=== PATIENT | female | born 1945 | race Caucasian/White ===

== ENCOUNTER → 2018-06-15 15:09 | Outpatient (CLI) | payer OTHER, SELFPAY ==
--- NOTE | 2018-06-15 15:15 | XR_ITS ---
XR foot RT min 3V HISTORY: Pain and swelling laterally following injury ITS.REASON: RT FOOT PAIN ORDERING PHYSICIAN: Annalee Garcia MD PATIENT AGE: 73 years COMPARISON: None FINDINGS: No acute fracture or dislocation. There is a mildly prominent bone spur of the calcaneus at 8 mm. Osteoarthritic changes are present at the first metatarsal tarsal joint. There is metatarsus varus with osteoarthritic changes of the second third and fourth metatarsal tarsal joints. IMPRESSION: 1. No acute fracture. 2. Osteoarthritic change with metatarsus varus
== END ==
PROVIDERS: PCP Family Medicine; Visit Provider Family Medicine
DX: M79.671 Pain in right foot (principal)
CPT/HCPCS: 73630

== ENCOUNTER → 2021-02-15 09:53 | Outpatient (CLI) | payer MEDICARE, SELFPAY ==
--- NOTE | 2021-02-15 09:59 | MM_ITS ---
PROCEDURE INFORMATION: Exam: MG Bilateral Screening 3D Mammography Exam date and time: 02/15/2021 9:59 AM Age: 75 years old Clinical indication: Screening mammogram TECHNIQUE: Imaging protocol: Bilateral screening tomosynthesis and 2D mammography including computer-aided detection (CAD) when performed. COMPARISON: No relevant prior studies available. FINDINGS: MAMMOGRAPHY: Breast composition: There are scattered areas of fibroglandular density. Mass: None. Architectural distortion: No new or suspicious architectural distortion. Calcifications: Stable benign-appearing calcifications are present. No new or suspicious cluster of microcalcifications have developed. Asymmetric density: No new or suspicious asymmetric density is present Skin thickening: None. Axillary adenopathy: None. IMPRESSION: No mammographic evidence of malignancy. Recommend annual screening mammography unless otherwise clinically indicated. ASSESSMENT: BI-RADS category 2: Benign
== END ==
PROVIDERS: PCP Family Medicine; Visit Provider Family Medicine
DX: Z12.31 Encounter for screening mammogram for malignant neoplasm of breast (principal)
CPT/HCPCS: 77063; 77067

== ENCOUNTER 2023-10-09 11:52 | Observation (INO) | payer MEDICARE, SELFPAY ==
[2023-10-09] VITALS (13 sets, daily range): BP systolic 125–166; BP diastolic 54–77; PULSE 73–101; RESP 13–20; TEMP 36.6–36.9; O2SAT 96–99; BMI 32.0; BMI 31.6
--- NOTE | 2023-10-09 11:59 | PC.NURSE ---
Calling TEREZA Garcia's office to obtain recent labs as pt states they were told to report to the ER d/t high potassium. Their office is faxing these results, states potassium is 6.2
--- NOTE | 2023-10-09 12:09 | ECG_ITS ---
APPROVED REPORT Exam: Resting ECG HR:77 bpm ECG Measurements Heart Rate 77 AXES FL 160 P 32 QRSd 82 QRS -23 QT 351 T 71 QTc 382 Conclusion SINUS RHYTHM WITH SINUS ARRHYTHMIA LOW QRS VOLTAGE [QRS DEFLECTION < 0.5/1.0 mV IN LIMB/CHEST LEADS] ANTEROSEPTAL MYOCARDIAL INFARCTION , OF INDETERMINATE AGE [40+ ms Q WAVE IN V1-V4] ABNORMAL ECG UNCONFIRMED REPORT Electronically signed by : NOEL IBANEZ, 10/09/2023 16:27:58
[2023-10-09 12:32] LABS: Alanine Aminotransferase 24 U/L (12-78); Albumin Level 4.6 g/dl (3.5-5.0); Albumin/Globulin Ratio 1.5 (1.1-1.8); Alkaline Phosphatase 63 U/L (38-126); Anion Gap 14.7 mEq/L (5-15); Aspartate Amino Transferase 29 U/L (14-36); Bilirubin,Total 0.5 mg/dl (0.2-1.3); Blood Urea Nitrogen 38 mg/dl (7-17); Calcium 9.4 mg/dl (8.4-10.2); Carbon Dioxide 19 mmol/L (22.0-30.0); Chloride 109 mmol/L (98-107); Creatinine Clearance Estimated 34 mL/min (50-200); Estimated Glomerular Filt Rate 29 ml/min (>60); GFR (African American) 35 ML/MIN (>60); Globulin 3.1 g/dL (1.3-3.2); Glucose 155 mg/dl (74-100); Potassium 5.7 mmoL/L (3.5-5.1); Sodium 137 mmol/L (136-145); Total Protein,Serum 7.7 g/dl (6.3-8.2)
[2023-10-09 12:34] LABS: Basophils # 0.1 K/mm3 (0-0.2); Basophils % 0.8 % (0.1-2.0); Eosinophils # 0.1 K/mm3 (0.0-0.4); Eosinophils % 1.3 % (0.1-12.0); Hematocrit 38.4 % (37.0-47.0); Hemoglobin 12.8 g/dL (12.2-16.2); Lymphocytes # 1.9 K/mm3 (0.7-4.5); Mean Corpuscular HGB Conc 33.3 g/dL (31.8-35.4); Mean Corpuscular Hemoglobin 32.1 pg (27.0-31.2); Mean Corpuscular Volume 96.3 fl (81-99); Mean Platelet Volume 8.3 fl (7.4-10.4); Monocytes # 0.3 K/mm3 (0.1-1.0); Monocytes % 4.6 % (1.7-9.3); Neutrophils % 63.3 % (37.0-80.0); Platelet Count 257 K/mm3 (142-424); Red Blood Count 3.99 M/mm3 (4.20-5.40); Red Cell Distribution Width 14.2 % (11.5-17.5); White Blood Count 6.3 K/mm3 (4.8-10.8)
[2023-10-09] MEDS: CALCIUM GLUC IN NACL, ISO-OSM 1 GM/50 ML BAG IV (13:09)
--- NOTE | 2023-10-09 13:21 | ED_ITS ---
Discharge Plan Disposition Patient Disposition: Admitted Condition: Fair Referrals Follow up/Referrals: Annalee Garcia MD [Primary Care Provider] - See instructions Clinical Impressions Clinical Impression: ISAÍAS (acute kidney injury), Hyperkalemia Discharge ED Provider: Anjum Giraldo General Adult HPI General Chief complaint: Recheck/Abnormal Lab/Rx Stated complaint: high potassium Time Seen by Provider: 10/09/23 12:22 Mode of Arrival: Wheelchair Source of Information: Patient Limitations: Physical Limitations Description of Symptoms (Recalled from ER Triage Doc. by RN): Dr. Simms office told her to have potassium checked History of Present Illness HPI narrative: 78-year-old female with past medical history significant for DM2, CVA, HTN, HLD, presents today for evaluation concerning hyperkalemia. Patient states that she had a blood drawn at her primary care physician's office and was called and told that her potassium was 6.2. Was told to present to the ED. She denies any nausea, vomiting, fevers, chills, chest pain, shortness of breath, diarrhea or any other associated symptoms at this time. Related Data Allergies Allergy/AdvReac Type Severity Reaction Status Date / Time No Known Allergies Allergy Verified 10/09/23 12:06 [facility] Disclaimer: The information contained in this section may have been updated after the patient was seen, as this information can be updated by other users. Social History (Updated 10/09/23 @ 16:08 by Luis Angel Yuen DO) Smoking Status: Never smoker alcohol intake: never current occupational status: retired Travel in the last 8 weeks: None ROS Obtained: Yes All systems reviewed & no additional complaints except as documented Physical Exam General General appearance: alert and in no apparent distress Head Head exam: atraumatic and normocephalic Eye Eye exam: Present normal appearance, PERRL and EOMI ENT ENT exam: Present normal oropharynx and mucous membranes moist Neck Neck exam: Present full ROM; Absent meningismus Respiratory Respiratory exam: Absent respiratory distress, wheezes, stridor or accessory muscle use Cardiovascular Cardiovascular exam: Present normal rhythm Abdominal Exam Abdominal exam: Present soft; Absent distention, tenderness, guarding, rebound or rigidity Neurological Exam Neurological exam: Present alert, oriented X3 and CN II-XII intact; Absent motor sensory deficit Psychiatric Psychiatric exam: Present normal affect and normal mood Skin Skin exam: Present warm and dry Medical Decision Making Medical Records Medical records reviewed: Yes I reviewed the patient's medical records. Nicola Inquiry Pt receiving controlled substance: No Nicola was queried for this patient: No Vital Signs: 10/09/23 11:54 10/09/23 13:00 10/09/23 13:30 Temperature 98.4 F Temperature Source Oral Pulse Rate 78 Pulse Rate [Right] 84 Respiratory Rate 18 20 Blood Pressure 131/64 149/64 H Blood Pressure [Right Arm] 164/77 H Blood Pressure Mean 86 Blood Pressure Mean [Right Arm] 106 02 Sat by Pulse Oximetry 96 99 Oxygen Delivery Method Room Air 10/09/23 14:00 10/09/23 14:30 10/09/23 15:00 Temperature Temperature Source Pulse Rate 75 76 73 Pulse Rate [Right] Respiratory Rate 15 14 17 Blood Pressure 156/64 H 156/70 H 142/60 H Blood Pressure [Right Arm] Blood Pressure Mean 94 98 96 Blood Pressure Mean [Right Arm] 02 Sat by Pulse Oximetry 97 99 97 Oxygen Delivery Method Lab Data Lab Results 10/09/23 12:04: WBC 6.3, RBC 3.99 L, Hgb 12.8, Hct 38.4, MCV 96.3, MCH 32.1 H, MCHC 33.3, RDW 14.2, Plt Count 257, MPV 8.3, Neut % (Auto) 63.3, Lymph % (Auto) 30.0, [place] % (Auto) 4.6, Eos % (Auto) 1.3, Baso % (Auto) 0.8, Neut # (Auto) 4.0, Lymph # (Auto) 1.9, [place] # (Auto) 0.3, Eos # (Auto) 0.1, Baso # (Auto) 0.1, Sodium 137, Potassium 5.7 H, Chloride 109 H, Carbon Dioxide 19 L, Anion Gap 14.7, BUN 38 H, Creatinine 1.70 H, Estimated Creat Clear 34, Estimated GFR 29 L, Est GFR ( Amer) 35 L, Glucose 155 H, Calcium 9.4, Total Bilirubin 0.5, AST 29, ALT 24, Alkaline Phosphatase 63, Total Protein 7.7, Albumin 4.6, Globulin 3.1, Albumin/Globulin Ratio 1.5 10/09/23 15:11: Potassium 6.6 H* 10/09/23 15:55: Sodium 138, Potassium 6.2 H*, Chloride 113 H, Carbon Dioxide 20 L, Anion Gap 11.2, BUN 37 H, Creatinine 1.70 H, Estimated Creat Clear 34, E stimated GFR 29 L, Est GFR ( Amer) 35 L, Glucose 86 D, Calcium 9.7 10/09/23 12:04 10/09/23 15:55 Orders (Tests/Meds): ED MEDICATIONS Generic Name Dose Route Start Last Admin Trade Name Freq PRN Reason Stop Dose Admin Lactated Ringer's 1,000 mls @ 999 mls/hr 10/09/23 15:44 Lactated Ringer's 1000 Ml Bag IV 10/09/23 16:44 .Q1H1M ONE Sodium Chloride 10 ml 10/09/23 12:06 Sodium Chloride 0.9% 10ml Flush Syringe IV 11/08/23 12:05 NEEDED PRN Maintain IV Site Discontinued Medications Generic Name Dose Route Start Last Admin Trade Name Freq PRN Reason Stop Dose Admin Dextrose 50 ml 10/09/23 15:44 Dextrose 50% 50ml Syringe (Crash Cart) IVP 10/09/23 15:45 ONCE ONE Calcium Gluconate/Sodium Chloride 1 gm in 50 mls @ 50 mls/hr 10/09/23 13:03 10/09/23 13:09 Calcium Gluconate 1,000mg/50ml Nacl Premix IV 10/09/23 14:02 50 mls/hr ONCE ONE Administration Insulin Human Regular 8 unit 10/09/23 15:44 Insulin Human Regular 100 Units/Ml 10ml Vial 0.1 unit/kg (8 unit) 10/09/23 15:45 IV ONCE ONE Sodium Zirconium Cyclosilicate 10 gm 10/09/23 16:15 10/09/23 16:03 Lokelma 5gm Packet PO 10/09/23 16:16 10 gm ONCE ONE Administration ORDERS Category Date Time Status BMP [Basic Metabolic Panel] Stat Lab 10/09/23 15:55 Completed Complete Blood Count Auto Diff Stat Lab 10/09/23 12:04 Completed Comprehensive Metabolic Panel Stat Lab 10/09/23 12:04 Completed Potassium Stat Lab 10/09/23 15:11 Completed Medical Decision Narrative: 78-year-old female with past medical history significant for DM2, CVA, HTN, HLD, presents today for evaluation concerning hyperkalemia. Patient states that she had a blood drawn at her primary care physician's office and was called and told that her potassium was 6.2. Was told to present to the ED. On assessment she was hemodynamically stable and in no acute distress. Afebrile. Chest clear to station bilaterally. Abdomen soft nondistended and nontender to palpation. Other physical exam findings unremarkable. Differential diagnoses include but limited to hyperkalemia, other electrolyte disturbance, among others. EKG was ordered and personally interpreted by me and was remarkable for sinus rhythm with sinus arrhythmia with a rate of 77 bpm. No ischemic changes or peaked T waves noted. Patient's labs today were remarkable for an initial potassium of 5.7. Creatinine was elevated at 1.7. Glucose 155. I did give patient 1 g of calcium gluconate. Repeat potassium was noted to be 6.6. I did order a repeat EKG at this time and it was with sinus rhythm with sinus arrhythmia with a rate of 71 bpm. No ischemic changes or peaked T waves. At this time I did order for a repeat BMP to assess the validity of patient's potassium. Also ordered for Lokelma and 1 L of LR. I discussed ED workup and results as well as current plan to admit for ISAÍAS and hyperkalemia with patient/. They were agreeable. I did consult with hospital medicine and discussed management and admission was accepted pending repeat BMP with potassium level. Repeat BMP has resulted and creatinine remains 1.7. Her potassium is 6.2. I have ordered for insulin and dextrose to assist with bringing her potassium levels down. Hospital medicine was updated in regards to patient's repeat BMP with potassium level. Admission to septic Critical Care Critical Care Time Critical Care Time: No
--- NOTE | 2023-10-09 15:12 | PC.NURSE ---
Potassium recheck sent to lab.
[2023-10-09 15:35] LABS: Potassium 6.6 mmoL/L (3.5-5.1)
--- NOTE | 2023-10-09 15:39 | ECG_ITS ---
APPROVED REPORT Exam: Resting ECG HR:71 bpm ECG Measurements Heart Rate 71 AXES [place] 163 P 42 QRSd 78 QRS -24 QT 352 T 64 QTc 375 Conclusion SINUS RHYTHM WITH SINUS ARRHYTHMIA Old anteroseptal PR with Q waves Electronically signed by : TRE PAN, 10/09/2023 22:18:15
--- NOTE | 2023-10-09 15:40 | PC.NURSE ---
K+ 6.[address] Yuen.
[2023-10-09] MEDS: LOKELMA 5GM PACKET 10 GM PO (16:03)
[2023-10-09 16:11] LABS: Chloride 113 mmol/L (98-107); Sodium 138 mmol/L (136-145)
[2023-10-09 16:14] LABS: Anion Gap 11.2 mEq/L (5-15); Blood Urea Nitrogen 37 mg/dl (7-17); Calcium 9.7 mg/dl (8.4-10.2); Carbon Dioxide 20 mmol/L (22.0-30.0); Creatinine Clearance Estimated 34 mL/min (50-200); Estimated Glomerular Filt Rate 29 ml/min (>60); GFR (African American) 35 ML/MIN (>60); Glucose 86 mg/dl (74-100)
[2023-10-09 16:18] LABS: Potassium 6.2 mmoL/L (3.5-5.1)
[2023-10-09] MEDS: INSULIN HUMAN REGULAR 100 UNITS/ML 10ML VIAL 8 UNIT IV (16:34)
[2023-10-09] MEDS: DEXTROSE 50% 50ML SYRINGE (CRASH CART) 50 ML IVP (16:34)
[2023-10-09] MEDS: LACTATED RINGERS 1000ML 1,000 ML 999 ML IV (16:34)
--- NOTE | 2023-10-09 16:44 | PC.NURSE ---
Called for bed assignment and called for a tray for the patient.
--- NOTE | 2023-10-09 16:54 | PC.NURSE ---
Report called to PASCALE Wills on Med Surg.
--- NOTE | 2023-10-09 17:04 | PC.NURSE ---
arrived by w/c from ED
--- NOTE | 2023-10-09 17:33 | EXP.HP ---
History of Present Illness *Reason for visit:: Elevated potassium level at PCP appointment *History of present illness: Patient with past medical history of diabetes, hypertension presents from PCP appointment with elevated potassium level. Patient's potassium level above 6 at PCP appointment so patient sent to the hospital. Patient totally asymptomatic denying chest pain, shortness of breath, coughing, abdominal pain, diarrhea, constipation, melena, hematochezia, hematemesis, coffee-ground emesis, fevers, chills, known sick contacts, recent travel, dysuria. Patient does states she suffers from renal issues, managed by her primary care physician. 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 Denies ever needing dialysis. States she suffered from diarrhea Thursday and Thursday which self resolved. Patient's present with patient and collaborates the story. [facility] Disclaimer: The information contained in this section may have been updated after the patient was seen, as this information can be updated by other users. Medical History (Updated 10/09/23 @ 17:27 by Yolie Pavon RN) CVA (cerebral vascular accident) Diabetes mellitus, type 2 HTN (hypertension) HLD (hyperlipidemia) Surgical History (Updated 10/09/23 @ 17:28 by Yolie Pavon RN) H/O tubal ligation Family History (Updated 10/09/23 @ 17:27 by Yolie Pavon RN) Other No significant family history Social History (Updated 10/09/23 @ 17:29 by Yolie Pavon RN) Smoking Status: Never smoker alcohol intake: never current occupational status: retired Travel in the last 8 weeks: None Review of Systems Review of Systems Review of systems:: pertinent systems reviewed and negative unless documented below Meds Home Medications and Allergies Home Medications Medication Instructions Recorded Confirmed Type amlodipine 10 mg tablet 10 mg PO DAILY 10/09/23 10/09/23 History aspirin 81 mg tablet 81 mg PO DAILY 10/09/23 10/09/23 History glipizide 2.5 mg tablet 2.5 mg PO DAILY 10/09/23 10/09/23 History hydrochlorothiazide 12.5 mg tablet 12.5 mg PO BID 10/09/23 10/09/23 History metformin 500 mg tablet 500 mg PO BID 10/09/23 10/09/23 History ramipril 5 mg tablet 5 mg PO DAILY 10/09/23 10/09/23 History New Prescriptions to Start Prescriptions: Allergies Allergy/AdvReac Type Severity Reaction Status Date / Time No Known Allergies Allergy Verified 10/09/23 12:06 Exam Data for Last 24 hours Vital signs and Labs for Last 24 Hours: Temp Pulse Resp BP Pulse Ox O2 Del Method 98.0 F 79 18 166/57 H 99 Room Air 10/09/23 17:06 10/09/23 17:06 10/09/23 17:06 10/09/23 17:06 10/09/23 16:30 10/09/23 17:06 Laboratory Results - last 24 hr 10/09/23 12:04: WBC 6.3, RBC 3.99 L, Hgb 12.8, Hct 38.4, MCV 96.3, MCH 32.1 H, MCHC 33.3, RDW 14.2, Plt Count 257, MPV 8.3, Neut % (Auto) 63.3, Lymph % (Auto) 30.0, [place] % (Auto) 4.6, Eos % (Auto) 1.3, Baso % (Auto) 0.8, Neut # (Auto) 4.0, Lymph # (Auto) 1.9, [place] # (Auto) 0.3, Eos # (Auto) 0.1, Baso # (Auto) 0.1, Sodium 137, Potassium 5.7 H, Chloride 109 H, Carbon Dioxide 19 L, Anion Gap 14.7, BUN 38 H, Creatinine 1.70 H, Estimated Creat Clear 34, Estimated GFR 29 L, Est GFR ( Amer) 35 L, Glucose 155 H, Calcium 9.4, Total Bilirubin 0.5, AST 29, ALT 24, Alkaline Phosphatase 63, Total Protein 7.7, Albumin 4.6, Globulin 3.1, Albumin/Globulin Ratio 1.5 10/09/23 15:11: Potassium 6.6 H* 10/09/23 15:55: Sodium 138, Potassium 6.2 H*, Chloride 113 H, Carbon Dioxide 20 L, Anion Gap 11.2, BUN 37 H, Creatinine 1.70 H, Estimated Creat Clear 34, Estimated GFR 29 L, Est GFR ( Amer) 35 L, Glucose 86 D, Calcium 9.7 I & O for Last 24 hours: Intake & Output 10/06/23 10/07/23 10/08/23 10/09/23 23:59 23:59 23:59 23:59 Weight 79.379 kg *Routine HEENT Exam Head: Present normocephalic Eye: Present EOMI and normal accommodation ENT: Present mucous membranes moist *Routine Neck Exam Neck: Present supple and full ROM *Routine Respiratory Exam Respiratory: Present CTA bilaterally *Routine Cardiovascular Exam Cardiovascular: Present RRR, Normal S1 and Normal S2 *Routine Abdominal Exam Abdominal: Present soft and normoactive bowel sounds *Routine Rectal Exam Rectal:: deferred *Routine Genitalia Exam Genitalia:: deferred *Routine Extremities Exam Extremities: Present full ROM and normal capillary refill *Routine Skin Exam Skin: Present intact and warm *Routine Neurological Exam Neurological: Present alert and normal reflexes Assessment and Plan *Assessment and plan (1) Hyperkalemia: Status: Acute Category: Medical Code(s): E87.5 - Hyperkalemia (2) ISAÍAS (acute kidney injury): Status: Acute Category: Medical Code(s): N17.9 - Acute kidney failure, unspecified Plan Hyperkalemia possibly due to ISAÍAS: ? Gentle hydration during hospitalization. Ordered labs to analyze fractional excretion of sodium(FENa). Renal ultrasound looking for postrenal ISAÍAS. No nephrology currently available at this institution. Patient given calcium gluconate, IV insulin, glucose in emergency room. Will recheck potassium overnight. Will write for additional Lokelma in a.m. Wrote for 50 mill equivalents of sodium bicarb x 1. Monitor patient on telemetry. ISAÍAS: Gentle hydration during hospitalization Diabetes: Sign scale insulin, ACH S Accu-Cheks Hypertension continue home medications plus as needed IV hydralazine if needed PPx: Heparin subcutaneous CODE STATUS full FEN: Renal
[2023-10-09] MEDS: 0.9 % SODIUM CHLORIDE 1000ML 1,000 ML 120 ML IV (17:56)
[2023-10-09] MEDS: SODIUM BICARB 8.4% 50ML SYRINGE (CRASH CART) 50 MEQ IV (17:56)
[2023-10-09] MEDS: HEPARIN SODIUM 5,000 UNIT/ML VIAL 5000 UNIT SQ (17:57)
[2023-10-09 18:26] LABS: POC Glucose,Bedside 206 (70-110)
[2023-10-09] MEDS: ISOSORBIDE MONO 60MG TAB.ER.24H 60 MG PO (18:30)
[2023-10-09] MEDS: humaLOG 100 UNITS/ML 10ML VIAL (SSI) SQ (20:13)
[2023-10-09 22:07] LABS: POC Glucose,Bedside 204 (70-110)
[2023-10-10] VITALS: BP 107/46; PULSE 82; PULSE 90; RESP 18; TEMP 37.1; O2SAT 95
[2023-10-10] MEDS: 0.9 % SODIUM CHLORIDE 1000ML 1,000 ML 120 ML IV (01:49)
[2023-10-10] MEDS: HEPARIN SODIUM 5,000 UNIT/ML VIAL 5000 UNIT SQ ×2 (01:49→09:05)
[2023-10-10 04:00] VITALS: BP 111/51; PULSE 80; PULSE 88; RESP 18; TEMP 36.8; O2SAT 95; BMI 32.8
--- NOTE | 2023-10-10 04:58 | PC.NURSE ---
Patient has had a good night tonight. Has not slept a ton. she states it is because it is not her own bed. She has had no complaints of pain. She has been up to the bathroom multiple times with x1 assist with the walker. No new changes
[2023-10-10 05:45] LABS: POC Glucose,Bedside 95 (70-110)
[2023-10-10 08:00] VITALS: BP 125/57; PULSE 89; PULSE 90; RESP 18; TEMP 36.7; O2SAT 96
[2023-10-10 08:00] LABS: Eosinophils # 0.1 K/mm3 (0.0-0.4); Lymphocytes # 1.5 K/mm3 (0.7-4.5); Mean Corpuscular Hemoglobin 32.3 pg (27.0-31.2); Mean Corpuscular Volume 96.7 fl (81-99); Neutrophils # 2.9 K/mm3 (1.8-7.8); Red Cell Distribution Width 14.2 % (11.5-17.5)
[2023-10-10 08:08] LABS: Basophils % 0.6 % (0.1-2.0); Eosinophils % 1.4 % (0.1-12.0); Hematocrit 31.3 % (37.0-47.0); Hemoglobin 10.4 g/dL (12.2-16.2); Lymphocytes % 31.7 % (10-50); Mean Corpuscular HGB Conc 33.3 g/dL (31.8-35.4); Monocytes # 0.3 K/mm3 (0.1-1.0); Monocytes % 6.1 % (1.7-9.3); Neutrophils % 60.2 % (37.0-80.0); Platelet Count 181 K/mm3 (142-424); Red Blood Count 3.23 M/mm3 (4.20-5.40); White Blood Count 4.8 K/mm3 (4.8-10.8)
--- NOTE | 2023-10-10 08:42 | HMH.PHAINT1 ---
Pharmacy Intervention Comments: MEDICATION RECONCILIATION COMPLETE USING RX BOTTLES AND EXTERNAL PHARMACY FILL HISTORY.
[2023-10-10 08:59] LABS: Anion Gap 9.1 mEq/L (5-15); Blood Urea Nitrogen 30 mg/dl (7-17); Calcium 8.6 mg/dl (8.4-10.2); Carbon Dioxide 21 mmol/L (22.0-30.0); Chloride 114 mmol/L (98-107); Creatinine Clearance Estimated 42 mL/min (50-200); Estimated Glomerular Filt Rate 36 ml/min (>60); GFR (African American) 44 ML/MIN (>60); Glucose 90 mg/dl (74-100); Magnesium 1.3 mg/dl (1.6-2.3); Potassium 5.1 mmoL/L (3.5-5.1); Sodium 139 mmol/L (136-145)
[2023-10-10] MEDS: ISOSORBIDE MONO 60MG TAB.ER.24H 60 MG PO (09:04)
[2023-10-10] MEDS: DOCUSATE SODIUM 100 MG CAPSULE PO (09:04)
[2023-10-10] MEDS: PT OWN MED *AMLODIPINE 5 MG TAB 1 EACH PO (09:05)
[2023-10-10] MEDS: ASPIRIN 1 EACH PO (09:05)
--- NOTE | 2023-10-10 10:27 | EXP.DC.SUM ---
General Admission date:: 10/09/23 Discharge date: 10/10/23 HPI HPI HPI: Patient with past medical history of diabetes, hypertension presents from PCP appointment with elevated potassium level. Patient's potassium level above 6 at PCP appointment so patient sent to the hospital. Patient totally asymptomatic denying chest pain, shortness of breath, coughing, abdominal pain, diarrhea, constipation, melena, hematochezia, hematemesis, coffee-ground emesis, fevers, chills, known sick contacts, recent travel, dysuria. Patient does states she suffers from renal issues, managed by her primary care physician. Denies ever seeing a fiber picker. Denies ever needing dialysis. States she suffered from diarrhea Thursday and Thursday which self resolved. Patient's present with patient and collaborates the story. Hospital Course Hospital Course Hospital Course: The patient was admitted to the telemetry unit and her home thiazide diuretic, DESTINY inhibitor and aldosterone antagonist therapy were held. She underwent routine blood pressure monitoring with an increased dose of her home dihydropyridine calcium channel reggie therapy and added long-acting nitrate. Her blood pressures remained stable. Laboratory studies were assessed and trended identifying a resolved hyperkalemia and improved creatinine. Her was present on day of discharge and I was accompanied by her nurse Johann. We discussed her home antihypertensives and we recommended to hold her hydrochlorothiazide, ramipril and spironolactone until follow-up with her PCP in 1 week. She will continue an increased dose of her amlodipine with added Imdur. She understands the importance of daily blood pressure monitoring and recording for PCP follow-up. I spent 35 minutes in [id number] time with the patient, at bedside and nursing staff (Johann) concerning the discharge process. We discussed the admitting diagnoses and hospital course. We discussed identified improvement and the patient's desire to be discharged. We reviewed inpatient studies and improvement noted. The patient voiced understanding on the importance of follow-up with her primary care provider in 1 week. The patient plans to be compliant with the medication regimen prescribed and follow-up appointments. She understands that she can return to the emergency department with any sudden changes or concerns. Exam Data for Last 24 hours Vital signs and Labs for Last 24 Hours: Temp Pulse Resp BP Pulse Ox O2 Del Method 98.0 F 89 18 125/57 L 96 Room Air 10/10/23 08:00 10/10/23 08:00 10/10/23 08:00 10/10/23 08:00 10/10/23 08:00 10/10/23 08:00 Laboratory Results - last 24 hr 10/09/23 12:04: WBC 6.3, RBC 3.99 L, Hgb 12.8, Hct 38.4, MCV 96.3, MCH 32.1 H, MCHC 33.3, RDW 14.2, Plt Count 257, MPV 8.3, Neut % (Auto) 63.3, Lymph % (Auto) 30.0, [place] % (Auto) 4.6, Eos % (Auto) 1.3, Baso % (Auto) 0.8, Neut # (Auto) 4.0, Lymph # (Auto) 1.9, [place] # (Auto) 0.3, Eos # (Auto) 0.1, Baso # (Auto) 0.1, Sodium 137, Potassium 5.7 H, Chloride 109 H, Carbon Dioxide 19 L, Anion Gap 14.7, BUN 38 H, Creatinine 1.70 H, Estimated Creat Clear 34, Estimated GFR 29 L, Est GFR ( Amer) 35 L, Glucose 155 H, Calcium 9.4, Total Bilirubin 0.5, AST 29, ALT 24, Alkaline Phosphatase 63, Total Protein 7.7, Albumin 4.6, Globulin 3.1, Albumin/Globulin Ratio 1.5 10/09/23 15:11: Potassium 6.6 H* 10/09/23 15:55: Sodium 138, Potassium 6.2 H*, Chloride 113 H, Carbon Dioxide 20 L, Anion Gap 11.2, BUN 37 H, Creatinine 1.70 H, Estimated Creat Clear 34, Estimated GFR 29 L, Est GFR ( Amer) 35 L, Glucose 86 D, Calcium 9.7 10/09/23 18:16: POC Glucose 206 H 10/09/23 20:09: POC Glucose 204 H 10/10/23 05:28: POC Glucose 95 10/10/23 06:37: WBC 4.8, RBC 3.23 L, Hgb 10.4 L D, Hct 31.3 L, MCV 96.7, MCH 32.3 H, MCHC 33.3, RDW 14.2, Plt Count 181 D, MPV 8.0, Neut % (Auto) 60.2, Lymph % (Auto) 31.7, [place] % (Auto) 6.1, Eos % (Auto) 1.4, Baso % (Auto) 0.6, Neut # (Auto) 2.9, Lymph # (Auto) 1.5, [place] # (Auto) 0.3, Eos # (Auto) 0.1, Baso # (Auto) 0.0, Sodium 139, Potassium 5.1, Chloride 114 H, Carbon Dioxide 21 L, Anion Gap 9.1, BUN 30 H, Creatinine 1.40 H, Estimated Creat Clear 42, Estimated GFR 36 L, Est GFR ( Amer) 44 L D, Glucose 90, Calcium 8.6, Magnesium 1.3 L I & O for Last 24 hours: Intake & Output 10/07/23 10/08/23 10/09/23 10/10/23 23:59 23:59 23:59 23:59 Intake Total 240 / 340 340 / 340 Output Total 0 / 0 0 / 0 Balance 240 / 340 340 / 340 Weight 78.154 kg 80.921 kg Constitutional Constitutional: no acute distress and cooperative *Routine HEENT Exam Head: Present normocephalic *Routine Neck Exam Neck: Absent lymphadenopathy *Routine Respiratory Exam Respiratory: Present CTA bilaterally, normal respiratory effort and symmetric chest movement *Routine Cardiovascular Exam Cardiovascular: Present RRR *Routine Abdominal Exam Abdominal: Absent tenderness *Routine Extremities Exam Extremities: Absent edema *Routine Skin Exam Skin: Absent rash *Routine Neurological Exam Neurological: Present alert, oriented X3, moving all extremities, vision grossly intact, hearing grossly intact and normal speech Routine Psychiatric Exam Psychiatric: Present normal affect, normal thought process, cooperative, good insight and good judgment Results Data Completed and Pending Labs on day of discharge: Labs from last 24 hours 10/10/23 10/10/23 10/09/23 06:37 05:28 20:09 WBC 4.8 RBC 3.23 L Hgb 10.4 L D Hct 31.3 L MCV 96.7 MCH 32.3 H MCHC 33.3 RDW 14.2 Plt Count 181 D MPV 8.0 Neut % (Auto) 60.2 Lymph % (Auto) 31.7 [place] % (Auto) 6.1 Eos % (Auto) 1.4 Baso % (Auto) 0.6 Neut # (Auto) 2.9 Lymph # (Auto) 1.5 [place] # (Auto) 0.3 Eos # (Auto) 0.1 Baso # (Auto) 0.0 Sodium 139 Potassium 5.1 Chloride 114 H Carbon Dioxide 21 L Anion Gap 9.1 BUN 30 H Creatinine 1.40 H Estimated Creat Clear 42 Estimated GFR 36 L Est GFR ( Amer) 44 L D Glucose 90 POC Glucose 95 204 H Calcium 8.6 Magnesium 1.3 L Total Bilirubin AST ALT Alkaline Phosphatase Total Protein Albumin Globulin Albumin/Globulin Ratio 10/09/23 10/09/23 10/09/23 18:16 15:55 15:11 WBC RBC Hgb Hct MCV MCH MCHC RDW Plt Count MPV Neut % (Auto) Lymph % (Auto) [place] % (Auto) Eos % (Auto) Baso % (Auto) Neut # (Auto) Lymph # (Auto) [place] # (Auto) Eos # (Auto) Baso # (Auto) Sodium 138 Potassium 6.2 H* 6.6 H* Chloride 113 H Carbon Dioxide 20 L Anion Gap 11.2 BUN 37 H Creatinine 1.70 H Estimated Creat Clear 34 Estimated GFR 29 L Est GFR ( Amer) 35 L Glucose 86 D POC Glucose 206 H Calcium 9.7 Magnesium Total Bilirubin AST ALT Alkaline Phosphatase Total Protein Albumin Globulin Albumin/Globulin Ratio 10/09/23 12:04 WBC 6.3 RBC 3.99 L Hgb 12.8 Hct 38.4 MCV 96.3 MCH 32.1 H MCHC 33.3 RDW 14.2 Plt Count 257 MPV 8.3 Neut % (Auto) 63.3 Lymph % (Auto) 30.0 [place] % (Auto) 4.6 Eos % (Auto) 1.3 Baso % (Auto) 0.8 Neut # (Auto) 4.0 Lymph # (Auto) 1.9 [place] # (Auto) 0.3 Eos # (Auto) 0.1 Baso # (Auto) 0.1 Sodium 137 Potassium 5.7 H Chloride 109 H Carbon Dioxide 19 L Anion Gap 14.7 BUN 38 H Creatinine 1.70 H Estimated Creat Clear 34 Estimated GFR 29 L Est GFR ( Amer) 35 L Glucose 155 H POC Glucose Calcium 9.4 Magnesium Total Bilirubin 0.5 AST 29 ALT 24 Alkaline Phosphatase 63 Total Protein 7.7 Albumin 4.6 Globulin 3.1 Albumin/Globulin Ratio 1.5 DS: Diagnosis Discharge Diagnosis (1) Hyperkalemia: Status: Acute Code(s): E87.5 - Hyperkalemia (2) ISAÍAS (acute kidney injury): Status: Acute Code(s): N17.9 - Acute kidney failure, unspecified Meds Home Medications and Allergies Home Medications Medication Instructions Recorded Confirmed Type aspirin 81 mg tablet 81 mg PO DAILY 10/09/23 10/09/23 History amlodipine 10 mg tablet 10 mg PO DAILY #30 tabs 10/10/23 Rx glipizide 5 mg tablet 5 mg PO BIDWMEAL 10/10/23 10/10/23 History isosorbide mononitrate 60 mg 60 mg PO DAILY #30 tabs 10/10/23 Rx tablet,extended release 24 hr loratadine 10 mg tablet 10 mg PO DAILY 10/10/23 10/10/23 History simvastatin 40 mg tablet 40 mg PO HS 10/10/23 10/10/23 History New Prescriptions to Start Prescriptions: amlodipine Emeric,Nomi isosorbide mononitrate Emeric,Nomi Allergies Allergy/AdvReac Type Severity Reaction Status Date / Time No Known Allergies Allergy Verified 10/09/23 12:06 Discharge Plan Disposition Patient Disposition: Home, Self-Care Condition: Fair Follow up Plan Follow up with: Annalee Garcia MD [Primary Care Provider] - 1 week (Please call to make a follow up appt. ) Prescriptions/Medication Reconciliation: New isosorbide mononitrate 60 mg Tablet Extended Release 24 Hr 60 mg PO DAILY Qty: 30 0RF amlodipine 10 mg Tablet 10 mg PO DAILY Qty: 30 0RF Continued aspirin 81 mg Tablet 81 mg PO DAILY simvastatin 40 mg tablet 40 mg PO HS loratadine 10 mg Tablet 10 mg PO DAILY glipizide 5 mg tablet 5 mg PO BIDWMEAL Discontinued ramipril 5 mg Tablet 5 mg PO DAILY amlodipine 5 mg tablet 5 mg PO DAILY Patient Comments: TAKE 1 TABLET BY MOUTH EVERY DAY hydrochlorothiazide 25 mg tablet 50 mg PO DAILY spironolactone 50 mg tablet 50 mg PO DAILY Problem Reconciliation Problems Reviewed?: Yes Patient Discharge Instructions ACTIVITY: Continue current activity DIET: cardiac Patient Instructions: Acute Kidney Injury, Hyperkalemia Providers Primary Care Provider: Annalee Garcia Admit Provider: Chace Gray Attending Provider: Chace Gray
--- NOTE | 2023-10-12 13:53 | CARE MANAGER ---
Contacted patient related to hospital discharge. She states she is doing well. She is aware of new medicine and medication changes, but we reviewed them. She also has an appointment with Dr. Garcia tomorrow. Denies questions or concerns at this time. PASCALE Boswell
== END 2023-10-10 11:19 | disposition home or self-care (01) ==
LOC: ER 16:08 → 2ND 17:08
PROVIDERS: Emergency Medicine; Admitting Provider Internal Medicine; Emergency Provider Emergency Medicine; PCP Family Medicine; Visit Provider Internal Medicine
DX: E87.5 Hyperkalemia (principal); N17.9 Acute kidney failure, unspecified; Z79.899 Other long term (current) drug therapy; I10 Essential (primary) hypertension; E11.9 Type 2 diabetes mellitus without complications; E78.5 Hyperlipidemia, unspecified
CPT/HCPCS: 36415; 80048; 80053; 82962; 83735; 84132; 85025; 93005; 99285; G0378; J1644; J7120

== ENCOUNTER 2023-10-30 10:02 | Inpatient (IN) | payer MEDICARE, SELFPAY ==
[2023-10-30] VITALS (20 sets, daily range): BP systolic 140–179; BP diastolic 65–79; PULSE 97–120; RESP 16–20; TEMP 36.3–37; O2SAT 79–96; BMI 34.4; BMI 33.3; BMI 34.5
--- NOTE | 2023-10-30 10:09 | ECG_ITS ---
APPROVED REPORT Exam: Resting ECG HR:116 bpm ECG Measurements Heart Rate 116 AXES ND 156 P 69 QRSd 78 QRS 2 QT 302 T 77 QTc 371 Conclusion Sinus tachycardia Low voltage QRS Electronically signed by : TRE PAN, 10/30/2023 13:24:19
--- NOTE | 2023-10-30 10:13 | XR_ITS ---
FINAL REPORT CLINICAL HISTORY: SOA,cough FINDINGS: TWO-VIEW CHEST There is mild cardiomegaly. The mediastinum is normal. There is patchy airspace opacity in the lung bases, right greater than left. Small effusions are identified. There is no pneumothorax. IMPRESSION: Airspace opacities and small effusions, may represent pneumonia versus edema. Reviewed, Interpreted and Dictated by Lloyd Sanchez MD Transcribed by Carleen Adamson Authenticated and [facility]
--- NOTE | 2023-10-30 10:17 | PC.NURSE ---
Radiology taking pt for chest xray
[2023-10-30 10:27] LABS: Basophils % 0.4 % (0.1-2.0); Eosinophils # 0.1 K/mm3 (0.0-0.4); Eosinophils % 0.8 % (0.1-12.0); Hematocrit 34.1 % (37.0-47.0); Lymphocytes # 0.9 K/mm3 (0.7-4.5); Lymphocytes % 8.5 % (10-50); Mean Corpuscular HGB Conc 32.4 g/dL (31.8-35.4); Mean Corpuscular Hemoglobin 31.4 pg (27.0-31.2); Mean Corpuscular Volume 97.1 fl (81-99); Mean Platelet Volume 8.2 fl (7.4-10.4); Monocytes # 0.5 K/mm3 (0.1-1.0); Monocytes % 4.6 % (1.7-9.3); Neutrophils # 9.3 K/mm3 (1.8-7.8); Neutrophils % 85.7 % (37.0-80.0); Platelet Count 349 K/mm3 (142-424); Red Blood Count 3.51 M/mm3 (4.20-5.40); White Blood Count 10.9 K/mm3 (4.8-10.8)
[2023-10-30 10:39] LABS: Alanine Aminotransferase 31 U/L (12-78); Albumin Level 3.9 g/dl (3.5-5.0); Albumin/Globulin Ratio 1.3 (1.1-1.8); Alkaline Phosphatase 66 U/L (38-126); Anion Gap 15.9 mEq/L (5-15); Aspartate Amino Transferase 25 U/L (14-36); Bilirubin,Total 0.6 mg/dl (0.2-1.3); Blood Urea Nitrogen 31 mg/dl (7-17); Calcium 9.1 mg/dl (8.4-10.2); Carbon Dioxide 20 mmol/L (22.0-30.0); Chloride 106 mmol/L (98-107); Creatinine Clearance Estimated 40 mL/min (50-200); Estimated Glomerular Filt Rate 33 ml/min (>60); GFR (African American) 41 ML/MIN (>60); Globulin 3.1 g/dL (1.3-3.2); Glucose 362 mg/dl (74-100); Potassium 3.9 mmoL/L (3.5-5.1); Sodium 138 mmol/L (136-145)
--- NOTE | 2023-10-30 10:41 | HMH.EDCP ---
Discharge Plan Disposition Patient Disposition: Admitted Clinical Impressions Clinical Impression: CHF exacerbation, Acute hypoxemic respiratory failure Discharge ED Provider: Anjum Giraldo General Chief Complaint: Shortness of Breath/Dyspnea Stated Complaint: SOA Time Seen by Provider: 10/30/23 10:17 Mode of Arrival: Wheelchair Source of Information: Patient and Significant Other Limitations: No Limitations Description of Symptoms (Recalled from ER Triage Doc. by RN): pt c/o SOA ongoing since yesterday. However, pt was seen by her PCP Thursday for a wet cough and diarrhea. pt was sent an albuteral inhaler, augmentin, and steroids. pt reports low oxygen saturation at home. pt presents with BLE: R2+ and L3+ pt reports she was admitted 3wks ago for hyperkalemia. Pt was taken off her two diurectic medications at this time. Her reports in a 3wk period she has a 10L weight gain. pts RA saturation was 79% when placed on 4LNC and came up to 93% History of Present Illness HPI narrative: Please note that above description of symptoms, in this electronic medical record under categorization of recalled from ER triage doctor by RN are reflective of an initial nursing assessment, however, is not reflective of my full history and physical exam that was personally taken and clarified. Consequentially, this preceding description of symptoms, which may include the patient's categorized chief complaint in the EMR, do not reflect my personal clinical impression, and the ultimate description of history of present illness and patient stated complaints should be deferred to this section of the note. Unless stated otherwise or congruent with this section of the note, additional signs, symptoms, or incongruence should be interpreted as inaccurate with my clinical impression. Related Data Home Medications ?Medication ?Instructions ?Recorded ?Confirmed aspirin 81 mg tablet 81 mg PO DAILY 10/09/23 10/09/23 glipizide 5 mg tablet 5 mg PO BIDWMEAL 10/10/23 10/10/23 loratadine 10 mg tablet 10 mg PO DAILY 10/10/23 10/10/23 simvastatin 40 mg tablet 40 mg PO HS 10/10/23 10/10/23 Previous Rx's ?Medication ?Instructions ?Recorded amlodipine 10 mg tablet 10 mg PO DAILY #30 tabs 10/10/23 isosorbide mononitrate 60 mg 60 mg PO DAILY #30 tabs 10/10/23 tablet,extended release 24 hr Allergies Allergy/AdvReac Type Severity Reaction Status Date / Time No Known Allergies Allergy Verified 10/30/23 10:33 [facility] Disclaimer: The information contained in this section may have been updated after the patient was seen, as this information can be updated by other users. Medical History (Updated 10/30/23 @ 11:49 by Anjum Giraldo MD) CVA (cerebral vascular accident) Diabetes mellitus, type 2 HTN (hypertension) HLD (hyperlipidemia) Surgical History (Updated 10/09/23 @ 17:28 by Yolie Pavon, RN) H/O tubal ligation Family History (Updated 10/09/23 @ 17:27 by Yolie Pavon, RN) Other No significant family history Social History (Updated 10/09/23 @ 17:29 by Yolie Pavon, RN) Smoking Status: Former smoker alcohol intake: never current occupational status: retired Travel in the last 8 weeks: None ROS Obtained: Yes All systems reviewed & no additional complaints except as documented Physical Exam General General appearance: alert and anxious ENT ENT exam: Present other (Nasal cannula placed 4 L) Neck Neck exam: Present trachea midline Chest Chest inspection: Present normal inspection and symmetric chest wall rise Respiratory Respiratory exam: Present wheezes (Inspiratory bilaterally) and other (Decreased breath sounds inferiorly); Absent respiratory distress, stridor, accessory muscle use or prolonged expiratory phase Cardiovascular Cardiovascular exam: Present normal rhythm, tachycardia and other (Pulses equal and symmetric in upper and lower extremities) Abdominal Exam Abdominal exam: Present so
[2023-10-30 10:44] LABS: MANUAL DIFFERENTIAL MANUAL DIFFERENTIAL (MANUAL DIFF)
[2023-10-30 10:51] LABS: Troponin I 0.03 ng/ml (0.00-0.034)
--- NOTE | 2023-10-30 10:52 | PC.NURSE ---
Purewick placed on pt
[2023-10-30 11:14] LABS: NT Pro Brain Natriuretic Pep. 3040 pg/mL (0-450)
--- NOTE | 2023-10-30 11:18 | PC.NURSE ---
I notified respiratory that I sent up a VBG to the lab.
--- NOTE | 2023-10-30 11:23 | PC.NURSE ---
Dr. Giraldo at [facility] for a POCUS
[2023-10-30 11:25] LABS: VBG Base Excess -5.3 mmol/L (-2.4-2.3); VBG HCO3 19.9 mmol/L (23-30); VBG PH 7.37 mmol/L (7.31-7.41); VBG PO2 137.2 mmol/L (28-40)
[2023-10-30 11:25] LABS: Lymphocytes % 13 % (10-50); Monocytes % 3 % (2-9); Neutrophils % 84 % (42-76); Platelet Estimate Normal; RBC Morphology Normal; Total Cells Counted 100
[2023-10-30 11:27] LABS: Lactate Venous 3.3 mmol/L (0.4-2.0)
--- NOTE | 2023-10-30 11:40 | CA_ITS ---
APPROVED REPORT EXAM: Comprehensive 2D, Doppler, and color-flow Echocardiogram Vice President Sales And Marketing: Stephanie Purvis RVT Ht: 5 ft 2 in Wt: 182lbs BSA: 1.84 BP: 172/72 mmHg Indications: CHF,SOA,DM,HTN,HLD,EDEMA,EX SMOKER,HX CVA VERY TDS-LIMITED WINDOWS PT BODY HABITUS 2D Dimensions LA Volume 62.30 mL LA Volume Index 33.86 mL/m2 (M/F) 16-34 M-Mode Dimensions RVDd 3.13 cm (0.9-2.6) LA Diam 4.38 cm (1.9-4.0) LVDd 4.21 cm (3.5-5.7) LVDs 3.09 cm (3.5-5.7) IVSd 1.45 cm (0.6-1.1) PWd 0.64 cm (0.6-1.1) EF (Teich) 52.40% FS 26.60% EDV (Teich) 79.00 mL ESV (Teich) 37.60 mL LV Diastology E Decel Time 227 (160-240 msec) E/A Ratio 0.8 Aortic Valve FARHEEN Index 1.13 cm2/m2 AoV Peak Ata. 166.0 (50-130 cm/s) AO Peak GR. 11.10 mmHg AO Mean GR. 6.10 (<5 mmHg) AO VTI 37.4 (18-25 cm) FARHEEN (VTI) 2.12 (2.5-4.5 cm2) Mitral Valve MV E Max Ata. 137.0 (40-130 cm/s) MV A Velocity 171.0 (40-130 cm/s) E/A Ratio 0.80 MV Mean Gr. 6.60 (<2mmHg) MV PHT 66.0 ms Pulmonary Valve PV Peak Velocity 76.0 (50-150 cm/s) Tricuspid Valve TR P. Velocity 325.00 cm/s RAP Estimate 10.00 mmHg RVSP 52.30 mmHg Left Ventricle The left ventricle is normal size. The left ventricular systolic function is normal. The left ventricular ejection fraction is within the normal range. There is increased LV wall thickness. The septum is asynchronous. No regional wall motion abnormalities are noted. Grade 2 diastolic dysfunction is present. LVEF is 65%. Right Ventricle The right ventricle is normal size. The right ventricular systolic function is normal. Atria Left atrium is mildly dilated. Right atrium is mildly dilated. There is no Doppler evidence of interatrial shunt. Aortic Valve The aortic valve is mildly thickened. Mild aortic regurgitation. There is no aortic valvular stenosis. Mitral Valve Moderate mitral annular calcification. The mitral valve leaflets are mildly thickened. Mild mitral stenosis. Mean MV gradient is 7 mmHg at HR 100 bpm. MVA by PHT is 2.1 cm???. Mild mitral regurgitation. Tricuspid Valve The tricuspid valve leaflets are thin and pliable. Mild tricuspid regurgitation. RVSP is 40-45 mmHg. Pulmonic Valve The pulmonary valve is normal in structure. Mild pulmonic regurgitation. Great Vessels The aortic root is normal in size. The ascending aorta is not well-visualized. IVC is normal in size and collapses >50% with inspiration. Pericardium Small, anterior pericardial effusion is present. The largest pocket measures 0.7 cm in diastole. No evidence of chamber collapse. No echo indications of tamponade. Other Information Study Quality: Technically Difficult Conclusion Technically difficult study due to poor acoustic windows. Normal biventricular systolic function. Asynchronous septum. Biatrial dilation. Mild AI, mild MR, mild TR, mild PI. Mild MS (mean MV gradient 7 mmHg at HR 100 bpm). Small, anterior pericardial effusion is present. The largest pocket measures 0.7 cm in diastole. No evidence of chamber collapse. No echo indications of tamponade. Further evaluation with serial limited TTE is suggested to evaluate for progression vs. resolution of pericardial effusion. Electronically signed by : Nay Hall MD 10/30/2023 12:42:03
--- NOTE | 2023-10-30 11:41 | PC.NURSE ---
I notified the proced tech that an echo order has been placed.
--- NOTE | 2023-10-30 11:41 | PC.NURSE ---
Cardiology notified of consult
--- NOTE | 2023-10-30 11:43 | PC.NURSE ---
Attempted to notify cardiology of consult. unable to reach at this time.
--- NOTE | 2023-10-30 12:05 | EXP.CARD.CON ---
History of Present Illness History of Present Illness Consult date: 10/30/23 Requesting physician: Tony Cespedes Consult reason: shortness of breath Chief complaint: soa History of present illness: This is a 78-year-old white female with past medical history of hypertension, hyperlipidemia, CVA, diabetes, previous smoking history without emphysema or COPD who presented to emergency department with complaints of shortness of breath. Patient was in the hospital a couple weeks ago and diagnosed with an ISAÍAS and hyperkalemia. Diuretics were discontinued at that time. Patient reports since discharge home she has had weight gain and worsening shortness of breath. Of note patient was also in an RV for 6 hours [address] after discharge. Patient denies chest pain, fever or chills. SOA is associated with cough. Patient went to her PCP and was treated with prednisone and Augmentin as well as an inhaler without relief. Upon presentation to emergency department patient's oxygen saturation on room air was 80%. 1+ pitting edema is present to lower extremities. EKG shows sinus tachycardia at a rate of 116 without acute ischemic changes noted. Labs as follow: WBC 10.9, hemoglobin 11, sodium 138, potassium 3.9, BUN 31, creatinine 1.5, initial troponin negative and a proBNP of 3000. Chest x-ray shows airspace opacities and a small effusion may represent pneumonia versus edema. Patient was given IV Lasix 40 mg x 1 for symptom management in ER. Echocardiogram is pending. [facility] Disclaimer: The information contained in this section may have been updated after the patient was seen, as this information can be updated by other users. Medical History (Updated 10/30/23 @ 11:49 by Anjum Giraldo MD) CVA (cerebral vascular accident) Diabetes mellitus, type 2 HTN (hypertension) HLD (hyperlipidemia) Surgical History (Updated 10/09/23 @ 17:28 by Yolie Pavon RN) H/O tubal ligation Family History (Updated 10/09/23 @ 17:27 by Yolie Pavon RN) Other No significant family history Social History (Updated 10/09/23 @ 17:29 by Yolie Pavon, PASCALE) Smoking Status: Former smoker alcohol intake: never current occupational status: retired Travel in the last 8 weeks: None Review of Systems Review of Systems Review of systems:: pertinent systems reviewed and negative unless documented below *Cardiovascular Cardiovascular: Reports dyspnea *Respiratory Respiratory: Reports dyspnea Exam Data for Last 24 hours Vital signs and Labs for Last 24 Hours: Temp Pulse Resp BP Pulse Ox O2 Del Method O2 Flow Rate 98 F 103 H 18 161/72 H 94 L Nasal Cannula 4 10/30/23 10:16 10/30/23 12:00 10/30/23 10:30 10/30/23 12:00 10/30/23 12:00 10/30/23 12:00 10/30/23 12:00 Laboratory Results - last 24 hr 10/30/23 10:16: WBC 10.9 H, RBC 3.51 L, Hgb 11.0 L, Hct 34.1 L, MCV 97.1, MCH 31.4 H, MCHC 32.4, RDW 14.0, Plt Count 349, MPV 8.2, Neut % (Auto) 85.7 H, Lymph % (Auto) 8.5 L, [place] % (Auto) 4.6, Eos % (Auto) 0.8, Baso % (Auto) 0.4, Neut # (Auto) 9.3 H, Lymph # (Auto) 0.9, [place] # (Auto) 0.5, Eos # (Auto) 0.1, Baso # (Auto) 0.0, Total Counted 100, Neutrophils % (Manual) 84 H, Lymphocytes % (Manual) 13, Monocytes % (Manual) 3, Platelet Estimate Normal, RBC Morphology Normal, Sodium 138, Potassium 3.9, Chloride 106, Carbon Dioxide 20 L, Anion Gap 15.9 H, BUN 31 H, Creatinine 1.50 H, Estimated Creat Clear 40, Estimated GFR 33 L, Est GFR ( Amer) 41 L, Glucose 362 H, Calcium 9.1, Total Bilirubin 0.6, AST 25, ALT 31, Alkaline Phosphatase 66, Troponin I 0.03, NT-Pro-B Natriuret Pep 3040 H, Total Protein 7.0, Albumin 3.9, Globulin 3.1, Albumin/Globulin Ratio 1.3 10/30/23 11:22: VBG pH 7.37, VBG pCO2 35.0, VBG pO2 137.2 H, VBG HCO3 19.9 L, VBG Total CO2 21.0 L, VBG O2 Saturation 99.0 H, VBG Base Excess -5.3 L, VBG Lactic Acid 3.3 H I & O for Last 24 hours: Intake & Output 10/27/23 10/28/23 10/29/23 10/30/23 23:59 23:59 23:59 23:59 Weight
--- NOTE | 2023-10-30 13:01 | PC.NURSE ---
Rounded on pt. No needs voiced at this time. Call light remains within reach.
--- NOTE | 2023-10-30 13:13 | PC.NURSE ---
bladder scan 447ml
[2023-10-30 13:27] LABS: Microscopic, Urine URINE MICROSCOPIC (MICROSCOPIC)
[2023-10-30 13:41] LABS: Appearance,Urine CLEAR (Clear); Bilirubin,Urine Negative (Negative); Blood, Urine Negative (Negative); Color,Urine YELLOW (Yellow); Glucose,Urine (UA) Negative (Negative); Ketones,Urine Negative (Negative); Leukocyte Esterase,Urine Negative (Negative); Nitrate,Urine Negative (Negative); PH,Urine 5.5 (5.0-8.5); Protein,Urine Negative (Negative); Specific Gravity, Urine 1.015 (1.005-1.030); Urobilinogen,Urine 0.2 EU/dl (0.2)
--- NOTE | 2023-10-30 14:00 | PC.NURSE ---
pt was able to transfer to [facility] with minimal assistance, pt out was 200ml. kelsey inserted, urine output 300 ml
--- NOTE | 2023-10-30 14:04 | EXP.HP ---
History of Present Illness *Admission Date: 10/30/23 *Reason for visit:: Dyspnea, orthopnea *History of present illness: Ms. Matos is a 78-year-old female with history of hypertension, hyperlipidemia, diabetes, previous smoker, history of stroke with residual left-sided deficits. She presented to the ER due to worsening shortness of breath and cough over the past several days. Things worsened yesterday to the point that she had a hard time last night and came in today for evaluation. States she was recently admitted to the hospital for potassium abnormalities and ISAÍAS. Medications were adjusted at that time and her HCTZ was held. Since then, she has been doing well at home until the past few days. Noted to have dyspnea with exertion. After walking to the bathroom felt extremely short of breath. Denies syncope, chest pain, nausea or vomiting. Saw her PCP this week who started her on Augmentin and an inhaler due to cough and shortness of breath. This did not make much difference for her. Last night she had a hard time lying flat and has had more shortness of breath with laying supine necessitating her to sleep in a chair. Has had some increased lower extremity swelling. Noted to have desats with exertion in the ER necessitating oxygen. O2 sats in the low 80s. Placed on on 4 L nasal cannula to maintain sats above 90. Workup found lower extremity edema, chest imaging with pulmonary edema and effusions. BNP elevated. Medicine consulted for admission for CHF exacerbation. On arrival to the floor, patient has catheter in place. Has had at least 1 L of urine output. States she is feeling a little bit better but still short of breath. BUN 31, creatinine 1.5. Potassium normal at 3.9. BNP elevated at 3000. Bedside, help supplement history. [facility] Disclaimer: The information contained in this section may have been updated after the patient was seen, as this information can be updated by other users. Medical History (Updated 10/30/23 @ 17:34 by Tony Cespedes MD) CVA (cerebral vascular accident) Diabetes mellitus, type 2 HTN (hypertension) HLD (hyperlipidemia) Surgical History H/O tubal ligation Family History Father Family history of cancer Family history of myocardial infarction Mother Family history of myocardial infarction Sister Family history of myocardial infarction Son Family history of myocardial infarction Social History Smoking Status: Former smoker alcohol intake: never current occupational status: retired Travel in the last 8 weeks: None Review of Systems Review of Systems Review of systems (narrative): 14 point review of systems performed, pertinent positives and negatives as per HPI Meds Home Medications and Allergies Home Medications ?Medication ?Instructions ?Recorded ?Confirmed ?Type aspirin 81 mg tablet 81 mg PO DAILY 10/09/23 10/30/23 History amlodipine 10 mg tablet 10 mg PO DAILY #30 tabs 10/10/23 10/30/23 Rx glipizide 5 mg tablet 5 mg PO BIDWMEAL 10/10/23 10/30/23 History isosorbide mononitrate 60 mg 60 mg PO DAILY #30 tabs 10/10/23 10/30/23 Rx tablet,extended release 24 hr loratadine 10 mg tablet 10 mg PO DAILY 10/10/23 10/30/23 History simvastatin 40 mg tablet 40 mg PO HS 10/10/23 10/30/23 History metformin 500 mg tablet 500 mg PO BID 10/30/23 10/30/23 History New Prescriptions to Start Prescriptions: Allergies Allergy/AdvReac Type Severity Reaction Status Date / Time No Known Allergies Allergy Verified 10/30/23 16:07 Exam Data for Last 24 hours Vital signs and Labs for Last 24 Hours: Temp Pulse Resp BP Pulse Ox O2 Del Method O2 Flow Rate 98 F 108 H 18 168/79 H 92 L Nasal Cannula 4 10/30/23 10:16 10/30/23 13:30 10/30/23 10:30 10/30/23 13:30 10/30/23 13:30 10/30/23 13:30 10/30/23 13:30 L
[2023-10-30 14:17] LABS: Bacteria,Urine Trace /lpf; Hyaline Casts,Urine OCC #/lpf (0)
--- NOTE | 2023-10-30 14:21 | PC.NURSE ---
house contacted about admission
[2023-10-30 14:26] LABS: Troponin I 0.03 ng/ml (0.00-0.034)
--- NOTE | 2023-10-30 14:42 | PC.NURSE ---
report called [facility]. Room for pt on second floor needs to be cleaned before transport
--- NOTE | 2023-10-30 14:43 | PC.NURSE ---
called ED at this time to inform them room still needed to be cleaned and someone would come get patient as soon as room was ready
[2023-10-30 15:27] LABS: Reflex Lactic Add Lactic Reflex
[2023-10-30 15:48] LABS: Lactic Acid Follow Up (RFLX 1) 1.3 mmol/L (0.7-2.1)
--- NOTE | 2023-10-30 15:57 | PC.NURSE ---
arrived by stretcher from ED
[2023-10-30 17:07] LABS: POC Glucose,Bedside 327 (70-110)
[2023-10-30 17:13] LABS: Troponin I 0.03 ng/ml (0.00-0.034)
[2023-10-30 18:30] LABS: Hemoglobin A1C 7.1 % (4.0-6.0)
[2023-10-30 20:59] LABS: POC Glucose,Bedside 467 (70-110)
[2023-10-30 23:22] LABS: POC Glucose,Bedside 312 (70-110)
[2023-10-31] VITALS (16 sets, daily range): BP systolic 137–164; BP diastolic 64–73; PULSE 80–118; RESP 14–22; TEMP 36.6–37.2; O2SAT 88–95; BMI 34.5
[2023-10-31 07:32] LABS: Basophils % 0.3 % (0.1-2.0); Eosinophils # 0.1 K/mm3 (0.0-0.4); Hematocrit 31.3 % (37.0-47.0); Hemoglobin 10.3 g/dL (12.2-16.2); Lymphocytes # 1.2 K/mm3 (0.7-4.5); Mean Corpuscular HGB Conc 33.1 g/dL (31.8-35.4); Mean Corpuscular Hemoglobin 31.6 pg (27.0-31.2); Mean Corpuscular Volume 95.4 fl (81-99); Mean Platelet Volume 8.3 fl (7.4-10.4); Monocytes # 0.3 K/mm3 (0.1-1.0); Monocytes % 5.5 % (1.7-9.3); Neutrophils # 4.5 K/mm3 (1.8-7.8); Neutrophils % 72.2 % (37.0-80.0); Platelet Count 278 K/mm3 (142-424); Red Blood Count 3.28 M/mm3 (4.20-5.40); White Blood Count 6.2 K/mm3 (4.8-10.8)
[2023-10-31 07:37] LABS: Albumin Level 3.6 g/dl (3.5-5.0); Chloride 108 mmol/L (98-107)
[2023-10-31 07:38] LABS: Potassium 3.5 mmoL/L (3.5-5.1); Sodium 138 mmol/L (136-145)
[2023-10-31 07:40] LABS: Alanine Aminotransferase 18 U/L (12-78); Albumin/Globulin Ratio 1.3 (1.1-1.8); Anion Gap 9.5 mEq/L (5-15); Aspartate Amino Transferase 20 U/L (14-36); Blood Urea Nitrogen 26 mg/dl (7-17); Carbon Dioxide 24 mmol/L (22.0-30.0); Creatinine Clearance Estimated 40 mL/min (50-200); Estimated Glomerular Filt Rate 33 ml/min (>60); GFR (African American) 41 ML/MIN (>60); Globulin 2.8 g/dL (1.3-3.2); Total Protein,Serum 6.4 g/dl (6.3-8.2)
[2023-10-31 07:41] LABS: Alkaline Phosphatase 57 U/L (38-126); Bilirubin,Total 0.5 mg/dl (0.2-1.3); Calcium 8.3 mg/dl (8.4-10.2); Cholesterol 108 mg/dl (140-200); Glucose 150 mg/dl (74-100); HDL Cholesterol 36 mg/dl (40-60); Magnesium 1.4 mg/dl (1.6-2.3); Triglycerides 104 mg/dl (30-150); VLDL Cholesterol 21 mg/dL (0-40)
[2023-10-31 07:52] LABS: Direct LDL Cholesterol 39.77 mg/dL (100-129)
[2023-10-31 07:57] LABS: POC Glucose,Bedside 171 (70-110)
--- NOTE | 2023-10-31 10:01 | PC.NURSE ---
i turned pt down to 3lnc. saturation currently 94%
--- NOTE | 2023-10-31 10:46 | EXP.ACUTE.PN ---
Subjective *Date: 10/31/23 *Time: 17:05 Interval history: Patient feeling better today. Still on oxygen. Requiring 3 L. Has had good output. -1 L in the past 24 hours. Denies any nausea or vomiting. Glucose remains elevated after steroids prior to coming in. Denies chest pain. States she is feeling better. Medical Exam Vital signs and Labs for Last 24 Hours: Vital Signs Temp Pulse Pulse Resp BP BP Pulse Ox 10/31/23 09:00 10/31/23 08:00 100 H 10/31/23 07:45 98.4 F 115 H 21 164/67 H 92 L 10/31/23 06:35 10/31/23 06:29 103 H 10/31/23 06:29 98 H 10/31/23 06:29 92 L 10/31/23 05:00 10/31/23 04:00 98.5 F 104 H 18 159/67 H 92 L 10/31/23 04:00 90 10/31/23 03:00 10/31/23 01:00 10/31/23 00:00 110 H 10/31/23 00:00 97.9 F 112 H 14 137/65 93 L 10/30/23 23:10 111 H 10/30/23 23:10 113 H 10/30/23 23:00 10/30/23 21:00 10/30/23 20:00 10/30/23 20:00 120 H 10/30/23 20:00 98.6 F 110 H 16 140/72 95 10/30/23 19:15 110 H 10/30/23 19:15 110 H 10/30/23 19:15 94 L 10/30/23 16:31 10/30/23 16:30 10/30/23 16:24 98 F 101 H 18 158/76 H 10/30/23 16:11 110 H 10/30/23 16:00 97.4 F L 100 H 19 158/76 H 94 L 10/30/23 15:45 103 H 18 158/76 H 94 L 10/30/23 15:30 102 H 169/78 H 94 L 10/30/23 15:00 97 H 164/76 H 95 10/30/23 14:30 100 H 167/71 H 94 L 10/30/23 14:00 107 H 163/65 H 93 L 10/30/23 13:30 108 H 168/79 H 92 L 10/30/23 13:00 107 H 165/72 H 95 10/30/23 12:30 102 H 147/70 H 95 10/30/23 12:00 103 H 161/72 H 94 L 10/30/23 11:30 105 H 168/76 H 93 L 10/30/23 11:00 106 H 158/71 H 96 O2 Del Method O2 Flow Rate 10/31/23 09:00 Room Air 3 10/31/23 08:00 Nasal Cannula 3 10/31/23 07:45 Nasal Cannula 4 10/31/23 06:35 Nasal Cannula 4 10/31/23 06:29 10/31/23 06:29 10/31/23 06:29 Nasal Cannula 4 10/31/23 05:00 Nasal Cannula 4 10/31/23 04:00 Nasal Cannula 4 10/31/23 04:00 10/31/23 03:00 Nasal Cannula 4 10/31/23 01:00 Nasal Cannula 4 10/31/23 00:00 10/31/23 00:00 Nasal Cannula 4 10/30/23 23:10 10/30/23 23:10 10/30/23 23:00 Nasal Cannula 4 10/30/23 21:00 Nasal Cannula 4 10/30/23 20:00 Nasal Cannula 4 10/30/23 20:00 10/30/23 20:00 Nasal Cannula 4 10/30/23 19:15 10/30/23 19:15 10/30/23 19:15 Nasal Cannula 4 10/30/23 16:31 Nasal Cannula 4 10/30/23 16:30 Nasal Cannula 4 10/30/23 16:24 Room Air 10/30/23 16:11 10/30/23 16:00 Nasal Cannula 4 10/30/23 15:45 Nasal Cannula 10/30/23 15:30 Nasal Cannula 4 10/30/23 15:00 Nasal Cannula 4 10/30/23 14:30 Nasal Cannula 4 10/30/23 14:00 Nasal Cannula 4 10/30/23 13:30 Nasal Cannula 4 10/30/23 13:00 Nasal Cannula 4 10/30/23 12:30 Nasal Cannula 10/30/23 12:00 Nasal Cannula 4 10/30/23 11:30 Nasal Cannula 4 10/30/23 11:00 Nasal Cannula 4 Intake and Output 10/30/23 10/31/23 10/31/23 23:59 07:59 15:59 Intake Total 270 / 510 780 / 780 Output Total 1400 / 1900 750 / 950 200 / 950 Balance -1130 / -1390 30 / -170 -200 / -170 Intake: Intake, Oral Amount 270 / 510 780 / 780 Output: Output, Urine Amount 1400 / 1900 750 / 950 200 / 950 Other: Number of Voids 0 Number of Unmeasured Voids 0 0 0 Weight 83.007 kg 83.007 kg Patient Weight 10/31/23 23:59 Weight 83.007 kg Laboratory Results - last 24 hr 10/30/23 10:16: Total Counted 100, Neutrophils % (Manual) 84 H, Lymphocytes % (Manual) 13, Monocytes % (Manual) 3, Platelet Estimate Normal, RBC Morphology Normal, Troponin I 0.03, NT-Pro-B Natriuret Pep 3040 H 10/30/23 10:21: Hemoglobin A1c 7.1 H 10/30/23 11:22: VBG pH 7.37, VBG pCO2 35.0, VBG pO2 137.2 H, VBG HCO3 19.9 L, VBG Total CO2 21.0 L, VBG O2 Saturation 99.0 H, VBG Base Excess -5.3 L, VB
[2023-10-31 11:19] LABS: POC Glucose,Bedside 510 (70-110)
[2023-10-31 11:43] LABS: Glucose,Random 451 mg/dL (74-100)
--- NOTE | 2023-10-31 11:55 | PC.NURSE ---
pk in lab called critical glucose of 451. notified and 20u insulin given
[2023-10-31 16:16] LABS: POC Glucose,Bedside 466 (70-110)
--- NOTE | 2023-10-31 16:35 | PC.NURSE ---
spoke to MD regarding pt glucose of 466. MD advised to administer 30u now.
--- NOTE | 2023-10-31 18:19 | PC.NURSE ---
pt is resting in the chair with daughter at bedside. pt was on 4L NC this am and has since been weaned to 2L NC and is tolerating well with sats in the mid to upper 90s. pt has had elevated glucose levels throughout the shift. fsbs at 1100 was 510- lab drawn and was 452
--- NOTE | 2023-10-31 18:27 | PC.NURSE ---
pt is resting in the chair with daughter at bedside. pt was on 4L NC this am, but has since been weaned to 2L NC tolerating well with sats in the mid to upper 90s. pt has had elevated glucose levels throughout the shift. fsbs at 1100 was 510- lab draw was 461. MD notified and 20u of insulin administered. fsbs at 1600 was 466. MD notified and 30u of insulin ordered. fsbs was rechecked at 1820 with a result of 300. pt and family are apprehensive about pt diet (amount of sugar) and the underlying cause of the elevated levels. VSS. pt has no current complaints
[2023-10-31 18:29] LABS: Anion Gap 14.3 mEq/L (5-15); Blood Urea Nitrogen 28 mg/dl (7-17); Calcium 8.8 mg/dl (8.4-10.2); Carbon Dioxide 24 mmol/L (22.0-30.0); Chloride 99 mmol/L (98-107); Creatinine Clearance Estimated 37 mL/min (50-200); Estimated Glomerular Filt Rate 31 ml/min (>60); GFR (African American) 38 ML/MIN (>60); Glucose 300 mg/dl (74-100); Magnesium 2.9 mg/dl (1.6-2.3); Potassium 3.3 mmoL/L (3.5-5.1); Sodium 134 mmol/L (136-145)
[2023-10-31 18:31] LABS: POC Glucose,Bedside 300 (70-110)
[2023-10-31 21:01] LABS: POC Glucose,Bedside 204 (70-110)
--- NOTE | 2023-10-31 23:59 | PC.NURSE ---
This RN took over care of patient at this time.
[2023-11-01] VITALS (12 sets, daily range): BP systolic 116–155; BP diastolic 45–76; PULSE 92–121; RESP 17–26; TEMP 36.5–37; O2SAT 89–95; BMI 34.4
[2023-11-01 05:10] LABS: POC Glucose,Bedside 206 (70-110)
--- NOTE | 2023-11-01 05:47 | PC.NURSE ---
Alert and oriented. Pt began to desat down into the high 80s on 2L NC, changed probe, sat patient up more in bed, no change. Pt is now on 5L NC, O2 sat is 92%. Pt has had no complaints since taking over care. at bedside. Jordan in place and draining clear yellow urine. ACHS FS. Call light in reach.
[2023-11-01 09:05] LABS: Basophils % 0.3 % (0.1-2.0); Eosinophils # 0.1 K/mm3 (0.0-0.4); Eosinophils % 2.2 % (0.1-12.0); Hematocrit 33.5 % (37.0-47.0); Hemoglobin 10.6 g/dL (12.2-16.2); Lymphocytes # 0.9 K/mm3 (0.7-4.5); Lymphocytes % 14.4 % (10-50); Mean Corpuscular HGB Conc 31.6 g/dL (31.8-35.4); Mean Corpuscular Hemoglobin 30.8 pg (27.0-31.2); Mean Corpuscular Volume 97.6 fl (81-99); Mean Platelet Volume 7.9 fl (7.4-10.4); Monocytes # 0.4 K/mm3 (0.1-1.0); Monocytes % 5.6 % (1.7-9.3); Neutrophils # 5.1 K/mm3 (1.8-7.8); Neutrophils % 77.5 % (37.0-80.0); Platelet Count 312 K/mm3 (142-424); Red Blood Count 3.44 M/mm3 (4.20-5.40); White Blood Count 6.5 K/mm3 (4.8-10.8)
[2023-11-01 09:16] LABS: Albumin Level 3.6 g/dl (3.5-5.0); Chloride 102 mmol/L (98-107); Potassium 3.9 mmoL/L (3.5-5.1); Sodium 136 mmol/L (136-145)
[2023-11-01 09:19] LABS: Alanine Aminotransferase 22 U/L (12-78); Albumin/Globulin Ratio 1.3 (1.1-1.8); Alkaline Phosphatase 56 U/L (38-126); Anion Gap 12.9 mEq/L (5-15); Aspartate Amino Transferase 24 U/L (14-36); Bilirubin,Total 0.4 mg/dl (0.2-1.3); Blood Urea Nitrogen 28 mg/dl (7-17); Calcium 8.5 mg/dl (8.4-10.2); Carbon Dioxide 25 mmol/L (22.0-30.0); Creatinine Clearance Estimated 37 mL/min (50-200); Estimated Glomerular Filt Rate 31 ml/min (>60); GFR (African American) 38 ML/MIN (>60); Globulin 2.8 g/dL (1.3-3.2); Glucose 278 mg/dl (74-100); Magnesium 1.9 mg/dl (1.6-2.3); Total Protein,Serum 6.4 g/dl (6.3-8.2)
[2023-11-01 11:12] LABS: POC Glucose,Bedside 332 (70-110)
--- NOTE | 2023-11-01 11:42 | PC.NURSE ---
Jordan cath discontinued per MD order @ 0390.
--- NOTE | 2023-11-01 11:47 | XR_ITS ---
PROCEDURE INFORMATION: Exam: XR Chest Exam date and time: 11/01/2023 12:05 PM Age: 78 years old Clinical indication: Cough and dyspnea; Additional info: Cough, dyspnea TECHNIQUE: Imaging protocol: Radiologic exam of the chest. Views: 1 view. COMPARISON: CR XR CHEST 2V 10/30/2023 10:12 AM FINDINGS: Lungs: Opacities in both bases may represent atelectasis or pneumonia.. Pleural spaces: Moderate bilateral pleural effusions.. Heart/Mediastinum: Cardiomegaly Bones/joints: Unremarkable. IMPRESSION: 1. Opacities in both bases may represent atelectasis or pneumonia.. 2. Moderate bilateral pleural effusions..
--- NOTE | 2023-11-01 12:29 | EXP.ACUTE.PN ---
Subjective *Date: 11/01/23 *Time: 12:29 Interval history: Is requiring higher oxygen at night. Desats when she is sleeping. Suspect she has a nocturnal hypoxia component at baseline. Continuing supplemental oxygen. 3 L on morning rounds. Denies chest pain or shortness of breath. Does complain of a cough. No nausea or vomiting. Tolerating p.o. intake. Diuresing well. -4 L since admission. Medical Exam Vital signs and Labs for Last 24 Hours: Vital Signs Temp Pulse Pulse Resp BP Pulse Ox O2 Del Method 11/01/23 12:00 97.7 F 116 H 21 150/69 H 95 Nasal Cannula 11/01/23 11:24 102 H 11/01/23 11:24 100 H 11/01/23 11:24 92 L Nasal Cannula 11/01/23 11:00 Nasal Cannula 11/01/23 08:40 Nasal Cannula 11/01/23 08:00 105 H 11/01/23 08:00 90 L Nasal Cannula 11/01/23 08:00 97.9 F 105 H 21 116/45 L 91 L Nasal Cannula 11/01/23 07:00 Nasal Cannula 11/01/23 05:30 105 H 11/01/23 05:30 102 H 11/01/23 05:30 89 L Nasal Cannula 11/01/23 05:00 Nasal Cannula 11/01/23 04:00 98.0 F 109 H 17 138/60 91 L Nasal Cannula 11/01/23 04:00 111 H 11/01/23 03:00 Nasal Cannula 11/01/23 01:00 Nasal Cannula 11/01/23 00:00 111 H 11/01/23 00:00 98.2 F 112 H 17 135/60 90 L Nasal Cannula 10/31/23 23:46 93 H 10/31/23 23:45 97 H 10/31/23 23:00 Nasal Cannula 10/31/23 21:00 Nasal Cannula 10/31/23 20:00 118 H 10/31/23 20:00 110 H 18 91 L Nasal Cannula 10/31/23 20:00 99.0 F 110 H 18 154/64 H 91 L Nasal Cannula 10/31/23 18:54 100 H 10/31/23 18:53 101 H 10/31/23 18:53 Nasal Cannula 10/31/23 18:45 Nasal Cannula 10/31/23 18:05 88 L Room Air 10/31/23 17:00 Nasal Cannula 10/31/23 16:00 105 H 10/31/23 15:48 108 H 22 149/66 H 93 L Nasal Cannula 10/31/23 15:00 Nasal Cannula 10/31/23 12:59 Nasal Cannula 10/31/23 12:50 110 H 18 140/73 95 Nasal Cannula O2 Flow Rate FiO2 11/01/23 12:00 3 11/01/23 11:24 11/01/23 11:24 11/01/23 11:24 3 11/01/23 11:00 3 11/01/23 08:40 4 11/01/23 08:00 11/01/23 08:00 4 11/01/23 08:00 5 11/01/23 07:00 5 11/01/23 05:30 11/01/23 05:30 11/01/23 05:30 4 11/01/23 05:00 4 11/01/23 04:00 11/01/23 04:00 11/01/23 03:00 3 11/01/23 01:00 3 11/01/23 00:00 11/01/23 00:00 10/31/23 23:46 10/31/23 23:45 10/31/23 23:00 2 10/31/23 21:00 2 10/31/23 20:00 10/31/23 20:00 2 10/31/23 20:00 10/31/23 18:54 10/31/23 18:53 10/31/23 18:53 3 32 10/31/23 18:45 2 10/31/23 18:05 10/31/23 17:00 3 10/31/23 16:00 10/31/23 15:48 2 10/31/23 15:00 3 10/31/23 12:59 3 10/31/23 12:50 3 Intake and Output 10/31/23 11/01/23 11/01/23 23:59 07:59 15:59 Intake Total 420 / 1860 300 / 1140 840 / 1140 Output Total 800 / 4150 1000 / 1000 0 / 1000 Balance -380 / -2290 -700 / 140 840 / 140 Intake: Intake, Oral Amount 420 / 1860 300 / 1140 840 / 1140 Output: Output, Urine Amount 800 / 4150 1000 / 1000 0 / 1000 Other: Number of Voids 0 Number of Unmeasured Voids 0 0 Number of Bowel Movements 1 Weight 82.826 kg Patient Weight 11/01/23 23:59 Weight 82.826 kg Laboratory Results - last 24 hr 10/31/23 16:06: POC Glucose 466 H* 10/31/23 17:50: Sodium 134 L, Potassium 3.3 L, Chloride 99, Carbon Dioxide 24, Anion Gap 14.3, BUN 28 H, Creatinine 1.60 H, Estimated Creat Clear 37, Estimated GFR 31 L, Est GFR ( Amer) 38 L, Glucose 300 H D, Calcium 8.8, Magnesium 2.9 H D 10/31/23 18:23: POC Glucose 300 H 10/31/23 20:26: POC Glucose 204 H 11/01/23 05:02: POC Glucose 206 H 11/01/23 08:06: WBC 6.5, RBC 3.44 L, Hgb 10.6 L, Hct 33.5 L, MCV 97.6, MCH 30.8, MCHC 31.6 L, RDW 14.0, Plt Count 312, MPV 7.9, Neut % (Auto) 77.5, Lymph % (Auto) 14.4, Spencer % (Auto) 5.6, Eos % (
[2023-11-01 15:50] LABS: POC Glucose,Bedside 354 (70-110)
--- NOTE | 2023-11-01 17:13 | PC.NURSE ---
Addendum entered by Isabel Herrera RN 11/01/23 18:40: Pt has been tachy most of shift with HR from 105-120's. Original Note: A&Ox4. Crackles noted upon lung auscultation. Jordan cath discontinued today and pt has been voiding per bedside commode with assistance x1. Pt was weaned from 5L to 3L NC today and has been tolerating it well just drops to around 88-89% when transferring. Pt has been using incentive spirometer this shift. Pt FSBS has been in the mid 300's both checks this shift and has received coverage each time, pt switched from cardiac diet to diabetic diet. Pt is resting comfortably in bedside chair where she has been most of shift. Family at bedside.
[2023-11-01 22:07] LABS: POC Glucose,Bedside 243 (70-110)
[2023-11-02] VITALS (10 sets, daily range): BP systolic 130–144; BP diastolic 54–65; PULSE 60–120; RESP 16–18; TEMP 36.6–36.8; O2SAT 86–94; BMI 34.7
[2023-11-02 01:47] LABS: POC Glucose,Bedside 195 (70-110)
--- NOTE | 2023-11-02 01:55 | PC.NURSE ---
Patient's oxygen sats started dropping to mid 80s on 3 L nasal cannula. Oxygen flow was increased to 4 L at this time.
[2023-11-02 05:44] LABS: POC Glucose,Bedside 224 (70-110)
--- NOTE | 2023-11-02 05:52 | PC.NURSE ---
Patient is alert and oriented x4. Patient has rested well throughout the shift with her at bedside. Patient has been on 3 L oxygen at the beginning of the shift, and was increased to 5 L nasal cannula due to oxygen sats dropping into the mid 80s. Diminished lung sounds and expiratory wheezing was heard during auscultation of the lungs this shift. Patient had been consistently running tachycardic on telemetry. Patient was given a walker this shift and ambulated to the bathroom once; patient did not tolerate ambulation to the bathroom very well. Patient's heart rate increased to 130 and her oxygen saturation started dropping significantly due to overexertion. Patient was eased back into bed afterwards and suggested to use the bedside commode next time to avoid further overexertion. Patient however has been using the incentive spirometer while awake effectively. Patient's FSBS at 21:00 this shift was 243 and at 05:30, it was 224. Patient was given Lispro insulin per MAR, as well as her scheduled medications. At around 01:30, patient started complaining of feeling shaky and hot; patient's FSBS was checked at this time and it resulted in 195. At this time, the patient does not have any further complaints. She is resting in bed at this time. Call light within reach.
[2023-11-02 06:48] LABS: Basophils % 0.4 % (0.1-2.0); Eosinophils # 0.2 K/mm3 (0.0-0.4); Eosinophils % 3.4 % (0.1-12.0); Hematocrit 31.5 % (37.0-47.0); Hemoglobin 10.1 g/dL (12.2-16.2); Lymphocytes # 1.1 K/mm3 (0.7-4.5); Lymphocytes % 15.4 % (10-50); Mean Corpuscular HGB Conc 31.9 g/dL (31.8-35.4); Mean Platelet Volume 8.4 fl (7.4-10.4); Monocytes # 0.4 K/mm3 (0.1-1.0); Monocytes % 5.7 % (1.7-9.3); Neutrophils # 5.1 K/mm3 (1.8-7.8); Platelet Count 302 K/mm3 (142-424); Red Blood Count 3.25 M/mm3 (4.20-5.40); Red Cell Distribution Width 14.2 % (11.5-17.5); White Blood Count 6.8 K/mm3 (4.8-10.8)
[2023-11-02 06:53] LABS: Albumin Level 3.5 g/dl (3.5-5.0); Chloride 104 mmol/L (98-107); Sodium 136 mmol/L (136-145)
[2023-11-02 06:54] LABS: Potassium 4.3 mmoL/L (3.5-5.1)
[2023-11-02 06:56] LABS: Alanine Aminotransferase 19 U/L (12-78); Albumin/Globulin Ratio 1.3 (1.1-1.8); Alkaline Phosphatase 58 U/L (38-126); Anion Gap 11.3 mEq/L (5-15); Aspartate Amino Transferase 20 U/L (14-36); Bilirubin,Total 0.5 mg/dl (0.2-1.3); Blood Urea Nitrogen 33 mg/dl (7-17); Carbon Dioxide 25 mmol/L (22.0-30.0); Creatinine Clearance Estimated 40 mL/min (50-200); Estimated Glomerular Filt Rate 33 ml/min (>60); GFR (African American) 41 ML/MIN (>60); Globulin 2.7 g/dL (1.3-3.2); Total Protein,Serum 6.2 g/dl (6.3-8.2)
[2023-11-02 06:57] LABS: Calcium 8.5 mg/dl (8.4-10.2); Glucose 215 mg/dl (74-100)
[2023-11-02 07:00] LABS: Magnesium 1.4 mg/dl (1.6-2.3)
--- NOTE | 2023-11-02 10:01 | HMH.OTEV ---
OT Inpatient Evaluation Rehab OT IP Evaluation Start: 11/02/23 08:58 Freq: ONCE Status: Active Protocol: Document 11/02/23 09:55 NALINI (Rec: 11/02/23 10:01 NALINI [id number]) Rehab OT IP Assessment Subjective History Ms. Matos is a 78-year-old female with history of hypertension, hyperlipidemia, diabetes, previous smoker, history of stroke with residual left-sided deficits. She presented to the ER due to worsening shortness of breath and cough over the past several days. Things worsened yesterday to the point that she had a hard time last night and came in today for evaluation. States she was recently admitted to the hospital for potassium abnormalities and ISAÍAS. Medications were adjusted at that time and her HCTZ was held. Since then, she has been doing well at home until the past few days. Noted to have dyspnea with exertion. After walking to the bathroom felt extremely short of breath . Denies syncope, chest pain, nausea or vomiting. Saw her PCP this week who started her on Augmentin and an inhaler due to cough and shortness of breath. This did not make much difference for her. Last night she had a hard time lying flat and has had more shortness of breath with laying supine necessitating her to sleep in a chair. Has had some increased lower extremity swelling. Noted to have desats with exertion in the ER necessitating oxygen. O2 sats in the low 80s. Placed on on 4 L nasal cannula to maintain sats above 90. Workup found lower extremity edema, chest imaging with
--- NOTE | 2023-11-02 10:13 | HMH.PTEV ---
Physical Therapy Evaluation Rehab PT IP Evaluation Start: 11/02/23 08:57 Freq: ONCE Status: Active Protocol: Document 11/02/23 10:01 ANATOLY (Rec: 11/02/23 10:13 ANATOLY [id number]) Subjective/History History History Per H&P: Ms. Matos is a 78-year- old female with history of hypertension, hyperlipidemia, diabetes, previous smoker, history of stroke with residual left-sided deficits. She presented to the ER due to worsening shortness of breath and cough over the past several days. Things worsened yesterday to the point that she had a hard time last night and came in today for evaluation. States she was recently admitted to the hospital for potassium abnormalities and ISAÍAS. Medications were adjusted at that time and her HCTZ was held. Since then, she has been doing well at home until the past few days. Noted to have dyspnea with exertion. After walking to the bathroom felt extremely short of breath . Denies syncope, chest pain, nausea or vomiting. Saw her PCP this week who started her on Augmentin and an inhaler due to cough and shortness of breath. This did not make much difference for her. Last night she had a hard time lying flat and has had more shortness of breath with laying supine necessitating her to sleep in a chair. Has had some increased lower extremity swelling. Noted to have desats with exertion in the ER necessitating oxygen. O2 sats in the low 80s. Placed on on 4 L nasal cannula to maintain sats above 90. Workup found lower extremity edema, chest imaging with
[2023-11-02 11:13] LABS: POC Glucose,Bedside 416 (70-110)
--- NOTE | 2023-11-02 11:37 | CT_ITS ---
FINAL REPORT TECHNIQUE: Then section axial CT images of the chest were obtained with contrast. Three-D reformatted images were also obtained.This study was performed with techniques to keep radiation doses as low as reasonably achievable (ALARA). Individualized dose reduction techniques using automated exposure control or adjustment of mA and/or kV according to the patient's size were employed. CLINICAL HISTORY: acute hypoxia COMPARISON: None FINDINGS: There is no evidence of pulmonary embolism. There is no evidence of thoracic aortic aneurysm or dissection. A small pericardial effusion is present. There are also small to moderate bilateral pleural effusions. There is no evidence of mediastinal or hilar mass or adenopathy. There is no evidence of pulmonary mass or suspicious nodule. There is bilateral bibasilar atelectasis present. There are also patchy ground glass appearing infiltrates, more prominent in the left lung than the right, worrisome for superimposed pneumonia. Limited images of the upper abdomen are remarkable for left renal cortical thinning. IMPRESSION: No evidence of pulmonary embolism. Small to moderate bilateral pleural effusions are present. Bilateral bibasilar atelectasis is present, and there are superimposed patchy left greater than right ground glass infiltrates as well worrisome for pneumonia. Reviewed, Interpreted and Dictated by Sanya Hancock III, MD Transcribed by Lucy Seo Authenticated and [facility]
--- NOTE | 2023-11-02 13:02 | SW/DCPLANNER ---
Addendum entered by Seema Sanders 11/03/23 15:19: [facility] stated that services will begin this week. Addendum entered by Seema Sanders 11/03/23 14:32: [facility] is unable to accept patient to staffing. Patient information/order has been faxed to Stephanie shen/ [facility]. Original Note: I spoke w/ this patient regarding plans once medically stable for discharge. PT/OT evaluated patient and recommended home health services. Patient is agreeable to home health services and does not have a preference. I will set up home health once patient is medically stable for discharge. Per MD patient may discharge home later today. I will continue to follow up.
--- NOTE | 2023-11-02 15:03 | CA_ITS ---
APPROVED REPORT EXAM: Limited 2D Echocardiogram Custodial Supervisor: RT Torri(R) Ht: 5 ft 1 in Wt: 183lbs BSA: 1.82 BP: 154/83 mmHg Indications: limited echo to check pericardial effusion, edema, ex smoker, HTN, DM, hyperlipidemia, CHF, SOB, hx CVA Conclusion This is a limited TTE to evaluate for pericardial effusion. Limited windows were obtained. Technically difficult study. There is a small sized, anterior pericardial effusion present. The largest pocket measures 0.7 cm in diastole. No evidence of chamber collapse. The IVC is not well-visualized. Overall, no echo indications of tamponade. Compared to prior recent study from 10/30/2023, there are overall no significant changes to the size or location of the pericardial effusion. Electronically signed by : Nay Hall MD 11/02/2023 23:44:46
--- NOTE | 2023-11-02 15:03 | EXP.CARD.PN ---
Subjective Subjective Date: 11/02/23 Time: 10:00 Interval history: Patient diuresed approximately 4 L over the weekend but remains hypoxic requiring 3 L/min nasal cannula and O2 still at 90% Exam Data for Last 24 hours Vital signs and Labs for Last 24 Hours: Temp Pulse Resp BP Pulse Ox O2 Del Method O2 Flow Rate 98 F 60 16 130/60 94 L Nasal Cannula 5 11/02/23 12:00 11/02/23 12:00 11/02/23 12:00 11/02/23 12:00 11/02/23 12:00 11/02/23 13:00 11/02/23 06:45 FiO2 32 11/01/23 19:11 Laboratory Results - last 24 hr 11/01/23 15:41: POC Glucose 354 H* 11/01/23 20:46: POC Glucose 243 H 11/02/23 01:36: POC Glucose 195 H 11/02/23 05:37: POC Glucose 224 H 11/02/23 06:29: WBC 6.8, RBC 3.25 L, Hgb 10.1 L, Hct 31.5 L, MCV 97.0, MCH 31.0, MCHC 31.9, RDW 14.2, Plt Count 302, MPV 8.4, Neut % (Auto) 75.0, Lymph % (Auto) 15.4, [place] % (Auto) 5.7, Eos % (Auto) 3.4, Baso % (Auto) 0.4, Neut # (Auto) 5.1, Lymph # (Auto) 1.1, [place] # (Auto) 0.4, Eos # (Auto) 0.2, Baso # (Auto) 0.0, Sodium 136, Potassium 4.3, Chloride 104, Carbon Dioxide 25, Anion Gap 11.3, BUN 33 H, Creatinine 1.50 H, Estimated Creat Clear 40, Estimated GFR 33 L, Est GFR ( Amer) 41 L, Glucose 215 H D, Calcium 8.5, Magnesium 1.4 L D, Total Bilirubin 0.5, AST 20, ALT 19, Alkaline Phosphatase 58, Total Protein 6.2 L, Albumin 3.5, Globulin 2.7, Albumin/Globulin Ratio 1.3 11/02/23 10:54: POC Glucose 416 H* I & O for Last 24 hours: Intake & Output 0810/31/23 11/01/23 11/02/23 23:59 23:59 23:59 23:59 Intake Total 270 / 510 1560 / 1860 1500 / 1600 460 / 460 Output Total 1400 / 1900 4150 / 4150 1250 / 1250 100 / 100 Balance -1130 / -1390 -2590 / -2290 250 / 350 360 / 360 Weight 183 lb 182 lb 15.986 oz 182 lb 9.6 oz 183 lb 13.848 oz Microbiology Reports for the Last 24 Hours: Microbiology 10/30/23 10:31 Blood Blood Culture - Preliminary NO GROWTH AFTER 48 HOURS 10/30/23 10:16 Blood Blood Culture - Preliminary NO GROWTH AFTER 48 HOURS Constitutional Constitutional: no acute distress, obese and cooperative *Routine HEENT Exam Eye: Present PERRL *Routine Respiratory Exam Respiratory: Present CTA bilaterally; Absent accessory muscle use, wheezes or crackles Comments: Reduced breath sounds *Routine Cardiovascular Exam Cardiovascular: Present RRR, Normal S1 and Normal S2; Absent murmur, gallop or rubs *Routine Abdominal Exam Abdominal: Present soft; Absent tenderness *Routine Extremities Exam Extremities: Present pulses intact; Absent cyanosis or edema *Routine Skin Exam Skin: Present intact; Absent erythema or wounds *Routine Neurological Exam Neurological: Present alert and oriented X3 Routine Psychiatric Exam Psychiatric: Present cooperative Progress Note: A&P Assessment and plan (1) Acute hypoxemic respiratory failure: Status: Acute (2) Acute on chronic heart failure with preserved ejection fraction (HFpEF): Status: Acute (3) CKD stage 3 due to type 2 diabetes mellitus: Status: Acute (4) HLD (hyperlipidemia): Status: Acute (5) HTN (hypertension): Status: Acute (6) Diabetes mellitus, type 2: Status: Acute (7) Obesity (BMI 30.0-34.9): Status: Chronic Assessment and Plan Assessment and Plan for All Diagnoses:: Acute hypoxic respiratory failure - new dx this admission and possibly multifactorial - she has acute on chronic HFpEF, untreated sleep apnea, but remains acutely hypoxic out of worsening to these findings - Her shortness of breath was acute in onset and had recent hospitalization and prolonged travel and immobility on top of her baseline immobility of left lower extremity due to prior CVA - Check CTA PE Acute on chronic chronic HFpEF - new dx this admission with elevated proBNP, weight gain plus increase shortness of breath since diuretics were discontinued - Chest x-ray shows patchy airspace opacity in the
--- NOTE | 2023-11-02 15:13 | EXP.ACUTE.PN ---
Subjective *Date: 11/02/23 *Time: 15:13 Interval history: Continues to require oxygen. Up to 5 L overnight, 3 L to day to maintain sats of 90. Denies chest pain. States she is feeling better. Glucose remains elevated. 215 on morning labs. No nausea or vomiting. Having bowel movements. Medical Exam Vital signs and Labs for Last 24 Hours: Vital Signs Temp Pulse Pulse Pulse Resp BP Pulse Ox 11/02/23 13:00 11/02/23 12:00 98 F 60 16 130/60 94 L 11/02/23 11:53 82 11/02/23 11:53 78 11/02/23 11:00 11/02/23 09:00 11/02/23 08:00 115 H 86 L 11/02/23 08:00 120 H 11/02/23 08:00 98.2 F 115 H 17 131/54 L 86 L 11/02/23 06:45 11/02/23 06:35 102 H 11/02/23 06:35 106 H 11/02/23 06:35 90 L 11/02/23 05:00 11/02/23 04:00 109 H 11/02/23 04:00 98.2 F 110 H 16 144/65 H 92 L 11/02/23 03:00 11/02/23 01:00 11/02/23 00:00 111 H 11/01/23 23:58 98.4 F 111 H 18 142/60 H 90 L 11/01/23 23:57 93 H 11/01/23 23:57 92 H 11/01/23 23:00 11/01/23 21:00 11/01/23 20:00 116 H 11/01/23 20:00 121 H 93 L 11/01/23 20:00 98.6 F 121 H 18 148/64 H 93 L 11/01/23 19:12 89 L 11/01/23 19:11 11/01/23 19:10 98 H 11/01/23 19:10 98 H 11/01/23 18:32 11/01/23 17:00 11/01/23 16:00 98.1 F 111 H 26 H 155/76 H 92 L 11/01/23 16:00 95 H O2 Del Method O2 Flow Rate FiO2 11/02/23 13:00 Nasal Cannula 11/02/23 12:00 11/02/23 11:53 11/02/23 11:53 11/02/23 11:00 Nasal Cannula 11/02/23 09:00 Nasal Cannula 11/02/23 08:00 Room Air 11/02/23 08:00 11/02/23 08:00 Room Air 11/02/23 06:45 Nasal Cannula 5 11/02/23 06:35 11/02/23 06:35 11/02/23 06:35 Nasal Cannula 4 11/02/23 05:00 Nasal Cannula 5 11/02/23 04:00 11/02/23 04:00 Nasal Cannula 4.5 11/02/23 03:00 Nasal Cannula 4 11/02/23 01:00 Nasal Cannula 3 11/02/23 00:00 11/01/23 23:58 Nasal Cannula 3.5 11/01/23 23:57 11/01/23 23:57 11/01/23 23:00 Nasal Cannula 3 11/01/23 21:00 Nasal Cannula 3 11/01/23 20:00 11/01/23 20:00 Nasal Cannula 3 11/01/23 20:00 Nasal Cannula 1 11/01/23 19:12 Room Air 11/01/23 19:11 Nasal Cannula 3 32 11/01/23 19:10 11/01/23 19:10 11/01/23 18:32 Nasal Cannula 3 11/01/23 17:00 Nasal Cannula 3 11/01/23 16:00 Room Air 1 11/01/23 16:00 Intake and Output 11/01/23 11/02/23 11/02/23 23:59 07:59 15:59 Intake Total 360 / 1600 100 / 460 360 / 460 Output Total 150 / 1250 0 / 100 100 / 100 Balance 210 / 350 100 / 360 260 / 360 Intake: Intake, Oral Amount 360 / 1600 100 / 460 360 / 460 Output: Output, Urine Amount 150 / 1250 0 / 100 100 / 100 Other: Number of Voids 1 Number of Unmeasured Voids 1 1 Number of Bowel Movements 1 Weight 83.4 kg Patient Weight 11/02/23 23:59 Weight 83.4 kg Laboratory Results - last 24 hr 11/01/23 15:41: POC Glucose 354 H* 11/01/23 20:46: POC Glucose 243 H 11/02/23 01:36: POC Glucose 195 H 11/02/23 05:37: POC Glucose 224 H 11/02/23 06:29: WBC 6.8, RBC 3.25 L, Hgb 10.1 L, Hct 31.5 L, MCV 97.0, MCH 31.0, MCHC 31.9, RDW 14.2, Plt Count 302, MPV 8.4, Neut % (Auto) 75.0, Lymph % (Auto) 15.4, [place] % (Auto) 5.7, Eos % (Auto) 3.4, Baso % (Auto) 0.4, Neut # (Auto) 5.1, Lymph # (Auto) 1.1, [place] # (Auto) 0.4, Eos # (Auto) 0.2, Baso # (Auto) 0.0, Sodium 136, Potassium 4.3, Chloride 104, Carbon Dioxide 25, Anion Gap 11.3, BUN 33 H, Creatinine 1.50 H, Estimated Creat Clear 40, Estimated GFR 33 L, Est GFR ( Amer) 41 L, Glucose 215 H D, Calcium 8.5, Magnesium 1.4 L D, Total Bilirubin 0.5, AST 20, ALT 19, Alkaline Phosphatase 58, Total Protein 6.2 L, Albumin 3.5, Globulin 2.7, Albumin/Globulin Ratio 1.3 11/02/23 10:54: POC Glucose 416 H* I & O for Labs for Last 2
--- NOTE | 2023-11-02 15:33 | PC.NURSE ---
Pt off floor to CT.
[2023-11-02 17:36] LABS: POC Glucose,Bedside 173 (70-110)
--- NOTE | 2023-11-02 17:54 | PC.NURSE ---
pt is currently sitting up in the chair eating dinner. she has used the bedside commode x1 assist, gait is unsteady and pt gets SOB when standing up. blood glucose levels have been elevated and treated per sliding scale, notified. she is currently on 3 LNC and is tolerating well. she complained of a headache and was treated per MAY. no further requests at this time, call light within reach.
[2023-11-02 21:49] LABS: POC Glucose,Bedside 214 (70-110)
[2023-11-03] VITALS: BP 136/58; PULSE 100; PULSE 107; RESP 18; TEMP 36.8; O2SAT 93
[2023-11-03 04:00] VITALS: BP 143/74; PULSE 109; PULSE 110; RESP 18; TEMP 36.6; O2SAT 91; BMI 33.8
[2023-11-03 05:38] LABS: POC Glucose,Bedside 167 (70-110)
--- NOTE | 2023-11-03 06:20 | PC.NURSE ---
Pt is alert and oriented x4, Pt is now tolerating 4L NC well. overnight RA did apply a mask at 9L for pt comfort while sleeping pt tolerated well. Pt denies other needs and pain and has had no other acute changes this shift
[2023-11-03 06:21] VITALS: PULSE 104; PULSE 105; O2SAT 90
[2023-11-03 06:54] LABS: Albumin Level 3.6 g/dl (3.5-5.0); Basophils % 0.3 % (0.1-2.0); Chloride 102 mmol/L (98-107); Eosinophils # 0.2 K/mm3 (0.0-0.4); Eosinophils % 2.9 % (0.1-12.0); Hematocrit 31.4 % (37.0-47.0); Hemoglobin 10.1 g/dL (12.2-16.2); Lymphocytes # 1.1 K/mm3 (0.7-4.5); Lymphocytes % 13.9 % (10-50); Mean Corpuscular HGB Conc 32.3 g/dL (31.8-35.4); Mean Corpuscular Hemoglobin 30.5 pg (27.0-31.2); Mean Corpuscular Volume 94.3 fl (81-99); Mean Platelet Volume 7.8 fl (7.4-10.4); Monocytes # 0.4 K/mm3 (0.1-1.0); Monocytes % 5.3 % (1.7-9.3); Neutrophils # 6.1 K/mm3 (1.8-7.8); Neutrophils % 77.5 % (37.0-80.0); Platelet Count 357 K/mm3 (142-424); Potassium 3.7 mmoL/L (3.5-5.1); Red Blood Count 3.33 M/mm3 (4.20-5.40); Red Cell Distribution Width 14.1 % (11.5-17.5); Sodium 135 mmol/L (136-145); White Blood Count 7.8 K/mm3 (4.8-10.8)
[2023-11-03 06:57] LABS: Alanine Aminotransferase 19 U/L (12-78); Albumin/Globulin Ratio 1.2 (1.1-1.8); Alkaline Phosphatase 63 U/L (38-126); Anion Gap 13.7 mEq/L (5-15); Aspartate Amino Transferase 25 U/L (14-36); Bilirubin,Total 0.5 mg/dl (0.2-1.3); Blood Urea Nitrogen 34 mg/dl (7-17); Calcium 8.5 mg/dl (8.4-10.2); Carbon Dioxide 23 mmol/L (22.0-30.0); Creatinine Clearance Estimated 39 mL/min (50-200); Estimated Glomerular Filt Rate 33 ml/min (>60); GFR (African American) 41 ML/MIN (>60); Globulin 2.9 g/dL (1.3-3.2); Glucose 152 mg/dl (74-100); Total Protein,Serum 6.5 g/dl (6.3-8.2)
--- NOTE | 2023-11-03 07:26 | EXP.DC.SUM ---
General Admission date:: 10/30/23 Discharge date: 11/03/23 HPI HPI HPI: Ms. Matos is a 78-year-old female with history of hypertension, hyperlipidemia, diabetes, previous smoker, history of stroke with residual left-sided deficits. She presented to the ER due to worsening shortness of breath and cough over the past several days. Things worsened yesterday to the point that she had a hard time last night and came in today for evaluation. States she was recently admitted to the hospital for potassium abnormalities and ISAÍAS. Medications were adjusted at that time and her HCTZ was held. Since then, she has been doing well at home until the past few days. Noted to have dyspnea with exertion. After walking to the bathroom felt extremely short of breath. Denies syncope, chest pain, nausea or vomiting. Saw her PCP this week who started her on Augmentin and an inhaler due to cough and shortness of breath. This did not make much difference for her. Last night she had a hard time lying flat and has had more shortness of breath with laying supine necessitating her to sleep in a chair. Has had some increased lower extremity swelling. Noted to have desats with exertion in the ER necessitating oxygen. O2 sats in the low 80s. Placed on on 4 L nasal cannula to maintain sats above 90. Workup found lower extremity edema, chest imaging with pulmonary edema and effusions. BNP elevated. Medicine consulted for admission for CHF exacerbation. On arrival to the floor, patient has catheter in place. Has had at least 1 L of urine output. States she is feeling a little bit better but still short of breath. BUN 31, creatinine 1.5. Potassium normal at 3.9. BNP elevated at 3000. Bedside, help supplement history. Hospital Course Hospital Course Hospital Course: 78-year-old female with history of stroke with residual deficits, hypertension, diastolic heart failure, who presents with new oxygen requirement and acute exacerbation of CHF. Discussed case with ER physician, request admission for diuresis and further management. I agreed to admit. Concern for component of pneumonia and heart failure, new diagnosis. Aggressively diuresed during admission. Treated with antibiotics. Showing improvement. Cardiology assisted with care. Stable to discharge home for continued outpatient management. Problems addressed as follows: Acute hypoxemic respiratory failure secondary to acute on chronic diastolic heart failure Pneumonia -On initial admission, patient noted to be volume overloaded. Imaging concerning for CHF exacerbation, effusions, pulmonary edema. Started on aggressive diuresis and supplemental oxygen. She had good response with diuresis, negative over 4 L since admission. Cardiology was consulted to assist with care. Echo obtained showing preserved ejection fraction with grade 2 diastolic dysfunction. Small pericardial effusion also noted. Repeat imaging prior to discharge showed stability of that effusion. Tolerating Bumex well. Initiated on goal-directed medications. Continues to necessitate oxygen. Room air saturation at rest of 86%, necessitating continued oxygen at discharge home. -On repeat imaging during admission, noted to have consolidation and airspace disease concerning for superimposed pneumonia. Was initiated on antibiotics. Showing some improvement. Stable white count during admission. Will complete empiric course of antibiotics for her pneumonia with Augmentin. -Continue simvastatin 40 mg nightly, isosorbide mononitrate 60 mg daily, amlodipine 10 mg daily, and aspirin 81 mg daily for CAD and hypertension; Continue Bumex 1 mg po once daily, farxiga, irbesartan, Aldactone. Needs repeat labs at follow-up with cardiology -Incentive spirometry and flutter valve provided during admission, continue at discharge -Recommend pulmonary follow-up as an outpatient for her respiratory failure and pneumonia Nocturnal hypoxia: Had increased oxygen requirement
[2023-11-03 08:00] VITALS: BP 140/68; PULSE 102; RESP 17; TEMP 36.6; O2SAT 97
--- NOTE | 2023-11-03 10:30 | EXP.CARD.PN ---
Subjective Subjective Date: 11/03/23 Time: 10:30 Interval history: No events overnight. She remains hypoxic requiring 4 L O2 at rest. CTA was negative for PE but suggestive of possible bilateral pneumonia. Her family is here with her today and she feels ready for discharge home with their watch care. Exam Data for Last 24 hours Vital signs and Labs for Last 24 Hours: Temp Pulse Resp BP Pulse Ox O2 Del Method O2 Flow Rate 97.9 F 102 H 17 140/68 97 Nasal Cannula 4 11/03/23 08:00 11/03/23 08:00 11/03/23 08:00 11/03/23 08:00 11/03/23 08:00 11/03/23 09:00 11/03/23 09:00 FiO2 35 11/03/23 00:00 Laboratory Results - last 24 hr 11/02/23 10:54: POC Glucose 416 H* 11/02/23 16:30: POC Glucose 173 H 11/02/23 20:28: POC Glucose 214 H 11/03/23 05:21: POC Glucose 167 H 11/03/23 05:53: WBC 7.8, RBC 3.33 L, Hgb 10.1 L, Hct 31.4 L, MCV 94.3, MCH 30.5, MCHC 32.3, RDW 14.1, Plt Count 357, MPV 7.8, Neut % (Auto) 77.5, Lymph % (Auto) 13.9, [place] % (Auto) 5.3, Eos % (Auto) 2.9, Baso % (Auto) 0.3, Neut # (Auto) 6.1, Lymph # (Auto) 1.1, [place] # (Auto) 0.4, Eos # (Auto) 0.2, Baso # (Auto) 0.0, Sodium 135 L, Potassium 3.7, Chloride 102, Carbon Dioxide 23, Anion Gap 13.7, BUN 34 H, Creatinine 1.50 H, Estimated Creat Clear 39, Estimated GFR 33 L, Est GFR ( Amer) 41 L, Glucose 152 H D, Calcium 8.5, Magnesium 2.0 D, Total Bilirubin 0.5, AST 25, ALT 19, Alkaline Phosphatase 63, Total Protein 6.5, Albumin 3.6, Globulin 2.9, Albumin/Globulin Ratio 1.2 I & O for Last 24 hours: Intake & Output 10/31/23 11/01/23 11/02/23 11/03/23 23:59 23:59 23:59 23:59 Intake Total 1560 / 1860 1500 / 1600 1580 / 1820 240 / 240 Output Total 4150 / 4150 1250 / 1250 850 / 1050 200 / 200 Balance -2590 / -2290 250 / 350 730 / 770 40 / 40 Weight 182 lb 15.986 oz 182 lb 9.6 oz 183 lb 13.848 oz 179 lb 2 oz Constitutional Constitutional: no acute distress, obese and cooperative *Routine HEENT Exam Eye: Present PERRL *Routine Respiratory Exam Respiratory: Present CTA bilaterally; Absent accessory muscle use, wheezes or crackles *Routine Cardiovascular Exam Cardiovascular: Present RRR, Normal S1 and Normal S2; Absent murmur, gallop or rubs *Routine Abdominal Exam Abdominal: Present soft; Absent tenderness *Routine Extremities Exam Extremities: Present pulses intact; Absent cyanosis or edema *Routine Skin Exam Skin: Present intact; Absent erythema or wounds *Routine Neurological Exam Neurological: Present alert and oriented X3 Routine Psychiatric Exam Psychiatric: Present cooperative Progress Note: A&P Assessment and plan (1) Acute on chronic heart failure with preserved ejection fraction (HFpEF): Status: Acute (2) Acute hypoxemic respiratory failure: Status: Acute (3) HTN (hypertension): Status: Acute (4) Diabetes mellitus, type 2: Status: Acute (5) Obesity (BMI 30.0-34.9): Status: Chronic (6) CKD stage 3 due to type 2 diabetes mellitus: Status: Acute Assessment and Plan Assessment and Plan for All Diagnoses:: Acute hypoxic respiratory failure - new dx this admission and possibly multifactorial - she has acute on chronic HFpEF, untreated sleep apnea, and CT chest suggestive of bilateral pneumonia but negative for PE -She has diuresed approximately 4 L -DC home with O2 nasal cannula, specific orders per hospitalist, recommend outpatient pulmonology evaluation Acute on chronic chronic HFpEF - new dx this admission with elevated proBNP, weight gain plus increase shortness of breath since diuretics were discontinued - Chest x-ray shows patchy airspace opacity in the lung bases right greater than left with small effusions - Echocardiogram shows normal biventricular systolic function, asynchronous septum, biatrial dilation, mild AI/MR/TR/PI/MS, small anterior pericardial effusion with the largest pocket measuring 0.7 cm in diastole, no evidence of chamber collapse or indication of tamponade. - Diuresed 4L
[2023-11-03 11:16] VITALS: PULSE 78; PULSE 80
--- NOTE | 2023-11-03 12:57 | CARE MANAGER ---
Patient information faxed to [facility], portable O2 will be delivered to room prior to discharge and home concentrator will be delivered to home @ a later time.
[2023-11-03 16:45] LABS: POC Glucose,Bedside 301 (70-110)
--- NOTE | 2023-11-04 13:05 | SW/DCPLANNER ---
Follow up phone call: patient stated that she is doing well at home. Patient was able to fruit or nut picker all medications and is aware of follow up appointments. Patient did not have any further needs at this time.
== END 2023-11-03 15:10 | disposition home health service (06) | DRG 291 ==
LOC: ER 11:49 → 2ND 14:33
PROVIDERS: Admitting Provider Internal Medicine Adolescent Medicine; Emergency Provider Emergency Medicine; PCP Family Medicine; Visit Provider Internal Medicine Adolescent Medicine
DX: I11.0 Hypertensive heart disease with heart failure (principal); I50.33 Acute on chronic diastolic (congestive) heart failure; J96.01 Acute respiratory failure with hypoxia; N17.9 Acute kidney failure, unspecified; I31.39 Other pericardial effusion (noninflammatory); E78.5 Hyperlipidemia, unspecified; I69.30 Unspecified sequelae of cerebral infarction; Z68.33 Body mass index [BMI] 33.0-33.9, adult; Z79.84 Long term (current) use of oral hypoglycemic drugs; E11.22 Type 2 diabetes mellitus with diabetic chronic kidney disease; N18.2 Chronic kidney disease, stage 2 (mild); E66.01 Morbid (severe) obesity due to excess calories
CPT/HCPCS: 36415; 51702; 71045; 71046; 71275; 80048; 80053; 80061; 81001; 82803; 82947; 82962; 83036; 83605; 83735; 83880; 84484; 85007; 85025; 85027; 87040; 93005; 93306; 93308; 94640; 94667; 94668; 94761; 97162; 97165; 97530; 97535; 99285; J0696; J1650; J1940; J3475; J7620; Q9967

== ENCOUNTER 2023-11-10 10:15 | Outpatient (CLI) | payer MEDICARE, SELFPAY ==
--- NOTE | 2023-11-10 10:20 | XR_ITS ---
FINAL REPORT CLINICAL HISTORY: PNEUMONIA COMPARISON: 11/01/2023 FINDINGS: TWO-VIEW CHEST The heart size is normal. The mediastinum is normal. There are persistent but improved bibasilar pulmonary opacities consistent with improved pneumonia or atelectasis. There are partially improved small pleural effusions. There is no pneumothorax. IMPRESSION: Persistent but improved pneumonia or atelectasis. Reviewed, Interpreted and Dictated by Sanya Hancock III, MD Transcribed by Carleen Adamson Authenticated and . [facility]
== END 2023-11-10 23:59 | disposition home or self-care (01) ==
LOC: RAD 10:16
PROVIDERS: PCP Family Medicine; Visit Provider Family Medicine
DX: J18.9 Pneumonia, unspecified organism (principal)
CPT/HCPCS: 71046

== ENCOUNTER 2023-12-10 14:45 | Outpatient (CLI) | payer MEDICARE, SELFPAY ==
--- NOTE | 2023-12-10 14:50 | CA_ITS ---
APPROVED REPORT EXAM: Limited 2D Echocardiogram Water Truck Driver: Alessia Woodall RDCS Ht: 5 ft 2 in Wt: 160lbs BSA: 1.74 BP: 113/41 mmHg Indications: PERICARDIAL EFFUSION FOLLOW UP,H/O CVA, DM,HTN,HLP M-Mode Dimensions RVDd 2.05 cm (0.9-2.6) LA Diam 4.00 cm (1.9-4.0) LVDd 4.54 cm (3.5-5.7) LVDs 3.17 cm (3.5-5.7) IVSd 0.88 cm (0.6-1.1) PWd 0.80 cm (0.6-1.1) EF (Teich) 57.60% FS 30.20% EDV (Teich) 94.40 mL TAPSE 1.74 (<1.7) ESV (Teich) 40.00 mL Other Information Study Quality: Fair Conclusion This is a limited TTE to evaluate for pericardial effusion. Limited windows were obtained. There is a small-sized pericardial effusion noted anteriorly. The largest pocket measures approximately 0.5 cm in diastole. There is no evidence of chamber collapse. No echo indications of tamponade. Compared to prior study from 11/02/2023, the effusion location is unchanged. The size is overall similar or slightly improved. Electronically signed by : Nay Hall MD 12/13/2023 12:02:49
== END 2023-12-10 23:59 | disposition home or self-care (01) ==
LOC: RT 14:48
PROVIDERS: PCP Family Medicine; Visit Provider Physician Assistant
DX: I31.39 Other pericardial effusion (noninflammatory) (principal); R94.31 Abnormal electrocardiogram [ECG] [EKG]; I11.0 Hypertensive heart disease with heart failure; I50.33 Acute on chronic diastolic (congestive) heart failure
CPT/HCPCS: 93308

== ENCOUNTER 2024-10-21 12:34 | Inpatient (IN) | payer MEDICARE, SELFPAY ==
[2024-10-21] VITALS (9 sets, daily range): BP systolic 127–168; BP diastolic 67–86; PULSE 84–120; RESP 18–24; TEMP 36.6–37.1; O2SAT 88–100; BMI 32.1; BMI 33.0
--- NOTE | 2024-10-21 12:34 | ED_ITS ---
<Statement entered by Jacek Cespedes MD - 10/21/24 16:38> I was consulted by the EMMA, and we discussed the complexity of problems being addressed. I approved the treatment and management plan for this patient's care in the emergency department, thus performing a substantial portion of the medical decision making. Jacek Cespedes MD Discharge Plan Disposition Patient Disposition: Home, Self-Care Condition: Fair Prescriptions Prescriptions: No Action amlodipine 5 mg tablet 10 mg PO DAILY Patient Comments: TAKE 1 TABLET BY MOUTH EVERY DAY simvastatin 40 mg tablet 40 mg PO HS aspirin 81 mg Tablet,Delayed Release (Dr/Ec) 81 mg PO DAILY (DME) pen needle, diabetic 31 gauge x 1/4 needle See Rx Instructions .ROUTE .MEDSUPPLY Qty: 100 0RF Rx Instructions: As directed bumetanide 1 mg tablet 1 mg PO DAILY insulin glargine [Lantus Solostar U-100 Insulin] 100 unit/mL (3 mL) insulin pen 30 unit SQ DAILY Referrals Follow up/Referrals: Provider,Referral, [Referring, Medical] - See instructions Clinical Impressions Clinical Impression: Acute exacerbation of CHF (congestive heart failure), Acute on chronic respiratory failure with hypoxemia, Chronic kidney disease (CKD), stage 3, Bilateral pleural effusion Print Language Print Language: Kinyarwanda Discharge ED Provider: Jacek Cespedes HPI General Chief Complaint: Shortness of Breath/Dyspnea Stated Complaint: SOA Time Seen by Provider: 10/21/24 12:35 History of Present Illness HPI narrative: Patient presents for evaluation of dyspnea. Patient has a past medical history of end-stage renal disease not on hemodialysis, insulin-dependent type 2 diabetes mellitus, preserved ejection fraction heart failure, hyperlipidemia hypertension. Patient follows with nephrology and recently was taken off spironolactone and Farxiga but remains on Bumex. Patient states that since then she has gained 10 pounds in 10 days. She has taken 2 extra doses of Bumex and has had good urinary output however her dyspnea has progressed. Patient is supposed to wear oxygen only at night while sleeping however she has began being significantly dyspneic for the last 2 to 3 days. She denies any fever chills hemoptysis hematochezia melena nausea vomiting diarrhea. Related Data Home Medications ?Medication ?Instructions ?Recorded ?Confirmed simvastatin 40 mg tablet 40 mg PO HS 10/10/23 5 aspirin 81 mg tablet,delayed 81 mg PO DAILY 10/31/23 0 10/21/24 release amlodipine 5 mg tablet 10 mg PO DAILY 01/12/2409/28 bumetanide 1 mg tablet 1 mg PO DAILY Fluid 10/21/24 10/21/24 insulin glargine 100 unit/mL (3 30 unit SQ DAILY 10/2110/21/24 mL) subcutaneous pen (Lantus Solostar U-100 Insulin) Previous Rx's ?Medication ?Instructions ?Recorded pen needle, diabetic 31 gauge x #100 ea 11/03/2304/02 Allergies Allergy/AdvReac Type Severity Reaction Status Date / Time No Known Allergies Allergy Verified 01/12/24 10:09 [facility] Disclaimer: The information contained in this section may have been updated after the patient was seen, as this information can be updated by other users. Medical History CVA (cerebral vascular accident) Diabetes mellitus, type 2 HTN (hypertension) HLD (hyperlipidemia) Surgical History H/O tubal ligation Family History Father Family history of cancer Family history of myocardial infarction Mother Family history of myocardial infarction Sister Family history of myocardial infarction Son Family history of myocardial infarction Social History Smoking Status: Former smoker alcohol intake: never current occupational status: retired Travel in the last 8 weeks?: None Have you lived/traveled outside [place] in past 30 days?: No Contact w/someone who lives/traveled outside [place] past 30 days?: No Exposure to someone with infectious disease in past 14 days?: No Do you have a fever (greater than 100.4 F or 38 C)?: No Have you tested positive for COVID-19?: No Exposed to someone with COVID-19 in past 14 days?: No Do you have a sore throat?: No Do you have a cough?: No Do you have any weakness?: No Do you have any diarrhea?: No Are you experiencing any unusual bleeding?: No Do you have any muscle aches/pain?: No Do you have any abdominal pain?: No Are you experiencing loss of taste or smell?: No Other Medical History Have you received the Flu Vaccine for this season: No Have you received the Pneumonia Vaccine: No ROS Obtained: Yes Systems reviewed as appropriate & no additional complaints except as documented Physical Exam General General appearance: alert and in no apparent distress Respiratory Respiratory exam: Present normal lung sounds bilaterally Cardiovascular Cardiovascular exam: Present bradycardia Neurological Exam Neurological exam: Present alert and oriented X3 HEART Score HEART Score HEART Score assessment performed?: Yes History (anamnesis): Slightly suspicious ECG: Non-specific disturbance Age: >65 years Risk factors: Atherosclerosis history Troponin: </= normal limit HEART Score: 5 Critical Care Critical Care Time Critical Care Time: Yes Attestation: On 10/21/24, the high probability of a clinically significant, sudden or life threatening deterioration of the following system(s) required my full and direct attention, intervention and personal management. The time I documented below is in addition to time spent performing reported procedures but includes the following listed in this critical care notation. Total Time Total Critical Care Time: 30 Medical Decision Making Medical Records Medical records reviewed: Yes I reviewed the patient's medical records. Nicola Inquiry Pt receiving controlled substance: No Vital Signs Vital Signs: 10/21/24 12:34 10/21/24 13:01 Temperature 97.8 F Temperature Source Oral Pulse Rate 99 H Pulse Rate [Apical] 107 H Respiratory Rate 18 23 Blood Pressure 160/67 H Blood Pressure [Right Arm] 127/74 Blood Pressure Mean [Right Arm] 91 Blood Pressure Source [Right Arm] Automatic Cuff Blood Pressure Position [Right Arm] Sitting 02 Sat by Pulse Oximetry 88 L 95 Oxygen Delivery Method Room Air Lab Data Lab results reviewed: Yes I reviewed the patient's lab results. Labs: Lab Results 10/21/24 12:41: VBG pH 7.44 H, VBG pCO2 39.0, VBG pO2 44.2 H, VBG HCO3 26.0, VBG Total CO2 27.2 H, VBG O2 Saturation 76.4 H, VBG Base Excess 1.9, VBG Lactic Acid 1.0 10/21/24 13:00: WBC 7.7, RBC 4.12 L, Hgb 11.6 L, Hct 35.9 L, MCV 87.1, MCH 28.2, MCHC 32.3, RDW 13.3, Plt Count 218, MPV 9.9, Neut % (Auto) 79.8, Lymph % (Auto) 13.0, Taney % (Auto) 5.6, Eos % (Auto) 1.0, Baso % (Auto) 0.5, Neut # (Auto) 6.2, Lymph # (Auto) 1.0, Taney # (Auto) 0.4, Eos # (Auto) 0.1, Baso # (Auto) 0.0, PT 11.0, INR 0.99, Sodium 136, Potassium 3.6, Chloride 96 L, Carbon Dioxide 30, Anion Gap 13.6, BUN 54 H, Creatinine 2.20 H, Estimated Creat Clear 23, Estimated GFR 21 L, Est GFR ( Amer) 26 L, Glucose 154 H, Calcium 9.6, Magnesium 2.1, Total Bilirubin 0.7, AST 30, ALT 27, Alkaline Phosphatase 87, Troponin I 0.03, NT-Pro-B Natriuret Pep 2560 H, Total Protein 8.3 H D, Albumin 3.9, G lobulin 4.4 H, Albumin/Globulin Ratio 0.9 L, Procalcitonin 0.374 10/21/24 13:00 10/21/24 13:00 Response Orders (Tests/Meds): ED MEDICATIONS Generic Name Dose Route Start Last Admin Trade Name Freq PRN Reason Stop Dose Admin Furosemide 40 mg 10/21/24 13:49 Furosemide 40mg/4ml Vial IV 10/21/24 13:50 ONCE ONE ORDERS Category Date Time Status XR chest portable Stat Exams 10/21/24 13:19 Completed BNP [NT Pro Brain Natriuretic Pep.] Stat Lab 10/21/24 13:00 Completed CBC w/Auto Diff [Complete Blood Count Auto Diff] Stat Lab 10/21/24 13:00 Completed CMP [Comprehensive Metabolic Panel] Stat Lab 10/21/24 13:00 Completed HIV Combo Stat Lab 10/21/24 13:00 Received Hepatitis C Ab Qual. W/ RFX Stat Lab 10/21/24 13:00 Received INR [Prothrombin Time INR] Stat Lab 10/21/24 13:00 Completed Magnesium Stat Lab 10/21/24 13:00 Completed Procalcitonin Stat Lab 10/21/24 13:00 Completed Trop I [Troponin I] Stat Lab 10/21/24 13:00 Completed Troponin I Q3H Lab 10/21/24 15:45 Ordered Troponin I Q3H Lab 10/21/24 18:45 Ordered VBG [Venous Blood Gas] Stat RT 10/21/24 12:41 Completed MDM Narrative Medical Decision Narrative: In summary patient is a 79-year-old female who presents to the emergency department for evaluation of dyspnea. Patient is initially normotensive with a blood pressure 127/74 tachycardic at 107 sinus tachycardia the bedside monitor breathing 18 times a minute satting at 88% on room air upon arrival, afebrile at 97.8. Physical exam is remarkable for clear breath sounds with no increased work of breathing or accessory muscle use or adventitious sounds, cardiovascular is S1-S2 rapid but regular rate and rhythm without murmurs gallops rubs or thrills. There is dependent nonpitting edema of the bilateral lower extremities. Abdomen soft nontender no rebound no guarding no rigidity. Bowel sounds normal active.. Differential diagnosis includes acute on chronic renal failure versus acute on chronic CHF versus PE versus ACS etc. Initial workup will be conducted with hematologic labs twelve-lead EKG VBG CT PE protocol. Initial interventions include supplemental O2 and continuous pulse oximetry along with continuous cardiac monitoring for now. Initial workup reviewed by me and her hematologic labs are significant for normal white count H&H 11.6 and 35.9 respectively with no neutrophilic shift, INR 0.99 VBG shows a pH of 7.44 VBG pCO2 is 39 lactic is 1.0 chlorides 96 BUN is 54 creatinine is 2.2 GFR is 21 initial troponin is 0.03 NT proBNP is 2560 and procalcitonin 0.374, my informal interpretation of her plain film x-ray shows pulmonary edema and bilateral pleural effusions.. Upon repeat evaluation patient is still requiring 2 L to maintain a sat above 90%. Given her chronic kidney disease I have given a modest dose of Lasix to start diuresis of 40 mg IV push. Given this I had interactive discussion with hospital medicine regarding patient presentation SARKAR and management and she will admitted for further evaluation and care.
--- NOTE | 2024-10-21 12:37 | ECG_ITS ---
APPROVED REPORT Exam: Resting ECG HR:104 bpm ECG Measurements Heart Rate 104 AXES SD 171 P 42 QRSd 81 QRS -30 QT 338 T 93 QTc 399 Conclusion SINUS TACHYCARDIA LOW QRS VOLTAGE IN PRECORDIAL LEADS [QRS DEFLECTION < 1.0 mV IN CHEST LEADS] ANTEROSEPTAL MYOCARDIAL INFARCTION , OF INDETERMINATE AGE [40+ ms Q WAVE IN V1-V4] ABNORMAL ECG UNCONFIRMED REPORT Electronically signed by : Jacek Cespedes, 10/21/2024 16:45:45
--- OUTSIDE RECORDS SUMMARY | 2024-10-21 12:53 | XMS_ITS ---
Author Organization Unknown Medications Date Medication Dosage DosageUnit StartDate StopDate StopReason Active DoseQuantity DoseUnit Dispense DispenseUnit Refills NdcCode DrugCode PharmacyId IsPrescription MappedMedication Srcstatus Custom 09/28 00:00 :00 Acetaminoph en-Codeine #3 300-30 MG Tablet 0 [id number] 001 Not Taking 08/31 00:00 :00 Acetaminoph en-Codeine #3 300-30 MG Tablet 0 [id number] 001 Not Taking 08/02 00:00 :00 Acetaminoph en-Codeine #3 300-30 MG Tablet 0 [id number] 001 Not Taking 06/29 00:00 :00 Acetaminoph en-Codeine #3 300-30 MG Tablet 0 [id number] 001 Not Taking 05/31 00:00 :00 Acetaminoph en-Codeine #3 300-30 MG Tablet 0 [id number] 001 Not Taking 05/03 00:00 :00 Acetaminoph en-Codeine #3 300-30 MG Tablet 0 [id number] 001 Not Taking 04/12 00:00 :00 Acetaminoph en-Codeine #3 300-30 MG Tablet 0 [id number] 001 Not Taking 03/29 00:00 :00 Acetaminoph en-Codeine #3 300-30 MG Tablet 0 [id number] 001 Not Taking 03/09 00:00 :00 Acetaminoph en-Codeine #3 300-30 MG Tablet 0 [id number] 001 Not Taking 03/01 00:00 :00 Acetaminoph en-Codeine #3 300-30 MG Tablet 0 [id number] 001 Not Taking 02/23 00:00 :00 Acetaminoph en-Codeine #3 300-30 MG Tablet 0 [id number] 001 Not Taking 02/22 00:00 :00 Acetaminoph en-Codeine #3 300-30 MG Tablet 0 [id number] 001 Not Taking 02/09 00:00 :00 Acetaminoph en-Codeine #3 300-30 MG Tablet 0 [id number] 001 Not Taking 01/25 00:00 :00 Acetaminoph en-Codeine #3 300-30 MG Tablet 0 [id number] 001 Not Taking 01/11 00:00 :00 Acetaminoph en-Codeine #3 300-30 MG Tablet 0 [id number] 001 Not Taking 12/14 00:00 :00 Acetaminoph en-Codeine #3 300-30 MG Tablet 0 [id number] 001 Not Taking 11/30 00:00 :00 Acetaminoph en-Codeine #3 300-30 MG Tablet 0 [id number] 001 Not Taking 11/16 00:00 :00 Acetaminoph en-Codeine #3 300-30 MG Tablet 0 [id number] 001 Not Taking 11/09 00:00 :00 Acetaminoph en-Codeine #3 300-30 MG Tablet 0 [id number] 001 Not Taking 10/27 00:00 :00 Acetaminoph en-Codeine #3 300-30 MG Tablet 0 [id number] 001 Not Taking 10/12 00:00 :00 Acetaminoph en-Codeine #3 300-30 MG Tablet 0 [id number] 001 Not Taking 09/28 00:00 :00 amLODIPine Besylate 5 MG Tablet 1 90 Tablet 0 [id number] 710 Taking 08/31 00:00 :00 amLODIPine Besylate 5 MG Tablet 1 90 Tablet 0 [id number] 710 Taking 08/02 00:00 :00 amLODIPine Besylate 5 MG Tablet 1 90 Tablet 0 [id number] 710 Taking 06/29 00:00 :00 amLODIPine Besylate 5 MG Tablet 1 90 Tablet 0 [id number] 710 Taking 05/31 00:00 :00 amLODIPine Besylate 5 MG Tablet 1 90 Tablet 0 [id number] 710 Taking 05/03 00:00 :00 amLODIPine Besylate 5 MG Tablet 1 90 Tablet 0 94803522 710 Taking 04/12 00:00 :00 amLODIPine Besylate 5 MG Tablet 1 90 Tablet 0 20208110 710 Taking 03/29 00:00 :00 amLODIPine Besylate 5 MG Tablet 1 90 Tablet 0 [id number] 710 Taking 03/09 00:00 :00 amLODIPine Besylate 5 MG Tablet 1 90 Tablet 0 [id number] 710 Taking 03/01 00:00 :00 amLODIPine Besylate 5 MG Tablet 1 90 Tablet 0 [id number] 710 Taking 03/01 00:00 :00 amLODIPine Besylate 5 MG Tablet 1 90 Tablet 0 12260158 710 Start 03/01 00:00 :00 amLODIPine Besylate 5 MG Tablet 0 90 0 0048 0716 710 Stop 02/28 00:00 :00 amLODIPine Besylate 5 MG Tablet 1 90 0 0048 0716 710 P Refill 02/23 00:00 :00 amLODIPine Besylate 5 MG Tablet 1 90 0 0048 0716 710 Taking 02/22 00:00 :00 amLODIPine Besylate 5 MG Tablet 1 90 0 0048 0716 710 Taking 02/09 00:00 :00 amLODIPine Besylate 5 MG Tablet 1 90 0 0048 0716 710 Taking 01/25 00:00 :00 amLODIPine Besylate 5 MG Tablet 1 90 0 0048 0716 710 Taking 01/11 00:00 :00 amLODIPine Besylate 10 MG Tablet 1 90 0 0048 0716 810 Taking 12/14 00:00 :00 amLODIPine Besylate 10 MG Tablet 1 90 0 0048 0716 810 Taking 11/30 00:00 :00 amLODIPine Besylate 10 MG Tablet 1 90 0 0048 0716 810 Taking 11/16 00:00 :00 amLODIPine Besylate 10 MG Tablet 1 90 0 0048 0716 810 Taking 11/11 00:00 :00 amLODIPine Besylate 10 MG Tablet 1 90 0 0048 0716 810 Start 11/11 00:00 :00 amLODIPine Besylate 10 MG Tablet 0 90 0 0048 0716 810 Stop 11/11 00:00 :00 amLODIPine Besylate 10 MG Tablet 1 90 0 0048 0716 810 P Refill 11/09 00:00 :00 amLODIPine Besylate 10 MG Tablet 1 90 Tablet 0 27697135 810 P Taking 10/27 00:00 :00 amLODIPine Besylate 10 MG Tablet 1 90 Tablet 0 27066310 810 P Taking 10/12 00:00 :00 amLODIPine Besylate 10 MG Tablet 1 90 Tablet 0 87489790 810 P Taking 09/28 00:00 :00 Amoxicillin -Pot Clavulanate 875-125 MG Tablet 10/28/2023 00:00:00 0 14 Tablet 0 37725 227 534 P Not Taking 08/31 00:00 :00 Amoxicillin -Pot Clavulanate 875-125 MG Tablet 10/28/2023 00:00:00 0 14 Tablet 0 80783 227 534 P Not Taking 08/02 00:00 :00 Amoxicillin -Pot Clavulanate 875-125 MG Tablet 10/28/2023 00:00:00 0 14 Tablet 0 85825 227 534 P Not Taking 06/29 00:00 :00 Amoxicillin -Pot Clavulanate 875-125 MG Tablet 10/28/2023 00:00:00 0 14 Tablet 0 80853 227 534 P Not Taking 05/31 00:00 :00 Amoxicillin -Pot Clavulanate 875-125 MG Tablet 10/28/2023 00:00:00 0 14 Tablet 0 59751 227 534 P Not Taking 05/03 00:00 :00 Amoxicillin -Pot Clavulanate 875-125 MG Tablet 10/28/2023 00:00:00 0 14 Tablet 0 69277 227 534 P Not Taking 04/12 00:00 :00 Amoxicillin -Pot Clavulanate 875-125 MG Tablet 10/28/2023 00:00:00 0 14 Tablet 0 64125 227 534 P Not Taking 03/29 00:00 :00 Amoxicillin -Pot Clavulanate 875-125 MG Tablet 10/28/2023 00:00:00 0 14 Tablet 0 82248 227 534 P Not Taking 03/09 00:00 :00 Amoxicillin -Pot Clavulanate 875-125 MG Tablet 10/28/2023 00:00:00 0 14 Tablet 0 54512 227 534 P Not Taking 03/01 00:00 :00 Amoxicillin -Pot Clavulanate 875-125 MG Tablet 10/28/2023 00:00:00 1 14 Tablet 0 76267 227 534 P Refill 03/01 00:00 :00 Amoxicillin -Pot Clavulanate 875-125 MG Tablet 10/28/2023 00:00:00 0 14 Tablet 0 19293 227 534 P Not Taking 02/23 00:00 :00 Amoxicillin -Pot Clavulanate 875-125 MG Tablet 10/28/2023 00:00:00 0 14 Tablet 0 38746 227 534 P Not Taking 02/22 00:00 :00 Amoxicillin -Pot Clavulanate 875-125 MG Tablet 10/28/2023 00:00:00 0 14 Tablet 0 08755 227 534 P Not Taking 02/09 00:00 :00 Amoxicillin -Pot Clavulanate 875-125 MG Tablet 10/28/2023 00:00:00 0 14 Tablet 0 43295 227 534 P Not Taking 01/25 00:00 :00 Amoxicillin -Pot Clavulanate 875-125 MG Tablet 10/28/2023 00:00:00 0 14 Tablet 0 88080 227 534 P Not Taking 01/11 00:00 :00 Amoxicillin -Pot Clavulanate 875-125 MG Tablet 10/28/2023 00:00:00 0 14 Tablet 0 09821 227 534 P Not Taking 12/14 00:00 :00 Amoxicillin -Pot Clavulanate 875-125 MG Tablet 10/28/2023 00:00:00 0 14 Tablet 0 37150 227 534 P Not Taking 11/30 00:00 :00 Amoxicillin -Pot Clavulanate 875-125 MG Tablet 10/28/2023 00:00:00 0 14 Tablet 0 31607 227 534 P Not Taking 11/16 00:00 :00 Amoxicillin -Pot Clavulanate 875-125 MG Tablet 10/28/2023 00:00:00 1 14 Tablet 0 10104 227 534 P Taking 11/09 00:00 :00 Amoxicillin -Pot Clavulanate 875-125 MG Tablet 10/28/2023 00:00:00 1 14 Tablet 0 45175 227 534 P Refill 11/09 00:00 :00 Amoxicillin -Pot Clavulanate 875-125 MG Tablet 10/28/2023 00:00:00 1 14 Tablet 0 89451 227 534 P Taking 10/27 00:00 :00 Amoxicillin -Pot Clavulanate 875-125 MG Tablet 10/28/2023 00:00:00 1 14 Tablet 0 90995 227 534 P Start 09/28 00:00 :00 Bumetanide 1 MG Tablet 1 90 0 3659932 4 111 P Taking 08/31 00:00 :00 Bumetanide 1 MG Tablet 1 90 0 0867742 4 111 P Taking 08/02 00:00 :00 Bumetanide 1 MG Tablet 1 90 0 2231993 4 111 P Taking 06/29 00:00 :00 Bumetanide 1 MG Tablet 1 90 0 2728575 4 111 P Taking 05/31 00:00 :00 Bumetanide 1 MG Tablet 1 90 0 9249923 4 111 P Taking 05/03 00:00 :00 Bumetanide 1 MG Tablet 1 90 0 2407767 4 111 P Taking 04/12 00:00 :00 Bumetanide 1 MG Tablet 1 90 0 2024726 4 111 P Taking 03/29 00:00 :00 Bumetanide 1 MG Tablet 1 90 0 0707822 4 111 P Taking 03/25 00:00 :00 Bumetanide 1 MG Tablet 1 90 0 8235242 4 111 P Refill 03/09 00:00 :00 Bumetanide 1 MG Tablet 1 30 Tablet 1 83190801 111 Taking 03/01 00:00 :00 Bumetanide 1 MG Tablet 1 30 Tablet 1 83190801 111 Taking 03/01 00:00 :00 Bumetanide 1 MG Tablet 1 30 Tablet 1 83190801 111 Start 03/01 00:00 :00 Bumetanide 1 MG Tablet 0 30 Tablet 1 83190801 111 Stop 03/01 00:00 :00 Bumetanide 1 MG Tablet 1 30 Tablet 1 83190801 111 Start 03/01 00:00 :00 Bumetanide 1 MG Tablet 1 30 Tablet 1 83190801 111 Start 03/01 00:00 :00 Bumetanide 1 MG Tablet 0 30 Tablet 1 83190801 111 Stop 03/01 00:00 :00 Bumetanide 1 MG Tablet 0 30 Tablet 1 [id number] 111 Stop 03/01 00:00 :00 Bumetanide 1 MG Tablet 1 30 Tablet 1 83190801 111 Start 03/01 00:00 :00 Bumetanide 1 MG Tablet 0 30 Tablet 1 83190801 111 Stop 03/01 00:00 :00 Bumetanide 1 MG Tablet 1 30 Tablet 1 83190801 111 Start 03/01 00:00 :00 Bumetanide 1 MG Tablet 0 30 Tablet 1 [id number] 111 Stop 02/28 00:00 :00 Bumetanide 1 MG Tablet 1 30 Tablet 1 83190801 111 Start 02/28 00:00 :00 Bumetanide 1 MG Tablet 0 30 Tablet 1 83190801 111 Stop 02/28 00:00 :00 Bumetanide 1 MG Tablet 1 30 Tablet 1 83190801 111 Start 02/28 00:00 :00 Bumetanide 1 MG Tablet 0 30 Tablet 1 [id number] 111 Stop 02/28 00:00 :00 Bumetanide 1 MG Tablet 1 30 Tablet 1 83190801 111 P Refill 02/23 00:00 :00 Bumetanide 1 MG Tablet 1 30 Tablet 1 83190801 111 Taking 02/22 00:00 :00 Bumetanide 1 MG Tablet 1 30 Tablet 1 83190801 111 Taking 02/09 00:00 :00 Bumetanide 1 MG Tablet 1 30 Tablet 1 [id number] 111 Taking 01/25 00:00 :00 Bumetanide 1 MG Tablet 1 30 Tablet 1 83190801 111 Taking 01/11 00:00 :00 Bumetanide 1 MG Tablet 1 30 Tablet 1 091791 111 Taking 12/14 00:00 :00 Bumetanide 1 MG Tablet 1 30 Tablet 1 83190801 111 Taking 12/01 00:00 :00 Bumetanide 1 MG Tablet 1 30 Tablet 1 00 996604 111 Start 12/01 00:00 :00 Bumetanide 1 0 30 Tablet 0 0083 4 111 Stop 12/01 00:00 :00 Bumetanide 1 MG Tablet 1 30 3 7628385 2 901 P Refill 11/30 00:00 :00 Bumetanide 1 MG Tablet 1 9659472 2 901 Taking 11/16 00:00 :00 Bumetanide 1 MG Tablet 1 5693805 2 901 Taking 11/09 00:00 :00 Bumetanide 1 MG Tablet 1 7498316 2 901 Taking 09/28 00:00 :00 Dapaglifloz in Propanediol 10 MG Tablet 0 30 Tablet 0 82338841 730 Not Taking 08/31 00:00 :00 Dapaglifloz in Propanediol 10 MG Tablet 0 30 Tablet 0 12469893 730 Not Taking 08/02 00:00 :00 Dapaglifloz in Propanediol 10 MG Tablet 0 30 Tablet 0 60356584 730 Not Taking 06/29 00:00 :00 Dapaglifloz in Propanediol 10 MG Tablet 0 30 Tablet 0 17653027 730 Not Taking 05/31 00:00 :00 Dapaglifloz in Propanediol 10 MG Tablet 0 30 Tablet 0 41469573 730 Not Taking 05/03 00:00 :00 Dapaglifloz in Propanediol 10 MG Tablet 0 30 Tablet 0 29772140 730 Not Taking 04/12 00:00 :00 Dapaglifloz in Propanediol 10 MG Tablet 0 30 Tablet 0 11590356 730 Not Taking 03/29 00:00 :00 Dapaglifloz in Propanediol 10 MG Tablet 0 30 Tablet 0 09255293 730 Not Taking 03/09 00:00 :00 Dapaglifloz in Propanediol 10 MG Tablet 0 30 Tablet 0 20662457 730 Not Taking 03/01 00:00 :00 Dapaglifloz in Propanediol 10 MG Tablet 0 30 Tablet 0 17132279 730 Not Taking 02/23 00:00 :00 Dapaglifloz in Propanediol 10 MG Tablet 0 30 Tablet 0 25870569 730 Not Taking 02/22 00:00 :00 Dapaglifloz in Propanediol 10 MG Tablet 0 30 Tablet 0 88694000 730 Not Taking 02/09 00:00 :00 Dapaglifloz in Propanediol 10 MG Tablet 0 30 Tablet 0 97073772 730 Not Taking 01/25 00:00 :00 Dapaglifloz in Propanediol 10 MG Tablet 0 30 Tablet 0 03083158 730 Not Taking 01/11 00:00 :00 Dapaglifloz in Propanediol 10 MG Tablet 1 30 Tablet 0 83396122 730 Taking 12/14 00:00 :00 Dapaglifloz in Propanediol 10 MG Tablet 1 30 Tablet 0 89308104 730 Taking 12/01 00:00 :00 Dapaglifloz in Propanediol 10 MG Tablet 1 30 Tablet 0 12552031 730 Start 12/01 00:00 :00 Dapaglifloz in Propanediol 10 0 30 Tablet 0 91085535 730 Stop 09/28 00:00 :00 Diclofenac Sodium 75 MG Tablet Delayed Release 12/28/2013 00:00:00 0 28 Tablet 1 29216 255 106 P Not Taking 08/31 00:00 :00 Diclofenac Sodium 75 MG Tablet Delayed Release 12/28/2013 00:00:00 0 28 Tablet 1 50866 255 106 P Not Taking 08/02 00:00 :00 Diclofenac Sodium 75 MG Tablet Delayed Release 12/28/2013 00:00:00 0 28 Tablet 1 60781 255 106 P Not Taking 06/29 00:00 :00 Diclofenac Sodium 75 MG Tablet Delayed Release 12/28/2013 00:00:00 0 28 Tablet 1 14534 255 106 P Not Taking 05/31 00:00 :00 Diclofenac Sodium 75 MG Tablet Delayed Release 12/28/2013 00:00:00 0 28 Tablet 1 64532 255 106 P Not Taking 05/03 00:00 :00 Diclofenac Sodium 75 MG Tablet Delayed Release 12/28/2013 00:00:00 0 28 Tablet 1 33616 255 106 P Not Taking 04/12 00:00 :00 Diclofenac Sodium 75 MG Tablet Delayed Release 12/28/2013 00:00:00 0 28 Tablet 1 04170 255 106 P Not Taking 03/29 00:00 :00 Diclofenac Sodium 75 MG Tablet Delayed Release 12/28/2013 00:00:00 0 28 Tablet 1 90818 255 106 P Not Taking 03/09 00:00 :00 Diclofenac Sodium 75 MG Tablet Delayed Release 12/28/2013 00:00:00 0 28 Tablet 1 39761 255 106 P Not Taking 03/01 00:00 :00 Diclofenac Sodium 75 MG Tablet Delayed Release 12/28/2013 00:00:00 0 28 Tablet 1 41937 255 106 P Not Taking 02/23 00:00 :00 Diclofenac Sodium 75 MG Tablet Delayed Release 12/28/2013 00:00:00 0 28 Tablet 1 49579 255 106 P Not Taking 02/22 00:00 :00 Diclofenac Sodium 75 MG Tablet Delayed Release 12/28/2013 00:00:00 0 28 Tablet 1 06884 255 106 P Not Taking 02/09 00:00 :00 Diclofenac Sodium 75 MG Tablet Delayed Release 12/28/2013 00:00:00 0 28 Tablet 1 08590 255 106 P Not Taking 01/25 00:00 :00 Diclofenac Sodium 75 MG Tablet Delayed Release 12/28/2013 00:00:00 0 28 Tablet 1 21308 255 106 P Not Taking 01/11 00:00 :00 Diclofenac Sodium 75 MG Tablet Delayed Release 12/28/2013 00:00:00 0 28 Tablet 1 78736 255 106 P Not Taking 12/14 00:00 :00 Diclofenac Sodium 75 MG Tablet Delayed Release 12/28/2013 00:00:00 0 28 Tablet 1 91336 255 106 P Not Taking 11/30 00:00 :00 Diclofenac Sodium 75 MG Tablet Delayed Release 12/28/2013 00:00:00 0 28 Tablet 1 28368 255 106 P Not Taking 11/16 00:00 :00 Diclofenac Sodium 75 MG Tablet Delayed Release 12/28/2013 00:00:00 0 28 Tablet 1 72650 255 106 P Not Taking 11/09 00:00 :00 Diclofenac Sodium 75 MG Tablet Delayed Release 12/28/2013 00:00:00 0 28 Tablet 1 30283 255 106 P Not Taking 10/27 00:00 :00 Diclofenac Sodium 75 MG Tablet Delayed Release 12/28/2013 00:00:00 0 28 Tablet 1 31241 255 106 P Not Taking 10/12 00:00 :00 Diclofenac Sodium 75 MG Tablet Delayed Release 12/28/2013 00:00:00 0 28 Tablet 1 61949 255 106 P Not Taking 09/28 00:00 :00 Doxycycline Hyclate 100 MG Tablet 07/29/2024 00:00:00 1 20 Tablet 0 21474 211 205 P Taking 08/31 00:00 :00 Doxycycline Hyclate 100 MG Tablet 07/29/2024 00:00:00 1 20 Tablet 0 10368 211 205 P Taking 08/02 00:00 :00 Doxycycline Hyclate 100 MG Tablet 07/29/2024 00:00:00 1 20 Tablet 0 62628 211 205 P Taking 07/29 00:00 :00 Doxycycline Hyclate 100 MG Tablet 07/29/2024 00:00:00 1 20 Tablet 0 94192 211 205 P Start 09/28 00:00 :00 Farxiga 10 MG Tablet 1 30 Tablet 2 0031 0621 030 Taking 08/31 00:00 :00 Farxiga 10 MG Tablet 1 30 Tablet 2 0031 0621 030 Taking 08/17 00:00 :00 Farxiga 10 MG Tablet 1 30 Tablet 2 0031 0621 030 Start 08/17 00:00 :00 Farxiga 10 MG Tablet 0 30 Tablet 2 0031 0621 030 Stop 08/02 00:00 :00 Farxiga 10 MG Tablet 1 30 Tablet 2 0031 0621 030 Taking 06/29 00:00 :00 Farxiga 10 MG Tablet 1 30 Tablet 2 0031 0621 030 Taking 05/31 00:00 :00 Farxiga 10 MG Tablet 1 30 Tablet 2 0031 0621 030 Taking 05/03 00:00 :00 Farxiga 10 MG Tablet 1 30 Tablet 2 0031 0621 030 Taking 04/12 00:00 :00 Farxiga 10 MG Tablet 1 30 Tablet 2 0031 0621 030 Taking 03/29 00:00 :00 Farxiga 10 MG Tablet 1 30 Tablet 2 0031 0621 030 Taking 03/09 00:00 :00 Farxiga 10 MG Tablet 1 30 Tablet 2 30 0621 030 Taking 03/01 00:00 :00 Farxiga 10 MG Tablet 1 30 Tablet 2 30 0621 030 Taking 02/23 00:00 :00 Farxiga 10 MG Tablet 1 30 Tablet 2 30 0621 030 Taking 02/22 00:00 :00 Farxiga 10 MG Tablet 1 30 Tablet 2 30 0621 030 Taking 02/09 00:00 :00 Farxiga 10 MG Tablet 1 30 Tablet 2 1 0621 030 Taking 01/25 00:00 :00 Farxiga 10 MG Tablet 1 30 Tablet 2 30 0621 030 Taking 01/24 00:00 :00 Farxiga 10 MG Tablet 1 30 Tablet 2 1 0621 030 Start 01/24 00:00 :00 Farxiga 10 MG Tablet 0 30 0 97458171 030 Stop 01/11 00:00 :00 Farxiga 10 MG Tablet 1 30 0 81504836 030 P Taking 12/27 00:00 :00 Farxiga 10 MG Tablet 1 30 0 61352805 030 P Refill 12/14 00:00 :00 Farxiga 10 MG Tablet 1 30 3 06606815 030 P Taking 12/01 00:00 :00 Farxiga 10 MG Tablet 1 30 3 67983355 030 P Refill 11/30 00:00 :00 Farxiga 10 MG Tablet 1 81193458 030 Taking 11/16 00:00 :00 Farxiga 10 MG Tablet 1 51520907 030 Taking 11/09 00:00 :00 Farxiga 10 MG Tablet 1 57808763 030 Taking 09/28 00:00 :00 glipiZIDE 5 MG Tablet 0 180 3 32227709 102 P Not Taking 08/31 00:00 :00 glipiZIDE 5 MG Tablet 0 180 3 24542966 102 P Not Taking 08/02 00:00 :00 glipiZIDE 5 MG Tablet 0 180 3 97887518 102 P Not Taking 06/29 00:00 :00 glipiZIDE 5 MG Tablet 0 180 3 70257756 102 P Not Taking 05/31 00:00 :00 glipiZIDE 5 MG Tablet 0 180 3 21931677 102 P Not Taking 05/03 00:00 :00 glipiZIDE 5 MG Tablet 0 180 3 61608423 102 P Not Taking 04/12 00:00 :00 glipiZIDE 5 MG Tablet 0 180 3 25653448 102 P Not Taking 03/29 00:00 :00 glipiZIDE 5 MG Tablet 0 180 3 37022654 102 P Not Taking 03/09 00:00 :00 glipiZIDE 5 MG Tablet 0 180 3 42960170 102 P Not Taking 03/01 00:00 :00 glipiZIDE 5 MG Tablet 0 180 3 01646325 102 P Not Taking 02/23 00:00 :00 glipiZIDE 5 MG Tablet 0 180 3 24386463 102 P Not Taking 02/22 00:00 :00 glipiZIDE 5 MG Tablet 0 180 3 48655194 102 P Not Taking 02/09 00:00 :00 glipiZIDE 5 MG Tablet 0 180 3 53085259 102 P Not Taking 01/25 00:00 :00 glipiZIDE 5 MG Tablet 0 180 3 05721677 102 P Not Taking 01/11 00:00 :00 glipiZIDE 5 MG Tablet 0 180 3 29483048 102 P Not Taking 12/14 00:00 :00 glipiZIDE 5 MG Tablet 0 180 3 98204383 102 P Not Taking 11/30 00:00 :00 glipiZIDE 5 MG Tablet 0 180 3 65425160 102 P Not Taking 11/16 00:00 :00 glipiZIDE 5 MG Tablet 0 180 3 95896963 102 P Not Taking 11/09 00:00 :00 glipiZIDE 5 MG Tablet 0 180 3 79803348 102 P Not Taking 10/27 00:00 :00 glipiZIDE 5 MG Tablet 1 180 3 49724510 102 P Taking 10/12 00:00 :00 glipiZIDE 5 MG Tablet 1 180 3 97150851 102 P Taking 10/12 00:00 :00 hydroCHLORO thiazide 25 MG Tablet 0 180 Tablet 4 87253353 380 Discontinu ed 09/28 00:00 :00 Irbesartan 75 MG Tablet 0 90 Tablet 3 4 8426965 409 P Not Taking 08/31 00:00 :00 Irbesartan 75 MG Tablet 0 90 Tablet 3 4 4470716 409 P Not Taking 08/02 00:00 :00 Irbesartan 75 MG Tablet 0 90 Tablet 3 4 5531687 409 P Not Taking 06/29 00:00 :00 Irbesartan 75 MG Tablet 0 90 Tablet 3 4 0972621 409 P Not Taking 05/31 00:00 :00 Irbesartan 75 MG Tablet 0 90 Tablet 3 4 4127142 409 P Not Taking 05/03 00:00 :00 Irbesartan 75 MG Tablet 0 90 Tablet 3 4 9423611 409 P Not Taking 04/12 00:00 :00 Irbesartan 75 MG Tablet 0 90 Tablet 3 4 8170561 409 P Not Taking 03/29 00:00 :00 Irbesartan 75 MG Tablet 0 90 Tablet 3 4 7682549 409 P Not Taking 03/09 00:00 :00 Irbesartan 75 MG Tablet 0 90 Tablet 3 4 6783344 409 P Not Taking 03/01 00:00 :00 Irbesartan 75 MG Tablet 0 90 Tablet 3 4 3570808 409 P Not Taking 02/23 00:00 :00 Irbesartan 75 MG Tablet 0 90 Tablet 3 4 9449579 409 P Not Taking 02/22 00:00 :00 Irbesartan 75 MG Tablet 0 90 Tablet 3 4 7936654 409 P Not Taking 02/09 00:00 :00 Irbesartan 75 MG Tablet 0 90 Tablet 3 4 8569733 409 P Not Taking 01/25 00:00 :00 Irbesartan 75 MG Tablet 0 90 Tablet 3 4 2577349 409 P Not Taking 01/11 00:00 :00 Irbesartan 75 MG Tablet 1 90 Tablet 3 4 9095955 409 P Taking 12/14 00:00 :00 Irbesartan 75 MG Tablet 1 90 Tablet 3 4 4620804 409 P Taking 12/06 00:00 :00 Irbesartan 75 MG Tablet 1 90 Tablet 3 4 8615197 409 P Refill 12/02 00:00 :00 Irbesartan 75 MG Tablet 1 90 Tablet 3 4 8756808 409 Start 12/02 00:00 :00 Irbesartan 75 0 90 Tablet 0 4354 7037 409 Stop 12/01 00:00 :00 Irbesartan 75 MG Tablet 1 30 Tablet 1 4 9818078 409 Start 12/01 00:00 :00 Irbesartan 75 MG Tablet 0 30 Tablet 1 4 3215917 409 Stop 12/01 00:00 :00 Irbesartan 75 MG Tablet 1 30 Tablet 1 4 3857600 409 Start 12/01 00:00 :00 Irbesartan 75 0 30 Tablet 0 4354 7037 409 Stop 12/01 00:00 :00 Irbesartan 75 MG Tablet 1 60 3 273152 21 213 P Refill 11/30 00:00 :00 Irbesartan 75 MG Tablet 1 277783 21 213 Taking 11/16 00:00 :00 Irbesartan 75 MG Tablet 1 881870 21 213 Taking 11/09 00:00 :00 Irbesartan 75 MG Tablet 1 542309 21 213 Taking 10/12 00:00 :00 Isosorbide Mononitrate 60 MG Tablet Extended Release 24 Hour 1 Taking 09/28 00:00 :00 Isosorbide Mononitrate ER 60 MG Tablet Extended Release 24 Hour 1 90 Tablet 0 3219793 4 001 Taking 08/31 00:00 :00 Isosorbide Mononitrate ER 60 MG Tablet Extended Release 24 Hour 1 90 Tablet 0 5921473 4 001 Taking 08/02 00:00 :00 Isosorbide Mononitrate ER 60 MG Tablet Extended Release 24 Hour 1 90 Tablet 0 0768208 4 001 Taking 07/19 00:00 :00 Isosorbide Mononitrate ER 60 MG Tablet Extended Release 24 Hour 1 90 Tablet 0 7232674 4 001 Start 07/19 00:00 :00 Isosorbide Mononitrate ER 60 MG Tablet Extended Release 24 Hour 0 90 Tablet 1 4368300 4 001 Stop 06/29 00:00 :00 Isosorbide Mononitrate ER 60 MG Tablet Extended Release 24 Hour 0 90 Tablet 1 9899218 4 001 Not Taking 05/31 00:00 :00 Isosorbide Mononitrate ER 60 MG Tablet Extended Release 24 Hour 0 90 Tablet 1 6675276 4 001 Not Taking 05/03 00:00 :00 Isosorbide Mononitrate ER 60 MG Tablet Extended Release 24 Hour 0 90 Tablet 1 7413768 4 001 Not Taking 04/12 00:00 :00 Isosorbide Mononitrate ER 60 MG Tablet Extended Release 24 Hour 0 90 Tablet 1 7085801 4 001 Not Taking 03/29 00:00 :00 Isosorbide Mononitrate ER 60 MG Tablet Extended Release 24 Hour 0 90 Tablet 1 0926577 4 001 Not Taking 03/09 00:00 :00 Isosorbide Mononitrate ER 60 MG Tablet Extended Release 24 Hour 0 90 Tablet 1 3564584 4 001 Not Taking 03/01 00:00 :00 Isosorbide Mononitrate ER 60 MG Tablet Extended Release 24 Hour 0 90 Tablet 1 9557111 4 001 Not Taking 02/23 00:00 :00 Isosorbide Mononitrate ER 60 MG Tablet Extended Release 24 Hour 0 90 Tablet 1 7207397 4 001 Not Taking 02/22 00:00 :00 Isosorbide Mononitrate ER 60 MG Tablet Extended Release 24 Hour 0 90 Tablet 1 [id number] 4 001 Not Taking 02/09 00:00 :00 Isosorbide Mononitrate ER 60 MG Tablet Extended Release 24 Hour 0 90 Tablet 1 3336533 4 001 Not Taking 01/25 00:00 :00 Isosorbide Mononitrate ER 60 MG Tablet Extended Release 24 Hour 0 90 Tablet 1 1421219 4 001 Not Taking 01/11 00:00 :00 Isosorbide Mononitrate ER 60 MG Tablet Extended Release 24 Hour 0 90 Tablet 1 4442863 4 001 Not Taking 12/14 00:00 :00 Isosorbide Mononitrate ER 60 MG Tablet Extended Release 24 Hour 0 90 Tablet 1 [id number] 4 001 Not Taking 11/30 00:00 :00 Isosorbide Mononitrate ER 60 MG Tablet Extended Release 24 Hour 0 90 Tablet 1 [id number] 4 001 Not Taking 11/16 00:00 :00 Isosorbide Mononitrate ER 60 MG Tablet Extended Release 24 Hour 1 90 Tablet 1 [id number] 4 001 Taking 11/11 00:00 :00 Isosorbide Mononitrate ER 60 MG Tablet Extended Release 24 Hour 1 90 Tablet 1 [id number] 001 Start 11/11 00:00 :00 Isosorbide Mononitrate ER 60 0 90 Tablet 0 [id number] 1054 001 Stop 11/11 00:00 :00 Isosorbide Mononitrate ER 60 MG Tablet Extended Release 24 Hour 1 90 0 [id number] 061 P Refill 11/09 00:00 :00 Isosorbide Mononitrate ER 60 MG Tablet Extended Release 24 Hour 1 0 [id number] 061 P Taking 10/27 00:00 :00 Isosorbide Mononitrate ER 60 MG Tablet Extended Release 24 Hour 1 30 Each 0 [id number] 001 P Taking 09/28 00:00 :00 Lancets Fine 28G 1 30 11 Taking 08/31 00:00 :00 Lancets Fine 28G 1 30 11 Taking 08/02 00:00 :00 Lancets Fine 28G 1 30 11 Taking 06/29 00:00 :00 Lancets Fine 28G 1 30 11 Taking 05/31 00:00 :00 Lancets Fine 28G 1 30 11 Taking 05/03 00:00 :00 Lancets Fine 28G 1 30 11 Taking 04/12 00:00 :00 Lancets Fine 28G 1 30 11 Taking 03/29 00:00 :00 Lancets Fine 28G 1 30 11 Taking 03/09 00:00 :00 Lancets Fine 28G 1 30 11 Taking 03/01 00:00 :00 Lancets Fine 28G 1 30 11 Taking 02/23 00:00 :00 Lancets Fine 28G 1 30 11 Taking 02/22 00:00 :00 Lancets Fine 28G 1 30 11 Taking 02/16 00:00 :00 Lancets Fine 28G 1 30 11 Start 02/16 00:00 :00 Lancets Fine 28G 0 30 11 Stop 02/10 00:00 :00 Lancets Fine 28G 01/26/2024 00:00:00 1 30 11 P Refill 02/09 00:00 :00 Lancets Fine 28G 01/26/2024 00:00:00 1 30 11 P Taking 02/08 00:00 :00 Lancets Fine 28G 01/26/2024 00:00:00 1 30 11 P Refill 01/25 00:00 :00 Lancets Fine 28G 01/26/2024 00:00:00 1 30 11 P Start 10/06 00:00 :00 Lantus SoloStar 100 UNIT/ML Solution Pen-injecto r 1 9 Millilite r 3 [id number] Start 10/06 00:00 :00 Lantus SoloStar 100 UNIT/ML Solution Pen-injecto r 0 3 3 [id number] 900 Stop 09/28 00:00 :00 Lantus SoloStar 100 UNIT/ML Solution Pen-injecto r 1 3 3 [id number] 900 P Taking 08/31 00:00 :00 Lantus SoloStar 100 UNIT/ML Solution Pen-injecto r 1 3 3 [id number] 900 P Taking 08/02 00:00 :00 Lantus SoloStar 100 UNIT/ML Solution Pen-injecto r 1 3 3 [id number] 900 P Taking 06/29 00:00 :00 Lantus SoloStar 100 UNIT/ML Solution Pen-injecto r 1 3 3 [id number] 900 P Taking 05/31 00:00 :00 Lantus SoloStar 100 UNIT/ML Solution Pen-injecto r 1 3 3 66943470 900 P Taking 05/03 00:00 :00 Lantus SoloStar 100 UNIT/ML Solution Pen-injecto r 1 3 3 24707115 900 P Taking 04/12 00:00 :00 Lantus SoloStar 100 UNIT/ML Solution Pen-injecto r 1 3 3 94357313 900 P Taking 03/29 00:00 :00 Lantus SoloStar 100 UNIT/ML Solution Pen-injecto r 1 3 3 69308006 900 P Taking 03/09 00:00 :00 Lantus SoloStar 100 UNIT/ML Solution Pen-injecto r 1 3 3 58360745 900 P Taking 03/01 00:00 :00 Lantus SoloStar 100 UNIT/ML Solution Pen-injecto r 1 3 3 55257210 900 P Taking 02/23 00:00 :00 Lantus SoloStar 100 UNIT/ML Solution Pen-injecto r 1 3 3 43642894 900 P Taking 02/22 00:00 :00 Lantus SoloStar 100 UNIT/ML Solution Pen-injecto r 1 3 3 02043268 900 P Taking 02/09 00:00 :00 Lantus SoloStar 100 UNIT/ML Solution Pen-injecto r 1 3 3 [id number] 900 P Taking 02/08 00:00 :00 Lantus SoloStar 100 UNIT/ML Solution Pen-injecto r 1 3 3 85640514 900 P Refill 01/25 00:00 :00 Lantus SoloStar 100 UNIT/ML Solution Pen-injecto r 1 4 3 08983188 900 P Refill 01/25 00:00 :00 Lantus SoloStar 100 UNIT/ML Solution Pen-injecto r 1 3 97627945 900 P Taking 01/11 00:00 :00 Lantus SoloStar 100 UNIT/ML Solution Pen-injecto r 1 7.8 Millilite r 3 86453400 900 P Taking 12/27 00:00 :00 Lantus SoloStar 100 UNIT/ML Solution Pen-injecto r 1 7.8 Millilite r 3 13711735 900 P Refill 12/14 00:00 :00 Lantus SoloStar 100 UNIT/ML Solution Pen-injecto r 1 1 3 38844886 900 P Refill 12/14 00:00 :00 Lantus SoloStar 100 UNIT/ML Solution Pen-injecto r 1 82030132 900 Taking 11/30 00:00 :00 Lantus SoloStar 100 UNIT/ML Solution Pen-injecto r 1 67353336 900 Taking 11/16 00:00 :00 Lantus SoloStar 100 UNIT/ML Solution Pen-injecto r 1 00781350 900 Taking 11/09 00:00 :00 Lantus SoloStar 100 UNIT/ML Solution Pen-injecto r 1 47661143 900 Taking 09/28 00:00 :00 metFORMIN HCl 1000 MG Tablet 0 3 25397 718 705 Not Taking 08/31 00:00 :00 metFORMIN HCl 1000 MG Tablet 0 3 68205 718 705 Not Taking 08/02 00:00 :00 metFORMIN HCl 1000 MG Tablet 0 3 55180 718 705 Not Taking 06/29 00:00 :00 metFORMIN HCl 1000 MG Tablet 0 3 33086 718 705 Not Taking 05/31 00:00 :00 metFORMIN HCl 1000 MG Tablet 0 3 70114 718 705 Not Taking 05/03 00:00 :00 metFORMIN HCl 1000 MG Tablet 0 3 54264 718 705 Not Taking 04/12 00:00 :00 metFORMIN HCl 1000 MG Tablet 0 3 89459 718 705 Not Taking 03/29 00:00 :00 metFORMIN HCl 1000 MG Tablet 0 3 53514 718 705 Not Taking 03/09 00:00 :00 metFORMIN HCl 1000 MG Tablet 0 3 41131 718 705 Not Taking 03/01 00:00 :00 metFORMIN HCl 1000 MG Tablet 0 3 39950 718 705 Not Taking 02/23 00:00 :00 metFORMIN HCl 1000 MG Tablet 0 3 29283 718 705 Not Taking 02/22 00:00 :00 metFORMIN HCl 1000 MG Tablet 0 3 69173 718 705 Not Taking 02/09 00:00 :00 metFORMIN HCl 1000 MG Tablet 0 3 08422 718 705 Not Taking 01/25 00:00 :00 metFORMIN HCl 1000 MG Tablet 0 3 90747 718 705 Not Taking 01/11 00:00 :00 metFORMIN HCl 1000 MG Tablet 1 3 83861 718 705 Taking 12/14 00:00 :00 metFORMIN HCl 1000 MG Tablet 1 3 65555 718 705 Taking 11/30 00:00 :00 metFORMIN HCl 1000 MG Tablet 1 3 20581 718 705 Taking 11/16 00:00 :00 metFORMIN HCl 1000 MG Tablet 1 3 14137 718 705 Taking 11/09 00:00 :00 metFORMIN HCl 1000 MG Tablet 1 3 11800 718 705 Taking 10/27 00:00 :00 metFORMIN HCl 500 MG Tablet 1 180 Tablet 3 55677067 105 Taking 10/12 00:00 :00 metFORMIN HCl 500 MG Tablet 1 180 Tablet 3 47922110 105 Taking 09/28 00:00 :00 Nitrofurant oin Macrocrysta l 100 MG Capsule 07/25/2024 00:00:00 1 10 0 5362625 4 501 P Taking 08/31 00:00 :00 Nitrofurant oin Macrocrysta l 100 MG Capsule 07/25/2024 00:00:00 1 10 0 7180158 4 501 P Taking 08/09 00:00 :00 Nitrofurant oin Macrocrysta l 100 MG Capsule 07/25/2024 00:00:00 1 10 0 3869271 4 501 P Refill 08/02 00:00 :00 Nitrofurant oin Macrocrysta l 100 MG Capsule 07/25/2024 00:00:00 1 10 0 2382632 4 501 P Taking 07/25 00:00 :00 Nitrofurant oin Macrocrysta l 100 MG Capsule 07/25/2024 00:00:00 1 10 0 2429567 4 501 P Start 09/28 00:00 :00 OneTouch Ultra Test Strip 1 100 Unspecifi ed 0 79940219 510 P Taking 08/31 00:00 :00 OneTouch Ultra Test Strip 1 100 Unspecifi ed 0 50354883 510 P Taking 08/02 00:00 :00 OneTouch Ultra Test Strip 1 100 Unspecifi ed 0 57008611 510 P Taking 06/29 00:00 :00 OneTouch Ultra Test Strip 1 100 Unspecifi ed 0 37205878 510 P Taking 05/31 00:00 :00 OneTouch Ultra Test Strip 1 100 Unspecifi ed 0 21650696 510 P Taking 05/03 00:00 :00 OneTouch Ultra Test Strip 1 100 Unspecifi ed 0 77305203 510 P Taking 04/12 00:00 :00 OneTouch Ultra Test Strip 1 100 Unspecifi ed 0 53293032 510 P Taking 03/29 00:00 :00 OneTouch Ultra Test Strip 1 100 Unspecifi ed 0 92818351 510 P Taking 03/09 00:00 :00 OneTouch Ultra Test Strip 1 100 Unspecifi ed 0 04065972 510 P Taking 03/01 00:00 :00 OneTouch Ultra Test Strip 1 100 Unspecifi ed 0 76322420 510 P Taking 02/23 00:00 :00 OneTouch Ultra Test Strip 1 100 Unspecifi ed 0 94722537 510 P Taking 02/22 00:00 :00 OneTouch Ultra Test Strip 1 100 Unspecifi ed 0 06282364 510 P Taking 02/09 00:00 :00 OneTouch Ultra Test Strip 1 100 Unspecifi ed 0 73510452 510 P Taking 01/25 00:00 :00 OneTouch Ultra Test Strip 1 100 Unspecifi ed 0 30327129 510 P Taking 01/11 00:00 :00 OneTouch Ultra Test Strip 1 100 Unspecifi ed 0 56311039 510 P Taking 12/14 00:00 :00 OneTouch Ultra Test Strip 1 100 Unspecifi ed 0 12894926 510 P Taking 11/30 00:00 :00 OneTouch Ultra Test Strip 1 100 Unspecifi ed 0 76006624 510 P Taking 11/16 00:00 :00 OneTouch Ultra Test Strip 1 100 Unspecifi ed 0 36898220 510 P Taking 11/09 00:00 :00 OneTouch Ultra Test Strip 1 100 Unspecifi ed 0 83787237 510 P Taking 10/27 00:00 :00 OneTouch Ultra Test Strip 1 100 Unspecifi ed 0 94976727 510 P Taking 10/12 00:00 :00 OneTouch Ultra Test Strip 1 100 Unspecifi ed 0 03377635 510 P Taking 06/27 00:00 :00 Potassium 99 MG Tablet 0 30 0 8131834 0 405 Stop 06/21 00:00 :00 Potassium 99 MG Tablet 1 30 0 3433052 0 405 Start 06/21 00:00 :00 Potassium 99 MG Tablet 0 30 0 6110481 0 405 Stop 05/31 00:00 :00 Potassium 99 MG Tablet 1 30 0 6839856 0 405 Taking 05/24 00:00 :00 Potassium 99 MG Tablet 1 30 0 0089235 0 405 Start 05/24 00:00 :00 Potassium 99 MG Tablet 0 30 0 2475216 0 405 Stop 05/03 00:00 :00 Potassium 99 MG Tablet 1 30 0 4177397 0 405 Taking 04/26 00:00 :00 Potassium 99 MG Tablet 1 30 0 0580151 0 405 Start 04/26 00:00 :00 Potassium 99 MG Tablet 0 30 5801100 0 405 Stop 04/12 00:00 :00 Potassium 99 MG Tablet 03/01/2024 00:00:00 1 30 4868832 0 405 P Taking 03/29 00:00 :00 Potassium 99 MG Tablet 03/01/2024 00:00:00 1 30 4823622 0 405 P Refill 03/29 00:00 :00 Potassium 99 MG Tablet 03/01/2024 00:00:00 1 30 1362025 0 405 P Taking 03/09 00:00 :00 Potassium 99 MG Tablet 03/01/2024 00:00:00 1 30 6106157 0 405 P Taking 03/01 00:00 :00 Potassium 99 MG Tablet 03/01/2024 00:00:00 1 30 [id number] 0 405 P Taking 02/28 00:00 :00 Potassium 99 MG Tablet 03/01/2024 00:00:00 1 30 6220360 0 405 P Start 10/06 00:00 :00 Potassium Gluconate 595 (99 K) MG Tablet 1 30 Tablet 0 21656974 422 Start 10/06 00:00 :00 Potassium Gluconate 595 0 30 Tablet 0 80383393 422 Stop 10/05 00:00 :00 Potassium Gluconate 595 (99 K) MG Tablet 1 30 Tablet 0 78916546 387 Start 10/05 00:00 :00 Potassium Gluconate 595 (99 K) MG Tablet 0 30 5 44625251 387 Stop 10/04 00:00 :00 Potassium Gluconate 595 (99 K) MG Tablet 1 30 5 71146743 387 P Refill 09/28 00:00 :00 Potassium Gluconate 595 (99 K) MG Tablet 1 30 5 11368754 387 P Refill 09/28 00:00 :00 Potassium Gluconate 595 (99 K) MG Tablet 1 30 Tablet 0 81859705 387 P Refill 09/28 00:00 :00 Potassium Gluconate 595 (99 K) MG Tablet 1 30 Tablet 0 46307703 387 Taking 08/31 00:00 :00 Potassium Gluconate 595 (99 K) MG Tablet 1 30 Tablet 0 95106073 387 Taking 08/17 00:00 :00 Potassium Gluconate 595 (99 K) MG Tablet 1 30 Tablet 0 74253568 387 Start 08/17 00:00 :00 Potassium Gluconate 595 (99 K) MG Tablet 0 30 Tablet 0 14916565 387 Stop 08/02 00:00 :00 Potassium Gluconate 595 (99 K) MG Tablet 1 30 Tablet 0 37496067 387 Taking 06/29 00:00 :00 Potassium Gluconate 595 (99 K) MG Tablet 1 30 Tablet 0 93994940 387 Taking 06/27 00:00 :00 Potassium Gluconate 595 (99 K) MG Tablet 1 30 Tablet 0 15633150 387 Start 09/28 00:00 :00 predniSONE 20 MG Tablet 10/28/2023 00:00:00 0 5 Tablet 0 761939 01 820 P Not Taking 08/31 00:00 :00 predniSONE 20 MG Tablet 10/28/2023 00:00:00 0 5 Tablet 0 532346 01 820 P Not Taking 08/02 00:00 :00 predniSONE 20 MG Tablet 10/28/2023 00:00:00 0 5 Tablet 0 196506 01 820 P Not Taking 06/29 00:00 :00 predniSONE 20 MG Tablet 10/28/2023 00:00:00 0 5 Tablet 0 534339 01 820 P Not Taking 05/31 00:00 :00 predniSONE 20 MG Tablet 10/28/2023 00:00:00 0 5 Tablet 0 131849 01 820 P Not Taking 05/03 00:00 :00 predniSONE 20 MG Tablet 10/28/2023 00:00:00 0 5 Tablet 0 552568 01 820 P Not Taking 04/12 00:00 :00 predniSONE 20 MG Tablet 10/28/2023 00:00:00 0 5 Tablet 0 475530 01 820 P Not Taking 03/29 00:00 :00 predniSONE 20 MG Tablet 10/28/2023 00:00:00 0 5 Tablet 0 697493 01 820 P Not Taking 03/09 00:00 :00 predniSONE 20 MG Tablet 10/28/2023 00:00:00 0 5 Tablet 0 453872 01 820 P Not Taking 03/01 00:00 :00 predniSONE 20 MG Tablet 10/28/2023 00:00:00 0 5 Tablet 0 401170 01 820 P Not Taking 02/23 00:00 :00 predniSONE 20 MG Tablet 10/28/2023 00:00:00 0 5 Tablet 0 964595 01 820 P Not Taking 02/22 00:00 :00 predniSONE 20 MG Tablet 10/28/2023 00:00:00 0 5 Tablet 0 227645 01 820 P Not Taking 02/09 00:00 :00 predniSONE 20 MG Tablet 10/28/2023 00:00:00 0 5 Tablet 0 445547 01 820 P Not Taking 01/25 00:00 :00 predniSONE 20 MG Tablet 10/28/2023 00:00:00 0 5 Tablet 0 478166 01 820 P Not Taking 01/11 00:00 :00 predniSONE 20 MG Tablet 10/28/2023 00:00:00 0 5 Tablet 0 660642 01 820 P Not Taking 12/14 00:00 :00 predniSONE 20 MG Tablet 10/28/2023 00:00:00 0 5 Tablet 0 808767 01 820 P Not Taking 11/30 00:00 :00 predniSONE 20 MG Tablet 10/28/2023 00:00:00 0 5 Tablet 0 716438 01 820 P Not Taking 11/16 00:00 :00 predniSONE 20 MG Tablet 10/28/2023 00:00:00 0 5 Tablet 0 677084 01 820 P Not Taking 11/09 00:00 :00 predniSONE 20 MG Tablet 10/28/2023 00:00:00 0 5 Tablet 0 072120 01 820 P Not Taking 10/27 00:00 :00 predniSONE 20 MG Tablet 10/28/2023 00:00:00 1 5 Tablet 0 104920 820 P Start 09/28 00:00 :00 Ramipril 5 MG Capsule 0 90 Capsule 19082514 605 Not Taking 08/31 00:00 :00 Ramipril 5 MG Capsule 0 90 Capsule 12832275 605 Not Taking 08/02 00:00 :00 Ramipril 5 MG Capsule 0 90 Capsule 03419231 605 Not Taking 06/29 00:00 :00 Ramipril 5 MG Capsule 0 90 Capsule 86897924 605 Not Taking 05/31 00:00 :00 Ramipril 5 MG Capsule 0 90 Capsule 58045184 605 Not Taking 05/03 00:00 :00 Ramipril 5 MG Capsule 0 90 Capsule 22304039 605 Not Taking 04/12 00:00 :00 Ramipril 5 MG Capsule 0 90 Capsule 41967258 605 Not Taking 03/29 00:00 :00 Ramipril 5 MG Capsule 0 90 Capsule 01677083 605 Not Taking 03/09 00:00 :00 Ramipril 5 MG Capsule 0 90 Capsule 45823772 605 Not Taking 03/01 00:00 :00 Ramipril 5 MG Capsule 0 90 Capsule 84294415 605 Not Taking 02/23 00:00 :00 Ramipril 5 MG Capsule 0 90 Capsule 63737617 605 Not Taking 02/22 00:00 :00 Ramipril 5 MG Capsule 0 90 Capsule 36372395 605 Not Taking 02/09 00:00 :00 Ramipril 5 MG Capsule 0 90 Capsule 04725091 605 Not Taking 01/25 00:00 :00 Ramipril 5 MG Capsule 0 90 Capsule 19268454 605 Not Taking 01/11 00:00 :00 Ramipril 5 MG Capsule 0 90 Capsule 41987442 605 Not Taking 12/14 00:00 :00 Ramipril 5 MG Capsule 0 90 Capsule 45874878 605 Not Taking 11/30 00:00 :00 Ramipril 5 MG Capsule 0 90 Capsule 25429051 605 Not Taking 11/16 00:00 :00 Ramipril 5 MG Capsule 0 90 Capsule 02709440 605 Not Taking 11/09 00:00 :00 Ramipril 5 MG Capsule 0 90 Capsule 13730447 605 Not Taking 10/27 00:00 :00 Ramipril 5 MG Capsule 0 90 Capsule 52981243 605 Not Taking 10/12 00:00 :00 Ramipril 5 MG Capsule 0 90 3 52647407 605 P Discontinu ed 09/28 00:00 :00 Simvastatin 40 MG Tablet 1 90 Tablet 0 66569972 403 Taking 08/31 00:00 :00 Simvastatin 40 MG Tablet 1 90 Tablet 0 11149044 403 Taking 08/02 00:00 :00 Simvastatin 40 MG Tablet 1 90 Tablet 0 76625965 403 Taking 07/23 00:00 :00 Simvastatin 40 MG Tablet 1 90 Tablet 0 73713320 403 Start 07/23 00:00 :00 Simvastatin 40 MG Tablet 0 90 Tablet 0 75667897 403 Stop 06/29 00:00 :00 Simvastatin 40 MG Tablet 1 90 Tablet 0 66270983 403 Taking 05/31 00:00 :00 Simvastatin 40 MG Tablet 1 90 Tablet 0 72320308 403 Taking 05/03 00:00 :00 Simvastatin 40 MG Tablet 1 90 Tablet 0 65426259 403 Taking 04/12 00:00 :00 Simvastatin 40 MG Tablet 1 90 Tablet 0 48837805 403 Taking 03/29 00:00 :00 Simvastatin 40 MG Tablet 1 90 Tablet 0 34783295 403 Taking 03/09 00:00 :00 Simvastatin 40 MG Tablet 1 90 Tablet 0 06510076 403 Taking 03/01 00:00 :00 Simvastatin 40 MG Tablet 1 90 Tablet 0 16579012 403 Taking 02/23 00:00 :00 Simvastatin 40 MG Tablet 1 90 Tablet 0 85752020 403 Taking 02/22 00:00 :00 Simvastatin 40 MG Tablet 1 90 Tablet 0 06201441 403 Taking 02/09 00:00 :00 Simvastatin 40 MG Tablet 1 90 Tablet 0 74318261 403 Taking 01/25 00:00 :00 Simvastatin 40 MG Tablet 1 90 Tablet 0 70120833 403 Taking 01/24 00:00 :00 Simvastatin 40 MG Tablet 1 90 Tablet 0 67029143 403 Start 01/24 00:00 :00 Simvastatin 40 MG Tablet 0 90 Tablet 0 90040493 403 Stop 01/11 00:00 :00 Simvastatin 40 MG Tablet 1 90 Tablet 0 90980349 403 Taking 12/27 00:00 :00 Simvastatin 40 MG Tablet 1 90 Tablet 0 11309520 403 Start 12/27 00:00 :00 Simvastatin 40 MG Tablet 0 90 Tablet 0 66757238 403 Stop 12/14 00:00 :00 Simvastatin 40 MG Tablet 1 90 Tablet 0 50067667 403 P Taking 11/30 00:00 :00 Simvastatin 40 MG Tablet 1 90 Tablet 0 13413103 403 P Taking 11/16 00:00 :00 Simvastatin 40 MG Tablet 1 90 Tablet 0 97274223 403 P Taking 11/09 00:00 :00 Simvastatin 40 MG Tablet 1 90 Tablet 0 02266886 403 P Taking 10/27 00:00 :00 Simvastatin 40 MG Tablet 1 90 Tablet 0 02538207 403 P Taking 10/12 00:00 :00 Simvastatin 40 MG Tablet 1 90 Tablet 0 85752481 403 P Taking 09/28 00:00 :00 Spironolact one 25 MG Tablet 1 30 Tablet 1 596 03623 699 Taking 08/31 00:00 :00 Spironolact one 25 MG Tablet 1 30 Tablet 1 596 25494 699 Taking 08/02 00:00 :00 Spironolact one 25 MG Tablet 1 30 Tablet 1 596 49472 699 Taking 06/29 00:00 :00 Spironolact one 25 MG Tablet 1 30 Tablet 1 596 12405 699 Taking 05/31 00:00 :00 Spironolact one 25 MG Tablet 1 30 Tablet 1 596 57874 699 Taking 05/03 00:00 :00 Spironolact one 25 MG Tablet 1 30 Tablet 1 596 36505 699 Taking 04/12 00:00 :00 Spironolact one 25 MG Tablet 1 30 Tablet 1 596 42524 699 Taking 03/29 00:00 :00 Spironolact one 25 MG Tablet 1 30 Tablet 1 596 23459 699 Taking 03/09 00:00 :00 Spironolact one 25 MG Tablet 1 30 Tablet 1 596 70830 699 Taking 03/01 00:00 :00 Spironolact one 25 MG Tablet 1 30 Tablet 1 596 23650 699 Taking 02/23 00:00 :00 Spironolact one 25 MG Tablet 1 30 Tablet 1 596 73976 699 Taking 02/22 00:00 :00 Spironolact one 25 MG Tablet 1 30 Tablet 1 596 32977 699 Taking 02/09 00:00 :00 Spironolact one 25 MG Tablet 1 30 Tablet 1 596 68183 699 Taking 01/25 00:00 :00 Spironolact one 25 MG Tablet 1 30 Tablet 1 596 83974 699 Taking 01/11 00:00 :00 Spironolact one 25 MG Tablet 1 30 Tablet 1 596 36313 699 Taking 12/14 00:00 :00 Spironolact one 25 MG Tablet 1 30 Tablet 1 596 10249 699 Taking 12/01 00:00 :00 Spironolact one 25 MG Tablet 1 30 Tablet 1 596 73405 699 Start 12/01 00:00 :00 Spironolact one 25 0 30 Tablet 0 5965 1042 699 Stop 12/01 00:00 :00 Spironolact one 25 MG Tablet 1 90 Tablet 3 003 63932 601 P Refill 11/30 00:00 :00 Spironolact one 25 MG Tablet 1 90 Tablet 3 003 96858 601 P Taking 11/16 00:00 :00 Spironolact one 25 MG Tablet 1 90 Tablet 3 003 77883 601 P Taking 11/09 00:00 :00 Spironolact one 25 MG Tablet 1 90 Tablet 3 003 26727 601 P Taking 10/27 00:00 :00 Spironolact one 50 MG Tablet 1 90 Tablet 3 537 67800 401 P Taking 10/12 00:00 :00 Spironolact one 50 MG Tablet 1 90 Tablet 3 537 60363 401 P Taking 09/28 00:00 :00 True Metrix Blood Glucose Test - Strip 1 100 Strip 3 5615 1146 004 P Taking 08/31 00:00 :00 True Metrix Blood Glucose Test - Strip 1 100 Strip 3 5615 1146 004 P Taking 08/02 00:00 :00 True Metrix Blood Glucose Test - Strip 1 100 Strip 3 5615 1146 004 P Taking 06/29 00:00 :00 True Metrix Blood Glucose Test - Strip 1 100 Strip 3 5615 1146 004 P Taking 05/31 00:00 :00 True Metrix Blood Glucose Test - Strip 1 100 Strip 3 5615 1146 004 P Taking 05/03 00:00 :00 True Metrix Blood Glucose Test - Strip 1 100 Strip 3 5615 1146 004 P Taking 04/12 00:00 :00 True Metrix Blood Glucose Test - Strip 1 100 Strip 3 5615 1146 004 P Taking 03/29 00:00 :00 True Metrix Blood Glucose Test - Strip 1 100 Strip 3 5615 1146 004 P Taking 03/09 00:00 :00 True Metrix Blood Glucose Test - Strip 1 100 Strip 3 5615 1146 004 P Taking 03/01 00:00 :00 True Metrix Blood Glucose Test - Strip 1 100 Strip 3 5615 1146 004 P Taking 02/23 00:00 :00 True Metrix Blood Glucose Test - Strip 1 100 Strip 3 5615 1146 004 P Taking 02/22 00:00 :00 True Metrix Blood Glucose Test - Strip 1 100 Strip 3 5615 1146 004 P Taking 02/09 00:00 :00 True Metrix Blood Glucose Test - Strip 1 100 Strip 3 5615 1146 004 P Taking 01/25 00:00 :00 True Metrix Blood Glucose Test - Strip 1 100 Strip 3 5615 1146 004 P Taking 01/11 00:00 :00 True Metrix Blood Glucose Test - Strip 1 100 Strip 3 5615 1146 004 P Taking 12/14 00:00 :00 True Metrix Blood Glucose Test - Strip 1 100 Strip 3 5615 1146 004 P Taking 11/30 00:00 :00 True Metrix Blood Glucose Test - Strip 1 100 Strip 3 5615 1146 004 P Taking 11/16 00:00 :00 True Metrix Blood Glucose Test - Strip 1 100 Strip 3 5615 1146 004 P Taking 11/09 00:00 :00 True Metrix Blood Glucose Test - Strip 1 100 Strip 3 5615 1146 004 P Taking 10/27 00:00 :00 True Metrix Blood Glucose Test - Strip 1 100 Strip 3 5615 1146 004 P Taking 10/12 00:00 :00 True Metrix Blood Glucose Test - Strip 1 100 Strip 3 5615 1146 004 P Taking 09/28 00:00 :00 Zithromax Z-Javier 250 MG Tablet 03/09/2024 00:00:00 0 1 0 8561008 6 075 P Not Taking 08/31 00:00 :00 Zithromax Z-Javier 250 MG Tablet 03/09/2024 00:00:00 0 1 0 1301670 6 075 P Not Taking 08/02 00:00 :00 Zithromax Z-Javier 250 MG Tablet 03/09/2024 00:00:00 0 1 0 7463420 6 075 P Not Taking 06/29 00:00 :00 Zithromax Z-Javier 250 MG Tablet 03/09/2024 00:00:00 0 1 0 [id number] 6 075 P Not Taking 05/31 00:00 :00 Zithromax Z-Javier 250 MG Tablet 03/09/2024 00:00:00 0 1 0 6757566 6 075 P Not Taking 05/03 00:00 :00 Zithromax Z-Javier 250 MG Tablet 03/09/2024 00:00:00 0 1 0 7230903 6 075 P Not Taking 04/12 00:00 :00 Zithromax Z-Javier 250 MG Tablet 03/09/2024 00:00:00 0 1 0 4100000 6 075 P Not Taking 03/29 00:00 :00 Zithromax Z-Javier 250 MG Tablet 03/09/2024 00:00:00 0 1 0 [id number] 6 075 P Not Taking 03/09 00:00 :00 Zithromax Z-Javier 250 MG Tablet 03/09/2024 00:00:00 1 1 0 8825515 6 075 P Start
[2024-10-21 13:11] LABS: Hematocrit 35.9 % (37.0-47.0); Hemoglobin 11.6 g/dL (12.2-16.2); Immature Granulocytes % 0.1 %; Mean Corpuscular HGB Conc 32.3 g/dL (31.8-35.4); Mean Corpuscular Hemoglobin 28.2 pg (27.0-31.2); Mean Corpuscular Volume 87.1 fl (81-99); Nucleated Red Blood Cells % 0 %; Platelet Count 218 K/mm3 (142-424); Red Blood Count 4.12 M/mm3 (4.20-5.40); Red Cell Distribution Width-SD 42.7 fL; White Blood Count 7.7 K/mm3 (4.8-10.8)
[2024-10-21 13:11] LABS: VBG HCO3 26.0 mmol/L (23-30); VBG PCO2 39.0 mmol/L (35-51); VBG PH 7.44 mmol/L (7.31-7.41); VBG PO2 44.2 mmol/L (28-40)
[2024-10-21 13:12] LABS: Lactate Venous 1.0 mmol/L (0.4-2.0)
[2024-10-21 13:13] LABS: Albumin Level 3.9 g/dl (3.5-5.0); Sodium 136 mmol/L (136-145)
[2024-10-21 13:14] LABS: Potassium 3.6 mmoL/L (3.5-5.1)
[2024-10-21 13:16] LABS: Alanine Aminotransferase 27 U/L (12-78); Albumin/Globulin Ratio 0.9 (1.1-1.8); Alkaline Phosphatase 87 U/L (38-126); Aspartate Amino Transferase 30 U/L (14-36); Bilirubin,Total 0.7 mg/dl (0.2-1.3); Blood Urea Nitrogen 54 mg/dl (7-17); Carbon Dioxide 30 mmol/L (22.0-30.0); Creatinine Clearance Estimated 23 mL/min (50-200); Creatinine,Serum 2.20 mg/dl (0.52-1.04); Estimated Glomerular Filt Rate 21 ml/min (>60); GFR (African American) 26 ML/MIN (>60); Globulin 4.4 g/dL (1.3-3.2); Total Protein,Serum 8.3 g/dl (6.3-8.2)
[2024-10-21 13:17] LABS: Calcium 9.6 mg/dl (8.4-10.2); Glucose 154 mg/dl (74-100); Magnesium 2.1 mg/dl (1.6-2.3)
[2024-10-21 13:18] LABS: INR 0.99 (0.9-1.1); Prothrombin Time 11.0 seconds (10.1-12.5)
--- NOTE | 2024-10-21 13:19 | XR_ITS ---
FINAL REPORT CLINICAL HISTORY: Shortness of breath and hypoxia COMPARISON: 11/10/2023 FINDINGS: CHEST 1 VIEW There are bibasilar airspace opacities, likely mild edema. There are small bilateral pleural effusions. Mild cardiomegaly is noted. There is no pneumothorax. The mediastinum is unremarkable. IMPRESSION: Findings suggestive of mild CHF. Continue follow-up recommended. Reviewed, Interpreted and Dictated by Arturo Del Toro MD Transcribed by Kenzie Dykes Authenticated and [facility]
[2024-10-21 13:26] LABS: NT Pro Brain Natriuretic Pep. 2560 pg/mL (0-450)
[2024-10-21 13:28] LABS: Troponin I 0.03 ng/ml (0.00-0.034)
[2024-10-21 13:35] LABS: Anion Gap 13.6 mEq/L (5-15); Chloride 96 mmol/L (98-107)
[2024-10-21 13:51] LABS: Procalcitonin 0.374 ng/mL (0.0-2.0)
[2024-10-21] MEDS: FUROSEMIDE 40MG/4ML VIAL 40 MG IV (14:39)
[2024-10-21 14:58] LABS: Hepatitis C Ab Qual. W/ RFX NEGATIVE (Negative)
--- NOTE | 2024-10-21 15:10 | EXP.HP ---
History of Present Illness *Admission Date: 10/21/24 *Reason for visit:: SOB *History of present illness: Patient is a 79-year-old female with past medical history of heart failure with preserved ejection fraction, CKD stage III/IV who presents to the hospital due to complaint of shortness of breath. According to the patient she has gained around 10 pounds in. Of days and has been feeling short of breath, she had recent changes in her heart failure medications and since then she has been gaining weight and becoming short of breath with exertion. [facility] Disclaimer: The information contained in this section may have been updated after the patient was seen, as this information can be updated by other users. Medical History CVA (cerebral vascular accident) Diabetes mellitus, type 2 HTN (hypertension) HLD (hyperlipidemia) Surgical History H/O tubal ligation Family History Father Family history of cancer Family history of myocardial infarction Mother Family history of myocardial infarction Sister Family history of myocardial infarction Son Family history of myocardial infarction Social History Smoking Status: Former smoker alcohol intake: never current occupational status: retired Travel in the last 8 weeks?: None Have you lived/traveled outside [place] in past 30 days?: No Contact w/someone who lives/traveled outside US past 30 days?: No Exposure to someone with infectious disease in past 14 days?: No Do you have a fever (greater than 100.4 F or 38 C)?: No Have you tested positive for COVID-19?: No Exposed to someone with COVID-19 in past 14 days?: No Do you have a sore throat?: No Do you have a cough?: No Do you have any weakness?: No Do you have any diarrhea?: No Are you experiencing any unusual bleeding?: No Do you have any muscle aches/pain?: No Do you have any abdominal pain?: No Are you experiencing loss of taste or smell?: No Other Medical History Have you received the Flu Vaccine for this season: No Have you received the Pneumonia Vaccine: No Review of Systems Review of Systems Review of systems:: pertinent systems reviewed and negative unless documented below Meds Home Medications and Allergies Home Medications ?Medication ?Instructions ?Recorded ?Confirmed ?Type simvastatin 40 mg tablet 40 mg PO HS 10/10/23 10/21/24 History aspirin 81 mg tablet,delayed 81 mg PO DAILY 10/31/23 10/21/24 History release pen needle, diabetic 31 gauge x #100 ea 11/03/23 10/21/24 Rx 1/4 insulin glargine 100 unit/mL (3 30 unit SQ DAILY 10/21/24 10/21/24 History mL) subcutaneous pen (Lantus Solostar U-100 Insulin) loratadine 10 mg capsule 10 mg PO DAILY 10/21/24 10/22/24 History potassium gluconate 595 mg (99 mg) 595 mg PO DAILY 10/21/24 10/22/24 History tablet amlodipine 10 mg tablet 10 mg PO DAILY 10/22/24 10/22/24 History bumetanide 1 mg tablet 1 mg PO DAILY 10/22/24 10/22/24 History New Prescriptions to Start Prescriptions: Allergies Allergy/AdvReac Type Severity Reaction Status Date / Time No Known Allergies Allergy Verified 01/12/24 10:09 Exam Data for Last 24 hours Vital signs and Labs for Last 24 Hours: Temp Pulse Resp BP Pulse Ox O2 Del Method 97.8 F 101 H 21 166/69 H 94 L Room Air 10/21/24 12:34 10/21/24 14:30 10/21/24 14:30 10/21/24 14:30 10/21/24 14:30 10/21/24 12:34 Laboratory Results - last 24 hr 10/21/24 12:41: VBG pH 7.44 H, VBG pCO2 39.0, VBG pO2 44.2 H, VBG HCO3 26.0, VBG Total CO2 27.2 H, VBG O2 Saturation 76.4 H, VBG Base Excess 1.9, VBG Lactic Acid 1.0 10/21/24 13:00: WBC 7.7, RBC 4.12 L, Hgb 11.6 L, Hct 35.9 L, MCV 87.1, MCH 28.2, MCHC 32.3, RDW 13.3, Plt Count 218, MPV 9.9, Neut % (Auto) 79.8, Lymph % (Auto) 13.0, [place] % (Auto) 5.6, Eos % (Auto) 1.0, Baso % (Auto) 0.5, Neut # (Auto) 6.2, Lymph # (Auto) 1.0, [place] # (Auto) 0.4, Eos # (Auto) 0.1, Baso # (Auto) 0.0, PT 11.0, INR 0.99, Sodium 136, Potassium 3.6, Chloride 96 L, Carbon Dioxide 30, Anion Gap 13.6, BUN 54 H, Creatinine 2.20 H, Estimated Creat Clear 23, Estimated GFR 21 L, Est GFR ( Amer) 26 L, Glucose 154 H, Calcium 9.6, Magnesium 2.1, Total Bilirubin 0.7, AST 30, ALT 27, Alkaline Phosphatase 87, Troponin I 0.03, NT-Pro-B Natriuret Pep 2560 H, Total Protein 8.3 H D, Albumin 3.9, Globulin 4.4 H, Albumin/Globulin Ratio 0.9 L, Procalcitonin 0.374, HCV Ab HERIBE w/Rflx PCR Qn Negative, HIV Ag/Ab Combo Qual Negative I & O for Last 24 hours: Intake & Output 10/18/24 10/19/24 10/20/24 10/21/24 23:59 23:59 23:59 23:59 Weight 72.121 kg Constitutional Constitutional: no acute distress *Routine HEENT Exam Head: Present normocephalic Eye: Present EOMI and PERRL ENT: Present mucous membranes moist *Routine Neck Exam Neck: Present supple; Absent lymphadenopathy *Routine Respiratory Exam Respiratory: Present CTA bilaterally *Routine Cardiovascular Exam Cardiovascular: Present RRR *Routine Abdominal Exam Abdominal: Present soft and normoactive bowel sounds; Absent tenderness *Routine Rectal Exam Rectal:: deferred *Routine Genitalia Exam Genitalia:: deferred *Routine Extremities Exam Extremities: Present edema; Absent cyanosis or clubbing *Routine Skin Exam Skin: Present warm; Absent rash *Routine Neurological Exam Neurological: Present alert and oriented X3 Assessment and Plan *Assessment and plan (1) Bilateral pleural effusion: Status: Acute Category: Medical Code(s): J90 - Pleural effusion, not elsewhere classified (2) Chronic kidney disease (CKD), stage 3: Status: Acute Category: Medical Code(s): N18.30 - Chronic kidney disease, stage 3 unspecified (3) Acute on chronic respiratory failure with hypoxemia: Status: Acute Category: Medical Code(s): J96.21 - Acute and chronic respiratory failure with hypoxia (4) Acute exacerbation of CHF (congestive heart failure): Status: Acute Category: Medical Code(s): I50.9 - Heart failure, unspecified Plan Patient is a 79-year-old female with past medical history of heart failure with preserved ejection fraction, CKD stage III/IV who presents to the hospital due to complaint of shortness of breath. According to the patient she has gained around 10 pounds in. Of days and has been feeling short of breath, she had recent changes in her heart failure medications and since then she has been gaining weight and becoming short of breath with exertion. Assessment and plan Acute on chronic heart failure with preserved ejection fraction Acute hypoxic respiratory failure likely secondary to CHF exacerbation Start IV Lasix 40 twice daily Monitor strict I's and O's Monitor creatinine Chronic kidney disease Creatinine on admission 2.1 Monitor creatinine Avoid nephrotoxic medications Chronic medical conditions Diabetes mellitus Ordered insulin sliding scale DVT prophylaxis-subcutaneous heparin
--- NOTE | 2024-10-21 15:29 | PC.NURSE ---
Patient handoff report called to PASCALE Maloney.
--- NOTE | 2024-10-21 15:39 | PC.NURSE ---
arrived by stretcher from ED
[2024-10-21 16:48] LABS: Troponin I 0.03 ng/ml (0.00-0.034)
--- NOTE | 2024-10-21 18:06 | PC.WOUNDNOTE ---
Brusing, redness and old wound. open area to left buttock.
[2024-10-21 19:51] LABS: Troponin I 0.03 ng/ml (0.00-0.034)
[2024-10-21] MEDS: HEPARIN SODIUM 5,000 UNIT/ML VIAL 5000 UNIT SUBCUT (20:41)
[2024-10-21] MEDS: PRAVASTATIN 40MG TAB 80 MG PO (21:45)
[2024-10-21 22:03] LABS: POC Glucose,Bedside 260 (70-110)
[2024-10-22] VITALS (8 sets, daily range): BP systolic 133–152; BP diastolic 56–75; PULSE 80–98; RESP 16–22; TEMP 36.7–37.3; O2SAT 94–95; BMI 32.5
[2024-10-22 07:27] LABS: Hematocrit 33.5 % (37.0-47.0); Hemoglobin 10.6 g/dL (12.2-16.2); Immature Granulocytes % 0.2 %; Mean Corpuscular HGB Conc 31.6 g/dL (31.8-35.4); Mean Corpuscular Hemoglobin 27.6 pg (27.0-31.2); Mean Corpuscular Volume 87.2 fl (81-99); Nucleated Red Blood Cells % 0 %; Platelet Count 235 K/mm3 (142-424); Red Blood Count 3.84 M/mm3 (4.20-5.40); Red Cell Distribution Width-SD 42.9 fL; White Blood Count 5.6 K/mm3 (4.8-10.8)
[2024-10-22 07:49] LABS: Anion Gap 11.2 mEq/L (5-15); Blood Urea Nitrogen 50 mg/dl (7-17); Calcium 9.5 mg/dl (8.4-10.2); Carbon Dioxide 31 mmol/L (22.0-30.0); Chloride 100 mmol/L (98-107); Creatinine Clearance Estimated 21 mL/min (50-200); Creatinine,Serum 2.50 mg/dl (0.52-1.04); Estimated Glomerular Filt Rate 19 ml/min (>60); GFR (African American) 22 ML/MIN (>60); Glucose 70 mg/dl (74-100); Potassium 3.2 mmoL/L (3.5-5.1); Sodium 139 mmol/L (136-145)
[2024-10-22] MEDS: HEPARIN SODIUM 5,000 UNIT/ML VIAL 5000 UNIT SUBCUT ×3 (09:17→20:07)
[2024-10-22] MEDS: ASPIRIN EC 81MG TABLET 81 MG PO (09:18)
[2024-10-22] MEDS: INSULIN GLARGINE 100 UNITS/ML 3ML FLEXPEN 20 UNIT SUBCUT (09:18)
[2024-10-22] MEDS: AMLODIPINE 10MG TABLET 10 MG PO (09:18)
[2024-10-22 09:56] LABS: POC Glucose,Bedside 220 (70-110)
--- NOTE | 2024-10-22 10:29 | HMH.PHAINT1 ---
Pharmacy Intervention Comments: MEDICATION RECONCILIATION COMPLETED ON PATIENT USING EXTERNAL FILL HISTORY FROM PHARMACY. -BONNIE NAVARRETE, ANNIAD
[2024-10-22] MEDS: humaLOG 100 UNITS/ML 10ML VIAL (SSI) SUBCUT ×3 (11:08→20:18)
[2024-10-22 11:31] LABS: POC Glucose,Bedside 188 (70-110)
[2024-10-22 12:04] LABS: POC Glucose,Bedside 77 (70-110)
[2024-10-22] MEDS: FUROSEMIDE 20 MG/2 ML VIAL IV (14:54)
--- NOTE | 2024-10-22 16:25 | PC.NURSE ---
notified MD about patients potassium level, new orders to add electrolyte replacement ordered.
[2024-10-22 16:45] LABS: POC Glucose,Bedside 240 (70-110)
[2024-10-22] MEDS: POTASSIUM CHLORIDE 20MEQ TAB 40 MEQ PO ×2 (17:19→20:07)
--- NOTE | 2024-10-22 17:59 | PC.NURSE ---
pt is A&Ox4. pt has been wearing 1L NC most of the day. pt has kelsey catheter. she is being diuresed and is having good amount of output. pt has no other complaints. call light within reach.
--- NOTE | 2024-10-22 18:29 | P.PN_ITS ---
Subjective *Date: 10/22/24 *Time: 18:29 Interval history: seen at bedside, no fevers overnight, denied CP, SOB, no complains today, says her SOB is better but she is not feeling herself at normal levels Exam Data for Last 24 hours Vital signs and Labs for Last 24 Hours: Temp Pulse Resp BP Pulse Ox O2 Del Method O2 Flow Rate 98.6 F 89 16 150/70 H 95 Nasal Cannula 1 10/22/24 16:00 10/22/24 16:26 10/22/24 16:00 10/22/24 16:00 10/22/24 16:00 10/22/24 17:12 10/22/24 17:12 Laboratory Results - last 24 hr 10/21/24 19:13: Troponin I 0.03 10/21/24 21:48: POC Glucose 260 H 10/22/24 05:47: POC Glucose 77 10/22/24 06:33: WBC 5.6 D, RBC 3.84 L, Hgb 10.6 L, Hct 33.5 L, MCV 87.2, MCH 27.6, MCHC 31.6 L, RDW 13.4, Plt Count 235, MPV 10.0, Neut % (Auto) 62.1, Lymph % (Auto) 26.1, [place] % (Auto) 8.0, Eos % (Auto) 2.9, Baso % (Auto) 0.7, Neut # (Auto) 3.5, Lymph # (Auto) 1.5, [place] # (Auto) 0.5, Eos # (Auto) 0.2, Baso # (Auto) 0.0, Sodium 139, Potassium 3.2 L, Chloride 100, Carbon Dioxide 31 H, Anion Gap 11.2, BUN 50 H, Creatinine 2.50 H, Estimated Creat Clear 21, Estimated GFR 19 L*, Est GFR ( Amer) 22 L, Glucose 70 L D, Calcium 9.5 10/22/24 09:16: POC Glucose 220 H 10/22/24 11:03: POC Glucose 188 H 10/22/24 16:31: POC Glucose 240 H I & O for Last 24 hours: Intake & Output 10/19/24 10/20/24 10/21/24 10/22/24 23:59 23:59 23:59 23:59 Intake Total 120 / 620 980 / 980 Output Total 1700 / 1700 1800 / 1800 Balance -1580 / -1080 -820 / -820 Weight 74.191 kg 73.301 kg Constitutional Constitutional: no acute distress *Routine HEENT Exam Head: Present normocephalic Eye: Present EOMI and PERRL ENT: Present mucous membranes moist *Routine Neck Exam Neck: Present supple; Absent lymphadenopathy *Routine Respiratory Exam Comments: rhonchi b/l *Routine Cardiovascular Exam Cardiovascular: Present RRR *Routine Abdominal Exam Abdominal: Present soft and normoactive bowel sounds; Absent tenderness *Routine Extremities Exam Extremities: Absent cyanosis, clubbing or edema *Routine Skin Exam Skin: Present warm; Absent rash *Routine Neurological Exam Neurological: Present alert and oriented X3 Assessment and Plan *Assessment and plan (1) Bilateral pleural effusion: Status: Acute Category: Medical Code(s): J90 - Pleural effusion, not elsewhere classified (2) Chronic kidney disease (CKD), stage 3: Status: Acute Category: Medical Code(s): N18.30 - Chronic kidney disease, stage 3 unspecified (3) Acute on chronic respiratory failure with hypoxemia: Status: Acute Category: Medical Code(s): J96.21 - Acute and chronic respiratory failure with hypoxia (4) Acute exacerbation of CHF (congestive heart failure): Status: Acute Category: Medical Code(s): I50.9 - Heart failure, unspecified Plan Patient is a 79-year-old female with past medical history of heart failure with preserved ejection fraction, CKD stage III/IV who presents to the hospital due to complaint of shortness of breath. According to the patient she has gained around 10 pounds in. Of days and has been feeling short of breath, she had recent changes in her heart failure medications and since then she has been gaining weight and becoming short of breath with exertion. Assessment and plan Acute on chronic heart failure with preserved ejection fraction Acute hypoxic respiratory failure likely secondary to CHF exacerbation hold IV Lasix 40 twice daily - given ISAÍAS Monitor strict I's and O's Monitor creatinine Chronic kidney disease Creatinine on admission 2.1 Cr 2.5 today, worsening, closely monitor baseline around 2.0 Avoid nephrotoxic medications Chronic medical conditions Diabetes mellitus Ordered insulin sliding scale DVT prophylaxis-subcutaneous heparin likely dc tomorrow if Cr is better and SOB improved
[2024-10-22] MEDS: PRAVASTATIN 40MG TAB 80 MG PO (20:07)
[2024-10-22 20:23] LABS: POC Glucose,Bedside 171 (70-110)
[2024-10-23] VITALS (8 sets, daily range): BP systolic 142–171; BP diastolic 61–72; PULSE 80–104; RESP 17–22; TEMP 36.8–37; O2SAT 92–98; BMI 31.8
--- NOTE | 2024-10-23 04:00 | PC.NURSE ---
Patient is alert and oriented x4. She was observed to be resting in bed with eyes closed, respirations even and unlabored, and no apparent distress throughout the majority of the night. Jordan catheter remains in place to observe urine output accurately; urine output measured and documented accordingly. Bedside commode available for defecation needs. Patient gets up with assistance. Diminished lung sounds, normal sinus rhythm on telemetry (80s to 90s bpm). Mild swelling (+1 edema) noted to bilateral lower extremities. Skin issues documented accordingly in this shift's biophysical. Patient has not had any complaints of shortness of breath while at rest. Daily weights. She has remained on 1 L of oxygen via nasal cannula this shift, oxygen saturations > 90%. Scheduled medications were administered per MAY. ACHS glucose checks performed. Electrolyte replacement protocol. At this time, the patient is resting in bed without any further complaints. No new needs thus far. Call light within reach.
[2024-10-23 06:38] LABS: Hematocrit 30.9 % (37.0-47.0); Hemoglobin 10.3 g/dL (12.2-16.2); Immature Granulocytes % 0.2 %; Mean Corpuscular HGB Conc 33.3 g/dL (31.8-35.4); Mean Corpuscular Hemoglobin 29.0 pg (27.0-31.2); Mean Corpuscular Volume 87.0 fl (81-99); Nucleated Red Blood Cells % 0 %; Platelet Count 225 K/mm3 (142-424); Red Blood Count 3.55 M/mm3 (4.20-5.40); Red Cell Distribution Width-SD 42.2 fL; White Blood Count 6.0 K/mm3 (4.8-10.8)
[2024-10-23 06:56] LABS: Anion Gap 11.4 mEq/L (5-15); Blood Urea Nitrogen 52 mg/dl (7-17); Calcium 9.2 mg/dl (8.4-10.2); Carbon Dioxide 27 mmol/L (22.0-30.0); Chloride 101 mmol/L (98-107); Creatinine Clearance Estimated 21 mL/min (50-200); Creatinine,Serum 2.40 mg/dl (0.52-1.04); Estimated Glomerular Filt Rate 19 ml/min (>60); GFR (African American) 24 ML/MIN (>60); Glucose 99 mg/dl (74-100); Potassium 4.4 mmoL/L (3.5-5.1); Sodium 135 mmol/L (136-145)
[2024-10-23] MEDS: ASPIRIN EC 81MG TABLET 81 MG PO (09:05)
[2024-10-23] MEDS: HEPARIN SODIUM 5,000 UNIT/ML VIAL 5000 UNIT SUBCUT ×3 (09:05→21:08)
[2024-10-23] MEDS: AMLODIPINE 10MG TABLET 10 MG PO (09:05)
[2024-10-23] MEDS: INSULIN GLARGINE 100 UNITS/ML 3ML FLEXPEN 20 UNIT SUBCUT (09:06)
--- NOTE | 2024-10-23 09:20 | P.PN_ITS ---
Subjective *Date: 10/23/24 *Time: 22:43 Interval history: Denies significant chest pain or shortness of breath. On 1 L oxygen today. Diuresing well. Having improvement in swelling. Kidney function remains elevated today. Tolerating p.o. intake. Afebrile Medical Exam Vital signs and Labs for Last 24 Hours: Vital Signs Temp Pulse Pulse Pulse Resp BP Pulse Ox 10/23/24 08:00 98.3 F 87 18 146/61 H 96 10/23/24 06:40 10/23/24 05:00 10/23/24 04:00 90 10/23/24 04:00 98.5 F 94 H 22 142/64 H 94 L 10/23/24 03:00 10/23/24 01:00 10/23/24 00:00 88 10/22/24 23:59 99.1 F 92 H 20 143/75 H 95 10/22/24 23:00 10/22/24 21:00 10/22/24 20:00 92 H 10/22/24 20:00 10/22/24 20:00 98.3 F 93 H 22 151/74 H 94 L 10/22/24 18:46 10/22/24 17:12 10/22/24 16:26 89 10/22/24 16:00 98.6 F 88 16 150/70 H 95 10/22/24 15:00 10/22/24 13:00 10/22/24 12:00 87 10/22/24 11:10 O2 Del Method O2 Flow Rate 10/23/24 08:00 Nasal Cannula 1 10/23/24 06:40 Nasal Cannula 1 10/23/24 05:00 Nasal Cannula 1 10/23/24 04:00 10/23/24 04:00 Nasal Cannula 1 10/23/24 03:00 Nasal Cannula 1 10/23/24 01:00 Nasal Cannula 1 10/23/24 00:00 10/22/24 23:59 Nasal Cannula 1 10/22/24 23:00 Nasal Cannula 1 10/22/24 21:00 Nasal Cannula 1 10/22/24 20:00 10/22/24 20:00 Nasal Cannula 1 10/22/24 20:00 Room Air 10/22/24 18:46 Nasal Cannula 1 10/22/24 17:12 Nasal Cannula 1 10/22/24 16:26 10/22/24 16:00 Nasal Cannula 1 10/22/24 15:00 Room Air 10/22/24 13:00 Nasal Cannula 1 10/22/24 12:00 10/22/24 11:10 Nasal Cannula 1 Intake and Output 10/22/24 10/23/24 10/23/24 23:59 07:59 15:59 Intake Total 360 / 1690 350 / 730 380 / 730 Output Total 1350 / 2450 550 / 550 Balance -990 / -760 -200 / 180 380 / 180 Intake: Intake, Oral Amount 360 / 1690 350 / 730 380 / 730 Output: Output, Urine Amount 1350 / 2450 450 / 450 Output, Urine Amount (Catheter) 100 / 100 Jordan 100 / 100 Other: Number of Unmeasured Voids 0 0 Number of Bowel Movements 1 Weight 71.713 kg Patient Weight 10/23/24 23:59 Weight 71.713 kg Laboratory Results - last 24 hr 10/22/24 05:47: POC Glucose 77 10/22/24 09:16: POC Glucose 220 H 10/22/24 11:03: POC Glucose 188 H 10/22/24 16:31: POC Glucose 240 H 10/22/24 20:14: POC Glucose 171 H 10/23/24 06:00: WBC 6.0, RBC 3.55 L, Hgb 10.3 L, Hct 30.9 L, MCV 87.0, MCH 29.0, MCHC 33.3, RDW 13.2, Plt Count 225, MPV 9.8, Neut % (Auto) 62.4, Lymph % (Auto) 25.0, [place] % (Auto) 9.5 H, Eos % (Auto) 2.2, Baso % (Auto) 0.7, Neut # (Auto) 3.8, Lymph # (Auto) 1.5, [place] # (Auto) 0.6, Eos # (Auto) 0.1, Baso # (Auto) 0.0, Sodium 135 L, Potassium 4.4 D, Chloride 101, Carbon Dioxide 27, Anion Gap 11.4, BUN 52 H, Creatinine 2.40 H, Estimated Creat Clear 21, Estimated GFR 19 L*, Est GFR ( Amer) 24 L, Glucose 99 D, Calcium 9.2 I & O for Labs for Last 24 Hours: Intake & Output 10/20/24 10/21/24 10/22/24 10/23/24 23:59 23:59 23:59 23:59 Intake Total 120 / 620 1340 / 1690 730 / 730 Output Total 1700 / 1700 2450 / 2450 550 / 550 Balance -1580 / -1080 -1110 / -760 180 / 180 Weight 74.191 kg 73.301 kg 71.713 kg Constitutional: Present no acute distress, obese, chronically ill appearing and cooperative Head: Present atraumatic and normocephalic ENT: Present normal exam Neck: Present normal inspection Respiratory: Present crackles and normal respiratory effort; Absent rhonchi or wheezes Cardiac: Present Reg Rate and Rhythm GI: Present soft and normal bowel sounds; Absent distention or tenderness Extremities: Present normal inspection, full ROM and edema (1+ to knees) Skin: Present intact; Absent erythema Neuro: Present Grossly Intact, alert, awake, oriented x 3 and moves all extremities (With residual left-sided deficits) Assessment and Plan *Assessment and plan (1) Acute hypoxemic respiratory failure: Status: Acute Category: Medical Code(s): J96.01 - Acute respiratory failure with hypoxia (2) CHF exacerbation: Problem Comment: Acute on chronic Status: Acute Qualifiers: Heart failure type: diastolic Qualified Code(s): I50.33 - Acute on manager marketing elijah diastolic (congestive) heart failure Category: Medical Code(s): I50.9 - Heart failure, unspecified (3) ISAÍAS (acute kidney injury): Status: Resolved Category: Medical Code(s): N17.9 - Acute kidney failure, unspecified (4) HLD (hyperlipidemia): Status: Acute Qualifiers: Hyperlipidemia type: other hyperlipidemia Qualified Code(s): E78.49 - Other hyperlipidemia Category: Medical Code(s): E78.5 - Hyperlipidemia, unspecified (5) HTN (hypertension): Status: Acute Qualifiers: Hypertension type: primary hypertension Qualified Code(s): I10 - Essential (primary) hypertension Category: Medical Code(s): I10 - Essential (primary) hypertension (6) Diabetes mellitus, type 2: Status: Acute Qualifiers: Diabetes mellitus complication status: with other specified complication Diabetes mellitus intermediate manager insulin use: without intermediate manager use Qualified Code(s): E11.69 - Type 2 diabetes mellitus with other specified complication Category: Medical Code(s): E11.9 - Type 2 diabetes mellitus without complications (7) Obesity (BMI 30.0-34.9): Status: Chronic Category: Medical Code(s): E66.811 - Obesity, class 1 Plan Patient is a 79-year-old female with past medical history of heart failure with preserved ejection fraction, CKD stage III/IV who presents to the hospital due to complaint of shortness of breath. According to the patient she has gained around 10 pounds in a matter of days and has been feeling short of breath, she had recent changes in her heart failure medications and since then she has been gaining weight and becoming short of breath with exertion. Responding to diuresis. -3 L since admission. Weaning oxygen as tolerated. He is to require patient management. Problems addressed as follows: Acute hypoxemic respiratory failure secondary to acute on chronic diastolic heart failure CKD -Echo obtained 10/2023: EF preserved at 60%, grade 2 diastolic dysfunction. Small pericardial effusion. repeat ordered for the morning -Continuing Bumex 1mg IV bid - Repeat CBC, CMP, magnesium ordered for the morning - Cardiology consulted to evaluate in the morning -Creatinine 2.4 today, BUN 52, sodium 135 with potassium 4.4 - DuoNebs every 6 hours as needed. -Continue simvastatin 40 mg nightly, isosorbide mononitrate 60 mg daily, amlodipine 10 mg daily, and aspirin 81 mg daily for CAD and hypertension -Incentive spirometry Type 2 diabetes: - SSI with FSGS achs - A1C 7.1 - resume glargine 20u daily, morning glucose 99 Obesity and history of stroke complicate aspects of her care. Full code Herparin 5000u TID cardiac diet
[2024-10-23 09:55] LABS: Hemoglobin A1C 7.1 % (4.0-6.0)
[2024-10-23] MEDS: BUMETANIDE 1MG/4ML VIAL 1 MG IV (10:23)
[2024-10-23] MEDS: humaLOG 100 UNITS/ML 10ML VIAL (SSI) SUBCUT ×2 (10:49→21:19)
[2024-10-23 11:20] LABS: POC Glucose,Bedside 208 (70-110)
[2024-10-23 16:37] LABS: POC Glucose,Bedside 145 (70-110)
--- NOTE | 2024-10-23 17:36 | PC.NURSE ---
pt is A&Ox4. pt has been diuresed today with bumex, still has 1+ non-pitting edema to left leg. she will have cardiology consult and an echo done tomorrow morning. pt has no other needs at this time. call light within reach. safety measures in place.
[2024-10-23] MEDS: PRAVASTATIN 40MG TAB 80 MG PO (21:08)
[2024-10-23 21:18] LABS: POC Glucose,Bedside 213 (70-110)
[2024-10-24] VITALS: PULSE 80
[2024-10-24 04:00] VITALS: BP 149/67; PULSE 80; PULSE 93; RESP 17; TEMP 36.7; O2SAT 95; BMI 31.8
[2024-10-24 05:42] LABS: POC Glucose,Bedside 130 (70-110)
--- NOTE | 2024-10-24 06:00 | CA_ITS ---
APPROVED REPORT EXAM: Comprehensive 2D, Doppler, and color-flow Echocardiogram Vendor Manager: Alessia Woodall RDCS Ht: 4 ft 11 in Wt: 158lbs BSA: 1.67 BP: 166/69 mmHg Indications: CHF M-Mode Dimensions RVDd 0.75 cm (0.9-2.6) LA Diam 3.73 cm (1.9-4.0) LVDd 5.67 cm (3.5-5.7) LVDs 4.23 cm (3.5-5.7) IVSd 1.65 cm (0.6-1.1) PWd 0.93 cm (0.6-1.1) EF (Teich) 49.50% FS 25.40% EDV (Teich) 158.10 mL ESV (Teich) 79.90 mL LV Diastology E Decel Time 270 (160-240 msec) E/A Ratio 0.8 Mitral Valve MV E Max Ata. 104.0 (40-130 cm/s) MV A Velocity 129.0 (40-130 cm/s) E/A Ratio 0.81 MV PHT 79.0 ms Left Ventricle The left ventricle is normal size. The left ventricular systolic function is normal. The left ventricular ejection fraction is within the normal range. There is increased LV wall thickness. The septum is asynchronous. Diastolic function is indeterminate. LVEF is 50-55%. Right Ventricle The right ventricle is normal size. The right ventricular systolic function is normal. Atria Left atrium is moderately dilated. Right atrium is mildly dilated. There is no Doppler evidence of interatrial shunt. Aortic Valve The aortic valve is mildly thickened. There is no aortic valvular stenosis. Mild aortic regurgitation. Mitral Valve The mitral valve is normal in structure. No evidence of mitral valve stenosis. Mild mitral regurgitation. Tricuspid Valve Tricuspid valve is grossly normal in structure and function. Trace tricuspid regurgitation. There is insufficient TR jet to estimate RVSP. Pulmonic Valve The pulmonary valve is normal in structure. Trace pulmonic regurgitation. Great Vessels The aortic root is normal in size. IVC is normal in size and collapses >50% with inspiration. Pericardium There is a small-sized, circumferential pericardial effusion. The largest pocket is noted anteriorly and measures approximately 0.8 cm in diastole. The effusion is at least partially loculated. There is slight invagination of the RV during diastole, but no clear indications of tamponade. Other Information Study Quality: Technically Difficult Conclusion Technically difficult study. Normal biventricular systolic function. Biatrial dilation. Mild AI, mild MR. Small-sized, circumferential pericardial effusion. The largest pocket is noted anteriorly and measures approximately 0.8 cm in diastole. The effusion is at least partially loculated. There is slight invagination of the RV during diastole, but no clear indications of tamponade. In the setting of pericardial effusion, serial limited TTEs are suggested to evaluate for resolution vs. progression. Clinical correlation is recommended. Electronically signed by : Nay Hall MD 10/24/2024 13:17:01
--- NOTE | 2024-10-24 06:08 | PC.NURSE ---
Pt. is alert and orientated x 4. Pt. is on oxygen 1 liter per N/C. Pt. has been diuressing well. Pt. has no c/o chest pain, or Shortness of breath. Pt. has non pitting edema to left lower leg. Pt. has a purewick in place. ACHs blood sugars done. Pt. slept well this shift. Personal items and call dominguez in reach. Bed in low and locked position. Safety measures in place.
[2024-10-24 07:03] LABS: Anion Gap 12.1 mEq/L (5-15); Blood Urea Nitrogen 49 mg/dl (7-17); Calcium 9.3 mg/dl (8.4-10.2); Carbon Dioxide 27 mmol/L (22.0-30.0); Chloride 100 mmol/L (98-107); Creatinine Clearance Estimated 20 mL/min (50-200); Creatinine,Serum 2.50 mg/dl (0.52-1.04); Estimated Glomerular Filt Rate 19 ml/min (>60); GFR (African American) 22 ML/MIN (>60); Glucose 121 mg/dl (74-100); Potassium 4.1 mmoL/L (3.5-5.1); Sodium 135 mmol/L (136-145)
[2024-10-24 07:07] LABS: Hematocrit 34.8 % (37.0-47.0); Hemoglobin 11.3 g/dL (12.2-16.2); Immature Granulocytes % 0.4 %; Mean Corpuscular HGB Conc 32.5 g/dL (31.8-35.4); Mean Corpuscular Hemoglobin 28.4 pg (27.0-31.2); Mean Corpuscular Volume 87.4 fl (81-99); Nucleated Red Blood Cells % 0 %; Platelet Count 239 K/mm3 (142-424); Red Blood Count 3.98 M/mm3 (4.20-5.40); Red Cell Distribution Width-SD 41.8 fL; White Blood Count 7.2 K/mm3 (4.8-10.8)
[2024-10-24 07:35] LABS: Magnesium 2.0 mg/dl (1.6-2.3)
[2024-10-24 08:00] VITALS: BP 139/63; PULSE 90; PULSE 94; RESP 18; TEMP 36.9; O2SAT 96
[2024-10-24] MEDS: AMLODIPINE 10MG TABLET 10 MG PO (09:10)
[2024-10-24] MEDS: HEPARIN SODIUM 5,000 UNIT/ML VIAL 5000 UNIT SUBCUT ×2 (09:10→12:00)
[2024-10-24] MEDS: ASPIRIN EC 81MG TABLET 81 MG PO (09:10)
[2024-10-24] MEDS: BUMETANIDE 1MG/4ML VIAL 1 MG IV (09:10)
[2024-10-24] MEDS: INSULIN GLARGINE 100 UNITS/ML 3ML FLEXPEN 20 UNIT SUBCUT (09:24)
[2024-10-24 09:43] LABS: POC Glucose,Bedside 283 (70-110)
[2024-10-24 10:19] LABS: POC Glucose,Bedside 108 (70-110)
--- NOTE | 2024-10-24 11:45 | EXP.DC.SUM ---
General Admission date:: 10/21/24 Discharge date: 10/24/24 HPI HPI HPI: Patient is a 79-year-old female with past medical history of heart failure with preserved ejection fraction, CKD stage III/IV who presents to the hospital due to complaint of shortness of breath. According to the patient she has gained around 10 pounds in. Of days and has been feeling short of breath, she had recent changes in her heart failure medications and since then she has been gaining weight and becoming short of breath with exertion. Hospital Course Hospital Course Hospital Course: Patient is a 79-year-old female with past medical history of heart failure with preserved ejection fraction, CKD stage III/IV who presents to the hospital due to complaint of shortness of breath. According to the patient she has gained around 10 pounds in a matter of days and has been feeling short of breath, she had recent changes in her heart failure medications and since then she has been gaining weight and becoming short of breath with exertion. Responding to diuresis. - has had a negative fluid balance of over 3 L since admission. Weaned to room air during the day. Wears oxygen intermittently at night at home. On her baseline oxygen requirements. Stable to discharge home with further management as an outpatient. Cardiology evaluated prior to discharge. Problems addressed as follows: Acute hypoxemic respiratory failure secondary to acute on chronic diastolic heart failure CKD 3 -Echo obtained 10/2023: EF preserved at 60%, grade 2 diastolic dysfunction. Small pericardial effusion. repeat ordered for the morning, Formal read still pending at discharge but has preliminary EF of 50%. Continued on Bumex during admission with good response to diuresis. Monitor kidney function and electrolytes. Potassium normal at 4.1. BUN 49 and creatinine 2.5. Within what appears to be her new baseline range. Stable during admission. Cardiology evaluated. No change to regimen at this time. Continue home regimen including the following: Continue simvastatin 40 mg nightly, amlodipine 10 mg daily, and aspirin 81 mg daily for CAD and hypertension. Continue Bumex 1 mg p.o. daily. Wears 2 L oxygen at night and on room air during the day at home. Back to her baseline requirements. CKD stable. Follow-up with health specialist as an outpatient. Type 2 diabetes: - SSI with FSGS achs during admission. A1c obtained at 7.1. Continue her home regimen with insulin glargine 30 units daily. Appears to be controlling her glucose well. Obesity and history of stroke complicate aspects of her care. Total time spent on discharge 32 minutes in counseling, documentation, chart review, and direct care with patient. Exam Data for Last 24 hours Vital signs and Labs for Last 24 Hours: Temp Pulse Resp BP Pulse Ox O2 Del Method O2 Flow Rate 98.4 F 94 H 18 139/63 96 Nasal Cannula 1 10/24/24 08:00 10/24/24 08:00 10/24/24 08:00 10/24/24 08:00 10/24/24 08:00 10/24/24 11:00 10/24/24 11:00 Laboratory Results - last 24 hr 10/23/24 05:49: POC Glucose 108 10/23/24 16:17: POC Glucose 145 H 10/23/24 21:07: POC Glucose 213 H 10/24/24 05:21: POC Glucose 130 H 10/24/24 05:22: WBC 7.2, RBC 3.98 L, Hgb 11.3 L, Hct 34.8 L, MCV 87.4, MCH 28.4, MCHC 32.5, RDW 13.2, Plt Count 239, MPV 10.1, Neut % (Auto) 71.0, Lymph % (Auto) 18.5, [place] % (Auto) 7.6, Eos % (Auto) 1.8, Baso % (Auto) 0.7, Neut # (Auto) 5.1, Lymph # (Auto) 1.3, [place] # (Auto) 0.6, Eos # (Auto) 0.1, Baso # (Auto) 0.1, Sodium 135 L, Potassium 4.1, Chloride 100, Carbon Dioxide 27, Anion Gap 12.1, BUN 49 H, Creatinine 2.50 H, Estimated Creat Clear 20, Estimated GFR 19 L*, Est GFR ( Amer) 22 L, Glucose 121 H D, Calcium 9.3, Magnesium 2.0 10/24/24 09:23: POC Glucose 283 H I & O for Last 24 hours: Intake & Output 10/21/24 10/22/24 10/23/24 10/24/24 23:59 23:59 23:59 23:59 Intake Total 120 / 620 1340 / 1690 1530 / 1530 360 / 360 Output Total 1700 / 1700 2450 / 2450 1750 / 1750 1250 / 1250 Balance -1580 / -1080 -1110 / -760 -220 / -220 -890 / -890 Weight 74.191 kg 73.301 kg 71.713 kg 71.532 kg Constitutional Constitutional: no acute distress, obese, chronically ill appearing and cooperative *Routine HEENT Exam Head: Present normocephalic Eye: Present EOMI and PERRL ENT: Present mucous membranes moist *Routine Neck Exam Neck: Present supple; Absent lymphadenopathy *Routine Respiratory Exam Respiratory: Present prolonged expiratory phase and crackles (faint Bibasilar crackles); Absent rhonchi or wheezes *Routine Cardiovascular Exam Cardiovascular: Present RRR *Routine Abdominal Exam Abdominal: Present soft and normoactive bowel sounds; Absent tenderness *Routine Rectal Exam Patient deferred: visual exam *Routine Exam Patient deferred: external exam *Routine Extremities Exam Extremities: Absent cyanosis, clubbing or edema *Routine Skin Exam Skin: Present warm; Absent rash *Routine Neurological Exam Neurological: Present alert, oriented X3 and moving all extremities; Absent altered mental status Results Data Completed and Pending Labs on day of discharge: Labs from last 24 hours 10/24/24 10/24/24 10/24/24 09:23 05:22 05:21 WBC 7.2 RBC 3.98 L Hgb 11.3 L Hct 34.8 L MCV 87.4 MCH 28.4 MCHC 32.5 RDW 13.2 Plt Count 239 MPV 10.1 Neut % (Auto) 71.0 Lymph % (Auto) 18.5 [place] % (Auto) 7.6 Eos % (Auto) 1.8 Baso % (Auto) 0.7 Neut # (Auto) 5.1 Lymph # (Auto) 1.3 [place] # (Auto) 0.6 Eos # (Auto) 0.1 Baso # (Auto) 0.1 Sodium 135 L Potassium 4.1 Chloride 100 Carbon Dioxide 27 Anion Gap 12.1 BUN 49 H Creatinine 2.50 H Estimated Creat Clear 20 Estimated GFR 19 L* Est GFR ( Amer) 22 L Glucose 121 H D POC Glucose 283 H 130 H Calcium 9.3 Magnesium 2.0 10/23/24 10/23/24 10/23/24 21:07 16:17 05:49 WBC RBC Hgb Hct MCV MCH MCHC RDW Plt Count MPV Neut % (Auto) Lymph % (Auto) [place] % (Auto) Eos % (Auto) Baso % (Auto) Neut # (Auto) Lymph # (Auto) [place] # (Auto) Eos # (Auto) Baso # (Auto) Sodium Potassium Chloride Carbon Dioxide Anion Gap BUN Creatinine Estimated Creat Clear Estimated GFR Est GFR ( Amer) Glucose POC Glucose 213 H 145 H 108 Calcium Magnesium DS: Diagnosis Discharge Diagnosis (1) Acute hypoxemic respiratory failure: Status: Acute Code(s): J96.01 - Acute respiratory failure with hypoxia (2) CHF exacerbation: Status: Acute Code(s): I50.9 - Heart failure, unspecified Qualifiers: Heart failure type: diastolic Qualified Code(s): I50.33 - Acute on chronic diastolic (congestive) heart failure Problem details: Acute on chronic (3) ISAÍAS (acute kidney injury): Status: Resolved Code(s): N17.9 - Acute kidney failure, unspecified (4) HLD (hyperlipidemia): Status: Acute Code(s): E78.5 - Hyperlipidemia, unspecified Qualifiers: Hyperlipidemia type: other hyperlipidemia Qualified Code(s): E78.49 - Other hyperlipidemia (5) HTN (hypertension): Status: Acute Code(s): I10 - Essential (primary) hypertension Qualifiers: Hypertension type: primary hypertension Qualified Code(s): I10 - Essential (primary) hypertension (6) Diabetes mellitus, type 2: Status: Acute Code(s): E11.9 - Type 2 diabetes mellitus without complications Qualifiers: Diabetes mellitus manager intermediate insulin use: without care home use Diabetes mellitus complication status: with other specified complication Qualified Code(s): E11.69 - Type 2 diabetes mellitus with other specified complication (7) Obesity (BMI 30.0-34.9): Status: Chronic Code(s): E66.811 - Obesity, class 1 Meds Home Medications and Allergies Home Medications ?Medication ?Instructions ?Recorded ?Confirmed ?Type simvastatin 40 mg tablet 40 mg PO HS 10/10/23 10/21/24 History aspirin 81 mg tablet,delayed 81 mg PO DAILY 10/31/23 10/21/24 History release pen needle, diabetic 31 gauge x #100 ea 11/03/23 10/21/24 Rx 1/ insulin glargine 100 unit/mL (3 30 unit SQ DAILY 10/21/24 10/21/24 History mL) subcutaneous pen (Lantus Solostar U-100 Insulin) loratadine 10 mg capsule 10 mg PO DAILY 10/21/24 10/22/24 History potassium gluconate 595 mg (99 mg) 595 mg PO DAILY 10/21/24 10/22/24 History tablet amlodipine 10 mg tablet 10 mg PO DAILY 10/22/24 10/22/24 History bumetanide 1 mg tablet 1 mg PO DAILY 10/22/24 10/22/24 History New Prescriptions to Start Prescriptions: Allergies Allergy/AdvReac Type Severity Reaction Status Date / Time No Known Allergies Allergy Verified 01/12/24 10:09 Discharge Plan Disposition Patient Disposition: Home, Self-Care Condition: Fair Discharge Order Discharge Orders: Discharge Order (Routine); Ordered 10/24/24 Ordered By: Tony Cespedes Follow up Plan Follow up with: Robyn Velarde APRN [Nurse Practitioner, Cardiology] - Enter time for follow up Annalee Garcia MD [Primary Care Provider, Medical] - Enter time for follow up Prescriptions/Medication Reconciliation: Continued simvastatin 40 mg tablet 40 mg PO HS aspirin 81 mg Tablet,Delayed Release (Dr/Ec) 81 mg PO DAILY (DME) pen needle, diabetic 31 gauge x 1/4 needle See Rx Instructions .ROUTE .MEDSUPPLY Qty: 100 0RF Rx Instructions: As directed insulin glargine [Lantus Solostar U-100 Insulin] 100 unit/mL (3 mL) insulin pen 30 unit SQ DAILY potassium gluconate 595 mg (99 mg) tablet 595 mg PO DAILY Patient Comments: TAKE 1 TABLET BY MOUTH EVERY DAY loratadine 10 mg Capsule 10 mg PO DAILY amlodipine 10 mg tablet 10 mg PO DAILY Patient Comments: TAKE 1 TABLET BY MOUTH DAILY bumetanide 1 mg tablet 1 mg PO DAILY Patient Comments: TAKE 1 TABLET BY MOUTH DAILY Problem Reconciliation Problems Reviewed?: Yes Patient Discharge Instructions ACTIVITY: Continue current activity DIET: continue same diet Patient Instructions: Heart-Healthy Diet, DI for Shortness of Breath, How to Manage Shortness of Breath, Catheter-Associated Urinary Tract Infection, Stop Light Heart Failure Print Language: Peruvian Providers Primary Care Provider: Annalee Garcia Admit Provider: Emily Samayoa Attending Provider: Emily Samayoa
[2024-10-24] MEDS: humaLOG 100 UNITS/ML 10ML VIAL (SSI) SUBCUT (11:59)
[2024-10-24 12:00] VITALS: PULSE 90
[2024-10-24 12:24] LABS: POC Glucose,Bedside 190 (70-110)
--- NOTE | 2024-10-24 13:13 | EXP.CARD.CON ---
History of Present Illness History of Present Illness Consult date: 10/24/24 Requesting physician: Tony Cespedes Consult reason: shortness of breath Chief complaint: soa History of present illness: Hospitalist note: Patient is a 79-year-old female with past medical history of heart failure with preserved ejection fraction, CKD stage IIIwho presents to the hospital due to complaint of shortness of breath. According to the patient she has gained around 10 pounds in. Of days and has been feeling short of breath, she had recent changes in her heart failure medications and since then she has been gaining weight and becoming short of breath with exertion. Cardiology note: This is an 79-year-old white female with past medical history of chronic kidney disease stage III, acute on chronic hypoxic respiratory failure, hypertension, hyperlipidemia, diabetes mellitus and small pericardial effusion who presented to emergency department with complaints of worsening shortness of breath and 10 pound weight gain over the course of 2 weeks after nephrology stopped some of her diuretics due to worsening renal function. Chest x-ray on admission showed findings suggestive of mild CHF. She was started back on diuretics over the weekend and reports improvement in symptoms. This morning she denies chest pain and reports soa seems to be back to baseline. Echo is pending. [facility] Disclaimer: The information contained in this section may have been updated after the patient was seen, as this information can be updated by other users. Medical History CVA (cerebral vascular accident) Diabetes mellitus, type 2 HTN (hypertension) HLD (hyperlipidemia) Surgical History H/O tubal ligation Family History Father Family history of cancer Family history of myocardial infarction Mother Family history of myocardial infarction Sister Family history of myocardial infarction Son Family history of myocardial infarction Social History Smoking Status: Former smoker alcohol intake: never current occupational status: retired Travel in the last 8 weeks?: None Review of Systems Review of Systems Review of systems:: pertinent systems reviewed and negative unless documented below *Cardiovascular Cardiovascular: Reports dyspnea Comments: LE edema *Respiratory Respiratory: Reports dyspnea Exam Data for Last 24 hours Vital signs and Labs for Last 24 Hours: Temp Pulse Resp BP Pulse Ox O2 Del Method O2 Flow Rate 98.4 F 94 H 18 139/63 96 Nasal Cannula 1 10/24/24 08:00 10/24/24 08:00 10/24/24 08:00 10/24/24 08:00 10/24/24 08:00 10/24/24 11:00 10/24/24 11:00 Laboratory Results - last 24 hr 10/23/24 05:49: POC Glucose 108 10/23/24 16:17: POC Glucose 145 H 10/23/24 21:07: POC Glucose 213 H 10/24/24 05:21: POC Glucose 130 H 10/24/24 05:22: WBC 7.2, RBC 3.98 L, Hgb 11.3 L, Hct 34.8 L, MCV 87.4, MCH 28.4, MCHC 32.5, RDW 13.2, Plt Count 239, MPV 10.1, Neut % (Auto) 71.0, Lymph % (Auto) 18.5, [place] % (Auto) 7.6, Eos % (Auto) 1.8, Baso % (Auto) 0.7, Neut # (Auto) 5.1, Lymph # (Auto) 1.3, [place] # (Auto) 0.6, Eos # (Auto) 0.1, Baso # (Auto) 0.1, Sodium 135 L, Potassium 4.1, Chloride 100, Carbon Dioxide 27, Anion Gap 12.1, BUN 49 H, Creatinine 2.50 H, Estimated Creat Clear 20, Estimated GFR 19 L*, Est GFR ( Amer) 22 L, Glucose 121 H D, Calcium 9.3, Magnesium 2.0 10/24/24 09:23: POC Glucose 283 H 10/24/24 11:55: POC Glucose 190 H I & O for Last 24 hours: Intake & Output 10/21/24 10/22/24 10/23/24 10/24/24 23:59 23:59 23:59 23:59 Intake Total 120 / 620 1340 / 1690 1530 / 1530 600 / 600 Output Total 1700 / 1700 2450 / 2450 1750 / 1750 1250 / 1250 Balance -1580 / -1080 -1110 / -760 -220 / -220 -650 / -650 Weight 163 lb 9 oz 161 lb 9.6 oz 158 lb 1.6 oz 157 lb 11.2 oz Constitutional Constitutional: no acute distress *Routine Respiratory Exam Respiratory: Present CTA bilaterally and symmetric chest movement *Routine Cardiovascular Exam Cardiovascular: Present RRR, Normal S1 and Normal S2 *Routine Abdominal Exam Abdominal: Present soft and normoactive bowel sounds; Absent tenderness *Routine Extremities Exam Extremities: Present full ROM and normal capillary refill; Absent edema *Routine Skin Exam Skin: Present intact, dry and warm Detailed Neck Exam: Thyroids Thyroid: Absent bruit Meds Home Medications and Allergies Home Medications ?Medication ?Instructions ?Recorded ?Confirmed ?Type simvastatin 40 mg tablet 40 mg PO HS 10/10/23 10/21/24 History aspirin 81 mg tablet,delayed 81 mg PO DAILY 10/31/23 10/21/24 History release pen needle, diabetic 31 gauge x #100 ea 11/03/23 10/21/24 Rx 1/4 insulin glargine 100 unit/mL (3 30 unit SQ DAILY 10/21/24 10/21/24 History mL) subcutaneous pen (Lantus Solostar U-100 Insulin) loratadine 10 mg capsule 10 mg PO DAILY 10/21/24 10/22/24 History potassium gluconate 595 mg (99 mg) 595 mg PO DAILY 10/21/24 10/22/24 History tablet amlodipine 10 mg tablet 10 mg PO DAILY 10/22/24 10/22/24 History bumetanide 1 mg tablet 1 mg PO DAILY 10/22/24 10/22/24 History New Prescriptions to Start Prescriptions: Allergies Allergy/AdvReac Type Severity Reaction Status Date / Time No Known Allergies Allergy Verified 01/12/24 10:09 Assessment and Plan *Assessment and plan (1) Chronic kidney disease (CKD), stage 3: Status: Acute Category: Medical Code(s): N18.30 - Chronic kidney disease, stage 3 unspecified (2) Pericardial effusion: Status: Acute Category: Medical Code(s): I31.39 - Other pericardial effusion (noninflammatory) (3) Acute on chronic heart failure with preserved ejection fraction (HFpEF): Status: Acute Category: Medical Code(s): I50.33 - Acute on chronic diastolic (congestive) heart failure Plan Acute on Chronic HFpEF Hx of pericaridal effusion BNP on admission was 2560 Chest x-ray was concerning for mild CHF Has diuresed over 3 L Is maintaining oxygen saturation greater than 95% on 1 liter oxygen via nasal cannula Echo: Normal EF, biatrial dilation, mild AI and MR, small size circumferential pericardial effusion no clear indication of tamponade Continue Bumex 1 mg p.o. daily CV summary 10/24/2024: Patient is CV stable for discharge home. Please have patient continue Bumex 1 mg p.o. daily and follow-up in cardiology clinic in 1 week for reevaluation. Will need repeat BMP at follow-up to check renal function. Consider adding back Jardiance/Farxiga and aldactone at office follow-up.
--- NOTE | 2024-10-25 10:18 | SW/DCPLANNER ---
Spoke with patient on the phone. Patient stated that she is doing very well. Patient stated that she is aware of her upcoming appointments. Patient stated that she was not prescribed any new medicine. Patient stated that she has no concerns or questions at this time. Enrique Robertson
== END 2024-10-24 14:50 | disposition home or self-care (01) | DRG 291 ==
LOC: ER 13:59 → 2ND 15:24
PROVIDERS: Internal Medicine Adolescent Medicine; Physician Assistant; Admitting Provider Internal Medicine; Emergency Provider Emergency Medicine; PCP Family Medicine; Visit Provider Internal Medicine
DX: I11.0 Hypertensive heart disease with heart failure (principal); I50.33 Acute on chronic diastolic (congestive) heart failure; J96.21 Acute and chronic respiratory failure with hypoxia; N18.4 Chronic kidney disease, stage 4 (severe); N17.9 Acute kidney failure, unspecified; I31.39 Other pericardial effusion (noninflammatory); I25.10 Atherosclerotic heart disease of native coronary artery without angina pectoris; E11.22 Type 2 diabetes mellitus with diabetic chronic kidney disease; E78.5 Hyperlipidemia, unspecified; E66.811 Obesity, class 1; Z68.31 Body mass index [BMI] 31.0-31.9, adult; Z86.73 Personal history of transient ischemic attack (TIA), and cerebral infarction without residual deficits; Z87.891 Personal history of nicotine dependence; Z79.899 Other long term (current) drug therapy; Z79.82 Long term (current) use of aspirin; Z79.4 Long term (current) use of insulin
CPT/HCPCS: 36415; 51702; 71045; 80048; 80053; 82803; 82962; 83036; 83735; 83880; 84145; 84484; 85025; 85610; 86803; 87389; 93005; 93306; J1644; J1938; J1939

== ENCOUNTER 2024-11-10 09:57 | Outpatient (CLI) | payer MEDICARE, SELFPAY ==
[2024-11-10 11:02] LABS: Hematocrit 34.1 % (37.0-47.0); Hemoglobin 11.1 g/dL (12.2-16.2); Immature Granulocytes % 0.2 %; Mean Corpuscular HGB Conc 32.6 g/dL (31.8-35.4); Mean Corpuscular Hemoglobin 28.3 pg (27.0-31.2); Mean Corpuscular Volume 87.0 fl (81-99); Nucleated Red Blood Cells % 0 %; Platelet Count 305 K/mm3 (142-424); Red Blood Count 3.92 M/mm3 (4.20-5.40); Red Cell Distribution Width-SD 43.2 fL; White Blood Count 8.2 K/mm3 (4.8-10.8)
[2024-11-10 11:25] LABS: Alanine Aminotransferase 17 U/L (12-78); Albumin Level 4.3 g/dl (3.5-5.0); Alkaline Phosphatase 87 U/L (38-126); Anion Gap 11.3 mEq/L (5-15); Aspartate Amino Transferase 27 U/L (14-36); Bilirubin,Direct 0.1 mg/dl (0.0-0.4); Bilirubin,Indirect 0.5 mg/dL (0.0-0.9); Bilirubin,Total 0.6 mg/dl (0.2-1.3); Bilirubin,Unconjugated 0.4 mg/dL (0.0-1.1); Blood Urea Nitrogen 44 mg/dl (7-17); Calcium 9.4 mg/dl (8.4-10.2); Carbon Dioxide 35 mmol/L (22.0-30.0); Chloride 95 mmol/L (98-107); Cholesterol 145 mg/dl (140-200); Creatinine,Serum 2.10 mg/dl (0.52-1.04); Estimated Glomerular Filt Rate 23 ml/min (>60); GFR (African American) 27 ML/MIN (>60); Glucose 96 mg/dl (74-100); HDL Cholesterol 56 mg/dl (40-60); Magnesium 2.4 mg/dl (1.6-2.3); Potassium 3.3 mmoL/L (3.5-5.1); Sodium 138 mmol/L (136-145); Total Protein,Serum 7.2 g/dl (6.3-8.2); Triglycerides 117 mg/dl (30-150)
[2024-11-10 11:41] LABS: Free T4 (Free Thyroxine) 1.06 ng/dl (0.78-2.19)
[2024-11-10 11:55] LABS: Thyroid Stimulating Hormone 6.71 uIU/mL (0.465-4.68)
== END 2024-11-10 23:59 | disposition home or self-care (01) ==
LOC: LAB 09:58
PROVIDERS: PCP Family Medicine; Visit Provider Nurse Practitioner
DX: I31.39 Other pericardial effusion (noninflammatory) (principal); I10 Essential (primary) hypertension; E78.49 Other hyperlipidemia; E11.69 Type 2 diabetes mellitus with other specified complication
CPT/HCPCS: 36415; 80048; 80061; 80076; 83735; 84439; 84443; 85025

== ENCOUNTER 2024-11-16 12:08 | Outpatient (CLI) | payer MEDICARE, SELFPAY ==
[2024-11-16 13:31] LABS: Chloride 95 mmol/L (98-107); Potassium 3.7 mmoL/L (3.5-5.1); Sodium 136 mmol/L (136-145)
[2024-11-16 13:34] LABS: Anion Gap 16.7 mEq/L (5-15); Blood Urea Nitrogen 64 mg/dl (7-17); Calcium 9.4 mg/dl (8.4-10.2); Carbon Dioxide 28 mmol/L (22.0-30.0); Creatinine,Serum 2.50 mg/dl (0.52-1.04); Estimated Glomerular Filt Rate 19 ml/min (>60); GFR (African American) 22 ML/MIN (>60); Glucose 124 mg/dl (74-100)
== END 2024-11-16 23:59 | disposition home or self-care (01) ==
PROVIDERS: PCP Family Medicine; Visit Provider Nurse Practitioner
DX: I10 Essential (primary) hypertension (principal)
CPT/HCPCS: 36415; 80048

== ENCOUNTER 2024-11-29 08:31 | Outpatient (CLI) | payer MEDICARE, SELFPAY ==
[2024-11-29 09:43] LABS: Anion Gap 14.2 mEq/L (5-15); Blood Urea Nitrogen 46 mg/dl (7-17); Calcium 9.2 mg/dl (8.4-10.2); Carbon Dioxide 35 mmol/L (22.0-30.0); Chloride 93 mmol/L (98-107); Creatinine,Serum 2.50 mg/dl (0.52-1.04); Estimated Glomerular Filt Rate 19 ml/min (>60); GFR (African American) 22 ML/MIN (>60); Glucose 101 mg/dl (74-100); Potassium 3.2 mmoL/L (3.5-5.1); Sodium 139 mmol/L (136-145)
== END 2024-11-29 23:59 | disposition home or self-care (01) ==
LOC: LAB 08:32
PROVIDERS: PCP Family Medicine; Visit Provider Nurse Practitioner
DX: J96.21 Acute and chronic respiratory failure with hypoxia (principal); R94.31 Abnormal electrocardiogram [ECG] [EKG]; J90 Pleural effusion, not elsewhere classified; E11.22 Type 2 diabetes mellitus with diabetic chronic kidney disease; I12.9 Hypertensive chronic kidney disease with stage 1 through stage 4 chronic kidney disease, or unspecified chronic kidney disease; N18.30 Chronic kidney disease, stage 3 unspecified; E78.5 Hyperlipidemia, unspecified
CPT/HCPCS: 36415; 80048

== ENCOUNTER 2025-02-18 23:45 | Observation (INO) | payer MEDICARE, SELFPAY ==
--- NOTE | 2025-02-18 23:55 | ECG_ITS ---
APPROVED REPORT Exam: Resting ECG HR:117 bpm ECG Measurements Heart Rate 117 AXES WV 178 P 54 QRSd 76 QRS 13 QT 318 T 105 QTc 388 Conclusion SINUS TACHYCARDIA WITH FREQUENT VENTRICULAR PREMATURE COMPLEXES ANTEROSEPTAL MYOCARDIAL INFARCTION , PROBABLY OLD [40+ ms Q WAVE IN V1-V4] ABNORMAL ECG Electronically signed by : ARABELLA KNAPP, 02/28/2025 17:13:01
--- NOTE | 2025-02-18 23:56 | XR_ITS ---
PROCEDURE INFORMATION: Exam: XR Chest Exam date and time: 02/19/2025 12:09 AM Age: 79 years old Clinical indication: Shortness of breath and other: Low oxygen levels; Additional info: SOA TECHNIQUE: Imaging protocol: Radiologic exam of the chest. Views: 1 view. COMPARISON: CR XR CHEST PORTABLE 10/21/2024 1:22 PM FINDINGS: Lungs: Bibasilar opacities related to atelectasis and/or infiltrate which obscure the left hemidiaphragm. There is pulmonary vascular congestion and central interstitial prominence suggestive of edema. Stable calcified granuloma in the right mid lung. Pleural spaces: Small bilateral pleural effusions. Heart/Mediastinum: Cardiomegaly. Bones/joints: No acute findings. IMPRESSION: 1. Findings suggestive of CHF. 2. Bibasilar atelectasis and/or pneumonitis. 3. Bilateral pleural effusions.
[2025-02-18 23:58] VITALS: BP 183/73; PULSE 118; RESP 22; TEMP 37; O2SAT 94; BMI 30.8
[2025-02-19] VITALS (16 sets, daily range): BP systolic 152–178; BP diastolic 62–82; PULSE 70–111; RESP 13–24; TEMP 36.6–36.9; O2SAT 91–98; BMI 31.3
[2025-02-19] MEDS: ASPIRIN 81MG CHEWABLE TABLET 324 MG PO
[2025-02-19] MEDS: NITROGLYCERIN 0.4MG SL TABLET 0.4 MG SL
[2025-02-19 00:04] LABS: Lactate Venous 1.7 mmol/L (0.4-2.0); VBG HCO3 30.6 mmol/L (23-30); VBG PCO2 47.0 mmol/L (35-51); VBG PH 7.43 mmol/L (7.31-7.41); VBG PO2 44.4 mmol/L (28-40)
[2025-02-19 00:08] LABS: Hematocrit 30.6 % (37.0-47.0); Hemoglobin 10.3 g/dL (12.2-16.2); Immature Granulocytes % 0.5 %; Mean Corpuscular HGB Conc 33.7 g/dL (31.8-35.4); Mean Corpuscular Hemoglobin 28.9 pg (27.0-31.2); Mean Corpuscular Volume 86.0 fl (81-99); Nucleated Red Blood Cells % 0 %; Platelet Count 272 K/mm3 (142-424); Red Blood Count 3.56 M/mm3 (4.20-5.40); Red Cell Distribution Width-SD 44.4 fL; White Blood Count 9.6 K/mm3 (4.8-10.8)
--- NOTE | 2025-02-19 00:11 | PC.NURSE ---
Yellow Risk bracelet applied
[2025-02-19 00:15] LABS: INR 0.96 (0.9-1.1); Prothrombin Time 10.7 seconds (10.1-12.5)
--- NOTE | 2025-02-19 00:17 | [facility].EDCP ---
Discharge Plan Disposition Patient Disposition: Admitted Condition: Fair Prescriptions Prescriptions: No Action bumetanide 1 mg tablet 1 mg PO BID Qty: 60 5RF (DME) True Metrix Glucose Test Strip Strip See Rx Instructions .ROUTE .MEDSUPPLY Qty: 10 Patient Comments: USE DIRECTED TO TEST DAILY Rx Instructions: As directed (DME) pen needle, diabetic 31 gauge x 3/16 needle See Rx Instructions .ROUTE .MEDSUPPLY Qty: 1200 Patient Comments: DIRECTED ONCE EVERY DAY Rx Instructions: As directed levothyroxine 50 mcg tablet 50 mcg PO Patient Comments: TAKE 1 TABLET BY MOUTH DAILY IN THE MORNING ON AN EMPTY STOMACH simvastatin 40 mg tablet 40 mg PO HS aspirin 81 mg Tablet,Delayed Release (Dr/Ec) 81 mg PO DAILY (DME) pen needle, diabetic 31 gauge x 1/4 needle See Rx Instructions .ROUTE .MEDSUPPLY Qty: 100 0RF Rx Instructions: As directed insulin glargine [Lantus Solostar U-100 Insulin] 100 unit/mL (3 mL) insulin pen 30 unit SQ DAILY potassium gluconate 595 mg (99 mg) tablet 595 mg PO DAILY Patient Comments: TAKE 1 TABLET BY MOUTH EVERY DAY loratadine 10 mg Capsule 10 mg PO DAILY amlodipine 10 mg tablet 10 mg PO DAILY Patient Comments: TAKE 1 TABLET BY MOUTH DAILY Clinical Impressions Clinical Impression: CHF exacerbation, Pulmonary edema, CKD (chronic kidney disease), Acute hypoxic respiratory failure, Non-ST elevation ME (NSTEMI) Print Language Print Language: Moldovan Discharge ED Provider: Gil Allred General Chief Complaint: Shortness of Breath/Dyspnea Stated Complaint: Oxygen level drops; Heart Rate High Time Seen by Provider: 02/18/25 23:50 Mode of Arrival: Wheelchair Source of Information: Patient and Spouse Description of Symptoms (Recalled from ER Triage Doc. by RN): PT brought to the ED for evaluation of low O2 levels. PT has a hx of fluid on heart and lungs. PT is currently on daily lasix, two weeks ago she had a 5 lb weight increase and was advised to increase her lasix to two a day. PT had had a 3 lb weight loss since. History of Present Illness HPI narrative: 79-year-old female presents to the ER with family concern for low oxygen levels. Patient has a history of fluid on the heart and lungs . She takes Lasix but also has CKD. This problem has been gradually progressive over the last few weeks. She had a 5 pound weight increase and was advised by cardiology to increase her Lasix to 2/day instead of 1 for a few days. She took this for approximately 4 to 5 days but for the last 3 days has been back to only taking 1/day. She has only lost 3 of the 5 pounds that she originally gained. Family bedside reports they went to PCP who did not have much insight about her problem on Thursday. In the last 24 hours patient has gotten acutely worse. Reportedly patient typically would be on room air during the day and 2 L at night, the last 2 weeks she has gradually progressed to needing oxygen during the day and night. She presented on 3 L nasal cannula only saturating in the low 80s. She reports she is still making urine. Denies chest pain, states she has been having mild cough and nasal congestion the last few days. No headache or dizziness, no numbness, tingling, or weakness, no fevers or chills, denies abdominal pain, nausea, vomiting, or diarrhea. Denies dysuria or hematuria. Related Data Home Medications ?Medication ?Instructions ?Recorded ?Confirmed simvastatin 40 mg tablet 40 mg PO HS 10/10/23 02/01/25 aspirin 81 mg tablet,delayed 81 mg PO DAILY 10/31/23 02/01/25 release insulin glargine 100 unit/mL (3 30 unit SQ DAILY 10/21/24 02/01/25 mL) subcutaneous pen (Lantus Solostar U-100 Insulin) loratadine 10 mg capsule 10 mg PO DAILY 10/21/24 02/01/25 potassium gluconate 595 mg (99 mg) 595 mg PO DAILY 10/21/24 02/01/25 tablet amlodipine 10 mg tablet 10 mg PO DAILY 10/22/24 02/01/25 blood sugar diagnostic (True #10 ea 11/16/24 02/01/25 Metrix Glucose Test Strip) pen needle, diabetic 31 gauge x #1,200 ea 11/16/24 02/01/2506/12 levothyroxine 50 mcg tablet 50 mcg PO 02/01/25 02/01/25 Previous Rx's ?Medication ?Instructions ?Recorded pen needle, diabetic 31 gauge x #100 ea 11/03/2304/02 bumetanide 1 mg tablet 1 mg PO BID #60 tabs 11/10/24 Allergies Allergy/AdvReac Type Severity Reaction Status Date / Time No Known Allergies Allergy Verified 02/01/25 10:53 [facility] Disclaimer: The information contained in this section may have been updated after the patient was seen, as this information can be updated by other users. Medical History Weight gain SOB (shortness of breath) CVA (cerebral vascular accident) Diabetes mellitus, type 2 HTN (hypertension) HLD (hyperlipidemia) Surgical History H/O tubal ligation Family History Father Family history of cancer Family history of myocardial infarction Mother Family history of myocardial infarction Sister Family history of myocardial infarction Son Family history of myocardial infarction Social History Smoking Status: Never smoker alcohol intake: never current occupational status: retired Travel in the last 8 weeks?: None Have you lived/traveled outside [place] in past 30 days?: No Contact w/someone who lives/traveled outside [place] past 30 days?: No Exposure to someone with infectious disease in past 14 days?: No Do you have a fever (greater than 100.4 F or 38 C)?: No Have you tested positive for COVID-19?: No Exposed to someone with COVID-19 in past 14 days?: No Do you have a sore throat?: No Do you have a cough?: No Do you have any weakness?: No Do you have any diarrhea?: No Are you experiencing any unusual bleeding?: No Do you have any muscle aches/pain?: No Do you have any abdominal pain?: No Are you experiencing loss of taste or smell?: No Other Medical History Have you received the Flu Vaccine for this season: No Have you received the Pneumonia Vaccine: No ROS Obtained: Yes Systems reviewed as appropriate & no additional complaints except as documented Per HPI Physical Exam General General appearance: alert Comment: Nontoxic but increased work of breathing Head Head exam: atraumatic and normocephalic Eye Eye exam: Present PERRL and EOMI ENT ENT exam: Present mucous membranes moist Neck Neck exam: Present normal inspection and full ROM Chest Chest inspection: Present symmetric chest wall rise Respiratory Respiratory exam: Present respiratory distress (Tachypnea and accessory muscle use but no prolonged expiratory phase, no wheezing, patient has rales bilaterally); Absent wheezes or stridor Cardiovascular Cardiovascular exam: Present normal rhythm and tachycardia Abdominal Exam Abdominal exam: Present soft; Absent distention or tenderness Extremities Exam Extremities exam: Present full ROM, normal capillary refill and edema (+1 pitting edema bilateral lower extremities); Absent joint swelling or calf tenderness Neurological Exam Neurological exam: Present alert and oriented X3; Absent motor sensory deficit Psychiatric Psychiatric exam: Present normal affect and normal mood Skin Skin exam: Present warm and dry HEART Score HEART Score HEART Score assessment performed?: Yes History (anamnesis): Slightly suspicious ECG: Non-specific disturbance Age: >65 years Risk factors: 3 or more risk factors Troponin: 1-3x normal limit HEART Score: 6 Procedures Miscellaneous Procedure Procedure Performed: Limited Cardiac Ultrasound Performed by: Gil Allred MD Indication: Shortness of breath Identified cardiac views: [-Cardiac parasternal long axis] [-Cardiac parasternal short axis] [-Cardiac subxiphoid] Findings: Cardiac activity present with no gross wall motion abnormality, small pericardial effusion present but no tamponade, no right heart strain Impression: Cardiac activity present with no gross wall motion abnormality, small pericardial effusion present but no tamponade, no right heart strain Images were saved to permanent archive The study was technically adequate CPT: 33287 This study was performed by dc, and I personally interpreted all images/videos. Based on my clinical judgement, these images were adequate and did not necessitate further imaging. Limited lung ultrasound Performed by: Gil Allred MD A focused ultrasound exam of the pleural spaces was performed to evaluate for pneumothorax, pulmonary edema, pleural effusion and/or consolidation. The ultrasound was performed with the following indications, as noted in the H&P: Shortness of breath, hypoxia Identified structures: Bilateral thoracic cavities were examined. Findings: Lung sliding: - Bilaterally present B-lines: Present in both lung bradford bilaterally Pleural effusion: - Small left Consolidation: Absent Impression: - Pneumothorax absent - Pleural effusion small left - B-lines diffuse bilateral - Consolidation absent Images were saved to permanent archive The study was technically adequate CPT 07631-54 This study was performed by dc, and I personally interpreted all images/videos. Based on my clinical judgement, these images were adequate and did not necessitate further imaging. Critical Care Critical Care Time Critical Care Time: Yes Attestation: On 02/18/25, the high probability of a clinically significant, sudden or life threatening deterioration of the following system(s) required my full and direct attention, intervention and personal management. The time I documented below is in addition to time spent performing reported procedures but includes the following listed in this critical care notation. Total Time Total Critical Care Time: 55 Medical Decision Making Medical Records Medical records reviewed: Yes I reviewed the patient's medical records. Nicola Inquiry Pt receiving controlled substance: No Vital Signs Vital Signs: 02/18/25 23:58 02/19/25 00:06 02/19/25 01:32 Temperature 98.6 F 97.8 F Temperature Source Oral Oral Pulse Rate 111 H 102 H Pulse Rate [Right] 118 H Respiratory Rate 22 18 18 Blood Pressure 152/78 H 176/78 H Blood Pressure [Right Arm] 183/73 H Blood Pressure Mean [Right Arm] 109 02 Sat by Pulse Oximetry 94 L 94 L 97 Oxygen Delivery Method Nasal Cannula Room Air BiPAP Oxygen Flow Rate (LPM) 4 Lab Data Labs: Lab Results 02/18/25 23:35: TSH 3.21, Free T4 1.22 02/18/25 23:55: WBC 9.6, RBC 3.56 L, Hgb 10.3 L, Hct 30.6 L, MCV 86.0, MCH 28.9, MCHC 33.7, RDW 14.1, Plt Count 272, MPV 9.5, Neut % (Auto) 73.3, Lymph % (Auto) 17.6, Anderson % (Auto) 6.3, Eos % (Auto) 1.6, Baso % (Auto) 0.7, Neut # (Auto) 7.0, Lymph # (Auto) 1.7, Anderson # (Auto) 0.6, Eos # (Auto) 0.2, Baso # (Auto) 0.1, PT 10.7, INR 0.96, D-Dimer 1.25 H, VBG pH 7.43 H, VBG pCO2 47.0, VBG pO2 44.4 H, VBG HCO3 30.6 H, VBG Total CO2 32.1 H, VBG O2 Saturation 78.9 H, VBG Base Excess 6.4 H, VBG Lactic Acid 1.7, Sodium 132 L, Potassium 3.5, Chloride 91 L, Carbon Dioxide 31 H, Anion Gap 13.5, BUN 49 H, Creatinine 2.40 H, Estimated Creat Clear 20, Estimated GFR 19 L*, Est GFR ( Amer) 24 L, Glucose 180 H, Calcium 9.1, Total Bilirubin 0.7, AST 36, ALT 28, Alkaline Phosphatase 100, Troponin I 0.04 H, Total Protein 7.9, Albumin 4.5, Globulin 3.4 H, Albumin/Globulin Ratio 1.3 02/18/25 23:55 02/18/25 23:55 Response Orders (Tests/Meds): ED MEDICATIONS Generic Name Dose Route Start Last Admin Trade Name Freq PRN Reason Stop Dose Admin Enoxaparin Sodium 70 mg 02/19/25 02:15 Enoxaparin 80mg/0.8ml Syringe SUBCUT 02/19/25 02:16 ONCE ONE Nitroglycerin 0.4 mg 02/18/25 23:55 02/19/25 00:00 Nitroglycerin 0.4mg Sl Tablet SL 02/19/25 23:56 0.4 mg Q5MINP PRN Administration Chest Pain Discontinued Medications Generic Name Dose Route Start Last Admin Trade Name Freq PRN Reason Stop Dose Admin Aspirin 324 mg 02/18/25 23:55 02/19/25 00:00 Aspirin 81mg Chewable Tablet PO 02/18/25 23:56 324 mg ONCE ONE Administration Bumetanide 2 mg 02/19/25 00:35 02/19/25 00:51 Bumetanide 1mg/4ml Vial IV 02/19/25 00:36 2 mg ONCE ONE Administration ORDERS Category Date Time Status POCUS Point of Care (ER Only) Stat Exams 02/18/25 23:55 Ordered XR chest portable Stat Exams 02/18/25 23:56 Completed Complete Blood Count Auto Diff Stat Lab 02/18/25 23:55 Completed Comprehensive Metabolic Panel Stat Lab 02/18/25 23:55 Completed D-Dimer Stat Lab 02/18/25 23:55 Completed Free T4 (Free Thyroxine) Stat Lab 02/19/25 00:34 Completed Full Resp Panel w/COVID ([facility]) Routine Lab 02/19/25 00:22 Received HIV Combo Stat Lab 02/19/25 00:06 Received Hepatitis C Ab Qual. W/ RFX Stat Lab 02/19/25 00:06 Received NT Pro Brain Natriuretic Pep. Stat Lab 02/18/25 23:55 Received Prothrombin Time INR Stat Lab 02/18/25 23:55 Completed TSH [Thyroid Stimulating Hormone] Stat Lab 02/19/25 00:34 Completed Troponin I Q3H Lab 02/19/25 03:00 Ordered Troponin I Q3H Lab 02/19/25 06:00 Ordered Troponin I Stat Lab 02/18/25 23:55 Completed Venous Blood Gas Stat RT 02/18/25 23:55 Completed MDM Narrative Medical Decision Narrative: In summary, this 79-year-old female with comorbidities described in the HPI presents to the emergency department today with shortness of breath. On initial evaluation patient is tachycardic but otherwise hemodynamically stable, afebrile, she is in mild respiratory distress with tachypnea and accessory muscle use but no prolonged expiratory phase, Rales bilaterally, pitting edema present. Differential diagnosis includes but is not limited to CHF exacerbation, ACS, PE, pulmonary edema, pneumonia, pneumothorax, electrolyte abnormality, kidney dysfunction, dehydration. Based on these concerns, I ordered hematologic and serum labs, cardiac workup, [id number] ultrasound, D-dimer, chest x-ray. ECG personally interpreted demonstrates sinus tachycardia with PVC, rate 117, normal axis, normal VA and QTc, no STEMI evident though there is some artifact. See repeat ECG for further details.. I performed [id number] ultrasound at bedside and personally interpreted it demonstrating B-lines, small pleural effusion, small pericardial effusion, on my gross examination I believe there is mild to moderate depression of ejection fraction. See procedure note for details Patient received IV Bumex for treatment. Patient was also placed on BiPAP for work of breathing. Labs personally reviewed demonstrate VBG with pH 7.43, no hypercarbia, VBG lactic 1.7, CBC nonactionable, mild anemia is nonactionable at this time, normal platelets, PT/INR unremarkable, CMP was delayed due to analyzer malfunctions but eventually resulted with stable kidney dysfunction, no hyperkalemia, no transaminitis. D-dimer resulted at 1.25 and I initially was going to have CTA PE completed to exclude PE, however patient has significant kidney dysfunction and I do not want to worsen her function with contrast-induced nephropathy. Her troponin resulted at 0.04 which is slightly elevated above her baseline of 0.03, with this and the elevated D-dimer, we will treat with therapeutic Lovenox which will cover for both NSTEMI if there is any blockage (though I suspect it is type II NSTEMI) as well as treat PE if present though I have low suspicion for this. I believe patient's symptoms are from volume overload. XR personally interpreted demonstrates pulmonary edema, small pleural effusions, see radiology read for final interpretation. There is no large lobar infiltrate and without leukocytosis, fever, or chest pain, I do not believe she has any pneumonia. Repeat ECG demonstrate sinus tachycardia, rate 100, normal axis, normal VA and QTc, no STEMI. Because I want to administer Lovenox but patient has depressed kidney function, we reach out to the on-call pharmacist who recommended 1 mg/kg of Lovenox every 24 hours. Patient's work of breathing is significantly improved. She is oxygenating well, adventitious sounds are improving. I believe she is appropriate for admission at this time and patient and at bedside are comfortable with this plan. I discussed this case at length with the hospitalist, Lisa, including her baseline kidney dysfunction, use of home diuretics, and the administration of IV diuretics here in the ER, pharmacy Lovenox recommendations, and results of workup. Patient was graciously accepted for admission.
[2025-02-19 00:30] LABS: Adenovirus,PCR Not Detected (NotDetected); Chlamydophila Pneumoniae, PCR Not Detected (NotDetected); Coronavirus 19, PCR Not Detected (NotDetected); Coronovirus HKU1,PCR Not Detected (NotDetected); Influenza A, PCR Not Detected (NotDetected); Influenza AH1, 2009 Not Detected (NotDetected); Influenza AH1, PCR Not Detected (NotDetected); Influenza AH3,PCR Not Detected (NotDetected); Influenza B, PCR Not Detected (NotDetected); Mycoplasma Pneumoniae, PCR Not Detected (NotDetected); Parainfluenza 1, PCR Not Detected (NotDetected); Parainfluenza 2, PCR Not Detected (NotDetected); Parainfluenza 3, PCR Not Detected (NotDetected); Parainfluenza 4, PCR Not Detected (NotDetected)
[2025-02-19] MEDS: BUMETANIDE 1MG/4ML VIAL 2 MG IV ×3 (00:51→16:10)
[2025-02-19 01:02] LABS: Free T4 (Free Thyroxine) 1.22 ng/dl (0.78-2.19)
[2025-02-19 01:16] LABS: Thyroid Stimulating Hormone 3.21 uIU/mL (0.465-4.68)
[2025-02-19 01:37] LABS: Alanine Aminotransferase 28 U/L (12-78); Albumin Level 4.5 g/dl (3.5-5.0); Albumin/Globulin Ratio 1.3 (1.1-1.8); Alkaline Phosphatase 100 U/L (38-126); Anion Gap 13.5 mEq/L (5-15); Aspartate Amino Transferase 36 U/L (14-36); Bilirubin,Total 0.7 mg/dl (0.2-1.3); Blood Urea Nitrogen 49 mg/dl (7-17); Calcium 9.1 mg/dl (8.4-10.2); Carbon Dioxide 31 mmol/L (22.0-30.0); Chloride 91 mmol/L (98-107); Creatinine Clearance Estimated 20 mL/min (50-200); Creatinine,Serum 2.40 mg/dl (0.52-1.04); Estimated Glomerular Filt Rate 19 ml/min (>60); GFR (African American) 24 ML/MIN (>60); Globulin 3.4 g/dL (1.3-3.2); Glucose 180 mg/dl (74-100); Potassium 3.5 mmoL/L (3.5-5.1); Sodium 132 mmol/L (136-145); Total Protein,Serum 7.9 g/dl (6.3-8.2)
[2025-02-19 01:42] LABS: D-Dimer 1.25 ug/mL (0.0-0.5)
[2025-02-19 01:50] LABS: Troponin I 0.04 ng/ml (0.00-0.034)
--- NOTE | 2025-02-19 02:04 | ECG_ITS ---
APPROVED REPORT Exam: Resting ECG HR:100 bpm ECG Measurements Heart Rate 100 AXES IA 166 P 35 QRSd 94 QRS 2 QT 370 T 92 QTc 427 Conclusion SINUS TACHYCARDIA LOW QRS VOLTAGE IN PRECORDIAL LEADS QRS DEFLECTION < 1.0 mV IN CHEST LEADS ANTERIOR MYOCARDIAL INFARCTION , OF INDETERMINATE AGE 40+ ms Q WAVE AND/OR ST/T ABNORMALITY IN V3/V4 No STEMI Electronically signed by : OMEGA DANG, 02/19/2025 06:29:11
[2025-02-19 02:12] LABS: NT Pro Brain Natriuretic Pep. 3170 pg/mL (0-450)
--- NOTE | 2025-02-19 02:17 | PC.NURSE ---
Report called to PASCALE Gunderson on ICU
--- NOTE | 2025-02-19 02:35 | PC.NURSE ---
Patient arrived to ICU by stretcher from ED at 0225.
--- NOTE | 2025-02-19 03:36 | P.HP_ITS ---
<Statement entered by Johann Mattson MD - 02/20/25 11:05> Agree with plan of care as outlined by the [facility]. History of Present Illness *Admission Date: 02/19/25 *Reason for visit:: SOB *History of present illness: Patient is an 79-year-old female with past medical history significant for stroke, hypertension, diastolic heart failure, supplemental oxygen nightly (2 L nasal cannula), type II diabetic, hypothyroidism, hyperlipidemia, CKD stage III. Patient presents to [facility] level due to significant worsening shortness of breath with low oxygen levels. at bedside providing history states symptoms began a couple weeks ago with very mild symptoms of shortness of breath and a 5 pound weight increase. Patient was advised per cardiology to increase her diuretic to 2 times a day for the next few days. Patient reportedly took her diuretic twice a day for 4 days but for the past 3 days she has been back on her typical diuretic regime due to returning back to baseline weight. Patient reported breathing improved, but not back to baseline. States her shortness of breath significantly exacerbated over the next day. Patient typically only requires nocturnal oxygen at 2 L but has been requiring supplemental oxygen at 4 L with any activity. Reported becoming very winded with just a few steps. States yesterday oxygen dropped to the 80s with minimal activity in bed. Due to worsening respiratory status she was brought to the emergency department for further evaluation per . Patient reports an increased cough with congestion today but denies fever, chills, chest pain, abdominal pain, diarrhea, contact with ill individuals, nausea or vomiting. ED workup included laboratory studies and imaging. RBC 3.56, hemoglobin 10.3, hematocrit 30.6, D-dimer 1.25, venous blood gas pH 7.43, venous blood gas pO2 44.4, VBG HCO3 30.6, sodium 132, BUN 49, creatinine 2.40, GFR 19, glucose 180, troponin 0.04, troponin 3170. Imaging study obtained chest x-ray, I personally reviewed, findings suggestive of CHF, bibasilar atelectasis and/or pneumonitis, bilateral pleural effusions. Received Bumex 2 mg, placed on BiPAP due to respiratory failure with hypoxia. Patient assessed at bedside ICU, mild acute distress, currently on 4 L nasal cannula continues to be tachypneic, oxygen saturation 90%, mildly hypertensive systolic blood pressure 160/170 range. PFSCOX BRANSON Disclaimer: The information contained in this section may have been updated after the patient was seen, as this information can be updated by other users. Medical History Weight gain SOB (shortness of breath) CVA (cerebral vascular accident) Diabetes mellitus, type 2 HTN (hypertension) HLD (hyperlipidemia) Surgical History H/O tubal ligation Family History Father Family history of cancer Family history of myocardial infarction Mother Family history of myocardial infarction Sister Family history of myocardial infarction Son Family history of myocardial infarction Social History Smoking Status: Never smoker alcohol intake: never current occupational status: retired Travel in the last 8 weeks?: None Have you lived/traveled outside [place] in past 30 days?: No Contact w/someone who lives/traveled outside US past 30 days?: No Exposure to someone with infectious disease in past 14 days?: No Do you have a fever (greater than 100.4 F or 38 C)?: No Have you tested positive for COVID-19?: No Exposed to someone with COVID-19 in past 14 days?: No Do you have a sore throat?: No Do you have a cough?: No Do you have any weakness?: No Do you have any diarrhea?: No Are you experiencing any unusual bleeding?: No Do you have any muscle aches/pain?: No Do you have any abdominal pain?: No Are you experiencing loss of taste or smell?: No Other Medical History Have you received the Flu Vaccine for this season: No Have you received the Pneumonia Vaccine: No Review of Systems Review of Systems Review of systems:: pertinent systems reviewed and negative unless documented below Constitutional Constitutional: Reports as per HPI Eyes Eyes: Reports as per HPI ENT Ears, Nose, Mouth, and Throat: Reports as per HPI and Reports nasal congestion *Cardiovascular Cardiovascular: Reports as per HPI, Reports dyspnea and Reports dyspnea on exertion *Respiratory Respiratory: Reports dyspnea and Reports dyspnea on exertion *Gastrointestinal Gastrointestinal: Reports as per HPI *Genitourinary Genitourinary: Reports as per HPI *Musculoskeletal Musculoskeletal: Reports as per HPI Integumentary/Breasts Skin/Breast: Reports as per HPI *Neurologic Neurologic: Reports as per HPI Psychiatric Psychiatric: Reports as per HPI Endocrine Endocrine: Reports as per HPI Hematologic/Lymphatic Hematologic/Lymphatic: Reports as per HPI Allergic/Immunologic Allergic/Immunologic: Reports as per HPI Meds Home Medications and Allergies Home Medications ?Medication ?Instructions ?Recorded ?Confirmed ?Type simvastatin 40 mg tablet 40 mg PO HS 10/10/23 5 History aspirin 81 mg tablet,delayed 81 mg PO DAILY 10/31/23 1 04/03/24 History release pen needle, diabetic 31 gauge x #100 ea 11/03/2302/01 Rx 1/4 insulin glargine 100 unit/mL (3 30 unit SQ DAILY 10/2102/01/25 History mL) subcutaneous pen (Lantus Solostar U-100 Insulin) loratadine 10 mg capsule 10 mg PO DAILY 10/21/2408/21 History potassium gluconate 595 mg (99 mg) 595 mg PO DAILY 02/01/25 History tablet amlodipine 10 mg tablet 10 mg PO DAILY 10/22/2408/21 History bumetanide 1 mg tablet 1 mg PO BID #60 tabs 5 02/01/25 Rx blood sugar diagnostic (True #10 ea 11/16/24 02/01/25 History Metrix Glucose Test Strip) pen needle, diabetic 31 gauge x #1,200 ea 11/16/2408/21 History 3/16 levothyroxine 50 mcg tablet 50 mcg PO 02/01/25 5 History New Prescriptions to Start Prescriptions: Allergies Allergy/AdvReac Type Severity Reaction Status Date / Time No Known Allergies Allergy Verified 02/01/25 10:53 Exam Data for Last 24 hours Vital signs and Labs for Last 24 Hours: Temp Pulse Resp BP Pulse Ox O2 Del Method O2 Flow Rate 98.5 F 108 H 22 178/78 H 97 BiPAP 4 02/19/25 02:16 02/19/25 02:30 02/19/25 02:16 02/19/25 02:16 02/19/25 01:32 02/19/25 02:16 02/18/25 23:58 FiO2 40 02/19/25 02:24 Laboratory Results - last 24 hr 02/18/25 23:35: TSH 3.21, Free T4 1.22 02/18/25 23:55: WBC 9.6, RBC 3.56 L, Hgb 10.3 L, Hct 30.6 L, MCV 86.0, MCH 28.9, MCHC 33.7, RDW 14.1, Plt Count 272, MPV 9.5, Neut % (Auto) 73.3, Lymph % (Auto) 17.6, Deuel % (Auto) 6.3, Eos % (Auto) 1.6, Baso % (Auto) 0.7, Neut # (Auto) 7.0, Lymph # (Auto) 1.7, Deuel # (Auto) 0.6, Eos # (Auto) 0.2, Baso # (Auto) 0.1, PT 10.7, INR 0.96, D-Dimer 1.25 H, VBG pH 7.43 H, VBG pCO2 47.0, VBG pO2 44.4 H, VBG HCO3 30.6 H, VBG Total CO2 32.1 H, VBG O2 Saturation 78.9 H, VBG Base Excess 6.4 H, VBG Lactic Acid 1.7, Sodium 132 L, Potassium 3.5, Chloride 91 L, Carbon Dioxide 31 H, Anion Gap 13.5, BUN 49 H, Creatinine 2.40 H, Estimated Creat Clear 20, Estimated GFR 19 L*, Est GFR ( Amer) 24 L, Glucose 180 H, Calcium 9.1, Total Bilirubin 0.7, AST 36, ALT 28, Alkaline Phosphatase 100, Troponin I 0.04 H, NT-Pro-B Natriuret Pep 3170 H, Total Protein 7.9, Albumin 4.5, Globulin 3.4 H, Albumin/Globulin Ratio 1.3, HIV Ag/Ab Combo Qual Negative 02/19/25 00:22: Chlamy pneumoniae PCR Not detected, Adenovirus (PCR) Not detected, B. pertussis DNA (PCR) Not detected, Coronavirus OC43 (PCR) Not detected, Coronavirus HKU1 (PCR) Not detected, Coronavirus 229E (PCR) Not detected, SARS-CoV-2 (PCR) Not detected, Coronavirus NL63 (PCR) Not detected, Human Metapneumovir PCR Not detected, Influenza A (H1) PCR Not detected, Influ A (H1N1/09) PCR Not detected, Influenza A (H3) PCR Not detected, Influenza Type A (PCR) Not detected, Influenza Type B (PCR) Not detected, M. pneumoniae (PCR) Not detected, Parainfluenza 1 (PCR) Not detected, Parainfluenza 2 (PCR) Not detected, Parainfluenza 3 (PCR) Not detected, Parainfluenza 4 (PCR) Not detected, RSV (PCR) Not detected, Entero/Rhino (PCR) Not detected I & O for Last 24 hours: Intake & Output 02/16/25 02/17/25 02/18/25 02/19/25 23:59 23:59 23:59 23:59 Weight 69.309 kg Constitutional Constitutional: moderate distress *Routine HEENT Exam Head: Present normocephalic and atraumatic Eye: Present EOMI, PERRL and normal accommodation ENT: Present mucous membranes moist *Routine Neck Exam Neck: Present supple and full ROM *Routine Respiratory Exam Respiratory: Present accessory muscle use, respiratory distress and crackles *Routine Cardiovascular Exam Cardiovascular: Present Normal S1, Normal S2, murmur and tachycardia *Routine Abdominal Exam Abdominal: Present soft and normoactive bowel sounds *Routine Rectal Exam Rectal:: deferred *Routine Genitalia Exam Genitalia:: deferred *Routine Extremities Exam Extremities: Present pulses intact and normal capillary refill Routine Back/Spine/Pelvis Exam Back/Spine: Present full ROM *Routine Skin Exam Skin: Present intact *Routine Neurological Exam Neurological: Present alert, oriented X3 and CN II-XII intact Routine Psychiatric Exam Psychiatric: Present normal affect Assessment and Plan *Assessment and plan (1) Acute on chronic heart failure with preserved ejection fraction (HFpEF): Status: Acute Category: Medical Code(s): I50.33 - Acute on chronic diastolic (congestive) heart failure (2) Acute on chronic respiratory failure with hypoxemia: Status: Acute Category: Medical Code(s): J96.21 - Acute and chronic respiratory failure with hypoxia (3) Bilateral pleural effusion: Status: Acute Category: Medical Code(s): J90 - Pleural effusion, not elsewhere classified (4) Pulmonary edema: Status: Acute Category: Medical Code(s): J81.1 - Chronic pulmonary edema (5) CKD stage 3 due to type 2 diabetes mellitus: Status: Acute Category: Medical Code(s): E11.22 - Type 2 diabetes mellitus with diabetic chronic kidney disease; N18.30 - Chronic kidney disease, stage 3 unspecified (6) HLD (hyperlipidemia): Status: Acute Qualifiers: Hyperlipidemia type: other hyperlipidemia Qualified Code(s): E78.49 - Other hyperlipidemia Category: Medical Code(s): E78.5 - Hyperlipidemia, unspecified (7) HTN (hypertension): Status: Acute Qualifiers: Hypertension type: primary hypertension Qualified Code(s): I10 - Essential (primary) hypertension Category: Medical Code(s): I10 - Essential (primary) hypertension (8) Diabetes mellitus, type 2: Status: Acute Qualifiers: Diabetes mellitus complication status: with other specified complication Diabetes mellitus press tender long goods insulin use: without alf use Qualified Code(s): E11.69 - Type 2 diabetes mellitus with other specified complication Category: Medical Code(s): E11.9 - Type 2 diabetes mellitus without complications (9) Non-ST elevation CT (NSTEMI): Status: Acute Category: Medical Code(s): I21.4 - Non-ST elevation (NSTEMI) myocardial infarction (10) Elevated d-dimer: Status: Acute Category: Medical Code(s): R79.89 - Other specified abnormal findings of blood chemistry (11) Hypothyroidism: Status: Acute Category: Medical Code(s): E03.9 - Hypothyroidism, unspecified Plan 1. Acute hypoxic respiratory failure secondary to acute on chronic diastolic heart failure/bilateral pleural effusion/pulmonary edema: Received 1 dose Bumex 2 mg while in the emergency department with improvement, resume IV dieresis. ED provider obtained [id number] ultrasound at bedside and interpreted it demonstrating B-lines, small pleural effusion, small pericardial effusion and noted mild to moderate depression of ejection fraction. Will likely require Jordan catheter for strict I's and O's. Patient on 4 L nasal cannula when transferred to unit from ED, continues to be tachypneic w/oxygen saturations 89- 90%. Pt. reports improvement but d/t to increased resp workload, placed back on BiPAP. Resume/reevaluate BiPAP requirement at 6 AM. keep n.p.o. while requiring BiPAP.. Chest x-ray as noted above with evidence of hypervolemia- bilateral pleural effusions. BNP 3170. Continuous O2 monitoring, keep sats greater than 92%, consult placed to cardiology. 2. CKD stage III: Creatinine 2.40, BUN 49, GFR 19-approximately baseline. C ontinue to monitor closely while receiving diuretics. Avoid nephrotoxic medication if at all possible. 3. Hypertension: Mildly elevated blood pressure, likely underlying respiratory distress exacerbating blood pressure. Systolic blood pressure 160-170 range. Continue to monitor, resume antihypertensive medication. 4. Diabetes mellitus type 2: Insulin sliding scale with Accu-Cheks Q6h. Hemogl obin A1c with morning labs. 5. NSTEMI/elevated D-dimer: ECG demonstrate sinus tachycardia, rate 100, normal axis, normal MA and QTc, no STEMI. ED troponin resulted at 0.04 which is sligh tly elevated above her baseline 0.03. Continue to monitor trend. Notable elevated D-dimer, treated/initated within the ED with therapeutic Lovenox. Lovenox recommendation dosed per pharmacy-1 mg/kg of Lovenox every 24 hours. Resume continuous cardiac monitoring. 6. Hypothyroidism: Patient on levothyroxine 50 mcg daily, TSH 3.21, Free T4 1.22. 7. DVT prophylaxis: Lovenox Full code/next of kin 79-year-old female with a past medical history significant for stroke with residual, hypertension, diastolic heart failure, presents with CHF exacerbation and respiratory failure with hypoxia. This patient was discussed with the emergency department provider with request for admission for continued dieresis and close monitoring/management labs. In agreement with admission. Ultimately placed on BiPAP while in the emergency department due to respiratory failure with hypoxia. Transferred to stepdown, continue IV diuretics, cardiology consult.
[2025-02-19 04:14] LABS: Troponin I 0.04 ng/ml (0.00-0.034)
[2025-02-19] MEDS: METOPROLOL TARTRATE 5MG/5ML VIAL 5 MG IV (05:09)
[2025-02-19 06:20] LABS: POC Glucose,Bedside 213 gm/dL (70-110)
[2025-02-19] MEDS: humaLOG 100 UNITS/ML 10ML VIAL (SSI) SUBCUT ×4 (06:23→20:19)
[2025-02-19 07:46] LABS: Hematocrit 27.6 % (37.0-47.0); Immature Granulocytes % 0.2 %; Mean Corpuscular HGB Conc 33.0 g/dL (31.8-35.4); Mean Corpuscular Hemoglobin 28.3 pg (27.0-31.2); Mean Corpuscular Volume 85.7 fl (81-99); Nucleated Red Blood Cells % 0 %; Platelet Count 240 K/mm3 (142-424); Red Blood Count 3.22 M/mm3 (4.20-5.40); Red Cell Distribution Width-SD 44.0 fL; White Blood Count 6.2 K/mm3 (4.8-10.8)
[2025-02-19 08:21] LABS: Magnesium 2.5 mg/dl (1.6-2.3)
[2025-02-19 08:24] LABS: Alanine Aminotransferase 21 U/L (12-78); Albumin Level 3.9 g/dl (3.5-5.0); Albumin/Globulin Ratio 1.3 (1.1-1.8); Alkaline Phosphatase 87 U/L (38-126); Anion Gap 10.0 mEq/L (5-15); Aspartate Amino Transferase 34 U/L (14-36); Bilirubin,Total 0.7 mg/dl (0.2-1.3); Blood Urea Nitrogen 49 mg/dl (7-17); Calcium 8.9 mg/dl (8.4-10.2); Carbon Dioxide 32 mmol/L (22.0-30.0); Chloride 93 mmol/L (98-107); Creatinine Clearance Estimated 22 mL/min (50-200); Creatinine,Serum 2.30 mg/dl (0.52-1.04); Estimated Glomerular Filt Rate 20 ml/min (>60); GFR (African American) 25 ML/MIN (>60); Globulin 3.1 g/dL (1.3-3.2); Glucose 173 mg/dl (74-100); Sodium 132 mmol/L (136-145); Total Protein,Serum 7.0 g/dl (6.3-8.2)
[2025-02-19 08:27] LABS: Potassium 3.0 mmoL/L (3.5-5.1)
[2025-02-19 08:33] LABS: Hemoglobin 9.1 g/dL (12.2-16.2)
[2025-02-19 08:36] LABS: Troponin I 0.05 ng/ml (0.00-0.034)
--- NOTE | 2025-02-19 09:44 | HMH.PHAINT1 ---
Pharmacy Intervention Comments: MEDICATION RECONCILIATION COMPLETE USING EXTERNAL PHARMACY FILL HISTORY, RECENT CARDIOLOGY OFFICE VISIT NOTE.
[2025-02-19] MEDS: POTASSIUM CHLORIDE 20MEQ TAB 40 MEQ PO (10:52)
[2025-02-19 11:35] LABS: POC Glucose,Bedside 181 gm/dL (70-110)
[2025-02-19 12:35] LABS: Hemoglobin A1C 7.1 % (4.0-6.0)
--- NOTE | 2025-02-19 15:53 | PC.NURSE ---
arrived by w/c from ICU
[2025-02-19 16:31] LABS: POC Glucose,Bedside 162 gm/dL (70-110)
--- NOTE | 2025-02-19 17:32 | PC.NURSE ---
Pt came over to med surg from ICU this afternoon. Pt A&Ox4. Vital signs stable requiring 3L NC. Pt has had no complaints of pain. IV diuretics given per MAY. ACHS fsbs treated per MAY. Pt resting comfortably supine in bed with no further needs voiced at this time. bed alarm in place for safety. Call light within reach.
[2025-02-19 19:54] LABS: POC Glucose,Bedside 279 gm/dL (70-110)
--- NOTE | 2025-02-19 22:00 | PC.NURSE ---
RESP CARE NOTE: Spoke to hospitalist at this time regarding BiPAP use, stated not to use BiPAP unless Pt is showing signs of distress or indicated otherwise.
[2025-02-20] VITALS (8 sets, daily range): BP systolic 141–179; BP diastolic 59–83; PULSE 65–100; RESP 16–20; TEMP 36.6–36.9; O2SAT 91–97; BMI 30.7
--- NOTE | 2025-02-20 06:00 | CA_ITS ---
APPROVED REPORT EXAM: Limited 2D Echocardiogram Paint Grinder: Yina Joseph CRT Ht: 4 ft 11 in Wt: 154lbs BSA: 1.65 BP: 178/78 mmHg Indications: CHF, CVA, HTN, HLD, DM, HOME O2, EDEMA, HFpEF M-Mode Dimensions RVDd 2.58 cm (0.9-2.6) LVDd 4.56 cm (3.5-5.7) LVDs 2.92 cm (3.5-5.7) IVSd 1.24 cm (0.6-1.1) PWd 0.57 cm (0.6-1.1) EF (Teich) 65.60% FS 36.00% EDV (Teich) 95.40 mL ESV (Teich) 32.80 mL Other Information Study Quality: Technically Difficult Conclusion This is a limited TTE to evaluate for biventricular function and pericardial effusion. Limited windows are obtained. Technically difficult study. The left ventricle is normal in size. There is increased LV wall thickness. There is normal global LV systolic function. LVEF is 55%. The right ventricle is normal in size and function. There is a small-sized, circumferential pericardial effusion present. The largest pocket measures 0.5 cm in diastole and is noted posteriorly. The valves are not well assessed in this limited TTE. The above findings were relayed to the inpatient team at the time of image acquisition prior to dictation of this report. Electronically signed by : Nay Hall MD 02/25/2025 20:40:46
--- NOTE | 2025-02-20 06:16 | PC.NURSE ---
pt refused AM synthroid and stated my was on the internet and said it caused my weight gain and SOA ..
[2025-02-20 06:24] LABS: Hematocrit 28.3 % (37.0-47.0); Hemoglobin 9.0 g/dL (12.2-16.2); Immature Granulocytes % 0.2 %; Mean Corpuscular HGB Conc 31.8 g/dL (31.8-35.4); Mean Corpuscular Hemoglobin 27.3 pg (27.0-31.2); Mean Corpuscular Volume 85.8 fl (81-99); Nucleated Red Blood Cells % 0 %; Platelet Count 251 K/mm3 (142-424); Red Blood Count 3.30 M/mm3 (4.20-5.40); Red Cell Distribution Width-SD 45.1 fL; White Blood Count 5.6 K/mm3 (4.8-10.8)
[2025-02-20 06:25] LABS: POC Glucose,Bedside 111 gm/dL (70-110)
[2025-02-20 06:37] LABS: Alanine Aminotransferase 20 U/L (12-78); Albumin Level 3.8 g/dl (3.5-5.0); Albumin/Globulin Ratio 1.3 (1.1-1.8); Alkaline Phosphatase 89 U/L (38-126); Anion Gap 8.2 mEq/L (5-15); Aspartate Amino Transferase 28 U/L (14-36); Bilirubin,Total 0.6 mg/dl (0.2-1.3); Blood Urea Nitrogen 49 mg/dl (7-17); Calcium 8.8 mg/dl (8.4-10.2); Carbon Dioxide 32 mmol/L (22.0-30.0); Chloride 94 mmol/L (98-107); Cholesterol 114 mg/dl (140-200); Creatinine Clearance Estimated 20 mL/min (50-200); Creatinine,Serum 2.50 mg/dl (0.52-1.04); Estimated Glomerular Filt Rate 19 ml/min (>60); GFR (African American) 22 ML/MIN (>60); Globulin 3.0 g/dL (1.3-3.2); Glucose 88 mg/dl (74-100); HDL Cholesterol 39 mg/dl (40-60); Magnesium 2.2 mg/dl (1.6-2.3); Potassium 3.2 mmoL/L (3.5-5.1); Sodium 131 mmol/L (136-145); Total Protein,Serum 6.8 g/dl (6.3-8.2); Triglycerides 123 mg/dl (30-150)
[2025-02-20] MEDS: ASPIRIN EC 81MG TABLET 81 MG PO (08:57)
[2025-02-20] MEDS: BUMETANIDE 1MG/4ML VIAL 1 MG IV ×2 (08:58→15:53)
[2025-02-20 09:49] LABS: Hepatitis C Ab Qual. W/ RFX NEGATIVE (Negative)
[2025-02-20] MEDS: POTASSIUM CHLORIDE 20MEQ TAB 40 MEQ PO (11:07)
[2025-02-20] MEDS: humaLOG 100 UNITS/ML 10ML VIAL (SSI) SUBCUT ×3 (11:13→20:06)
[2025-02-20] MEDS: LEVOTHYROXINE 50MCG (0.05MG) TAB 50 MCG PO (11:13)
--- NOTE | 2025-02-20 11:54 | P.PN_ITS ---
Subjective *Date: 02/20/25 *Time: 11:54 Exam Data for Last 24 hours Vital signs and Labs for Last 24 Hours: Temp Pulse Resp BP Pulse Ox O2 Del Method O2 Flow Rate 98.2 F 90 20 152/63 H 95 Nasal Cannula 2 02/20/25 07:30 02/20/25 08:00 02/20/25 07:30 02/20/25 07:30 02/20/25 07:30 02/20/25 11:00 02/20/25 11:00 FiO2 40 02/19/25 02:24 Laboratory Results - last 24 hr 02/18/25 23:55: HCV Ab HERBIE w/Rflx PCR Qn Negative 02/19/25 07:20: Hemoglobin A1c 7.1 H 02/19/25 16:03: POC Glucose 162 H 02/19/25 19:35: POC Glucose 279 H 02/20/25 05:02: POC Glucose 111 H 02/20/25 05:18: WBC 5.6, RBC 3.30 L, Hgb 9.0 L, Hct 28.3 L, MCV 85.8, MCH 27.3, MCHC 31.8, RDW 14.4, Plt Count 251, MPV 9.5, Neut % (Auto) 62.6, Lymph % (Auto) 26.6, Gilchrist % (Auto) 7.5, Eos % (Auto) 2.2, Baso % (Auto) 0.9, Neut # (Auto) 3.5, Lymph # (Auto) 1.5, Gilchrist # (Auto) 0.4, Eos # (Auto) 0.1, Baso # (Auto) 0.1, Sodium 131 L, Potassium 3.2 L, Chloride 94 L, Carbon Dioxide 32 H, Anion Gap 8.2, BUN 49 H, Creatinine 2.50 H, Estimated Creat Clear 20, Estimated GFR 19 L*, Est GFR ( Amer) 22 L, Glucose 88 D, Calcium 8.8, Magnesium 2.2 D, Total Bilirubin 0.6, AST 28, ALT 20, Alkaline Phosphatase 89, Total Protein 6.8, Albumin 3.8, Globulin 3.0, Albumin/Globulin Ratio 1.3, Triglycerides 123, Cholesterol 114 L, LDL Cholesterol Direct 55.77 L, VLDL Cholesterol 25, HDL Cholesterol 39 L, Cholesterol/HDL Ratio 2.9 I & O for Last 24 hours: Intake & Output 02/17/25 02/18/25 02/19/25 02/20/25 23:59 23:59 23:59 23:59 Intake Total 1075 / 1075 360 / 360 Output Total 2375 / 2375 1550 / 1550 Balance -1300 / -1300 -1190 / -1190 Weight 69.309 kg 70.3 kg 69.082 kg Assessment and Plan *Assessment and plan (1) Acute on chronic heart failure with preserved ejection fraction (HFpEF): Status: Acute Category: Medical Code(s): I50.33 - Acute on chronic diastolic (congestive) heart failure (2) Acute on chronic respiratory failure with hypoxemia: Status: Acute Category: Medical Code(s): J96.21 - Acute and chronic respiratory failure with hypoxia (3) Bilateral pleural effusion: Status: Acute Category: Medical Code(s): J90 - Pleural effusion, not elsewhere classified (4) Pulmonary edema: Status: Acute Category: Medical Code(s): J81.1 - Chronic pulmonary edema (5) CKD stage 3 due to type 2 diabetes mellitus: Status: Acute Category: Medical Code(s): E11.22 - Type 2 diabetes mellitus with diabetic chronic kidney disease; N18.30 - Chronic kidney disease, stage 3 unspecified (6) HLD (hyperlipidemia): Status: Acute Qualifiers: Hyperlipidemia type: other hyperlipidemia Qualified Code(s): E78.49 - Other hyperlipidemia Category: Medical Code(s): E78.5 - Hyperlipidemia, unspecified (7) HTN (hypertension): Status: Acute Qualifiers: Hypertension type: primary hypertension Qualified Code(s): I10 - Essential (primary) hypertension Category: Medical Code(s): I10 - Essential (primary) hypertension (8) Diabetes mellitus, type 2: Status: Acute Qualifiers: Diabetes mellitus assisted insulin use: without termite exterminator use Diabetes mellitus complication status: with other specified complication Qualified Code(s): E11.69 - Type 2 diabetes mellitus with other specified complication Category: Medical Code(s): E11.9 - Type 2 diabetes mellitus without complications (9) Non-ST elevation NV (NSTEMI): Status: Acute Category: Medical Code(s): I21.4 - Non-ST elevation (NSTEMI) myocardial infarction (10) Elevated d-dimer: Status: Acute Category: Medical Code(s): R79.89 - Other specified abnormal findings of blood chemistry (11) Hypothyroidism: Status: Acute Category: Medical Code(s): E03.9 - Hypothyroidism, unspecified Plan 1. Acute hypoxic respiratory failure secondary to acute on chronic diastolic heart failure/bilateral pleural effusion/pulmonary edema: Received 1 dose Bumex 2 mg while in the emergency department with improvement, resume IV dieresis. ED provider obtained [id number] ultrasound at bedside and interpreted it demonstrating B-lines, small pleural effusion, small pericardial effusion and noted mild to moderate depression of ejection fraction. Will likely require Jordan catheter for strict I's and O's. Patient on 4 L nasal cannula when transferred to unit from ED, continues to be tachypneic w/oxygen saturations 89-90%. Pt. reports improvement but d/t to increased resp workload, placed back on BiPAP. Resume/reevaluate BiPAP requirement at 6 AM. keep n.p.o. while requiring BiPAP.. Chest x-ray as noted above with evidence of hypervolemia- bilateral pleural effusions. BNP 3170. Continuous O2 monitoring, keep sats greater than 92%, consult placed to cardiology. 2. CKD stage III: Creatinine 2.40, BUN 49, GFR 19-approximately baseline. Continue to monitor closely while receiving diuretics. Avoid nephrotoxic medication if at all possible. 3. Hypertension: Mildly elevated blood pressure, likely underlying respiratory distress exacerbating blood pressure. Systolic blood pressure 160-170 range. Continue to monitor, resume antihypertensive medication. 4. Diabetes mellitus type 2: Insulin sliding scale with Accu-Cheks Q6h. Hemoglobin A1c with morning labs. 5. NSTEMI/elevated D-dimer: ECG demonstrate sinus tachycardia, rate 100, normal axis, normal MI and QTc, no STEMI. ED troponin resulted at 0.04 which is slightly elevated above her baseline 0.03. Continue to monitor trend. Notable elevated D-dimer, treated/initated within the ED with therapeutic Lovenox. Lovenox recommendation dosed per pharmacy-1 mg/kg of Lovenox every 24 hours. Resume continuous cardiac monitoring. 6. Hypothyroidism: Patient on levothyroxine 50 mcg daily, TSH 3.21, Free T4 1.22. 7. DVT prophylaxis: Lovenox Full code/next of kin 79-year-old female with a past medical history significant for stroke with residual, hypertension, diastolic heart failure, presents with CHF exacerbation and respiratory failure with hypoxia. This patient was discussed with the emergency department provider with request for admission for continued dieresis and close monitoring/management labs. In agreement with admission. Ultimately placed on BiPAP while in the emergency department due to respiratory failure with hypoxia. Transferred to stepdown, continue IV diuretics, cardiology consult.
[2025-02-20 11:57] LABS: POC Glucose,Bedside 210 gm/dL (70-110)
--- NOTE | 2025-02-20 12:01 | EXP.PN ---
Subjective *Date: 02/20/25 *Time: 12:01 Interval history: Diuresing well, patient feels better. However, continues to be hypoxic needing 2 L. High risk of decompensation given concomitant advanced CKD. Will continue inpatient IV diuresis. Exam Data for Last 24 hours Vital signs and Labs for Last 24 Hours: Temp Pulse Resp BP Pulse Ox O2 Del Method O2 Flow Rate 98.2 F 90 20 152/63 H 95 Nasal Cannula 2 02/20/25 07:30 02/20/25 08:00 02/20/25 07:30 02/20/25 07:30 02/20/25 07:30 02/20/25 11:00 02/20/25 11:00 FiO2 40 02/19/25 02:24 Laboratory Results - last 24 hr 02/18/25 23:55: HCV Ab HERBIE w/Rflx PCR Qn Negative 02/19/25 07:20: Hemoglobin A1c 7.1 H 02/19/25 16:03: POC Glucose 162 H 02/19/25 19:35: POC Glucose 279 H 02/20/25 05:02: POC Glucose 111 H 02/20/25 05:18: WBC 5.6, RBC 3.30 L, Hgb 9.0 L, Hct 28.3 L, MCV 85.8, MCH 27.3, MCHC 31.8, RDW 14.4, Plt Count 251, MPV 9.5, Neut % (Auto) 62.6, Lymph % (Auto) 26.6, [place] % (Auto) 7.5, Eos % (Auto) 2.2, Baso % (Auto) 0.9, Neut # (Auto) 3.5, Lymph # (Auto) 1.5, [place] # (Auto) 0.4, Eos # (Auto) 0.1, Baso # (Auto) 0.1, Sodium 131 L, Potassium 3.2 L, Chloride 94 L, Carbon Dioxide 32 H, Anion Gap 8.2, BUN 49 H, Creatinine 2.50 H, Estimated Creat Clear 20, Estimated GFR 19 L*, Est GFR ( Amer) 22 L, Glucose 88 D, Calcium 8.8, Magnesium 2.2 D, Total Bilirubin 0.6, AST 28, ALT 20, Alkaline Phosphatase 89, Total Protein 6.8, Albumin 3.8, Globulin 3.0, Albumin/Globulin Ratio 1.3, Triglycerides 123, Cholesterol 114 L, LDL Cholesterol Direct 55.77 L, VLDL Cholesterol 25, HDL Cholesterol 39 L, Cholesterol/HDL Ratio 2.9 02/20/25 11:01: POC Glucose 210 H I & O for Last 24 hours: Intake & Output 02/17/25 02/18/25 02/19/25 02/20/25 23:59 23:59 23:59 23:59 Intake Total 1075 / 1075 360 / 360 Output Total 2375 / 2375 1550 / 1550 Balance -1300 / -1300 -1190 / -1190 Weight 69.309 kg 70.3 kg 69.082 kg Constitutional Constitutional: no acute distress, obese and chronically ill appearing *Routine HEENT Exam Head: Present normocephalic Eye: Present EOMI and PERRL ENT: Present mucous membranes moist *Routine Neck Exam Neck: Present supple; Absent lymphadenopathy *Routine Respiratory Exam Respiratory: Present CTA bilaterally *Routine Cardiovascular Exam Cardiovascular: Present RRR *Routine Abdominal Exam Abdominal: Present soft and normoactive bowel sounds; Absent tenderness *Routine Extremities Exam Extremities: Present edema; Absent cyanosis or clubbing Comments: Bilateral lower extremity pitting edema 1+. *Routine Skin Exam Skin: Present warm; Absent rash *Routine Neurological Exam Neurological: Present alert and oriented X3 Assessment and Plan *Assessment and plan (1) Hypothyroidism: Status: Acute Category: Medical Code(s): E03.9 - Hypothyroidism, unspecified (2) Acute hypoxic respiratory failure: Status: Acute Category: Medical Code(s): J96.01 - Acute respiratory failure with hypoxia (3) (HFpEF) heart failure with preserved ejection fraction: Status: Acute Category: Medical Code(s): I50.30 - Unspecified diastolic (congestive) heart failure (4) CKD (chronic kidney disease), stage IV: Status: Acute Category: Medical Code(s): N18.4 - Chronic kidney disease, stage 4 (severe) Scooter Matos is a 79-year-old female who presented with progressive shortness of breath and was admitted for HFpEF exacerbation in the setting of CKD stage IV. #Acute hypoxic respiratory failure #HFpEF exacerbation #NSTEMI type II #CKD stage IV #Hypokalemia ? Presented with progressive shortness of breath, pulmonary and lower extremity pitting edema, initial BNP 3170 with acute hypoxia initially requiring BiPAP and weaned to 3 L. ? Troponins plateaued at 0.05, denies chest pain. EKG without acute ischemic changes. Likely demand ischemia from acute FF. ? Patient states she was advised to double up on her Bumex at home, which has not been efficacious for her pitting edema. Takes Bumex 1 mg twice daily at home. ? Decreased IV Bumex to 1 mg twice daily due to uptrending creatinine. No spironolactone MRA due to advanced CKD. ? Diuresing well, patient feels better. However, continues to be hypoxic needing 2 L. High risk of decompensation given concomitant advanced CKD. ? Creatinine bumped from 2.3-2.5, GFR 19. Potassium 3.2, cautiously repleting. ? Follow-up ECHO. ? Cardiology consulted, pending further recommendations. ? Wean 2 L as tolerated, baseline room air with supplemental oxygen as needed. ? Plan to refer to nephrology on discharge. #Type 2 diabetes ? Hemoglobin A1c 7.1%. Continue Lantus 20 units nightly, LDSSI, ACHS glucose checks. #Hypothyroidism ? Continue home levothyroxine 50 mcg. Has been intermittently noncompliant as she and her believe medications can cause side effects. TFT stable. #Hypertension ? Discontinued home amlodipine due to swelling. Will start hydralazine 25 mg 3 times daily. Avoiding DESTINY/ARB/HCTZ due to CKD and beta-blockers due to advanced age. #Normocytic anemia ? Hemoglobin 9.0, MCV normal. Stable. Likely anemia of chronic disease from CKD. #Obesity ? Complicates all aspects of care. Full code DVT prophylaxis: Lovenox 30 mg Home medications: Restarted.
--- NOTE | 2025-02-20 12:35 | EXP.CARD.CON ---
History of Present Illness History of Present Illness Consult date: 02/20/25 Consult reason: congestive heart failure Chief complaint: SOA History of present illness: 79-year-old white female established patient of our office with a history of HFpEF, hypertension, CKD 3, CVA. She has COPD on home oxygen as needed and occasionally ambulates with a wheelchair. Last saw Bony in our office on February 01 stable without complaints. She presented to the emergency room here on February 19 complaining of worsening shortness of breath and hypoxia for several weeks with a cough and mild congestion as well as a 5 pound weight gain. On arrival she was slightly hypoxic requiring 4 L/day with O2 still dropping to the 80s. Workup revealed proBNP of 2000, chest x-ray with CHF versus pneumonia. She had normal white count and stable vitals aside from her hypoxia. On my arrival patient has diuresed 1.5 L and reports she is feeling near her baseline. [facility] Disclaimer: The information contained in this section may have been updated after the patient was seen, as this information can be updated by other users. Medical History Weight gain SOB (shortness of breath) CVA (cerebral vascular accident) Diabetes mellitus, type 2 HTN (hypertension) HLD (hyperlipidemia) Surgical History H/O tubal ligation Family History Father Family history of cancer Family history of myocardial infarction Mother Family history of myocardial infarction Sister Family history of myocardial infarction Son Family history of myocardial infarction Social History Smoking Status: Never smoker alcohol intake: never current occupational status: retired Travel in the last 8 weeks?: None Have you lived/traveled outside [place] in past 30 days?: No Contact w/someone who lives/traveled outside US past 30 days?: No Exposure to someone with infectious disease in past 14 days?: No Do you have a fever (greater than 100.4 F or 38 C)?: No Have you tested positive for COVID-19?: No Exposed to someone with COVID-19 in past 14 days?: No Do you have a sore throat?: No Do you have a cough?: No Do you have any weakness?: No Do you have any diarrhea?: No Are you experiencing any unusual bleeding?: No Do you have any muscle aches/pain?: No Do you have any abdominal pain?: No Are you experiencing loss of taste or smell?: No Review of Systems Constitutional Constitutional: Reports fatigue and Reports weakness Eyes Eyes: Denies loss of vision ENT Ears, Nose, Mouth, and Throat: Denies hearing loss *Cardiovascular Cardiovascular: Denies chest pain and Reports dyspnea *Respiratory Respiratory: Reports chest congestion, Reports cough and Reports dyspnea *Gastrointestinal Gastrointestinal: Denies change in stool character, Denies nausea and Denies vomiting *Musculoskeletal Musculoskeletal: Denies muscle weakness Integumentary/Breasts Skin/Breast: Denies changing lesions *Neurologic Neurologic: Reports as per HPI, Denies loss of vision and Reports weakness Endocrine Endocrine: Reports fatigue Exam Data for Last 24 hours Vital signs and Labs for Last 24 Hours: Temp Pulse Resp BP Pulse Ox O2 Del Method O2 Flow Rate 98.2 F 90 20 152/63 H 95 Nasal Cannula 2 02/20/25 07:30 02/20/25 08:00 02/20/25 07:30 02/20/25 07:30 02/20/25 07:30 02/20/25 11:00 02/20/25 11:00 FiO2 40 02/19/25 02:24 Laboratory Results - last 24 hr 02/18/25 23:55: HCV Ab HERBIE w/Rflx PCR Qn Negative 02/19/25 07:20: Hemoglobin A1c 7.1 H 02/19/25 16:03: POC Glucose 162 H 02/19/25 19:35: POC Glucose 279 H 02/20/25 05:02: POC Glucose 111 H 02/20/25 05:18: WBC 5.6, RBC 3.30 L, Hgb 9.0 L, Hct 28.3 L, MCV 85.8, MCH 27.3, MCHC 31.8, RDW 14.4, Plt Count 251, MPV 9.5, Neut % (Auto) 62.6, Lymph % (Auto) 26.6, [place] % (Auto) 7.5, Eos % (Auto) 2.2, Baso % (Auto) 0.9, Neut # (Auto) 3.5, Lymph # (Auto) 1.5, [place] # (Auto) 0.4, Eos # (Auto) 0.1, Baso # (Auto) 0.1, Sodium 131 L, Potassium 3.2 L, Chloride 94 L, Carbon Dioxide 32 H, Anion Gap 8.2, BUN 49 H, Creatinine 2.50 H, Estimated Creat Clear 20, Estimated GFR 19 L*, Est GFR ( Amer) 22 L, Glucose 88 D, Calcium 8.8, Magnesium 2.2 D, Total Bilirubin 0.6, AST 28, ALT 20, Alkaline Phosphatase 89, Total Protein 6.8, Albumin 3.8, Globulin 3.0, Albumin/Globulin Ratio 1.3, Triglycerides 123, Cholesterol 114 L, LDL Cholesterol Direct 55.77 L, VLDL Cholesterol 25, HDL Cholesterol 39 L, Cholesterol/HDL Ratio 2.9 02/20/25 11:01: POC Glucose 210 H I & O for Last 24 hours: Intake & Output 02/17/25 02/18/25 02/19/25 02/20/25 23:59 23:59 23:59 23:59 Intake Total 1075 / 1075 360 / 360 Output Total 2375 / 2375 1550 / 1550 Balance -1300 / -1300 -1190 / -1190 Weight 152 lb 12.8 oz 154 lb 15.759 oz 152 lb 4.8 oz Meds Home Medications and Allergies Home Medications ?Medication ?Instructions ?Recorded ?Confirmed ?Type simvastatin 40 mg tablet 40 mg PO HS 10/10/23 02/19/25 History aspirin 81 mg tablet,delayed 81 mg PO DAILY 10/31/23 02/19/25 History release insulin glargine 100 unit/mL (3 30 unit SQ DAILY 10/21/24 02/19/25 History mL) subcutaneous pen (Lantus Solostar U-100 Insulin) loratadine 10 mg capsule 10 mg PO DAILY 10/21/24 02/19/25 History potassium gluconate 595 mg (99 mg) 595 mg PO BID 10/21/24 02/19/25 History tablet amlodipine 10 mg tablet 10 mg PO DAILY 10/22/24 02/19/25 History levothyroxine 50 mcg tablet 50 mcg PO DAILYDM 02/01/25 02/19/25 History bumetanide 1 mg tablet 1 mg PO BIDL 02/19/25 02/19/25 History New Prescriptions to Start Prescriptions: Allergies Allergy/AdvReac Type Severity Reaction Status Date / Time No Known Allergies Allergy Verified 02/01/25 10:53 Assessment and Plan *Assessment and plan (1) Acute on chronic heart failure with preserved ejection fraction (HFpEF): Status: Acute Category: Medical Code(s): I50.33 - Acute on chronic diastolic (congestive) heart failure (2) CKD (chronic kidney disease), stage IV: Status: Acute Category: Medical Code(s): N18.4 - Chronic kidney disease, stage 4 (severe) (3) Acute on chronic respiratory failure with hypoxemia: Status: Acute Category: Medical Code(s): J96.21 - Acute and chronic respiratory failure with hypoxia Plan Acute on chronic HFpEF - SOA, ProBNP 2k, CHF vs Pna on CXR - symptoms improving post 1.5L diuresis - ECHO 09/2024 - normal bi-v function, no valve dz - will repeat 2D ECHO here - add SGLT-2, consider Karendia Acute on Chronic Hypoxic Respiratory Failure with possible PNA - plans per Hospitalist - consider Pulm consult Further plans pending ECHO results
[2025-02-20] MEDS: DAPAGLIFLOZIN PROPANEDIOL 10 MG TABLET PO (15:53)
[2025-02-20 17:21] LABS: POC Glucose,Bedside 219 gm/dL (70-110)
[2025-02-20 20:53] LABS: POC Glucose,Bedside 264 gm/dL (70-110)
[2025-02-21] VITALS: BP 163/84; PULSE 94; RESP 94; TEMP 36.9; O2SAT 96
[2025-02-21 04:00] VITALS: BP 134/64; PULSE 85; PULSE 92; RESP 12; TEMP 36.9; O2SAT 95; BMI 29.8
[2025-02-21 06:03] LABS: POC Glucose,Bedside 124 gm/dL (70-110)
[2025-02-21 06:21] LABS: Hematocrit 29.4 % (37.0-47.0); Hemoglobin 9.5 g/dL (12.2-16.2); Immature Granulocytes % 0.2 %; Mean Corpuscular HGB Conc 32.3 g/dL (31.8-35.4); Mean Corpuscular Hemoglobin 27.5 pg (27.0-31.2); Mean Corpuscular Volume 85.2 fl (81-99); Nucleated Red Blood Cells % 0 %; Platelet Count 263 K/mm3 (142-424); Red Blood Count 3.45 M/mm3 (4.20-5.40); Red Cell Distribution Width-SD 44.0 fL; White Blood Count 5.5 K/mm3 (4.8-10.8)
[2025-02-21] MEDS: LEVOTHYROXINE 50MCG (0.05MG) TAB 50 MCG PO (06:22)
[2025-02-21 08:00] VITALS: BP 163/78; PULSE 90; PULSE 97; RESP 16; TEMP 37.2; O2SAT 90; O2SAT 94
[2025-02-21] MEDS: ASPIRIN EC 81MG TABLET 81 MG PO (08:21)
[2025-02-21] MEDS: BUMETANIDE 1MG/4ML VIAL 1 MG IV (08:21)
[2025-02-21] MEDS: INSULIN GLARGINE 100 UNITS/ML 3ML FLEXPEN 20 UNIT SUBCUT (08:33)
--- NOTE | 2025-02-21 08:45 | P.DS_ITS ---
General Admission date:: 02/19/25 Discharge date: 02/21/25 HPI HPI HPI: Patient is an 79-year-old female with past medical history significant for stroke, hypertension, diastolic heart failure, supplemental oxygen nightly (2 L nasal cannula), type II diabetic, hypothyroidism, hyperlipidemia, CKD stage III. Patient presents to [facility] level due to significant worsening shortness of breath with low oxygen levels. at bedside providing history states symptoms began a couple weeks ago with very mild symptoms of shortness of breath and a 5 pound weight increase. Patient was advised per cardiology to increase her diuretic to 2 times a day for the next few days. Patient reportedly took her diuretic twice a day for 4 days but for the past 3 days she has been back on her typical diuretic regime due to returning back to baseline weight. Patient reported breathing improved, but not back to baseline. States her shortness of breath significantly exacerbated over the next day. Patient typically only requires nocturnal oxygen at 2 L but has been requiring supplemental oxygen at 4 L with any activity. Reported becoming very winded with just a few steps. States yesterday oxygen dropped to the 80s with minimal activity in bed. Due to worsening respiratory status she was brought to the emergency department for further evaluation per . Patient reports an increased cough with congestion today but denies fever, chills, chest pain, abdominal pain, diarrhea, contact with ill individuals, nausea or vomiting. ED workup included laboratory studies and imaging. RBC 3.56, hemoglobin 10.3, hematocrit 30.6, D-dimer 1.25, venous blood gas pH 7.43, venous blood gas pO2 44.4, VBG HCO3 30.6, sodium 132, BUN 49, creatinine 2.40, GFR 19, glucose 180, troponin 0.04, troponin 3170. Imaging study obtained chest x-ray, I personally reviewed, findings suggestive of CHF, bibasilar atelectasis and/or pneumonitis, bilateral pleural effusions. Received Bumex 2 mg, placed on BiPAP due to respiratory failure with hypoxia. Patient assessed at bedside ICU, mild acute distress, currently on 4 L nasal cannula continues to be tachypneic, oxygen saturation 90%, mildly hypertensive systolic blood pressure 160/170 range. Hospital Course Hospital Course Hospital Course: Gail Matos is a 79-year-old female who presented with progressive shortness of breath and was admitted for HFpEF exacerbation in the setting of CKD stage IV. She responded well to diuresis. Cardiology assisted with care. Stable discharge home with adjustments to her diuretic regimen. Follow with cardiology and nephrology as an outpatient. Problems addressed as follows: #Acute hypoxic respiratory failure #HFpEF exacerbation #NSTEMI type II #CKD stage IV #Hypokalemia ? Presented with progressive shortness of breath, pulmonary and lower extremity pitting edema, initial BNP 3170 with acute hypoxia initially requiring BiPAP and weaned to 3 L. Troponins plateaued at 0.05, denies chest pain. EKG without acute ischemic changes. Likely demand ischemia from acute CHF. Patient states she was advised to double up on her Bumex at home, which has not been efficacious for her pitting edema. Takes Bumex 1 mg twice daily at home. Was diet restart admission with good response. Will continue 2 mg daily at the recommendation of cardiology. Negative at least 3.5 L during admission with improvement in her shortness of breath. Tolerating 2 L oxygen continuously. Has oxygen at home. O2 sats were 88% at rest on day of discharge however on room air. Continue 2 L via nasal cannula continuously. ? Creatinine bumped from 2.3-2.5, GFR 19 the day prior to discharge. Improved to BUN 46, creatinine 2.2 by day of discharge. Overall doing well. Follows with nephrology in [place]. Recommend continued follow-up with her kidney doctor as scheduled. Follow with cardiology as an outpatient. - Echo obtained during admission preliminarily showing preserved ejection fraction. Consistent with previous echoes from September and from a year ago. Findings consistent with HFpEF #Type 2 diabetes: Hemoglobin A1c 7.1%. Continue Lantus 20 units nightly. Resumed Farxiga during admission. #Hypothyroidism: Continue home levothyroxine 50 mcg. Has been intermittently noncompliant as she and her believe medications can cause side effects. TFT stable. #Hypertension: Discontinued home amlodipine due to swelling. Will start hydralazine 25 mg 3 times daily. Avoiding DESTINY/ARB/HCTZ due to CKD and beta- blockers due to advanced age. #Normocytic anemia: Hemoglobin 9.0, MCV normal. Stable. Likely anemia of chronic disease from CKD. Total time spent on discharge 32 minutes in counseling, documentation, chart review, and direct care with patient. Exam Data for Last 24 hours Vital signs and Labs for Last 24 Hours: Temp Pulse Resp BP Pulse Ox O2 Del Method O2 Flow Rate 98.4 F 92 H 12 134/64 95 Nasal Cannula 2 02/21/25 04:00 02/21/25 04:00 02/21/25 04:00 02/21/25 04:00 02/21/25 04:00 02/21/25 06:24 02/21/25 06:24 FiO2 28 02/20/25 19:49 Laboratory Results - last 24 hr 02/18/25 23:55: HCV Ab HERBIE w/Rflx PCR Qn Negative 02/20/25 11:01: POC Glucose 210 H 02/20/25 15:58: POC Glucose 219 H 02/20/25 20:03: POC Glucose 264 H 02/21/25 05:41: POC Glucose 124 H 02/21/25 05:42: WBC 5.5, RBC 3.45 L, Hgb 9.5 L, Hct 29.4 L, MCV 85.2, MCH 27.5, MCHC 32.3, RDW 14.2, Plt Count 263, MPV 9.3, Neut % (Auto) 61.1, Lymph % (Auto) 27.4, [place] % (Auto) 8.2, Eos % (Auto) 2.4, Baso % (Auto) 0.7, Neut # (Auto) 3.4, Lymph # (Auto) 1.5, [place] # (Auto) 0.5, Eos # (Auto) 0.1, Baso # (Auto) 0.0 I & O for Last 24 hours: Intake & Output 02/18/25 02/19/25 02/20/25 02/21/25 23:59 23:59 23:59 23:59 Intake Total 1075 / 1075 1320 / 1320 Output Total 2375 / 2375 3150 / 3150 300 / 300 Balance -1300 / -1300 -1830 / -1830 -300 / -300 Weight 69.309 kg 70.3 kg 69.082 kg 67.217 kg Constitutional Constitutional: no acute distress, average body habitus, chronically ill appearing and cooperative *Routine HEENT Exam Head: Present normocephalic ENT: Present mucous membranes moist Comments: Poor dentition *Routine Neck Exam Neck: Present supple; Absent lymphadenopathy *Routine Respiratory Exam Respiratory: Present CTA bilaterally; Absent rhonchi *Routine Cardiovascular Exam Cardiovascular: Present RRR *Routine Abdominal Exam Abdominal: Present soft and normoactive bowel sounds; Absent tenderness *Routine Rectal Exam Patient deferred: visual exam *Routine Exam Patient deferred: external exam *Routine Extremities Exam Extremities: Present edema; Absent cyanosis or clubbing Comments: Bilateral lower extremity pitting edema 1+. *Routine Skin Exam Skin: Present intact and warm; Absent rash *Routine Neurological Exam Neurological: Present alert, oriented X3 and moving all extremities Results Data Completed and Pending Labs on day of discharge: Labs from last 24 hours 02/21/25 02/21/25 02/20/25 05:42 05:41 20:03 WBC 5.5 RBC 3.45 L Hgb 9.5 L Hct 29.4 L MCV 85.2 MCH 27.5 MCHC 32.3 RDW 14.2 Plt Count 263 MPV 9.3 Neut % (Auto) 61.1 Lymph % (Auto) 27.4 [place] % (Auto) 8.2 Eos % (Auto) 2.4 Baso % (Auto) 0.7 Neut # (Auto) 3.4 Lymph # (Auto) 1.5 [place] # (Auto) 0.5 Eos # (Auto) 0.1 Baso # (Auto) 0.0 POC Glucose 124 H 264 H HCV Ab HERBIE w/Rflx PCR Qn 02/20/25 02/20/25 02/18/25 15:58 11:01 23:55 WBC RBC Hgb Hct MCV MCH MCHC RDW Plt Count MPV Neut % (Auto) Lymph % (Auto) [place] % (Auto) Eos % (Auto) Baso % (Auto) Neut # (Auto) Lymph # (Auto) [place] # (Auto) Eos # (Auto) Baso # (Auto) POC Glucose 219 H 210 H HCV Ab HERBIE w/Rflx PCR Qn Negative DS: Diagnosis Discharge Diagnosis (1) Acute on chronic heart failure with preserved ejection fraction (HFpEF): Status: Acute Code(s): I50.33 - Acute on chronic diastolic (congestive) heart failure (2) CKD (chronic kidney disease), stage IV: Status: Acute Code(s): N18.4 - Chronic kidney disease, stage 4 (severe) (3) Acute on chronic respiratory failure with hypoxemia: Status: Acute Code(s): J96.21 - Acute and chronic respiratory failure with hypoxia (4) Hypothyroidism: Status: Acute Code(s): E03.9 - Hypothyroidism, unspecified (5) HTN (hypertension): Status: Acute Code(s): I10 - Essential (primary) hypertension Qualifiers: Hypertension type: primary hypertension Qualified Code(s): I10 - Essential (primary) hypertension (6) Diabetes mellitus, type 2: Status: Acute Code(s): E11.9 - Type 2 diabetes mellitus without complications Qualifiers: Diabetes mellitus complication status: with other specified complication 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: without assisted use Qualified Code(s): E11.69 - Type 2 diabetes mellitus with other specified complication Meds Home Medications and Allergies Home Medications ?Medication ?Instructions ?Recorded ?Confirmed ?Type simvastatin 40 mg tablet 40 mg PO HS 10/10/23 5 History aspirin 81 mg tablet,delayed 81 mg PO DAILY 10/31/23 1 04/21/24 History release insulin glargine 100 unit/mL (3 30 unit SQ DAILY 10/2102/19/25 History mL) subcutaneous pen (Lantus Solostar U-100 Insulin) loratadine 10 mg capsule 10 mg PO DAILY 10/21/2401/29 History potassium gluconate 595 mg (99 mg) 595 mg PO BID 10/2102/19/25 History tablet amlodipine 10 mg tablet 10 mg PO DAILY 10/22/2401/29 History levothyroxine 50 mcg tablet 50 mcg PO DAILYDM 02/01/25 02/19/25 History bumetanide 1 mg tablet 2 mg (2 x 1 mg) PO DAILY 30 days 02/21/25 02/19/25 Rx #0 tabs dapagliflozin propanediol 10 mg 10 mg PO DAILY 30 days #30 tabs 02/21/25 Rx tablet (Farxiga) New Prescriptions to Start Prescriptions: dapagliflozin propanediol [Farxiga] Tony Cespedes Allergies Allergy/AdvReac Type Severity Reaction Status Date / Time No Known Allergies Allergy Verified 02/01/25 10:53 Discharge Plan Disposition Patient Disposition: Home, Self-Care Condition: Fair Follow up Plan Follow up with: Robyn Velarde APRN [Nurse Practitioner, Cardiology] - 03/01/25 9:45 am Annalee Garcia MD [Primary Care Provider, Medical] - 02/28/25 9:30 am Prescriptions/Medication Reconciliation: New dapagliflozin propanediol [Farxiga] 10 mg Tablet 10 mg PO DAILY 30 Days Qty: 30 0RF Continued levothyroxine 50 mcg tablet 50 mcg PO DAILYDM Patient Comments: TAKE 1 TABLET BY MOUTH DAILY IN THE MORNING ON AN EMPTY STOMACH simvastatin 40 mg tablet 40 mg PO HS aspirin 81 mg Tablet,Delayed Release (Dr/Ec) 81 mg PO DAILY insulin glargine [Lantus Solostar U-100 Insulin] 100 unit/mL (3 mL) insulin pen 30 unit SQ DAILY potassium gluconate 595 mg (99 mg) tablet 595 mg PO BID Patient Comments: TAKE 1 TABLET BY MOUTH EVERY DAY loratadine 10 mg Capsule 10 mg PO DAILY amlodipine 10 mg tablet 10 mg PO DAILY Patient Comments: TAKE 1 TABLET BY MOUTH DAILY Changed bumetanide 1 mg tablet 2 mg PO DAILY 30 Days Qty: 0 0RF Problem Reconciliation Problems Reviewed?: Yes Patient Discharge Instructions ACTIVITY: Continue current activity DIET: continue same diet Patient Instructions: DI for Heart Failure, DI for Respiratory Failure, Stop Light Heart Failure Print Language: Danish Providers Primary Care Provider: Annalee Garcia Admit Provider: Johann Mattson Attending Provider: Johann Mattson
[2025-02-21 08:53] VITALS: O2SAT 89; O2SAT 90
[2025-02-21 08:54] LABS: POC Glucose,Bedside 328 gm/dL (70-110)
[2025-02-21 08:59] LABS: Alanine Aminotransferase 19 U/L (12-78); Albumin Level 3.6 g/dl (3.5-5.0); Albumin/Globulin Ratio 1.2 (1.1-1.8); Alkaline Phosphatase 85 U/L (38-126); Anion Gap 9.4 mEq/L (5-15); Aspartate Amino Transferase 28 U/L (14-36); Bilirubin,Total 0.6 mg/dl (0.2-1.3); Blood Urea Nitrogen 46 mg/dl (7-17); Calcium 8.8 mg/dl (8.4-10.2); Carbon Dioxide 29 mmol/L (22.0-30.0); Chloride 97 mmol/L (98-107); Creatinine Clearance Estimated 22 mL/min (50-200); Creatinine,Serum 2.20 mg/dl (0.52-1.04); Estimated Glomerular Filt Rate 21 ml/min (>60); GFR (African American) 26 ML/MIN (>60); Globulin 3.0 g/dL (1.3-3.2); Glucose 114 mg/dl (74-100); Magnesium 2.1 mg/dl (1.6-2.3); Potassium 3.4 mmoL/L (3.5-5.1); Sodium 132 mmol/L (136-145); Total Protein,Serum 6.6 g/dl (6.3-8.2)
[2025-02-21] MEDS: DAPAGLIFLOZIN PROPANEDIOL 10 MG TABLET PO (12:02)
--- NOTE | 2025-02-21 13:26 | P.PN_ITS ---
Subjective Subjective Date: 02/21/25 Time: 09:30 Interval history: No events overnight. She reports feeling back to her baseline. Agreeable to try resuming . Exam Data for Last 24 hours Vital signs and Labs for Last 24 Hours: Temp Pulse Resp BP Pulse Ox O2 Del Method O2 Flow Rate 99.0 F 97 H 16 163/78 H 90 L Nasal Cannula 2 02/21/25 08:00 02/21/25 08:00 02/21/25 08:00 02/21/25 08:00 02/21/25 08:53 02/21/25 11:00 02/21/25 11:00 FiO2 28 02/20/25 19:49 Laboratory Results - last 24 hr 02/20/25 15:58: POC Glucose 219 H 02/20/25 20:03: POC Glucose 264 H 02/21/25 05:41: POC Glucose 124 H 02/21/25 05:42: WBC 5.5, RBC 3.45 L, Hgb 9.5 L, Hct 29.4 L, MCV 85.2, MCH 27.5, MCHC 32.3, RDW 14.2, Plt Count 263, MPV 9.3, Neut % (Auto) 61.1, Lymph % (Auto) 27.4, [place] % (Auto) 8.2, Eos % (Auto) 2.4, Baso % (Auto) 0.7, Neut # (Auto) 3.4, Lymph # (Auto) 1.5, [place] # (Auto) 0.5, Eos # (Auto) 0.1, Baso # (Auto) 0.0, Sodium 132 L, Potassium 3.4 L, Chloride 97 L, Carbon Dioxide 29, Anion Gap 9.4, BUN 46 H, Creatinine 2.20 H, Estimated Creat Clear 22, Estimated GFR 21 L, Est GFR ( Amer) 26 L, Glucose 114 H, Calcium 8.8, Magnesium 2.1, Total Bilirubin 0.6, AST 28, ALT 19, Alkaline Phosphatase 85, Total Protein 6.6, Albumin 3.6, Globulin 3.0, Albumin/Globulin Ratio 1.2 02/21/25 08:33: POC Glucose 328 H* I & O for Last 24 hours: Intake & Output 02/18/25 02/19/25 02/20/25 02/21/25 23:59 23:59 23:59 23:59 Intake Total 1075 / 1075 1320 / 1320 540 / 540 Output Total 2375 / 2375 3150 / 3150 300 / 300 Balance -1300 / -1300 -1830 / -1830 240 / 240 Weight 152 lb 12.8 oz 154 lb 15.759 oz 152 lb 4.8 oz 148 lb 3 oz Constitutional Constitutional: no acute distress and cooperative *Routine HEENT Exam Eye: Present PERRL *Routine Respiratory Exam Respiratory: Present CTA bilaterally; Absent accessory muscle use, wheezes or crackles *Routine Cardiovascular Exam Cardiovascular: Present RRR, Normal S1 and Normal S2; Absent murmur, gallop or rubs *Routine Abdominal Exam Abdominal: Present soft; Absent tenderness *Routine Extremities Exam Extremities: Present pulses intact; Absent cyanosis or edema *Routine Skin Exam Skin: Present intact; Absent erythema or wounds *Routine Neurological Exam Neurological: Present alert and oriented X3 Routine Psychiatric Exam Psychiatric: Present cooperative Progress Note: A&P Assessment and plan (1) Acute on chronic heart failure with preserved ejection fraction (HFpEF): Status: Acute (2) CKD (chronic kidney disease), stage IV: Status: Acute (3) Acute on chronic respiratory failure with hypoxemia: Status: Acute Assessment and Plan Assessment and Plan for All Diagnoses:: Acute on chronic HFpEF - SOA, ProBNP 2k, CHF vs Pna on CXR - symptoms improving post 1.5L diuresis - ECHO 09/2024 - normal bi-v function, no valve dz - will repeat 2D ECHO here - add SGLT-2, consider Kerendia Acute on Chronic Hypoxic Respiratory Failure with possible PNA - plans per Hospitalist - consider Pulm consult CKD-III/IV - baseline Cr around 2.2 for the past year - resume Farxiga - consider adding Kerendia (address outpatient) - check status of Nephrology evaluation. 02/21: Pt is CV stable for DC. She needs close f/u with our office in 1-2 weeks. She needs outpatient Nephrolgy f/u. Avoid salt.
--- NOTE | 2025-02-22 14:17 | CARE MANAGER ---
Spoke with patient related to hospital discharge. She is aware of medication changes and follow up appointments. Denies questions or concerns.
== END 2025-02-21 12:30 | disposition home or self-care (01) ==
LOC: ER 02-19 02:04 → 2ND 02-20 00:30 → ICU 02-21 12:57
PROVIDERS: Nurse Practitioner Acute Care; Admitting Provider Student in an Organized Health Care Education/Training Program; Emergency Provider Emergency Medicine; PCP Family Medicine; Visit Provider Student in an Organized Health Care Education/Training Program
DX: I13.0 Hypertensive heart and chronic kidney disease with heart failure and stage 1 through stage 4 chronic kidney disease, or unspecified chronic kidney disease (principal); I50.33 Acute on chronic diastolic (congestive) heart failure; N18.4 Chronic kidney disease, stage 4 (severe); J96.21 Acute and chronic respiratory failure with hypoxia; Z86.73 Personal history of transient ischemic attack (TIA), and cerebral infarction without residual deficits; E03.9 Hypothyroidism, unspecified; E78.5 Hyperlipidemia, unspecified; Z98.51 Tubal ligation status; Z79.890 Hormone replacement therapy; Z79.899 Other long term (current) drug therapy; Z79.82 Long term (current) use of aspirin; Z79.84 Long term (current) use of oral hypoglycemic drugs; Z99.81 Dependence on supplemental oxygen; I21.A1 Myocardial infarction type 2; E87.6 Hypokalemia; D64.9 Anemia, unspecified; E11.69 Type 2 diabetes mellitus with other specified complication; Z82.49 Family history of ischemic heart disease and other diseases of the circulatory system; J44.9 Chronic obstructive pulmonary disease, unspecified; R00.0 Tachycardia, unspecified; I49.3 Ventricular premature depolarization; J98.11 Atelectasis; J90 Pleural effusion, not elsewhere classified
CPT/HCPCS: 0223U; 36415; 71045; 80053; 80061; 82803; 82962; 83036; 83735; 83880; 84439; 84443; 84484; 85025; 85378; 85610; 86803; 87389; 93005; 93306; 93308; 94660; 99285; G0378; J1650; J1939

== ENCOUNTER 2025-03-25 14:14 | Observation (INO) | payer MEDICARE, SELFPAY ==
[2025-03-25] VITALS (9 sets, daily range): BP systolic 140–180; BP diastolic 58–77; PULSE 94–104; RESP 16–25; TEMP 36.6–37.1; O2SAT 93–98; BMI 29.5
--- NOTE | 2025-03-25 14:40 | XR_ITS ---
PROCEDURE INFORMATION: Exam: XR Chest Exam date and time: 03/25/2025 2:46 PM Age: 79 years old Clinical indication: Shortness of breath; Additional info: russell MELARA TECHNIQUE: Imaging protocol: Radiologic exam of the chest. Views: 2 views. COMPARISON: CR XR CHEST PORTABLE 02/19/2025 12:09 AM FINDINGS: Tubes, catheters and devices: EKG leads. Lungs: Calcified right mid lung field granuloma. Mild pulmonary interstitial changes. No consolidation. Pleural spaces: Small pleural effusions. Heart/Mediastinum: Mild-moderate enlargement of the cardiac silhouette. Vasculature: Atherosclerosis. Bones/joints: Osteopenia. Degenerative change of the spine and shoulders. IMPRESSION: 1. Mild pulmonary interstitial changes. No consolidation. 2. Small pleural effusions. 3. Mild-moderate enlargement of the cardiac silhouette. 4. Additional chronic/nonemergent findings as detailed above.
--- NOTE | 2025-03-25 14:43 | ED_ITS ---
<Statement entered by Lonny Singh MD - 03/26/25 11:27> Lonny Singh MD: I was consulted by the EMMA, and we discussed the complexity of the problems being addressed. I approve the treatment and management plan for this patient's care in the emergency department, thus performing a substantive portion of the medical decision making. Patient was ultimately admitted to the hospital medicine service for continued management. Discharge Plan Disposition Patient Disposition: Admitted Discharge ED Provider: Jeromy Prajapati HPI <Bernice Collins ([facility]), BUSINESS EXECUTIVE - Last Filed: 03/25/25 17:19> General Chief Complaint: Shortness of Breath/Dyspnea Stated Complaint: SOA, Heart Rate 103 Time Seen by Provider: 03/25/25 14:40 Mode of Arrival: Wheelchair Source of Information: Patient Description of Symptoms (Recalled from ER Triage Doc. by RN): Patient states that she has been feeling short of breath the last couple of days. Patient states that she saw her wastewater technician Dr. Ferrari on Thursday03/20/25 and he took her off her Farxiga, Amlodipine and decreased her Bumex to once a day. She went back to twice daily on her Bumex on Thursday03/21/25. Patient states she has had to start using oxygen all the time at home at 3L [place]. History of Present Illness HPI narrative: 79-year-old female presents for short of breath for the last 3 to 4 days with midsternal chest heaviness. Patient states she has a history of CHF and cardiology had put her on Farxiga, amlodipine, and Bumex, and when she saw the wastewater technician on 03/20 they took her off the Farxiga, amlodipine and decrease her Bumex to once a day. says she then gained 3 pounds overnight and they went back to twice a day on 03/21. Patient states she uses oxygen at home at night but recently has started using it during the day to due to increased shortness of breath. Related Data Home Medications ?Medication ?Instructions ?Recorded ?Confirmed simvastatin 40 mg tablet 40 mg PO HS 10/10/2303/25/ 5 aspirin 81 mg tablet,delayed 81 mg PO DAILY 10/31/23 1 05/26/24 release insulin glargine 100 unit/mL (3 30 unit SQ DAILY 10/2103/25/25 mL) subcutaneous pen (Lantus Solostar U-100 Insulin) loratadine 10 mg capsule 10 mg PO DAILY 10/21/2402/28 potassium gluconate 595 mg (99 mg) 595 mg PO BID 10/2103/25/25 tablet levothyroxine 50 mcg tablet 50 mcg PO DAILYDM 02/01/25 03/25/25 bumetanide 1 mg tablet 1 mg PO BID 03/25/25 5 Allergies Allergy/AdvReac Type Severity Reaction Status Date / Time No Known Allergies Allergy Verified 03/01/25 09:38 [facility] <Bernice Collins ([facility]), BUSINESS EXECUTIVE - Last Filed: 03/25/25 17:19> [facility] Disclaimer: The information contained in this section may have been updated after the patient was seen, as this information can be updated by other users. Medical History COPD (chronic obstructive pulmonary disease) CKD (chronic kidney disease), stage III CHF (congestive heart failure) Hypothyroid Elevated troponin Weight gain SOB (shortness of breath) CVA (cerebral vascular accident) Diabetes mellitus, type 2 HTN (hypertension) HLD (hyperlipidemia) Surgical History H/O tubal ligation Family History Father Family history of cancer Family history of myocardial infarction Mother Family history of myocardial infarction Sister Family history of myocardial infarction Son Family history of myocardial infarction Social History (Updated 03/25/25 @ 17:06 by Yolie Pavon RN) Smoking Status: Never smoker alcohol intake: never current occupational status: retired Travel in the last 8 weeks?: None Have you lived/traveled outside US in past 30 days?: No Contact w/someone who lives/traveled outside US past 30 days?: No Exposure to someone with infectious disease in past 14 days?: No Do you have a fever (greater than 100.4 F or 38 C)?: No Have you tested positive for COVID-19?: No Exposed to someone with COVID-19 in past 14 days?: No Do you have a sore throat?: No Do you have a cough?: No Do you have any weakness?: No Are you experiencing any nausea/vomitting?: No Do you have any diarrhea?: No Are you experiencing any unusual bleeding?: No Do you have any muscle aches/pain?: No Do you have any abdominal pain?: No Are you experiencing loss of taste or smell?: No Other Medical History Have you received the Flu Vaccine for this season: No Have you received the Pneumonia Vaccine: No <Roxysemaj ashley ([facility]), BUSINESS EXECUTIVE - Last Filed: 03/25/25 17:19> ROS Obtained: Yes Systems reviewed as appropriate & no additional complaints except as documented Cardiovascular Cardiovascular: Reports system reviewed and no additional complaints, except as documented, Reports as per HPI, Reports dyspnea, Reports dyspnea on exertion and Reports other (Chest tightness) Respiratory Respiratory: Reports system reviewed and no additional complaints, except as documented, Reports as per HPI, Reports dyspnea and Reports dyspnea on exertion Physical Exam <Roxysemaj ashley ([facility], BUSINESS EXECUTIVE - Last Filed: 03/25/25 17:19> General General appearance: alert and in no apparent distress Eye Eye exam: Present normal appearance ENT ENT exam: Present normal exam Respiratory Respiratory exam: Present other Expanded Respiratory Exam Location: Left: decreased breath sounds, Right: decreased breath sounds and Lower: decreased breath sounds Cardiovascular Cardiovascular exam: Present regular rate and normal rhythm Neurological Exam Neurological exam: Present alert and oriented X3 Skin Skin exam: Present warm HEART Score <Roxysemaj ashley ([facility]), BUSINESS EXECUTIVE - Last Filed: 03/25/25 17:19> HEART Score HEART Score assessment performed?: Yes History (anamnesis): Slightly suspicious ECG: Normal Age: >65 years Risk factors: 1-2 risk factors Troponin: </= normal limit HEART Score: 3 Critical Care <Roxysemaj ashley ([facility]), BUSINESS EXECUTIVE - Last Filed: 03/25/25 17:19> Critical Care Time Critical Care Time: No Medical Decision Making <Roxysemaj ashley ([facility]), BUSINESS EXECUTIVE - Last Filed: 03/25/25 17:19> Medical Records Medical records reviewed: Yes I reviewed the patient's medical records. Nicola Inquiry Pt receiving controlled substance: No Vital Signs Vital Signs: 03/25/25 14:30 03/25/25 15:10 03/25/25 15:30 Temperature 98.7 F Temperature Source Oral Pulse Rate 104 H 96 H Pulse Rate [Right Brachial] 101 H Respiratory Rate 16 25 H 22 Blood Pressure 174/73 H 162/65 H Blood Pressure [Right Arm] 162/72 H Blood Pressure Mean 138 102 Blood Pressure Mean [Right Arm] 102 Blood Pressure Source [Right Arm] Automatic Cuff Blood Pressure Position [Right Arm] Sitting 02 Sat by Pulse Oximetry 94 L 95 95 Oxygen Delivery Method Nasal Cannula Nasal Cannula Nasal Cannula Oxygen Flow Rate (LPM) 3 2 2 03/25/25 16:11 03/25/25 16:30 03/25/25 17:14 Temperature 98 F Temperature Source Pulse Rate 95 H 95 H Pulse Rate [Right Brachial] Respiratory Rate 21 20 Blood Pressure 175/72 H 180/77 H Blood Pressure [Right Arm] Blood Pressure Mean Blood Pressure Mean [Right Arm] Blood Pressure Source [Right Arm] Blood Pressure Position [Right Arm] 02 Sat by Pulse Oximetry 95 94 L Oxygen Delivery Method Nasal Cannula Room Air Oxygen Flow Rate (LPM) Lab Data Lab results reviewed: Yes I reviewed the patient's lab results. Labs: Lab Results 03/25/25 14:50: WBC 7.6, RBC 3.72 L, Hgb 10.2 L, Hct 31.8 L, MCV 85.5, MCH 27.4, MCHC 32.1, RDW 15.1, Plt Count 247, MPV 9.2, Neut % (Auto) 78.7, Lymph % (Auto) 13.5, [place] % (Auto) 6.6, Eos % (Auto) 0.4, Baso % (Auto) 0.5, Neut # (Auto) 5.9, Lymph # (Auto) 1.0, [place] # (Auto) 0.5, Eos # (Auto) 0.0, Baso # (Auto) 0.0, D- Dimer 0.78 H, Sodium 136, Potassium 3.1 L, Chloride 95 L, Carbon Dioxide 30, Anion Gap 14.1, BUN 47 H, Creatinine 2.50 H, Estimated Creat Clear 19, Estimated GFR 19 L*, Est GFR ( Amer) 22 L, Glucose 178 H, Calcium 9.0, Total Bilirubin 0.9, AST 31, ALT 21, Alkaline Phosphatase 76, Troponin I 0.05 H, N T-Pro-B Natriuret Pep 5100 H, Total Protein 7.4, Albumin 4.2, Globulin 3.2, Albumin/Globulin Ratio 1.3 03/25/25 14:50 03/25/25 14:50 Response Orders (Tests/Meds): ED MEDICATIONS Discontinued Medications Generic Name Dose Route Start Last Admin Trade Name Freq PRN Reason Stop Dose Admin Bumetanide 1 mg 03/25/25 14:47 03/25/25 15:09 Bumetanide 1mg/4ml Vial IV 03/25/25 14:48 1 mg ONCE ONE Administration ORDERS Category Date Time Status CT chest wo con Stat Cat Scan 03/25/25 15:30 Taken Chest XR 2 view (NOT portable) [XR chest 2V] Stat Exams 03/25/25 14:40 Completed CBC w/Auto Diff [Complete Blood Count Auto Diff] Stat Lab 03/25/25 14:50 Completed CMP [Comprehensive Metabolic Panel] Stat Lab 03/25/25 14:50 Completed D-Dimer Stat Lab 03/25/25 14:50 Completed NT Pro Brain Natriuretic Pep. Stat Lab 03/25/25 14:50 Completed Trop I [Troponin I] Stat Lab 03/25/25 14:50 Completed Troponin I Q3H Lab 03/25/25 17:45 Ordered Troponin I Q3H Lab 03/25/25 20:45 Ordered MDM Narrative Medical Decision Narrative: In summary patient is a 79-year-old female who presents to the emergency department for evaluation of increased shortness of breath and chest heaviness for 3 to 4 days with increased need for oxygen. Patient is hemodynamically stable upon arrival, afebrile. Decreased lung sounds. Differential diagnosis includes pulmonary edema, pleural effusions, congestive heart failure, [place] and pneumonia. Initial workup will be conducted with labs elevated creatinine which is at patient's baseline, low potassium, BNP elevated, chest x-ray shows bilateral pleural effusion. Initial inventions include 1 mg Bumex, oxygen. Initial workup reviewed by [place] labs as stated. Upon repeat evaluation patient laying in bed still having shortness of breath with O2 on. 250 cc out with 1 mg of Bumex. Given this patient is appropriate for admissions for fluid overload but also has stage III kidney failure so diuresing will need to be closely monitored. Spoke with hospitalist agreed for admission Jeromy Prajapati MD: I was consulted by the EMMA, and we discussed the complexity of the problems being addressed. I approved the treatment and management plan for this patient's care in the emergency department, thus performing a substantive portion of the medical decision making. I agree with initial workup and interventions patient has shortness of breath and chest discomfort with chronic troponin anemia slightly worsening BNP chronic CKD and elevated D-dimer. Additional diagnostic imaging will be obtained at this time. 1 mg Bumex administered prior to transfer of care to the oncoming physician, Dr. Singh. <Jeromy Prajapati MD - Last Filed: 03/25/25 15:50> Vital Signs Vital Signs: 03/25/25 14:30 03/25/25 15:10 03/25/25 15:30 Temperature 98.7 F Temperature Source Oral Pulse Rate 104 H 96 H Pulse Rate [Right Brachial] 101 H Respiratory Rate 16 25 H 22 Blood Pressure 174/73 H 162/65 H Blood Pressure [Right Arm] 162/72 H Blood Pressure Mean 138 102 Blood Pressure Mean [Right Arm] 102 Blood Pressure Source [Right Arm] Automatic Cuff Blood Pressure Position [Right Arm] Sitting 02 Sat by Pulse Oximetry 94 L 95 95 Oxygen Delivery Method Nasal Cannula Nasal Cannula Nasal Cannula Oxygen Flow Rate (LPM) 3 2 2 03/25/25 16:11 03/25/25 16:30 03/25/25 17:14 Temperature 98 F Temperature Source Pulse Rate 95 H 95 H Pulse Rate [Right Brachial] Respiratory Rate 21 20 Blood Pressure 175/72 H 180/77 H Blood Pressure [Right Arm] Blood Pressure Mean Blood Pressure Mean [Right Arm] Blood Pressure Source [Right Arm] Blood Pressure Position [Right Arm] 02 Sat by Pulse Oximetry 95 94 L Oxygen Delivery Method Nasal Cannula Room Air Oxygen Flow Rate (LPM) Lab Data Labs: Lab Results 03/25/25 14:50: WBC 7.6, RBC 3.72 L, Hgb 10.2 L, Hct 31.8 L, MCV 85.5, MCH 27.4, MCHC 32.1, RDW 15.1, Plt Count 247, MPV 9.2, Neut % (Auto) 78.7, Lymph % (Auto) 13.5, [place] % (Auto) 6.6, Eos % (Auto) 0.4, Baso % (Auto) 0.5, Neut # (Auto) 5.9, Lymph # (Auto) 1.0, [place] # (Auto) 0.5, Eos # (Auto) 0.0, Baso # (Auto) 0.0, D- Dimer 0.78 H, Sodium 136, Potassium 3.1 L, Chloride 95 L, Carbon Dioxide 30, Anion Gap 14.1, BUN 47 H, Creatinine 2.50 H, Estimated Creat Clear 19, Estimated GFR 19 L*, Est GFR ( Amer) 22 L, Glucose 178 H, Calcium 9.0, Total Bilirubin 0.9, AST 31, ALT 21, Alkaline Phosphatase 76, Troponin I 0.05 H, N T-Pro-B Natriuret Pep 5100 H, Total Protein 7.4, Albumin 4.2, Globulin 3.2, Albumin/Globulin Ratio 1.3 Response Orders (Tests/Meds): ED MEDICATIONS Discontinued Medications Generic Name Dose Route Start Last Admin Trade Name Freq PRN Reason Stop Dose Admin Bumetanide 1 mg 03/25/25 14:47 03/25/25 15:09 Bumetanide 1mg/4ml Vial IV 03/25/25 14:48 1 mg ONCE ONE Administration ORDERS Category Date Time Status CT chest wo con Stat Cat Scan 03/25/25 15:30 Taken Chest XR 2 view (NOT portable) [XR chest 2V] Stat Exams 03/25/25 14:40 Completed CBC w/Auto Diff [Complete Blood Count Auto Diff] Stat Lab 03/25/25 14:50 Completed CMP [Comprehensive Metabolic Panel] Stat Lab 03/25/25 14:50 Completed D-Dimer Stat Lab 03/25/25 14:50 Completed NT Pro Brain Natriuretic Pep. Stat Lab 03/25/25 14:50 Completed Trop I [Troponin I] Stat Lab 03/25/25 14:50 Completed Troponin I Q3H Lab 03/25/25 17:45 Ordered Troponin I Q3H Lab 03/25/25 20:45 Ordered ECG Data Tracing #1: ECG Narrative: Independently interpreted by me rate is 97, rhythm is regular, axis is normal, no ST elevation in anatomical contiguous leads, QTc 346. MDM Narrative Medical Decision Narrative: Jeromy Prajapati MD: I was consulted by the EMMA, and we discussed the complexity of the problems being addressed. I approved the treatment and management plan for this patient's care in the emergency department, thus performing a substantive portion of the medical decision making. I agree with initial workup and interventions patient has shortness of breath and chest discomfort with chronic troponin anemia slightly worsening BNP chronic CKD and elevated D-dimer. Additional diagnostic imaging will be obtained at this time. 1 mg Bumex administered prior to transfer of care to the oncoming physician, Dr. Singh.
[2025-03-25 15:03] LABS: Hematocrit 31.8 % (37.0-47.0); Hemoglobin 10.2 g/dL (12.2-16.2); Immature Granulocytes % 0.3 %; Mean Corpuscular HGB Conc 32.1 g/dL (31.8-35.4); Mean Corpuscular Hemoglobin 27.4 pg (27.0-31.2); Mean Corpuscular Volume 85.5 fl (81-99); Nucleated Red Blood Cells % 0 %; Platelet Count 247 K/mm3 (142-424); Red Blood Count 3.72 M/mm3 (4.20-5.40); Red Cell Distribution Width-SD 47.4 fL; White Blood Count 7.6 K/mm3 (4.8-10.8)
[2025-03-25 15:09] LABS: Alanine Aminotransferase 21 U/L (12-78); Albumin Level 4.2 g/dl (3.5-5.0); Albumin/Globulin Ratio 1.3 (1.1-1.8); Alkaline Phosphatase 76 U/L (38-126); Anion Gap 14.1 mEq/L (5-15); Aspartate Amino Transferase 31 U/L (14-36); Bilirubin,Total 0.9 mg/dl (0.2-1.3); Blood Urea Nitrogen 47 mg/dl (7-17); Calcium 9.0 mg/dl (8.4-10.2); Carbon Dioxide 30 mmol/L (22.0-30.0); Chloride 95 mmol/L (98-107); Creatinine Clearance Estimated 19 mL/min (50-200); Creatinine,Serum 2.50 mg/dl (0.52-1.04); Estimated Glomerular Filt Rate 19 ml/min (>60); GFR (African American) 22 ML/MIN (>60); Globulin 3.2 g/dL (1.3-3.2); Glucose 178 mg/dl (74-100); Potassium 3.1 mmoL/L (3.5-5.1); Sodium 136 mmol/L (136-145); Total Protein,Serum 7.4 g/dl (6.3-8.2)
[2025-03-25] MEDS: BUMETANIDE 1MG/4ML VIAL 1 MG IV (15:09)
[2025-03-25 15:14] LABS: D-Dimer 0.78 ug/mL (0.0-0.5)
[2025-03-25 15:21] LABS: NT Pro Brain Natriuretic Pep. 5100 pg/mL (0-450); Troponin I 0.05 ng/ml (0.00-0.034)
--- NOTE | 2025-03-25 15:30 | CT_ITS ---
PROCEDURE INFORMATION: Exam: CT Chest Without Contrast; Diagnostic Exam date and time: 03/25/2025 4:00 PM Age: 79 years old Clinical indication: Shortness of breath; Additional info: SOA TECHNIQUE: Imaging protocol: Diagnostic computed tomography of the chest without contrast. Radiation optimization: All CT scans at this facility use at least one of these dose optimization techniques: automated exposure control; mA and/or kV adjustment per patient size (includes targeted exams where dose is matched to clinical indication); or iterative reconstruction. COMPARISON: CT ANGIO CHEST PE PROTOCOL 11/02/2023 3:42 PM FINDINGS: Thyroid: The thyroid gland is normal. Lungs: There are a few punctate pulmonary parenchymal calcifications consistent with remote granulomatous organism exposure. Mild streaky bibasilar streaky opacities suggest atelectasis or parenchymal scarring. Minor dependent posteroinferior bibasilar opacities are consistent with atelectasis, edema, or pneumonia. Pleural spaces: There are small bilateral pleural effusions. There is no evidence of pneumothorax. Heart: There is a moderate pericardial fluid collection present. The heart is mildly enlarged. There is calcification of the mitral valve annulus. Coronary arteries: There is severe atherosclerotic calcification of the coronary arteries. Lymph nodes: Calcified hilar and mediastinal lymph nodes indicate prior granulomatous disease. Vasculature: There is no evidence of an aortic aneurysm. There is enlargement of the main pulmonary artery measuring 3.3 cm suggesting pulmonary arterial hypertension. Gallbladder and biliary ducts: A few calcified gallstones are present involving the visualized portions of the gallbladder. Bones/joints: The thoracic spine demonstrates moderate degenerative changes at multiple levels. There is prominent accentuation of thoracic kyphosis. Moderate compression fracture involving a lower thoracic vertebral body is stable dating back to 01/02/2024 and consistent with chronic process. There is a fracture involving the proximal right humeral neck which was present on 11/10/2023. Moderate degenerative changes involving the right shoulder. Mild degenerative changes about the left shoulder. Soft tissues: No significant soft tissue edema. Other findings: Evaluation is limited by the lack of intravenous contrast. IMPRESSION: 1. Study quality limited due to lack of intravenous contrast. 2. Small bilateral pleural effusions. 3. Minor dependent posteroinferior bibasilar opacities consistent with atelectasis, edema, or pneumonia. 4. Moderate pericardial effusion and mild cardiomegaly. 5. Prominent coronary arterial disease. 6. Cholelithiasis.
--- NOTE | 2025-03-25 15:41 | ECG_ITS ---
APPROVED REPORT Exam: Resting ECG HR:97 bpm ECG Measurements Heart Rate 97 AXES WA 176 P 34 QRSd 75 QRS -14 QT 291 T 122 QTc 346 Conclusion SINUS RHYTHM WITH OCCASIONAL VENTRICULAR PREMATURE COMPLEXES POSSIBLE LEFT ATRIAL ENLARGEMENT [-0.1mV P-WAVE IN V1/V2] ANTEROSEPTAL MYOCARDIAL INFARCTION , PROBABLY OLD [40+ ms Q WAVE IN V1-V4] No STEMI Electronically signed by : OMEGA DANG, 03/26/2025 07:14:40
--- NOTE | 2025-03-25 16:42 | PC.NURSE ---
garage supervisor contacted for bed.
--- NOTE | 2025-03-25 17:37 | EXP.HP ---
History of Present Illness *Admission Date: 03/25/25 *Reason for visit:: Shortness of breath *History of present illness: Celina Matos is a 79-year-old female with a medical history significant for HFpEF on 3 L at night, CKD stage IV who presents with progressive shortness of breath over the past week. Patient was recently discharged from facility for similar presentation of HFpEF exacerbation. She was discharged with Bumex 2 mg. This past Thursday, she followed up with nephrology who recommended reducing Bumex to 1 mg daily and discontinued Farxiga due to worsening renal function. Reportedly her creatinine was 2.8, baseline around 2.4. Patient states over the next day, she gained 3 pounds and since then she has had progressive shortness of breath. Denies significant lower extremity edema, cough. Denies fever/chills, chest pain. Workup in the ED significant for creatinine 2.5, GFR 19, troponin 0.05, BNP 5100 CT chest revealing small bilateral pleural effusions, bibasilar opacities, moderate pericardial effusion and mild cardiomegaly. She was given IV Bumex 1 mg. Given patient's presentation, ED provider discussed case with me and I decided to admit patient for further evaluation management. [facility] Disclaimer: The information contained in this section may have been updated after the patient was seen, as this information can be updated by other users. Medical History (Updated 03/25/25 @ 17:26 by Pascale Velázquez RN) COPD (chronic obstructive pulmonary disease) CKD (chronic kidney disease), stage III CHF (congestive heart failure) Hypothyroid Elevated troponin Weight gain SOB (shortness of breath) CVA (cerebral vascular accident) Diabetes mellitus, type 2 HTN (hypertension) HLD (hyperlipidemia) Surgical History H/O tubal ligation Family History Father Family history of cancer Family history of myocardial infarction Mother Family history of myocardial infarction Sister Family history of myocardial infarction Son Family history of myocardial infarction Social History (Updated 03/25/25 @ 17:06 by Yolie Pavon, PASCALE) Smoking Status: Never smoker alcohol intake: never current occupational status: retired Travel in the last 8 weeks?: None Have you lived/traveled outside [place] in past 30 days?: No Contact w/someone who lives/traveled outside [place] past 30 days?: No Exposure to someone with infectious disease in past 14 days?: No Do you have a fever (greater than 100.4 F or 38 C)?: No Have you tested positive for COVID-19?: No Exposed to someone with COVID-19 in past 14 days?: No Do you have a sore throat?: No Do you have a cough?: No Do you have any weakness?: No Are you experiencing any nausea/vomitting?: No Do you have any diarrhea?: No Are you experiencing any unusual bleeding?: No Do you have any muscle aches/pain?: No Do you have any abdominal pain?: No Are you experiencing loss of taste or smell?: No Other Medical History Have you received the Flu Vaccine for this season: No Have you received the Pneumonia Vaccine: No Meds Home Medications and Allergies Home Medications ?Medication ?Instructions ?Recorded ?Confirmed ?Type simvastatin 40 mg tablet 40 mg PO HS 10/10/23 03/25/25 History aspirin 81 mg tablet,delayed 81 mg PO DAILY 10/31/23 03/25/25 History release insulin glargine 100 unit/mL (3 30 unit SQ DAILY 10/21/24 03/25/25 History mL) subcutaneous pen (Lantus Solostar U-100 Insulin) loratadine 10 mg capsule 10 mg PO DAILY 10/21/24 03/25/25 History potassium gluconate 595 mg (99 mg) 595 mg PO BID 10/21/24 03/25/25 History tablet levothyroxine 50 mcg tablet 50 mcg PO DAILYDM 02/01/25 03/25/25 History bumetanide 1 mg tablet 1 mg PO BID 03/25/25 03/25/25 History New Prescriptions to Start Prescriptions: Allergies Allergy/AdvReac Type Severity Reaction Status Date / Time No Known Allergies Allergy Verified 03/01/25 09:38 Exam Data for Last 24 hours Vital signs and Labs for Last 24 Hours: Temp Pulse Resp BP Pulse Ox O2 Del Method O2 Flow Rate 98 F 95 H 20 180/77 H 94 L Room Air 2 03/25/25 17:14 03/25/25 17:14 03/25/25 17:14 03/25/25 17:14 03/25/25 16:30 03/25/25 17:14 03/25/25 15:30 Laboratory Results - last 24 hr 03/25/25 14:50: WBC 7.6, RBC 3.72 L, Hgb 10.2 L, Hct 31.8 L, MCV 85.5, MCH 27.4, MCHC 32.1, RDW 15.1, Plt Count 247, MPV 9.2, Neut % (Auto) 78.7, Lymph % (Auto) 13.5, [place] % (Auto) 6.6, Eos % (Auto) 0.4, Baso % (Auto) 0.5, Neut # (Auto) 5.9, Lymph # (Auto) 1.0, [place] # (Auto) 0.5, Eos # (Auto) 0.0, Baso # (Auto) 0.0, D-Dimer 0.78 H, Sodium 136, Potassium 3.1 L, Chloride 95 L, Carbon Dioxide 30, Anion Gap 14.1, BUN 47 H, Creatinine 2.50 H, Estimated Creat Clear 19, Estimated GFR 19 L*, Est GFR ( Amer) 22 L, Glucose 178 H, Calcium 9.0, Total Bilirubin 0.9, AST 31, ALT 21, Alkaline Phosphatase 76, Troponin I 0.05 H, NT-Pro-B Natriuret Pep 5100 H, Total Protein 7.4, Albumin 4.2, Globulin 3.2, Albumin/Globulin Ratio 1.3 I & O for Last 24 hours: Intake & Output 03/22/25 03/23/25 03/24/25 03/25/25 23:59 23:59 23:59 23:59 Weight 66.224 kg Constitutional Constitutional: no acute distress *Routine HEENT Exam Head: Present normocephalic Eye: Present EOMI and PERRL ENT: Present mucous membranes moist *Routine Neck Exam Neck: Present supple; Absent lymphadenopathy *Routine Respiratory Exam Respiratory: Present CTA bilaterally and crackles *Routine Cardiovascular Exam Cardiovascular: Present RRR *Routine Abdominal Exam Abdominal: Present soft and normoactive bowel sounds; Absent tenderness *Routine Rectal Exam Rectal:: deferred *Routine Genitalia Exam Genitalia:: deferred *Routine Extremities Exam Extremities: Present edema; Absent cyanosis or clubbing *Routine Skin Exam Skin: Present warm; Absent rash *Routine Neurological Exam Neurological: Present alert and oriented X3 Assessment and Plan *Assessment and plan (1) Hypothyroidism: Status: Acute Category: Medical Code(s): E03.9 - Hypothyroidism, unspecified (2) Acute hypoxic respiratory failure: Status: Acute Category: Medical Code(s): J96.01 - Acute respiratory failure with hypoxia (3) (HFpEF) heart failure with preserved ejection fraction: Status: Acute Category: Medical Code(s): I50.30 - Unspecified diastolic (congestive) heart failure (4) CKD (chronic kidney disease), stage IV: Status: Acute Category: Medical Code(s): N18.4 - Chronic kidney disease, stage 4 (severe) Plan Celina Matos is a 79-year-old female with a medical history significant for HFpEF on 3 L at night, CKD stage IV who presents with progressive shortness of breath over the past week. Patient was recently discharged from facility for similar presentation of HFpEF exacerbation. She was discharged with Bumex 2 mg. This past Thursday, she followed up with nephrology who recommended reducing Bumex to 1 mg daily and discontinued Farxiga due to worsening renal function. Reportedly her creatinine was 2.8, baseline around 2.4. Patient states over the next day, she gained 3 pounds and since then she has had progressive shortness of breath. Denies significant lower extremity edema, cough. Denies fever/chills, chest pain. Workup in the ED significant for creatinine 2.5, GFR 19, troponin 0.05, BNP 5100 CT chest revealing small bilateral pleural effusions, bibasilar opacities, moderate pericardial effusion and mild cardiomegaly. She was given IV Bumex 1 mg. Given patient's presentation, ED provider discussed case with me and I decided to admit patient for further evaluation management. #Acute hypoxic respiratory failure #HFpEF exacerbation #NSTEMI type II #CKD stage IV #Hypokalemia #Pericardial effusion ? Presented with progressive shortness of breath, pulmonary edema, initial BNP 63306 with acute hypoxia initially baseline 3 L at night. 3 L. ? Troponins plateaued at 0.05, denies chest pain. EKG without acute ischemic changes. Likely demand ischemia from acute FF. ? Nephrology recently decreased dose of Bumex from 2 mg to 1 mg, discontinued Farxiga on 03/20/2025. Patient states she was advised to double up on her Bumex at home by cardiology yesterday, which has not been efficacious shortness of breath. ? Creatinine 2.5, GFR 19. ? Continue with IV Bumex to 1 mg twice daily. No spironolactone MRA due to advanced CKD. ? Known pericardial effusion on CTA chest, and ECHO on 02/20/2025. LVEF 55% at that time. ? Follow-up urine output, morning CMP. #Type 2 diabetes ? Hemoglobin A1c 7.1%. Continue Lantus 20 units nightly, LDSSI, ACHS glucose checks. #Hypothyroidism ? Continue home levothyroxine 50 mcg. Has been intermittently noncompliant as she and her believe medications can cause side effects. TFT stable. #Hypertension ? Continue hydralazine 25 mg 3 times daily. Avoiding DESTINY/ARB/HCTZ due to CKD and beta-blockers due to advanced age. #Normocytic anemia ? Hemoglobin 9.0, MCV normal. Stable. Likely anemia of chronic disease from CKD. #Obesity ? Complicates all aspects of care. Full code DVT prophylaxis: Lovenox 30 mg
[2025-03-25 18:25] LABS: Troponin I 0.05 ng/ml (0.00-0.034)
[2025-03-25] MEDS: PRAVASTATIN 40MG TAB 80 MG PO (20:03)
[2025-03-25 20:12] LABS: POC Glucose,Bedside 277 gm/dL (70-110)
[2025-03-25] MEDS: humaLOG 100 UNITS/ML 10ML VIAL (SSI) SUBCUT (20:19)
[2025-03-25] MEDS: POTASSIUM CHLORIDE 20MEQ TAB 40 MEQ PO ×2 (20:40→23:43)
[2025-03-25 21:27] LABS: Troponin I 0.05 ng/ml (0.00-0.034)
[2025-03-26] VITALS (8 sets, daily range): BP systolic 137–155; BP diastolic 50–70; PULSE 73–90; RESP 16–18; TEMP 36.7–37.3; O2SAT 94–97; BMI 29.8
--- NOTE | 2025-03-26 02:36 | PC.NURSE ---
Aox 4, up with assistance times one with walker, 02-2L nc, fsgb achs, purewick in place, lovenox for vte, 20g R AC SL.
[2025-03-26] MEDS: POTASSIUM CHLORIDE 20MEQ TAB 40 MEQ PO (04:57)
[2025-03-26] MEDS: LEVOTHYROXINE 50MCG (0.05MG) TAB 50 MCG PO (04:58)
[2025-03-26 06:26] LABS: POC Glucose,Bedside 70 gm/dL (70-110)
[2025-03-26 07:38] LABS: Hematocrit 29.1 % (37.0-47.0); Immature Granulocytes % 0.4 %; Mean Corpuscular HGB Conc 30.6 g/dL (31.8-35.4); Mean Corpuscular Hemoglobin 26.6 pg (27.0-31.2); Mean Corpuscular Volume 87.1 fl (81-99); Nucleated Red Blood Cells % 0 %; Platelet Count 223 K/mm3 (142-424); Red Blood Count 3.34 M/mm3 (4.20-5.40); Red Cell Distribution Width-SD 48.3 fL; White Blood Count 5.6 K/mm3 (4.8-10.8)
[2025-03-26 07:42] LABS: Albumin Level 3.7 g/dl (3.5-5.0); Chloride 100 mmol/L (98-107); Potassium 4.1 mmoL/L (3.5-5.1); Sodium 136 mmol/L (136-145)
[2025-03-26 07:45] LABS: Alanine Aminotransferase 18 U/L (12-78); Albumin/Globulin Ratio 1.3 (1.1-1.8); Alkaline Phosphatase 69 U/L (38-126); Anion Gap 10.1 mEq/L (5-15); Aspartate Amino Transferase 31 U/L (14-36); Bilirubin,Total 0.5 mg/dl (0.2-1.3); Blood Urea Nitrogen 45 mg/dl (7-17); Calcium 9.1 mg/dl (8.4-10.2); Carbon Dioxide 30 mmol/L (22.0-30.0); Creatinine Clearance Estimated 18 mL/min (50-200); Creatinine,Serum 2.70 mg/dl (0.52-1.04); Estimated Glomerular Filt Rate 17 ml/min (>60); GFR (African American) 21 ML/MIN (>60); Globulin 2.9 g/dL (1.3-3.2); Glucose 61 mg/dl (74-100); Magnesium 2.8 mg/dl (1.6-2.3); Total Protein,Serum 6.6 g/dl (6.3-8.2)
[2025-03-26 07:54] LABS: Hemoglobin 8.9 g/dL (12.2-16.2)
[2025-03-26] MEDS: ASPIRIN EC 81MG TABLET 81 MG PO (08:46)
[2025-03-26] MEDS: BUMETANIDE 1MG/4ML VIAL 0.5 MG IV (08:48)
[2025-03-26] MEDS: INSULIN GLARGINE 100 UNITS/ML 3ML FLEXPEN 20 UNIT SUBCUT (08:52)
[2025-03-26 09:08] LABS: POC Glucose,Bedside 254 gm/dL (70-110)
--- NOTE | 2025-03-26 09:16 | HMH.PHAINT1 ---
Pharmacy Intervention Comments: MEDICATION RECONCILIATION COMPLETED ON PATIENT USING EXTERNAL FILL HISTORY FROM PHARMACY, LIST FROM CARDIOLOGY OFFICE, AND DISCHARGE SUMMARY FROM PREVIOUS ADMISSION. -BONNIE NAVARRETE, PHARMD
[2025-03-26 12:09] LABS: POC Glucose,Bedside 141 gm/dL (70-110)
--- NOTE | 2025-03-26 14:46 | P.PN_ITS ---
Subjective *Date: 03/26/25 *Time: 14:46 Interval history: Patient feeling better, breathing easier today. Continues to require 2 L nasal cannula. Will benefit of inpatient IV diuresis given advanced CKD, risk of decompensation. Follow-up cardiology recommendations tomorrow. Exam Data for Last 24 hours Vital signs and Labs for Last 24 Hours: Temp Pulse Resp BP Pulse Ox O2 Del Method O2 Flow Rate 98.5 F 83 18 154/61 H 94 L Nasal Cannula 2 03/26/25 12:00 03/26/25 12:00 03/26/25 12:00 03/26/25 12:00 03/26/25 12:00 03/26/25 12:32 03/26/25 12:32 Laboratory Results - last 24 hr 03/25/25 14:50: WBC 7.6, RBC 3.72 L, Hgb 10.2 L, Hct 31.8 L, MCV 85.5, MCH 27.4, MCHC 32.1, RDW 15.1, Plt Count 247, MPV 9.2, Neut % (Auto) 78.7, Lymph % (Auto) 13.5, [place] % (Auto) 6.6, Eos % (Auto) 0.4, Baso % (Auto) 0.5, Neut # (Auto) 5.9, Lymph # (Auto) 1.0, [place] # (Auto) 0.5, Eos # (Auto) 0.0, Baso # (Auto) 0.0, D- Dimer 0.78 H, Sodium 136, Potassium 3.1 L, Chloride 95 L, Carbon Dioxide 30, Anion Gap 14.1, BUN 47 H, Creatinine 2.50 H, Estimated Creat Clear 19, Estimated GFR 19 L*, Est GFR ( Amer) 22 L, Glucose 178 H, Calcium 9.0, Total Bilirubin 0.9, AST 31, ALT 21, Alkaline Phosphatase 76, Troponin I 0.05 H, NT-Pro-B Natriuret Pep 5100 H, Total Protein 7.4, Albumin 4.2, Globulin 3.2, Albumin/Globulin Ratio 1.3 03/25/25 17:50: Troponin I 0.05 H 03/25/25 20:04: POC Glucose 277 H 03/25/25 20:47: Troponin I 0.05 H 03/26/25 06:11: POC Glucose 70 03/26/25 06:40: WBC 5.6 D, RBC 3.34 L, Hgb 8.9 L D, Hct 29.1 L, MCV 87.1, MCH 26.6 L, MCHC 30.6 L, RDW 15.1, Plt Count 223, MPV 9.6, Neut % (Auto) 63.4, Lymph % (Auto) 23.2, [place] % (Auto) 10.4 H, Eos % (Auto) 2.1, Baso % (Auto) 0.5, Neut # (Auto) 3.6, Lymph # (Auto) 1.3, [place] # (Auto) 0.6, Eos # (Auto) 0.1, Baso # (Auto) 0.0, Sodium 136, Potassium 4.1 D, Chloride 100, Carbon Dioxide 30, Anion Gap 10.1, BUN 45 H, Creatinine 2.70 H, Estimated Creat Clear 18, Estimated GFR 17 L*, Est GFR ( Amer) 21 L, Glucose 61 L D, Calcium 9.1, Magnesium 2.8 H , Total Bilirubin 0.5, AST 31, ALT 18, Alkaline Phosphatase 69, Total Protein 6.6, Albumin 3.7 D, Globulin 2.9, Albumin/Globulin Ratio 1.3 03/26/25 08:50: POC Glucose 254 H 03/26/25 11:48: POC Glucose 141 H I & O for Last 24 hours: Intake & Output 03/23/25 03/24/25 03/25/25 03/26/25 23:59 23:59 23:59 23:59 Intake Total 720 / 720 Output Total 400 / 475 625 / 625 Balance -400 / -475 95 / 95 Weight 66.224 kg 67.222 kg Constitutional Constitutional: no acute distress, obese and chronically ill appearing *Routine HEENT Exam Head: Present normocephalic Eye: Present EOMI and PERRL ENT: Present mucous membranes moist *Routine Neck Exam Neck: Present supple; Absent lymphadenopathy *Routine Respiratory Exam Respiratory: Present CTA bilaterally *Routine Cardiovascular Exam Cardiovascular: Present RRR *Routine Abdominal Exam Abdominal: Present soft and normoactive bowel sounds; Absent tenderness *Routine Extremities Exam Extremities: Absent cyanosis, clubbing or edema *Routine Skin Exam Skin: Present warm; Absent rash *Routine Neurological Exam Neurological: Present alert and oriented X3 Assessment and Plan *Assessment and plan (1) Hypothyroidism: Status: Acute Category: Medical Code(s): E03.9 - Hypothyroidism, unspecified (2) Acute hypoxic respiratory failure: Status: Acute Category: Medical Code(s): J96.01 - Acute respiratory failure with hypoxia (3) (HFpEF) heart failure with preserved ejection fraction: Status: Acute Category: Medical Code(s): I50.30 - Unspecified diastolic (congestive) heart failure (4) CKD (chronic kidney disease), stage IV: Status: Acute Category: Medical Code(s): N18.4 - Chronic kidney disease, stage 4 (severe) Plan Celina Matos is a 79-year-old female with a medical history significant for HFpEF on 3 L at night, CKD stage IV who presents with progressive shortness of breath over the past week. Patient was recently discharged from facility for similar presentation of HFpEF exacerbation. She was discharged with Bumex 2 mg. This past Thursday, she followed up with nephrology who recommended reducing Bumex to 1 mg daily and discontinued Farxiga due to worsening renal function. Reportedly her creatinine was 2.8, baseline around 2.4. Patient states over the next day, she gained 3 pounds and since then she has had progressive shortness of breath. Denies significant lower extremity edema, cough. Denies fever/chills, chest pain. Workup in the ED significant for creatinine 2.5, GFR 19, troponin 0.05, BNP 5100 CT chest revealing small bilateral pleural effusions, bibasilar opacities, moderate pericardial effusion and mild cardiomegaly. She was given IV Bumex 1 mg. Given patient's presentation, ED provider discussed case with me and I decided to admit patient for further evaluation management. #Acute hypoxic respiratory failure #HFpEF exacerbation #NSTEMI type II #CKD stage IV #Hypokalemia #Pericardial effusion ? Presented with progressive shortness of breath, pulmonary edema, initial BNP 5100 with acute hypoxia requiring 3 L continuously initially, baseline 3 L at night. ? Troponins plateaued at 0.05, denies chest pain. EKG without acute ischemic changes. Likely demand ischemia from acute HFpEF. ? Nephrology recently decreased dose of Bumex from 2 mg to 1 mg, discontinued Farxiga on 03/20/2025. Patient states she was advised to double up on her Bumex at home by cardiology day before admission, which has not been efficacious shortness of breath. ? Today, patient feels better. Breathing easier. Continues to require 2 L continuously. Creatinine bumped slightly from 2.5-2.7, GFR 17. ? Will await final cardiology recommendations tomorrow before discharge. ? Switched to p.o. Bumex 1 mg twice daily from IV. No SGLTi, MRA due to advanced CKD. ? Known pericardial effusion on CTA chest, and ECHO on 02/20/2025. LVEF 55% at that time. ? Follow-up urine output, morning CMP. #Type 2 diabetes ? Hemoglobin A1c 7.1%. Continue Lantus 20 units nightly, LDSSI, ACHS glucose checks. #Hypothyroidism ? Continue home levothyroxine 50 mcg. Has been intermittently noncompliant as she and her believe medications can cause side effects. TFT stable. #Hypertension ? Continue hydralazine 25 mg 3 times daily. Avoiding DESTINY/ARB/HCTZ due to CKD and beta-blockers due to advanced age. #Normocytic anemia ? Hemoglobin 8.9, MCV normal. Stable. Likely anemia of chronic disease from CKD. #Obesity ? Complicates all aspects of care. Full code DVT prophylaxis: Lovenox 30 mg
[2025-03-26] MEDS: humaLOG 100 UNITS/ML 10ML VIAL (SSI) SUBCUT ×2 (16:09→19:39)
[2025-03-26] MEDS: BUMETANIDE 1 MG TABLET PO (16:09)
[2025-03-26 16:19] LABS: POC Glucose,Bedside 199 gm/dL (70-110)
[2025-03-26] MEDS: PRAVASTATIN 40MG TAB 80 MG PO (19:32)
[2025-03-26 19:42] LABS: POC Glucose,Bedside 176 gm/dL (70-110)
[2025-03-27] VITALS: BP 140/63; PULSE 70; PULSE 84; RESP 18; TEMP 36.8; O2SAT 97
[2025-03-27 04:00] VITALS: BP 143/56; PULSE 76; RESP 16; TEMP 36.3; O2SAT 96; BMI 29.8
[2025-03-27] MEDS: LEVOTHYROXINE 50MCG (0.05MG) TAB 50 MCG PO (05:39)
[2025-03-27 05:46] LABS: POC Glucose,Bedside 108 gm/dL (70-110)
[2025-03-27 06:39] LABS: Hematocrit 28.0 % (37.0-47.0); Hemoglobin 8.5 g/dL (12.2-16.2); Immature Granulocytes % 0.2 %; Mean Corpuscular HGB Conc 30.4 g/dL (31.8-35.4); Mean Corpuscular Hemoglobin 26.2 pg (27.0-31.2); Mean Corpuscular Volume 86.4 fl (81-99); Nucleated Red Blood Cells % 0 %; Platelet Count 199 K/mm3 (142-424); Red Blood Count 3.24 M/mm3 (4.20-5.40); Red Cell Distribution Width-SD 46.6 fL; White Blood Count 5.2 K/mm3 (4.8-10.8)
[2025-03-27 06:51] LABS: Albumin Level 3.5 g/dl (3.5-5.0); Chloride 100 mmol/L (98-107); Potassium 3.7 mmoL/L (3.5-5.1); Sodium 134 mmol/L (136-145)
[2025-03-27 06:53] LABS: Alanine Aminotransferase 21 U/L (12-78); Aspartate Amino Transferase 35 U/L (14-36); Bilirubin,Total 0.4 mg/dl (0.2-1.3); Blood Urea Nitrogen 52 mg/dl (7-17); Creatinine Clearance Estimated 18 mL/min (50-200); Creatinine,Serum 2.70 mg/dl (0.52-1.04); Estimated Glomerular Filt Rate 17 ml/min (>60); GFR (African American) 21 ML/MIN (>60)
[2025-03-27 06:54] LABS: Albumin/Globulin Ratio 1.3 (1.1-1.8); Alkaline Phosphatase 65 U/L (38-126); Anion Gap 8.7 mEq/L (5-15); Calcium 8.8 mg/dl (8.4-10.2); Carbon Dioxide 29 mmol/L (22.0-30.0); Globulin 2.8 g/dL (1.3-3.2); Glucose 100 mg/dl (74-100); Magnesium 2.6 mg/dl (1.6-2.3); Total Protein,Serum 6.3 g/dl (6.3-8.2)
[2025-03-27 08:00] VITALS: BP 144/63; PULSE 82; RESP 18; TEMP 36.6; O2SAT 96
[2025-03-27] MEDS: BUMETANIDE 1 MG TABLET PO (08:18)
[2025-03-27] MEDS: ASPIRIN EC 81MG TABLET 81 MG PO (08:18)
[2025-03-27] MEDS: INSULIN GLARGINE 100 UNITS/ML 3ML FLEXPEN 20 UNIT SUBCUT (08:18)
[2025-03-27 08:28] LABS: POC Glucose,Bedside 275 gm/dL (70-110)
[2025-03-27] MEDS: HYDRALAZINE HCL 25MG TABLET 50 MG PO (08:44)
[2025-03-27] MEDS: BUMETANIDE 1 MG TABLET 2 MG PO (08:45)
--- NOTE | 2025-03-27 08:47 | P.DS_ITS ---
General Admission date:: 03/25/25 Discharge date: 03/27/25 HPI HPI HPI: Celina Matos is a 79-year-old female with a medical history significant for HFpEF on 3 L at night, CKD stage IV who presents with progressive shortness of breath over the past week. Patient was recently discharged from facility for similar presentation of HFpEF exacerbation. She was discharged with Bumex 2 mg. This past Thursday, she followed up with nephrology who recommended reducing Bumex to 1 mg daily and discontinued Farxiga due to worsening renal function. Reportedly her creatinine was 2.8, baseline around 2.4. Patient states over the next day, she gained 3 pounds and since then she has had progressive shortness of breath. Denies significant lower extremity edema, cough. Denies fever/chills, chest pain. Workup in the ED significant for creatinine 2.5, GFR 19, troponin 0.05, BNP 5100 CT chest revealing small bilateral pleural effusions, bibasilar opacities, moderate pericardial effusion and mild cardiomegaly. She was given IV Bumex 1 mg. Given patient's presentation, ED provider discussed case with me and I decided to admit patient for further evaluation management. Hospital Course Hospital Course Hospital Course: Celina Matos is a 79-year-old female with a medical history significant for HFpEF on 3 L at night, CKD stage IV who presents with progressive shortness of breath over the past week. Patient was recently discharged from facility for similar presentation of HFpEF exacerbation. She was discharged with Bumex 2 mg. This past Thursday, she followed up with nephrology who recommended reducing Bumex to 1 mg daily and discontinued Farxiga due to worsening renal function. Reportedly her creatinine was 2.8, baseline around 2.4. Patient states over the next day, she gained 3 pounds and since then she has had progressive shortness of breath. Denies significant lower extremity edema, cough. Denies fever/chills, chest pain. Workup in the ED significant for creatinine 2.5, GFR 19, troponin 0.05, BNP 5100 CT chest revealing small bilateral pleural effusions, bibasilar opacities, moderate pericardial effusion and mild cardiomegaly. She was given IV Bumex 1 mg. Given patient's presentation, ED provider discussed case with me and I decided to admit patient for further evaluation management. Patient responded to diuretics. Improved oxygen requirement. Still requiring 2 L but less dyspneic. Wean oxygen as tolerated. Stable discharge home with continued diuretic regimen. Follow-up with cardiology in the next week. Problems addressed as follows: #Acute hypoxic respiratory failure #HFpEF exacerbation #NSTEMI type II #CKD stage IV #Hypokalemia #Pericardial effusion ? Presented with progressive shortness of breath, pulmonary edema, initial BNP 5100 with acute hypoxia requiring 3 L continuously initially, baseline 3 L at night. Troponins plateaued at 0.05, denies chest pain. EKG without acute ischemic changes. Likely demand ischemia from acute HFpEF. Nephrology recently decreased dose of Bumex from 2 mg to 1 mg, discontinued Farxiga on 03/20/2025. Patient states she was advised to double up on her Bumex at home by cardiology day before admission, which has not been efficacious shortness of breath. Bumex increased during admission. Patient showing improvement in breathing. On 2 L continuously during the day with sats in the mid to high 90s. Creatinine bumped to 2.7. Stable over 24 hours however. Making good urine. Continue Bumex 2 mg twice daily. Will hold SGLT 2 inhibitor at this time. Known pericardial effusion on CTA chest, and ECHO on 02/20/2025. LVEF 55% at that time. Follow- up with cardiology in a week as an outpatient. Repeat labs ordered for 4 to 5 days to evaluate kidney function and electrolytes. Refill of Bumex sent to patient's pharmacy. #Type 2 diabetes ? Hemoglobin A1c 7.1%. Continued home insulin regimen. #Hypothyroidism ? Continue home levothyroxine 50 mcg. Has been intermittently noncompliant as she and her believe medications can cause side effects. TFT stable. #Hypertension ? Continue hydralazine 25 mg 3 times daily. Avoiding DESTINY/ARB/HCTZ due to CKD and beta-blockers due to advanced age. #Normocytic anemia ? Hemoglobin 8.9, MCV normal. Stable. Likely anemia of chronic disease from CKD. Total time spent on discharge 34 minutes in counseling, documentation, chart review, and direct care with patient. Exam Data for Last 24 hours Vital signs and Labs for Last 24 Hours: Temp Pulse Resp BP Pulse Ox O2 Del Method O2 Flow Rate 97.8 F 82 18 144/63 H 96 Nasal Cannula 2 03/27/25 08:00 03/27/25 08:00 03/27/25 08:00 03/27/25 08:00 03/27/25 08:00 03/27/25 08:00 03/27/25 08:00 Laboratory Results - last 24 hr 03/26/25 08:50: POC Glucose 254 H 03/26/25 11:48: POC Glucose 141 H 03/26/25 16:04: POC Glucose 199 H 03/26/25 19:30: POC Glucose 176 H 03/27/25 05:38: POC Glucose 108 03/27/25 06:18: WBC 5.2, RBC 3.24 L, Hgb 8.5 L, Hct 28.0 L, MCV 86.4, MCH 26.2 L , MCHC 30.4 L, RDW 14.8, Plt Count 199, MPV 9.2, Neut % (Auto) 58.9, Lymph % (Auto) 28.2, [place] % (Auto) 8.8, Eos % (Auto) 3.1, Baso % (Auto) 0.8, Neut # (Auto) 3.1, Lymph # (Auto) 1.5, [place] # (Auto) 0.5, Eos # (Auto) 0.2, Baso # (Auto) 0.0, Sodium 134 L, Potassium 3.7, Chloride 100, Carbon Dioxide 29, Anion Gap 8.7, BUN 52 H, Creatinine 2.70 H, Estimated Creat Clear 18, Estimated GFR 17 L*, Est GFR ( Amer) 21 L, Glucose 100 D, Calcium 8.8, Magnesium 2.6 H, Total Bilirubin 0.4, AST 35, ALT 21, Alkaline Phosphatase 65, Total Protein 6.3, Albumin 3.5, Globulin 2.8, Albumin/Globulin Ratio 1.3 03/27/25 08:16: POC Glucose 275 H I & O for Last 24 hours: Intake & Output 03/24/25 03/25/25 03/26/25 03/27/25 23:59 23:59 23:59 23:59 Intake Total 1080 / 1080 300 / 300 Output Total 400 / 475 625 / 625 0 / 0 Balance -400 / -475 455 / 455 300 / 300 Weight 66.224 kg 67.222 kg 67.222 kg Constitutional Constitutional: no acute distress, average body habitus, chronically ill appearing and cooperative *Routine HEENT Exam Head: Present normocephalic ENT: Present mucous membranes moist Comments: Poor dentition *Routine Neck Exam Neck: Present supple; Absent lymphadenopathy *Routine Respiratory Exam Respiratory: Present CTA bilaterally; Absent rhonchi *Routine Cardiovascular Exam Cardiovascular: Present RRR *Routine Abdominal Exam Abdominal: Present soft and normoactive bowel sounds; Absent tenderness *Routine Rectal Exam Patient deferred: visual exam *Routine Exam Patient deferred: external exam *Routine Extremities Exam Extremities: Absent cyanosis, clubbing or edema *Routine Skin Exam Skin: Present intact and warm; Absent rash *Routine Neurological Exam Neurological: Present alert, oriented X3 and moving all extremities Results Data Completed and Pending Labs on day of discharge: Labs from last 24 hours 03/27/25 03/27/25 03/27/25 08:16 06:18 05:38 WBC 5.2 RBC 3.24 L Hgb 8.5 L Hct 28.0 L MCV 86.4 MCH 26.2 L MCHC 30.4 L RDW 14.8 Plt Count 199 MPV 9.2 Neut % (Auto) 58.9 Lymph % (Auto) 28.2 [place] % (Auto) 8.8 Eos % (Auto) 3.1 Baso % (Auto) 0.8 Neut # (Auto) 3.1 Lymph # (Auto) 1.5 [place] # (Auto) 0.5 Eos # (Auto) 0.2 Baso # (Auto) 0.0 Sodium 134 L Potassium 3.7 Chloride 100 Carbon Dioxide 29 Anion Gap 8.7 BUN 52 H Creatinine 2.70 H Estimated Creat Clear 18 Estimated GFR 17 L* Est GFR ( Amer) 21 L Glucose 100 D POC Glucose 275 H 108 Calcium 8.8 Magnesium 2.6 H Total Bilirubin 0.4 AST 35 ALT 21 Alkaline Phosphatase 65 Total Protein 6.3 Albumin 3.5 Globulin 2.8 Albumin/Globulin Ratio 1.3 03/26/25 03/26/25 03/26/25 19:30 16:04 11:48 WBC RBC Hgb Hct MCV MCH MCHC RDW Plt Count MPV Neut % (Auto) Lymph % (Auto) [place] % (Auto) Eos % (Auto) Baso % (Auto) Neut # (Auto) Lymph # (Auto) [place] # (Auto) Eos # (Auto) Baso # (Auto) Sodium Potassium Chloride Carbon Dioxide Anion Gap BUN Creatinine Estimated Creat Clear Estimated GFR Est GFR ( Amer) Glucose POC Glucose 176 H 199 H 141 H Calcium Magnesium Total Bilirubin AST ALT Alkaline Phosphatase Total Protein Albumin Globulin Albumin/Globulin Ratio 03/26/25 08:50 WBC RBC Hgb Hct MCV MCH MCHC RDW Plt Count MPV Neut % (Auto) Lymph % (Auto) [place] % (Auto) Eos % (Auto) Baso % (Auto) Neut # (Auto) Lymph # (Auto) [place] # (Auto) Eos # (Auto) Baso # (Auto) Sodium Potassium Chloride Carbon Dioxide Anion Gap BUN Creatinine Estimated Creat Clear Estimated GFR Est GFR ( Amer) Glucose POC Glucose 254 H Calcium Magnesium Total Bilirubin AST ALT Alkaline Phosphatase Total Protein Albumin Globulin Albumin/Globulin Ratio DS: Diagnosis Discharge Diagnosis (1) Hypothyroidism: Status: Acute Code(s): E03.9 - Hypothyroidism, unspecified (2) Acute hypoxic respiratory failure: Status: Acute Code(s): J96.01 - Acute respiratory failure with hypoxia (3) (HFpEF) heart failure with preserved ejection fraction: Status: Acute Code(s): I50.30 - Unspecified diastolic (congestive) heart failure (4) CKD (chronic kidney disease), stage IV: Status: Acute Code(s): N18.4 - Chronic kidney disease, stage 4 (severe) (5) Acute on chronic heart failure with preserved ejection fraction (HFpEF): Status: Acute Code(s): I50.33 - Acute on chronic diastolic (congestive) heart failure (6) HTN (hypertension): Status: Acute Code(s): I10 - Essential (primary) hypertension Qualifiers: Hypertension type: primary hypertension Qualified Code(s): I10 - Essential (primary) hypertension (7) Diabetes mellitus, type 2: Status: Acute Code(s): E11.9 - Type 2 diabetes mellitus without complications Qualifiers: Diabetes mellitus fci insulin use: without fci use Diabetes mellitus complication status: with other specified complication Qualified Code(s): E11.69 - Type 2 diabetes mellitus with other specified complication Meds Home Medications and Allergies Home Medications ?Medication ?Instructions ?Recorded ?Confirmed ?Type simvastatin 40 mg tablet 40 mg PO HS 10/10/23 5 History aspirin 81 mg tablet,delayed 81 mg PO DAILY 10/31/23 1 05/26/24 History release insulin glargine 100 unit/mL (3 30 unit SQ DAILY 10/2103/25/25 History mL) subcutaneous pen (Lantus Solostar U-100 Insulin) loratadine 10 mg capsule 10 mg PO DAILY 10/21/2402/28 History potassium gluconate 595 mg (99 mg) 595 mg PO BID 10/2103/25/25 History tablet levothyroxine 50 mcg tablet 50 mcg PO DAILY 02/01/25 1 05/27/24 History hydralazine 50 mg tablet 50 mg PO BID 03/26/25 History bumetanide 1 mg tablet 2 mg (2 x 1 mg) PO BID 30 da ys 03/27/25 Rx #120 tabs New Prescriptions to Start Prescriptions: Tony Martinez Allergies Allergy/AdvReac Type Severity Reaction Status Date / Time No Known Allergies Allergy Verified 03/01/25 09:38 Discharge Plan Disposition Patient Disposition: Home, Self-Care Condition: Fair Follow up Plan Follow up with: Robyn Velarde APRN [Nurse Practitioner, Cardiology] - 04/05/25 10:45 am Annalee Garcia MD [Primary Care Provider, Medical] - 04/04/25 10:00 am Porfirio Lawrence MD [Referring, Nephrology] - Enter time for follow up Referral Note: call for new patient appointment Prescriptions/Medication Reconciliation: Continued levothyroxine 50 mcg tablet 50 mcg PO DAILY Patient Comments: TAKE 1 TABLET BY MOUTH DAILY IN THE MORNING ON AN EMPTY STOMACH simvastatin 40 mg tablet 40 mg PO HS hydralazine 50 mg tablet 50 mg PO BID aspirin 81 mg Tablet,Delayed Release (Dr/Ec) 81 mg PO DAILY insulin glargine [Lantus Solostar U-100 Insulin] 100 unit/mL (3 mL) insulin pen 30 unit SQ DAILY potassium gluconate 595 mg (99 mg) tablet 595 mg PO BID Patient Comments: TAKE 1 TABLET BY MOUTH EVERY DAY loratadine 10 mg Capsule 10 mg PO DAILY Changed bumetanide 1 mg tablet 2 mg PO BID 30 Days Qty: 120 0RF Other Ambulatory Orders: Basic Metabolic Panel (Routine) Timeframe: 5 Days Facility: [facility] - Location: Laboratory Ordered By: Tony Cespedes Problem Reconciliation Problems Reviewed?: Yes Patient Discharge Instructions ACTIVITY: Continue current activity DIET: continue same diet Patient Instructions: DI for Respiratory Failure, Stop Light Heart Failure Print Language: [place] Providers Primary Care Provider: Annalee Garcia Admit Provider: Johann Mattson Attending Provider: Johann Mattson
[2025-03-27] MEDS: humaLOG 100 UNITS/ML 10ML VIAL (SSI) SUBCUT (11:36)
[2025-03-27 12:00] VITALS: BP 152/60; PULSE 87; RESP 17; TEMP 37; O2SAT 95
[2025-03-27 12:26] LABS: POC Glucose,Bedside 165 gm/dL (70-110)
--- NOTE | 2025-03-28 12:44 | SW/DCPLANNER ---
Spoke with patient on the phone. Patient stated that she is doing well. Patient stated that she is aware of her upcoming appointments. Patient stated that she was not prescribed any new medicine. Patient stated that she has no concerns or questions at this time. Enrique Robertson
== END 2025-03-27 13:39 | disposition home or self-care (01) ==
LOC: ER 16:37 → 2ND 16:52
PROVIDERS: Nurse Practitioner Family; Admitting Provider Student in an Organized Health Care Education/Training Program; Emergency Provider Emergency Medicine; PCP Family Medicine; Visit Provider Student in an Organized Health Care Education/Training Program
DX: E03.9 Hypothyroidism, unspecified (principal); J96.01 Acute respiratory failure with hypoxia; I50.30 Unspecified diastolic (congestive) heart failure; N18.4 Chronic kidney disease, stage 4 (severe); I50.33 Acute on chronic diastolic (congestive) heart failure; E11.69 Type 2 diabetes mellitus with other specified complication; I13.0 Hypertensive heart and chronic kidney disease with heart failure and stage 1 through stage 4 chronic kidney disease, or unspecified chronic kidney disease; E11.22 Type 2 diabetes mellitus with diabetic chronic kidney disease; Z98.51 Tubal ligation status; Z79.82 Long term (current) use of aspirin; Z79.890 Hormone replacement therapy; Z79.899 Other long term (current) drug therapy; Z79.4 Long term (current) use of insulin; I49.3 Ventricular premature depolarization; J90 Pleural effusion, not elsewhere classified; K80.20 Calculus of gallbladder without cholecystitis without obstruction; I25.10 Atherosclerotic heart disease of native coronary artery without angina pectoris
CPT/HCPCS: 36415; 71046; 71250; 80053; 82962; 83735; 83880; 84484; 85025; 85378; 93005; 99285; G0378; J1650; J1939